=== PATIENT | female | born 1980 | race Caucasian/White ===

== ENCOUNTER 2016-03-12 19:48 | Emergency (ER) | payer OTHER ==
[~2016-03-12 19:48] MED LIST: CELEXA10 MG PO; GABAPENTIN600 MG PO; LANTUS SOL100 UNITS/; METFORMIN HCL500 MG PO; WELLBUTRIN SR150 MG PO; ZOFRAN ODT4 MG PO
--- NOTE | 2016-03-12 22:24 | ED CLINICAL REPORT ---
Clinical Report - Physicians/Mid Levels [facility] [address] [place] [address] 03/12/2016 19:48 Patient: TESFAYE POSEY Time Seen: 2102; initial patient contact, initial documentation, patient care assumed. Arrived- By private vehicle. Historian- patient. HISTORY OF PRESENT ILLNESS Chief Complaint: ABNORMAL GLUCOSE. This started just prior to arrival and is now gone. (boyfriend brought her to er because he thought her sugar was elevated, and he gave her 30 units of lantis insulin, without checking her sugar). Similar symptoms previously: Chronically, worse. Recent medical care: The patient was seen recently at this facility and another facility in the emergency department. ( seen here on 03/01 for anxiety and high sugar and at [facility] on 02/24 for anxiety). REVIEW OF SYSTEMS No fever, difficulty breathing, chest pain, abdominal pain or vomiting. No diarrhea. All systems otherwise negative, except as recorded above. PAST HISTORY See nurses notes. PAST HISTORY Hepatitis C carrier. Constipation. Flank Pain. Suicidal Ideation. ADHD - Attention Deficit Hyperactivity Disorder. Hyperglycemia. Paresthesia. Vertigo. Anxiety Reaction. Back Pain. Sprain. Dental Pain. Migraine Headache. Headache. Gastritis. Diarrhea. Lifestyle / Substance Problems. Dehydration. Vomiting. Alcohol Intoxication. UTI - Urinary Tract Infection. Immunizations. Diabetes Mellitus. Substance Abuse. Pancreatitis. Abdominal Pain. Cholecystitis. Additional Surgeries: Cholecystectomy. Hip Surgery. SOCIAL HISTORY Heavy tobacco smoker. Regular alcohol use. History of IV drug use: methamphetamines. Recently used drugs today. Under influence in ED. No recent travel. Is a local resident. FAMILY HISTORY Negative. ADDITIONAL NOTES The nursing notes have been reviewed with agreement regarding the chief complaint, HPI, ROS, PMH and patient medications and allergies. PHYSICAL EXAM Vital Signs: 03/12/2016 20:08 BP: 129/92. HR: 104. RR: 24. O2 saturation: 96%. Temp: 97.4 F. Torrez-Keenan pain scale: 8/10. Have been reviewed as normal and appear to be correct. Appearance: Alert. No acute distress. Anxious. Eyes: Pupils equal, round and reactive to light. Eyes normal inspection. Neck: Normal inspection. Neck supple. CVS: Normal heart rate and rhythm. Heart sounds normal. Pulses normal. Respiratory: No respiratory distress. Breath sounds normal. Chest nontender. Abdomen: No visible injury. Soft and nontender. Back: Normal inspection. Skin: Skin warm and dry. Normal skin color. No rash. Normal skin turgor. Extremities: Extremities exhibit normal ROM. No lower extremity edema. Neuro: Oriented X 3. No motor deficit. No sensory deficit. LABS, X-RAYS, AND EKG Bedside Tests: Glucose normal - 100 (performed at bedside). PROGRESS AND PROCEDURES Course of Care: 21:22 03/12/16. pt has long sen recommends no narcs or controlled substances be given, and frequent er visits, #23, see report for full details repeat glucose 258, pt was asleep prior to sugar check and resting comfortably. 03/12/2016 22:47 BP: 106/71. HR: 84. RR: 16. O2 saturation: 97%. Temp: 97 F. Pain level now: 0/10. Vital Signs: have been reviewed as normal and appear to be correct. Patient counseled in person regarding the patient's stable condition, test results and diagnosis. 22:24. Differential Diagnosis: Other possible considerations: substance abuse, anxiety, hypoglycemia, hyperglycemia. Above considerations are based on history, physical exam and laboratory data. Differential diagnosis was discussed with patient. Disposition: Discharged home in good and improved condition (22:24). Condition: good and stable. CLINICAL IMPRESSION Chronic substance abuse- methamphetamines with intoxication and anxiety. Normal exam upon presentation, while in the ED and at discharge. INSTRUCTIONS Warnings: GENERAL WARNINGS: Return or contact your physician immediately if your condition worsens or changes unexpectedly, if not improving as expected, or if other problems arise. Specifically return if problem worsens. Follow-up: Follow up with your doctor in about one week as needed. Call for an appointment. Summary of care provided to patient. Understanding of the discharge instructions verbalized by patient. (Electronically signed by Kandy Herron A.R.N.P. 03/12/2016 23:38)
--- NOTE | 2016-03-12 22:24 | ED CLINICAL REPORT ---
Clinical Report - Physicians/Mid Levels [facility] [address] [place] [address] 03/12/2016 19:48 Patient: TESFAYE POSEY Time Seen: 2102; initial patient contact, initial documentation, patient care assumed. Arrived- By private vehicle. Historian- patient. HISTORY OF PRESENT ILLNESS Chief Complaint: ABNORMAL GLUCOSE. This started just prior to arrival and is now gone. (boyfriend brought her to er because he thought her sugar was elevated, and he gave her 30 units of lantis insulin, without checking her sugar). Similar symptoms previously: Chronically, worse. Recent medical care: The patient was seen recently at this facility and another facility in the emergency department. ( seen here on 03/01 for anxiety and high sugar and at [facility] on 02/24 for anxiety). REVIEW OF SYSTEMS No fever, difficulty breathing, chest pain, abdominal pain or vomiting. No diarrhea. All systems otherwise negative, except as recorded above. PAST HISTORY See nurses notes. PAST HISTORY Hepatitis C carrier. Constipation. Flank Pain. Suicidal Ideation. ADHD - Attention Deficit Hyperactivity Disorder. Hyperglycemia. Paresthesia. Vertigo. Anxiety Reaction. Back Pain. Sprain. Dental Pain. Migraine Headache. Headache. Gastritis. Diarrhea. Lifestyle / Substance Problems. Dehydration. Vomiting. Alcohol Intoxication. UTI - Urinary Tract Infection. Immunizations. Diabetes Mellitus. Substance Abuse. Pancreatitis. Abdominal Pain. Cholecystitis. Additional Surgeries: Cholecystectomy. Hip Surgery. SOCIAL HISTORY Heavy tobacco smoker. Regular alcohol use. History of IV drug use: methamphetamines. Recently used drugs today. Under influence in ED. No recent travel. Is a local resident. FAMILY HISTORY Negative. ADDITIONAL NOTES The nursing notes have been reviewed with agreement regarding the chief complaint, HPI, ROS, PMH and patient medications and allergies. PHYSICAL EXAM Vital Signs: 03/12/2016 20:08 BP: 129/92. HR: 104. RR: 24. O2 saturation: 96%. Temp: 97.4 F. Torrez-Keenan pain scale: 8/10. Have been reviewed as normal and appear to be correct. Appearance: Alert. No acute distress. Anxious. Eyes: Pupils equal, round and reactive to light. Eyes normal inspection. Neck: Normal inspection. Neck supple. CVS: Normal heart rate and rhythm. Heart sounds normal. Pulses normal. Respiratory: No respiratory distress. Breath sounds normal. Chest nontender. Abdomen: No visible injury. Soft and nontender. Back: Normal inspection. Skin: Skin warm and dry. Normal skin color. No rash. Normal skin turgor. Extremities: Extremities exhibit normal ROM. No lower extremity edema. Neuro: Oriented X 3. No motor deficit. No sensory deficit. LABS, X-RAYS, AND EKG Bedside Tests: Glucose normal - 100 (performed at bedside). PROGRESS AND PROCEDURES Course of Care: 21:22 03/12/16. pt has long sen recommends no narcs or controlled substances be given, and frequent er visits, #23, see report for full details repeat glucose 258, pt was asleep prior to sugar check and resting comfortably. 03/12/2016 22:47 BP: 106/71. HR: 84. RR: 16. O2 saturation: 97%. Temp: 97 F. Pain level now: 0/10. Vital Signs: have been reviewed as normal and appear to be correct. Patient counseled in person regarding the patient's stable condition, test results and diagnosis. 22:24. Differential Diagnosis: Other possible considerations: substance abuse, anxiety, hypoglycemia, hyperglycemia. Above considerations are based on history, physical exam and laboratory data. Differential diagnosis was discussed with patient. Disposition: Discharged home in good and improved condition (22:24). Condition: good and stable. CLINICAL IMPRESSION Chronic substance abuse- methamphetamines with intoxication and anxiety. Normal exam upon presentation, while in the ED and at discharge. INSTRUCTIONS Warnings: GENERAL WARNINGS: Return or contact your physician immediately if your condition worsens or changes unexpectedly, if not improving as expected, or if other problems arise. Specifically return if problem worsens. Follow-up: Follow up with your doctor in about one week as needed. Call for an appointment. Summary of care provided to patient. Understanding of the discharge instructions verbalized by patient. (Electronically signed by Kandy Herron A.R.N.P. 03/12/2016 23:38)
--- NOTE | 2016-03-12 22:25 | ED NURSING NOTES ---
Clinical Report - Nurses [facility] [address] [place] [address] 03/12/2016 19:48 Patient: DEJA POSEY TRIAGE Triage time 20:08. Acuity: LEVEL 3. Chief Complaint: (high blood sugar (pt unsure of how high, friend states that she hides her test strips and refuses to admit that she is diabetic), blurred vision). Alert. ( BS- 100). --20:17 Zoe Martinez R.N. 20:08 03/12/16. BP: 129/92. HR: 104. RR: 24. O2 saturation: 96%. Temp: 97.4 F (oral). Torrez-Keenan pain scale: 8/10. --20:17 Zoe Martinez R.N. Weight: 48 kg stated. Height/Length: 64 inches Per Patient. BMI: 18.2. --20:12 Zoe Martinez R.N. Medications None. --22:50 Yahaira Garza R.N. Allergies Phenergan. Shellfish-derived Products. --22:49 Yahaira Garza R.N. History Arrived by private vehicle. Historian: patient. Accompanied by friend. Primary physician ([facility], [place]). This started today. Onset. (at about 1500). 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 SOCIAL HX: Heavy tobacco smoker (cigarette)- less than 1 pack per day. Occasional alcohol use. History of IV drug use: methamphetamines. --20:17 Zoe Martinez R.N. Interventions ID band on patient. To treatment room. --20:17 Zoe Martinez R.N. PHYSICAL ASSESSMENT Patient gowned. GENERAL / NEURO / PSYCH: Alert. Appears anxious. HEENT: Mucous membranes are pink. CVS: Capillary refill less than 2 seconds. SKIN: Skin is warm and dry. --20:24 Zoe Martinez R.N. NURSING PROGRESS NOTES Head of bed elevated. Two patient identifiers checked. Call light placed in reach. Side rails up x 1. Bed placed in lowest position. Brakes of bed on. --20:25 Zoe Martinez R.N. Patient ready for evaluation- chart flagged. --20:25 Zoe Martinez R.N. 20:20 03/12/2016 Site #1 started via IV in the right antecubital space with an 20g angiocath, with aseptic technique and good blood return; one attempt. Blood drawn: rainbow set. Labeled in the presence of the patient and sent to the lab. Saline lock flushed with 5 mL saline. --20:53 Yahaira Garza R.N. 21:59. Finger stick glucose: 258 mg/dL. --21:59 McQuoid, Deja, ER Tech1 22:01 03/12/16. Reassessment after intervention. Overall patient status is the same- she states feels the same. RESPIRATORY: No respiratory distress. CVS: Normal sinus rhythm noted. SKIN: Skin is warm and dry. Skin color within normal limits. --22:01 Yahaira Garza R.N. 22:45 03/12/2016 Site #1 removed upon discharge. Catheter intact. Bandaid applied. --22:47 Yahaira Garza R.N. DISPOSITION / DISCHARGE 22:48 03/12/16. Condition at departure: improved and stable. The goals identified in the patient's plan of care were met. No learning barriers present. Reviewed warnings (stop using meth). Reviewed medication(s) (resume home medications). Reviewed referral to a primary care physician for followup. Patient verbalized understanding. Written instructions provided in Occitan. The patient was discharged home and accompanied by mixer lever operator. She left the Emergency Department ambulatory and via private vehicle. Binding Cutter driving. FALL RISK ASSESSMENT: Fall risk assessment completed. No fall risk identified. --22:48 Yahaira Garza R.N. 22:47 03/12/16. BP: 106/71. HR: 84. RR: 16. O2 saturation: 97%. Temp: 97 F. Pain level now: 0/10. --22:48 Yahaira Garza R.N. Departure time: 22:48 Mar 12 2016. --22:49 Yahaira Garza R.N. Locked/Released at 03/12/2016 22:50 by Yahaira Garza R.N.
--- NOTE | 2016-03-12 22:25 | ED ORDER SUMMARY ---
..... Patient: TESFAYE POSEY OrderSheet [facility] VisitID: [id number] [address] [place] [address] 36y, F Registration Date/Time: 03/12/2016 ORDER SHEET Weight: 48.0 kg (stated) Allergies: Phenergan, Shellfish-derived Products GENERAL ORDERS: POC Glucose (21:49 03/12/2016 HBivens A.R.N.P.) (Ack 21:55 AMcQuoid ER Tech1) (21:59 AMcQuoid ER Tech1) MEDICATION ORDERS: IV FLUIDS: ORDER SHEET NOTES: [Electronically signed by Yahaira Garza R.N. (22:50 03/12/2016)] [Electronically signed by Kandy HerronR.N.PMoses (23:38 03/12/2016)] [Electronically locked/signed by Yahaira Garza R.N. (22:50 03/12/2016)]
--- NOTE | 2016-03-12 22:25 | ED NURSING NOTES ---
Clinical Report - Nurses [facility] [address] [place] [address] 03/12/2016 19:48 Patient: DEJA POSEY TRIAGE Triage time 20:08. Acuity: LEVEL 3. Chief Complaint: (high blood sugar (pt unsure of how high, friend states that she hides her test strips and refuses to admit that she is diabetic), blurred vision). Alert. ( BS- 100). --20:17 Zoe Martinez R.N. 20:08 03/12/16. BP: 129/92. HR: 104. RR: 24. O2 saturation: 96%. Temp: 97.4 F (oral). Torrez-Keenan pain scale: 8/10. --20:17 Zoe Martinez R.N. Weight: 48 kg stated. Height/Length: 64 inches Per Patient. BMI: 18.2. --20:12 Zoe Martinez R.N. Medications None. --22:50 Yahaira Garza R.N. Allergies Phenergan. Shellfish-derived Products. --22:49 Yahaira Garza R.N. History Arrived by private vehicle. Historian: patient. Accompanied by friend. Primary physician ([facility]). This started today. Onset. (at about 1500). Treatment LICENSED MIDWIFE: (insulin (30 units of lantus given at 1500)). SOCIAL HX: Heavy tobacco smoker (cigarette)- less than 1 pack per day. Occasional alcohol use. History of IV drug use: methamphetamines. --20:17 Zoe Martinez R.N. Interventions ID band on patient. To treatment room. --20:17 Zoe Martinez R.N. PHYSICAL ASSESSMENT Patient gowned. GENERAL / NEURO / PSYCH: Alert. Appears anxious. HEENT: Mucous membranes are pink. CVS: Capillary refill less than 2 seconds. SKIN: Skin is warm and dry. --20:24 Zoe Martinez R.N. NURSING PROGRESS NOTES Head of bed elevated. Two patient identifiers checked. Call light placed in reach. Side rails up x 1. Bed placed in lowest position. Brakes of bed on. --20:25 Zoe Martinez R.N. Patient ready for evaluation- chart flagged. --20:25 Zoe Martinez R.N. 20:20 03/12/2016 Site #1 started via IV in the right antecubital space with an 20g angiocath, with aseptic technique and good blood return; one attempt. Blood drawn: rainbow set. Labeled in the presence of the patient and sent to the lab. Saline lock flushed with 5 mL saline. --20:53 Yahaira Garza R.N. 21:59. Finger stick glucose: 258 mg/dL. --21:59 McQuoid, Deja, ER Tech1 22:01 03/12/16. Reassessment after intervention. Overall patient status is the same- she states feels the same. RESPIRATORY: No respiratory distress. CVS: Normal sinus rhythm noted. SKIN: Skin is warm and dry. Skin color within normal limits. --22:01 Yahaira Garza R.N. 22:45 03/12/2016 Site #1 removed upon discharge. Catheter intact. Bandaid applied. --22:47 Yahaira Garza R.N. DISPOSITION / DISCHARGE 22:48 03/12/16. Condition at departure: improved and stable. The goals identified in the patient's plan of care were met. No learning barriers present. Reviewed warnings (stop using meth). Reviewed medication(s) (resume home medications). Reviewed referral to a primary care physician for followup. Patient verbalized understanding. Written instructions provided in Hungarian. The patient was discharged home and accompanied by youth coordinator. She left the Emergency Department ambulatory and via private vehicle. Blocking Machine Operator driving. FALL RISK ASSESSMENT: Fall risk assessment completed. No fall risk identified. --22:48 Yahaira Garza R.N. 22:47 03/12/16. BP: 106/71. HR: 84. RR: 16. O2 saturation: 97%. Temp: 97 F. Pain level now: 0/10. --22:48 Yahaira Garza R.N. Departure time: 22:48 Mar 12 2016. --22:49 Yahaira Garza R.N. Locked/Released at 03/12/2016 22:50 by Yahaira Garza R.N.
--- NOTE | 2016-03-12 22:25 | ED ORDER SUMMARY ---
..... Patient: TESFAYE POSEY OrderSheet [facility] VisitID: [id number] [address] [place] [address] 36y, F Registration Date/Time: 03/12/2016 ORDER SHEET Weight: 48.0 kg (stated) Allergies: Phenergan, Shellfish-derived Products GENERAL ORDERS: POC Glucose (21:49 03/12/2016 HBivens A.R.N.P.) (Ack 21:55 AMcQuoid ER Tech1) (21:59 AMcQuoid ER Tech1) MEDICATION ORDERS: IV FLUIDS: ORDER SHEET NOTES: [Electronically signed by Yahaira Garza R.N. (22:50 03/12/2016)] [Electronically signed by Kandy HerronR.N.PMoses (23:38 03/12/2016)] [Electronically locked/signed by Yahaira Garza R.N. (22:50 03/12/2016)]
--- NOTE | 2016-03-12 23:38 | ED MAR SUMMARY ---
..... Medication Administration Record [place] [address] [place] [id number] Patient: TESFAYE POSEY Visit ID: [id number] 36y, F Weight: 48.0 kg Height/Length: 64 in BMI: 18.2 ALLERGIES: Phenergan, Shellfish-derived Products
--- NOTE | 2016-03-12 23:38 | ED MED RECONCILIATION SUMMARY ---
Patient: TESFAYE POSEY Medication Reconciliation Report [facility] VisitID: [id number] [place] [address] 36y, F Registration Date/Time: 03/12/2016 Weight: 48.0 kg Height/Length: 64 in. BMI: 18.2 ALLERGIES: Phenergan, Shellfish-derived Products The patient's Home Medications are listed below: NONE. The source(s) of the original Home Medication information: Not obtained. The following Medications were given to the patient in the Emergency Department: None. The following Medications were prescribed to the patient: None.
--- NOTE | 2016-03-12 23:38 | ED DISCHARGE INSTRUCTIONS ---
Patient: TESFAYE POSEY General Instructions [facility] VisitID: [id number] [place] [address] 36y, F Registration Date/Time: 03/12/2016 Chronic substance abuse- methamphetamines with intoxication and anxiety. Normal exam upon presentation, while in the ED and at discharge. INSTRUCTIONS Warnings: GENERAL WARNINGS: Return or contact your physician immediately if your condition worsens or changes unexpectedly, if not improving as expected, or if other problems arise. Specifically return if problem worsens. Follow-up: Follow up with your doctor in about one week as needed. Call for an appointment. Summary of care provided to patient. Understanding of the discharge instructions verbalized by patient. ADDITIONAL INFORMATION Normal Exam [6Yr - Adult] Based on your or your child's exam today, there are no signs of illness or injury. Be assured that the symptoms that worried you are normal. They do not suggest any illness requiring testing or treatment at this time. Home Care: You (or your child) can return to normal activities and diet. If you or your child have new or unusual symptoms not already discussed today, contact the doctor. Follow Up with the doctor for the next routine appointment. For more information: For childrens health information: www.kidshealth.org For adult health information: www.[facility].org Drug Abuse Use and abuse of such drugs as marijuana, amphetamines (speed, crank), cocaine, heroin or prescription pain medicines (Vicodin, codeine), sedatives and sleeping pills (Valium, Klonopin), PCP, mescaline and LSD may lead to addiction or dependence. Once this occurs, you are at greater risk for any of the following: Craving for the drug and unable to stop using the drug even though you think you want to stop (psychological dependence) Drug withdrawal symptoms if you stop taking the drug (physical dependence) Loss of your job or your family Arrest, conviction and fpc sentence for possession of an illegal substance or for driving under the influence of such a substance Accidental injuries to yourself or others while you are under the influence of the drug (in a car or at home). HIV infection (much greater risk if you use IV drugs) Other sexually transmitted diseases (herpes, chlamydia, gonorrhea and others) Severe and fatal infection of the heart valves (if you use IV drugs) Stroke, heart attack, hepatitis B or C, kidney failure from overdose Home Care: Admit you have a drug problem. Ask for help from your family and close friends. Seek professional help. This could be in the form of individual psychotherapy or counseling or an outpatient, inpatient, or residential drug treatment program. Join a self-help group for drug abuse. Avoid friends who abuse drugs themselves or tempt you to continue abusing drugs. Eat a balanced diet and begin a regular exercise program. Follow Up with your doctor or as advised by our staff. Contact one of the resources below for help. National [place] on Alcoholism and Drug Dependence www.ncadd.org 786-709-WAZS Narcotics Anonymous www.na.org 098-739-8343 National Alcohol and Substance Abuse Information Center (for referral to treatment programs) www.addictionHelpmycash 353-149-0289 Get Prompt Medical Attention if any of the following occur: Agitation, anxiety, unable to sleep Unintended weight loss (more than 10 to 15 pounds over 3 months) Seizure Chest pain Fever of 100.4F (38C) or higher, or as directed by your healthcare provider Excess drowsiness or inability to be awakened Shortness of breath Slow breathing under 8 breaths per minute Cough with colored sputum Redness, swelling or tenderness at an injection site You have been given the following additional information: Normal Exam, (Child) (Adult) Drug Abuse (Electronically signed by Kandy Herron A.R.N.P. 03/12/2016 23:38)
--- NOTE | 2016-03-12 23:38 | ED MAR SUMMARY ---
..... Medication Administration Record [place] [address] [place] [id number] Patient: TESFAYE POSEY Visit ID: [id number] 36y, F Weight: 48.0 kg Height/Length: 64 in BMI: 18.2 ALLERGIES: Phenergan, Shellfish-derived Products
--- NOTE | 2016-03-12 23:38 | ED DISCHARGE INSTRUCTIONS ---
Patient: TESFAYE POSEY General Instructions [facility] VisitID: [id number] [place] [address] 36y, F Registration Date/Time: 03/12/2016 Chronic substance abuse- methamphetamines with intoxication and anxiety. Normal exam upon presentation, while in the ED and at discharge. INSTRUCTIONS Warnings: GENERAL WARNINGS: Return or contact your physician immediately if your condition worsens or changes unexpectedly, if not improving as expected, or if other problems arise. Specifically return if problem worsens. Follow-up: Follow up with your doctor in about one week as needed. Call for an appointment. Summary of care provided to patient. Understanding of the discharge instructions verbalized by patient. ADDITIONAL INFORMATION Normal Exam [6Yr - Adult] Based on your or your child's exam today, there are no signs of illness or injury. Be assured that the symptoms that worried you are normal. They do not suggest any illness requiring testing or treatment at this time. Home Care: You (or your child) can return to normal activities and diet. If you or your child have new or unusual symptoms not already discussed today, contact the doctor. Follow Up with the doctor for the next routine appointment. For more information: For childrens health information: www.kidshealth.org For adult health information: www.[facility].org Drug Abuse Use and abuse of such drugs as marijuana, amphetamines (speed, crank), cocaine, heroin or prescription pain medicines (Vicodin, codeine), sedatives and sleeping pills (Valium, Klonopin), PCP, mescaline and LSD may lead to addiction or dependence. Once this occurs, you are at greater risk for any of the following: Craving for the drug and unable to stop using the drug even though you think you want to stop (psychological dependence) Drug withdrawal symptoms if you stop taking the drug (physical dependence) Loss of your job or your family Arrest, conviction and residential sentence for possession of an illegal substance or for driving under the influence of such a substance Accidental injuries to yourself or others while you are under the influence of the drug (in a car or at home). HIV infection (much greater risk if you use IV drugs) Other sexually transmitted diseases (herpes, chlamydia, gonorrhea and others) Severe and fatal infection of the heart valves (if you use IV drugs) Stroke, heart attack, hepatitis B or C, kidney failure from overdose Home Care: Admit you have a drug problem. Ask for help from your family and close friends. Seek professional help. This could be in the form of individual psychotherapy or counseling or an outpatient, inpatient, or residential drug treatment program. Join a self-help group for drug abuse. Avoid friends who abuse drugs themselves or tempt you to continue abusing drugs. Eat a balanced diet and begin a regular exercise program. Follow Up with your doctor or as advised by our staff. Contact one of the resources below for help. National [place] on Alcoholism and Drug Dependence www.ncadd.org 790-596-CEOR Narcotics Anonymous www.na.org 914-193-4359 National Alcohol and Substance Abuse Information Center (for referral to treatment programs) www.addictionGoGarden 988-122-8667 Get Prompt Medical Attention if any of the following occur: Agitation, anxiety, unable to sleep Unintended weight loss (more than 10 to 15 pounds over 3 months) Seizure Chest pain Fever of 100.4F (38C) or higher, or as directed by your healthcare provider Excess drowsiness or inability to be awakened Shortness of breath Slow breathing under 8 breaths per minute Cough with colored sputum Redness, swelling or tenderness at an injection site You have been given the following additional information: Normal Exam, (Child) (Adult) Drug Abuse (Electronically signed by Kandy Herron A.R.N.P. 03/12/2016 23:38)
--- NOTE | 2016-03-12 23:38 | ED MED RECONCILIATION SUMMARY ---
Patient: TESFAYE POSEY Medication Reconciliation Report [facility] VisitID: [id number] [place] [address] 36y, F Registration Date/Time: 03/12/2016 Weight: 48.0 kg Height/Length: 64 in. BMI: 18.2 ALLERGIES: Phenergan, Shellfish-derived Products The patient's Home Medications are listed below: NONE. The source(s) of the original Home Medication information: Not obtained. The following Medications were given to the patient in the Emergency Department: None. The following Medications were prescribed to the patient: None.
== END 2016-03-12 22:50 | disposition home or self-care (01) ==
LOC: ED SRH 19:48
DX: F15.129 Other stimulant abuse with intoxication, unspecified (principal); F41.9 Anxiety disorder, unspecified; E11.9 Type 2 diabetes mellitus without complications; F90.9 Attention-deficit hyperactivity disorder, unspecified type; Z91.013 Allergy to seafood; Z88.8 Allergy status to other drugs, medicaments and biological substances
CPT/HCPCS: 90098

== ENCOUNTER 2016-03-15 10:31 | Inpatient (IN) | payer OTHER ==
--- NOTE | 2016-03-15 15:15 | ED CLINICAL REPORT ---
Clinical Report - Physicians/Mid Levels [facility] [address] [place] [address] 03/15/2016 10:30 Patient: TESFAYE POSEY Time Seen: 10:57. Arrived- By private vehicle. Historian- patient. History limited by vague historian. Physical Exam limited by poor cooperation. HISTORY OF PRESENT ILLNESS Chief Complaint: LESION. This started about 1 week ago and is still present and now worse. It was gradual in onset and has been constant. It is described as severely painful. It has been located on the left cheek, lips and perioral area. No cause has been identified. REVIEW OF SYSTEMS Unobtainable due to patient's uncooperativeness. PAST HISTORY Medications: None. Allergies: Phenergan. Shellfish-derived Products. SOCIAL HISTORY Current some days smoker (cigarette). History of drug use: cocaine, heroin, methamphetamines. FAMILY HISTORY Denies family medical history. ADDITIONAL NOTES The nursing notes have been reviewed. PHYSICAL EXAM Vital Signs: 03/15/2016 10:43 BP: 137/76. HR: 106. RR: 18. O2 saturation: 99%. Temp: 98.6 F. Have been reviewed. Appearance: Alert. Eyes: Pupils equal, round and reactive to light. ENT: Pharynx normal. Neck: Neck supple. CVS: Normal heart rate and rhythm. Heart sounds normal. Respiratory: No respiratory distress. Breath sounds normal. Abdomen: Nontender. No organomegaly. Skin: Medium abscess with fluctuance and cellulitis to the face. Extremities: Extremities nontender. No calf tenderness. Neuro: Moderately altered mental status: labile. LABS, X-RAYS, AND EKG Laboratory Tests: UA-Culture if indicated: (JARAD: 03/15/2016 13:11) ( MsgRcvd 03/15/2016 13:40) Final results Test Result Flag Units (Reference) URINE COLOR YELLOW URINE APPEARANCE CLEAR URINE GLUCOSE 3+ (NEGATIVE) URINE BILIRUBIN NEGATIVE (NEGATIVE) URINE KETONE TRACE (NEGATIVE) URINE SPECIFIC GRAVITY 1.010 (1.010-1.030) URINE PH 6.5 (5.0-8.0) URINE PROTEIN NEGATIVE (NEGATIVE) URINE UROBILINOGEN 0.2 EU/dL (0.2-1.0) URINE NITRITE NEGATIVE (NEGATIVE) URINE BLOOD 3+ (NEGATIVE) URINE LEUK ESTERASE NEGATIVE (NEGATIVE) URINE RBC 25-50 rbc/hpf (0-1) URINE WBC 1-3 wbc/hpf (0-1) URINE EPITHELIAL CELLS NONE SEEN EPI/hpf (0-5) URINE BACTERIA NONE SEEN (NONE SEEN) URINE COMMENT CULT NOT INDICATED URINE CULTURES ARE SET-UP BASED ON THE FOLLOWING CRITERIA:POSITIVE NITRITEPOSITIVE LEUKOCYTE ESTERASEGREATER THAN 10 WHITE BLOOD CELLSMODERATE (2+) OR GREATER BACTERIA Urine: (JARAD: 03/15/2016 13:11) ( [facility] 03/15/2016 13:30) Final results Test Result Flag Units (Reference) URINE NEGATIVE CBC w Diff: (JARAD: 03/15/2016 12:40) ( [facility] 03/15/2016 12:51) Final results Test Result Flag Units (Reference) WHITE BLOOD COUNT 13.4 H K/uL (4.5-11.5) RED BLOOD COUNT 4.20 M/uL (4.00-5.20) HEMOGLOBIN 12.2 gm/dL (12.0-16.0) HEMATOCRIT 37.1 % (36.0-46.0) MEAN CELL VOLUME 88 fL (80-100) MEAN CORPUSCULAR HGB 29 pg (26-34) MEAN CORPUSCULAR HGB CONC 33 g/dL (31-37) RED CELL DISTRIBUTION WIDTH 13.5 % (11.6-14.8) PLATELET COUNT 263 K/uL (150-400) NEUTROPHIL % 69.9 % (50-75) LYMPH % 21.6 L % (25-40) MONO % 7.8 % (3-14) EOSINOPHIL % 0.5 % (0-4) BASOPHIL % 0.2 % (0-2) PT with INR: (JARAD: 03/15/2016 12:40) ( [facility] 03/15/2016 12:59) Final results Test Result Flag Units (Reference) INR 1.0 (0.8-1.2) Low Intensity Therapy: INR 1.5-2.0 PT range 18.5-23.1Mod.Intensity Therapy: INR 2.0-3.0 PT range 23.1-31.5High Intensity Therapy: INR 2.5-3.5 PT range 27.4-35.5High Intensity Therapy 2: INR 3.0-4.0 PT range 31.5-39.3 APTT 26 SECONDS (24-34) Acetone, Serum: (JARAD: 03/15/2016 12:40) ( [facility] 03/15/2016 13:04) Final results Test Result Flag Units (Reference) ACETONE, SERUM QUALITATIVE NEGATIVE (NEGATIVE) Urine Drug Screen: (JARAD: 03/15/2016 13:11) ( [facility] 03/15/2016 14:01) Final results Test Result Flag Units (Reference) AMPHETAMINE/METHAMPHETAMINE POSITIVE H (NEGATIVE) BARBITURATE NEGATIVE (NEGATIVE) BENZODIAZEPINE NEGATIVE (NEGATIVE) CANNABINOID NEGATIVE (NEGATIVE) COCAINE NEGATIVE (NEGATIVE) ECSTASY NEGATIVE (NEGATIVE) METHADONE NEGATIVE (NEGATIVE) OPIATE NEGATIVE (NEGATIVE) The urine drug screen is a qualitative screening test fordrug overdose and abuse. All screen results should beconsidered as presumptive.Drugs screened for are as follows:BenzodiazepinesCocaineAmphetamines/MetamphetaminesTHC (Tetrahydrocannabinol)OpiatesBarbituratesEcstasyMethadonePositive results are unconfirmed. For confirmation, notifythe lab for the specimen to be sent to the reference lab.All confirmations must be performed by a differentmethodology.The ingestion of natural herbal and plant productscontaining Ephedra/Ephedra metabolites can produce in urineone or more substances capable of cross reacting withamphetamine/methamphetamine immunoassays. These testsprovide a preliminary result only. A more specificalternative chemical method must be used to obtain aconfirmed analytical result. Lactate, Serum: (JARAD: 03/15/2016 13:50) ( MsgRcvd 03/15/2016 14:50) Final results Test Result Flag Units (Reference) LACTIC ACID 1.3 mmol/L (0.4-2.0) CMP: (JARAD: 03/15/2016 12:40) ( MsgRcvd 03/15/2016 13:23) Final results Test Result Flag Units (Reference) GLUCOSE 566 *H mg/dL (70-110) CRITICAL RESULTS CALLEDCalled to DERIAN AUGUSTIN RN 03/15/16 1321Were 2 patient identifiers used? YWas the result read back? Y BUN 13 mg/dL (7-18) CREATININE 0.7 mg/dL (0.6-1.3) Estimated GFR >60 mL/min Estimated GFR- >60 mL/min Note: Persistent reduction over 3 months in eGFR<60 mL/min/1.73 m2 defines CKD. Patients with eGFR values>=60 mL/min/1.73 m2 may also have CKD if evidence ofpersistent proteinuria. Additional information may be foundat www.kidney.org. SODIUM 134 L mmol/L (136-145) POTASSIUM 4.1 mmol/L (3.5-5.1) CHLORIDE 100 mmol/L (98-107) CARBON DIOXIDE 23 mmol/L (21-32) CALCIUM 8.7 mg/dL (8.5-10.1) TOTAL PROTEIN 7.2 g/dL (6.4-8.2) ALBUMIN 3.3 g/dL (3.3-5.0) BILIRUBIN, TOTAL 0.7 mg/dL (0.0-1.0) ALKALINE PHOSPHATASE 131 H U/L (46-116) AST (SGOT) 63 H U/L (15-37) ALT (SGPT) 118 H U/L (12-78) LIPASE 71 L U/L (73-393) AMYLASE 13 L U/L (25-115) ABG: (JARAD: 03/15/2016 11:56) ( MsgRcvd 03/15/2016 13:23) Final results Test Result Flag Units (Reference) FIO2 21 % (20-101) ABG MODE OF DELIVERY RA MODIFIED RYAN TEST POSITIVE? YES ARTERIAL BLOOD GAS SITE RR ARTERIAL BLOOD GAS pH 7.48 H (7.35-7.45) ABG PCO2 29.0 L mmHg (35-45) ABG PO2 105.0 H mmHg (80.0-100.0) ABG BASE EXCESS -1.4 H mmol/L (-6.0--6.0) ABG HCO3 21.7 mmol/L (20.0-26.0) ABG TCO2 22.6 L mmol/L (24.0-30.0) ABG LaIgA3e 11.2 mmHg (7.0-14.0) *NOTE: Normal rangeis based on aFIO2 of 21% ABG SAT O2 98.9 % (95.1-100.0) ABG TOTAL HEMOGLOBIN 12.0 g/dL (12.0-16.0) ABG O2 HEMOGLOBIN 97.3 % (95.0-100.0) ABG CARBOXYHEMOGLOBIN 1.1 % (0.5-1.5) ABG METHEMOGLOBIN 0.5 % (0.4-1.5) ABG RHEMOGLOBIN 1.1 % . PROGRESS AND PROCEDURES Central Line Placement: A standardized protocol was used for insertion. Time-out completed immediately before the procedure. The risks of the procedure, benefits and alternatives were explained. Consent was obtained. Hand hygiene observed, sterile barrier precautions adhered to (cap, mask, gown, gloves and large sterile sheet) and chlorhexidine skin antisepsis used. Local anesthetic infiltrated .18g triple lumen central line placed using Seldinger technique. The patient was clinically stable following the procedure. ( Placement was not successful. However, Blood was obtained for testing). Course of Care: Multiple attempts were made by nursing staff to place an IV. These were unsuccessful. Therefore I attempted to place a left femoral triple lumen central line. I gained access and was able to obtain blood samples. However, I was not able to advance the catheter fully And it appeared to be infiltrating so I removed and maintained pressure over the site. Discussed case with hospitalist, (Hitesh). Reviewed test results and need for additional work-up. Agreed upon treatment plan, need for patient follow-up and decision to admit. Health care provider will see patient in hospital. Consult obtained from surgery. Jalil. Will see patient in the hospital. Patient/family counseled. Old medical records reviewed. Disposition: Admitted. CLINICAL IMPRESSION Diabetes with hyperglycemia. Abscess to the face. (Electronically signed by Onel Juares MD 03/17/2016 15:50)
--- NOTE | 2016-03-15 15:15 | ED ORDER SUMMARY ---
..... Patient: TESFAYE POSEY OrderSheet [facility] VisitID: [id number] [place] [address] 36y, F Registration Date/Time: 03/15/2016 ORDER SHEET Weight: 56.6 kg (stated) Allergies: Phenergan, Shellfish-derived Products GENERAL ORDERS: Blood Culture (No) (N/A) Urgent (11:55 03/15/2016 J Carlos CORTEZ) (Ack 12:09 LTapper) (13:27 JSimbeck R.N.) CBC w Diff Urgent (11:56 03/15/2016 J Carlos CORTEZ) (Ack 12:09 LTapper) (13:27 JSimbeck R.N.) CMP Urgent (11:56 03/15/2016 J Carlos CORTEZ) (Ack 12:09 LTapper) (13:27 JSimbeck R.N.) UA-Culture if indicated Urgent (11:56 03/15/2016 J Carlos CORTEZ) (Ack 12:09 LTapper) (13:27 JSimbeck R.N.) PT with INR Urgent (11:56 03/15/2016 J Carlos CORTEZ) (Ack 12:09 LTapper) (13:27 JSimbeck R.N.) PTT Urgent (11:56 03/15/2016 J Carlos CORTEZ) (Ack 12:09 LTapper) (13:27 JSimbeck R.N.) Amylase Urgent (11:03/15/2016 J Carlos CORTEZ) (Ack 12:09 LTapper) (13:27 JSimbeck R.N.) Lipase Urgent (11:56 03/15/2016 J Carlos CORTEZ) (Ack 12:09 LTapper) (13:27 JSimbeck R.N.) Lactate, Serum Urgent (11:56 03/15/2016 J Carlos CORTEZ) (Ack 12:09 LTapper) (15:39 LWhalen R.N.) Urine Urgent (11:56 03/15/2016 J Carlos CORTEZ) (Ack 12:09 LTapper) (13:27 JSimbeck R.N.) Urine Drug Screen Urgent (11:56 03/15/2016 J Carlos CORTEZ) (Ack 12:09 LTapper) (13:27 Jasieleck R.N.) ABG (G) Urgent (11:56 03/15/2016 J Carlos CORTEZ) (Ack 12:09 LTapper) (13:27 JSimbeck R.N.) Acetone, Serum Urgent (11:56 03/15/2016 J Carlos CORTEZ) (Ack 12:09 LTapper) (13:27 JSimbeck R.N.) POC Glucose (Q30 minutes) (13:22 03/15/2016 J Carlos CORTEZ) (13:46 JSimbeck R.N.) Lactate, Serum Urgent (13:23 03/15/2016 J Carlos CORTEZ) (Ack 13:32 LTapper) (13:58 JSimbeck R.N.) MEDICATION ORDERS: IV FLUIDS: IV NS : initial bolus 1000 mL (1000 mL/hr), then 150 mL/hr for 4h (NOW); Urgent (11:55 03/15/2016 J Carlos CORTEZ) (13:15 BRIANimbeck R.N.) Versed IV 2 mg (NOW) (13:18 03/15/2016 Jasieleck R.N. verbal order read back to J Carlos CORTEZ) (13:20 BRIANimbeck R.N.) Give this dose IM Dilaudid IV 0.5 mg (NOW) (13:20 03/15/2016 Jasieleck R.N. verbal order read back to J Carlos CORTEZ) (13:21 BRIANimbeck R.N.) Insulin Reg IV 6 units (NOW) (13:23 03/15/2016 J Carlos CORTEZ) (13:34 BRIANimbeck R.N.) Dilaudid IV 0.5 mg (NOW) (14:20 03/15/2016 Jasieleck R.N. verbal order read back to J Carlos CORTEZ) (14:20 Jasieleck R.N.) Vancomycin IV 1.5 gm/500 mL (NOW) (15:08 03/15/2016 J Carlos CORTEZ) (15:47 STORMhalemely R.N.) Versed IV 1 mg (HIGH ALERT MEDICATION, NOW) (15:48 03/15/2016 [place] R.N. verbal order read back to J Carlos CORTEZ) (15:50 [place] Choi) Ativan IV 0.5 mg (NOW) (16:41 03/15/2016 Fatuma Choi verbal order read back to J Carlos CORTEZ) (16:41 Fatuma Choi) ORDER SHEET NOTES: [Electronically signed by Gabriel Davis R.N. (19:24 03/16/2016)] [Electronically signed by Onel Juares MD (15:50 03/17/2016)] [Electronically locked/signed by Gabriel Davis R.N. (19:24 03/16/2016)]
--- NOTE | 2016-03-15 15:15 | ED CLINICAL REPORT ---
Clinical Report - Physicians/Mid Levels [facility] [address] [place] [address] 03/15/2016 10:30 Patient: TESFAYE POSEY Time Seen: 10:57. Arrived- By private vehicle. Historian- patient. History limited by vague historian. Physical Exam limited by poor cooperation. HISTORY OF PRESENT ILLNESS Chief Complaint: LESION. This started about 1 week ago and is still present and now worse. It was gradual in onset and has been constant. It is described as severely painful. It has been located on the left cheek, lips and perioral area. No cause has been identified. REVIEW OF SYSTEMS Unobtainable due to patient's uncooperativeness. PAST HISTORY Medications: None. Allergies: Phenergan. Shellfish-derived Products. SOCIAL HISTORY Current some days smoker (cigarette). History of drug use: cocaine, heroin, methamphetamines. FAMILY HISTORY Denies family medical history. ADDITIONAL NOTES The nursing notes have been reviewed. PHYSICAL EXAM Vital Signs: 03/15/2016 10:43 BP: 137/76. HR: 106. RR: 18. O2 saturation: 99%. Temp: 98.6 F. Have been reviewed. Appearance: Alert. Eyes: Pupils equal, round and reactive to light. ENT: Pharynx normal. Neck: Neck supple. CVS: Normal heart rate and rhythm. Heart sounds normal. Respiratory: No respiratory distress. Breath sounds normal. Abdomen: Nontender. No organomegaly. Skin: Medium abscess with fluctuance and cellulitis to the face. Extremities: Extremities nontender. No calf tenderness. Neuro: Moderately altered mental status: labile. LABS, X-RAYS, AND EKG Laboratory Tests: UA-Culture if indicated: (JARAD: 03/15/2016 13:11) ( MsgRcvd 03/15/2016 13:40) Final results Test Result Flag Units (Reference) URINE COLOR YELLOW URINE APPEARANCE CLEAR URINE GLUCOSE 3+ (NEGATIVE) URINE BILIRUBIN NEGATIVE (NEGATIVE) URINE KETONE TRACE (NEGATIVE) URINE SPECIFIC GRAVITY 1.010 (1.010-1.030) URINE PH 6.5 (5.0-8.0) URINE PROTEIN NEGATIVE (NEGATIVE) URINE UROBILINOGEN 0.2 EU/dL (0.2-1.0) URINE NITRITE NEGATIVE (NEGATIVE) URINE BLOOD 3+ (NEGATIVE) URINE LEUK ESTERASE NEGATIVE (NEGATIVE) URINE RBC 25-50 rbc/hpf (0-1) URINE WBC 1-3 wbc/hpf (0-1) URINE EPITHELIAL CELLS NONE SEEN EPI/hpf (0-5) URINE BACTERIA NONE SEEN (NONE SEEN) URINE COMMENT CULT NOT INDICATED URINE CULTURES ARE SET-UP BASED ON THE FOLLOWING CRITERIA:POSITIVE NITRITEPOSITIVE LEUKOCYTE ESTERASEGREATER THAN 10 WHITE BLOOD CELLSMODERATE (2+) OR GREATER BACTERIA Urine: (JARAD: 03/15/2016 13:11) ( [facility]/15/2016 13:30) Final results Test Result Flag Units (Reference) URINE NEGATIVE CBC w Diff: (JARAD: 03/15/2016 12:40) ( [facility] 03/15/2016 12:51) Final results Test Result Flag Units (Reference) WHITE BLOOD COUNT 13.4 H K/uL (4.5-11.5) RED BLOOD COUNT 4.20 M/uL (4.00-5.20) HEMOGLOBIN 12.2 gm/dL (12.0-16.0) HEMATOCRIT 37.1 % (36.0-46.0) MEAN CELL VOLUME 88 fL (80-100) MEAN CORPUSCULAR HGB 29 pg (26-34) MEAN CORPUSCULAR HGB CONC 33 g/dL (31-37) RED CELL DISTRIBUTION WIDTH 13.5 % (11.6-14.8) PLATELET COUNT 263 K/uL (150-400) NEUTROPHIL % 69.9 % (50-75) LYMPH % 21.6 L % (25-40) MONO % 7.8 % (3-14) EOSINOPHIL % 0.5 % (0-4) BASOPHIL % 0.2 % (0-2) PT with INR: (JARAD: 03/15/2016 12:40) ( [facility] 03/15/2016 12:59) Final results Test Result Flag Units (Reference) INR 1.0 (0.8-1.2) Low Intensity Therapy: INR 1.5-2.0 PT range 18.5-23.1Mod.Intensity Therapy: INR 2.0-3.0 PT range 23.1-31.5High Intensity Therapy: INR 2.5-3.5 PT range 27.4-35.5High Intensity Therapy 2: INR 3.0-4.0 PT range 31.5-39.3 APTT 26 SECONDS (24-34) Acetone, Serum: (JARAD: 03/15/2016 12:40) ( [facility] 03/15/2016 13:04) Final results Test Result Flag Units (Reference) ACETONE, SERUM QUALITATIVE NEGATIVE (NEGATIVE) Urine Drug Screen: (JARAD: 03/15/2016 13:11) ( [facility] 03/15/2016 14:01) Final results Test Result Flag Units (Reference) AMPHETAMINE/METHAMPHETAMINE POSITIVE H (NEGATIVE) BARBITURATE NEGATIVE (NEGATIVE) BENZODIAZEPINE NEGATIVE (NEGATIVE) CANNABINOID NEGATIVE (NEGATIVE) COCAINE NEGATIVE (NEGATIVE) ECSTASY NEGATIVE (NEGATIVE) METHADONE NEGATIVE (NEGATIVE) OPIATE NEGATIVE (NEGATIVE) The urine drug screen is a qualitative screening test fordrug overdose and abuse. All screen results should beconsidered as presumptive.Drugs screened for are as follows:BenzodiazepinesCocaineAmphetamines/MetamphetaminesTHC (Tetrahydrocannabinol)OpiatesBarbituratesEcstasyMethadonePositive results are unconfirmed. For confirmation, notifythe lab for the specimen to be sent to the reference lab.All confirmations must be performed by a differentmethodology.The ingestion of natural herbal and plant productscontaining Ephedra/Ephedra metabolites can produce in urineone or more substances capable of cross reacting withamphetamine/methamphetamine immunoassays. These testsprovide a preliminary result only. A more specificalternative chemical method must be used to obtain aconfirmed analytical result. Lactate, Serum: (JARAD: 03/15/2016 13:50) ( MsgRcvd 03/15/2016 14:50) Final results Test Result Flag Units (Reference) LACTIC ACID 1.3 mmol/L (0.4-2.0) CMP: (JARAD: 03/15/2016 12:40) ( MsgRcvd 03/15/2016 13:23) Final results Test Result Flag Units (Reference) GLUCOSE 566 *H mg/dL (70-110) CRITICAL RESULTS CALLEDCalled to DERIAN AUGUSTIN RN 03/15/16 1321Were 2 patient identifiers used? YWas the result read back? Y BUN 13 mg/dL (7-18) CREATININE 0.7 mg/dL (0.6-1.3) Estimated GFR >60 mL/min Estimated GFR- >60 mL/min Note: Persistent reduction over 3 months in eGFR<60 mL/min/1.73 m2 defines CKD. Patients with eGFR values>=60 mL/min/1.73 m2 may also have CKD if evidence ofpersistent proteinuria. Additional information may be foundat www.kidney.org. SODIUM 134 L mmol/L (136-145) POTASSIUM 4.1 mmol/L (3.5-5.1) CHLORIDE 100 mmol/L (98-107) CARBON DIOXIDE 23 mmol/L (21-32) CALCIUM 8.7 mg/dL (8.5-10.1) TOTAL PROTEIN 7.2 g/dL (6.4-8.2) ALBUMIN 3.3 g/dL (3.3-5.0) BILIRUBIN, TOTAL 0.7 mg/dL (0.0-1.0) ALKALINE PHOSPHATASE 131 H U/L (46-116) AST (SGOT) 63 H U/L (15-37) ALT (SGPT) 118 H U/L (12-78) LIPASE 71 L U/L (73-393) AMYLASE 13 L U/L (25-115) ABG: (JARAD: 03/15/2016 11:56) ( MsgRcvd 03/15/2016 13:23) Final results Test Result Flag Units (Reference) FIO2 21 % (20-101) ABG MODE OF DELIVERY RA MODIFIED RYAN TEST POSITIVE? YES ARTERIAL BLOOD GAS SITE RR ARTERIAL BLOOD GAS pH 7.48 H (7.35-7.45) ABG PCO2 29.0 L mmHg (35-45) ABG PO2 105.0 H mmHg (80.0-100.0) ABG BASE EXCESS -1.4 H mmol/L (-6.0--6.0) ABG HCO3 21.7 mmol/L (20.0-26.0) ABG TCO2 22.6 L mmol/L (24.0-30.0) ABG [id number] 11.2 mmHg (7.0-14.0) *NOTE: Normal rangeis based on aFIO2 of 21% ABG SAT O2 98.9 % (95.1-100.0) ABG TOTAL HEMOGLOBIN 12.0 g/dL (12.0-16.0) ABG O2 HEMOGLOBIN 97.3 % (95.0-100.0) ABG CARBOXYHEMOGLOBIN 1.1 % (0.5-1.5) ABG METHEMOGLOBIN 0.5 % (0.4-1.5) ABG RHEMOGLOBIN 1.1 % . PROGRESS AND PROCEDURES Central Line Placement: A standardized protocol was used for insertion. Time-out completed immediately before the procedure. The risks of the procedure, benefits and alternatives were explained. Consent was obtained. Hand hygiene observed, sterile barrier precautions adhered to (cap, mask, gown, gloves and large sterile sheet) and chlorhexidine skin antisepsis used. Local anesthetic infiltrated .18g triple lumen central line placed using Seldinger technique. The patient was clinically stable following the procedure. ( Placement was not successful. However, Blood was obtained for testing). Course of Care: Multiple attempts were made by nursing staff to place an IV. These were unsuccessful. Therefore I attempted to place a left femoral triple lumen central line. I gained access and was able to obtain blood samples. However, I was not able to advance the catheter fully And it appeared to be infiltrating so I removed and maintained pressure over the site. Discussed case with hospitalist, (Hitesh). Reviewed test results and need for additional work-up. Agreed upon treatment plan, need for patient follow-up and decision to admit. Health care provider will see patient in hospital. Consult obtained from surgery. Jalil. Will see patient in the hospital. Patient/family counseled. Old medical records reviewed. Disposition: Admitted. CLINICAL IMPRESSION Diabetes with hyperglycemia. Abscess to the face. (Electronically signed by Onel Juares MD 03/17/2016 15:50)
--- NOTE | 2016-03-15 15:15 | ED ORDER SUMMARY ---
..... Patient: TESFAYE POSEY OrderSheet [facility] VisitID: [id number] [place] [address] 36y, F Registration Date/Time: 03/15/2016 ORDER SHEET Weight: 56.6 kg (stated) Allergies: Phenergan, Shellfish-derived Products GENERAL ORDERS: Blood Culture (No) (N/A) Urgent (11:55 03/15/2016 J Carlos CORTEZ) (Ack 12:09 LTapper) (13:27 JSimbeck R.N.) CBC w Diff Urgent (11:56 03/15/2016 J Carlos CORTEZ) (Ack 12:09 LTapper) (13:27 JSimbeck R.N.) CMP Urgent (11:56 03/15/2016 J Carlos CORTEZ) (Ack 12:09 LTapper) (13:27 JSimbeck R.N.) UA-Culture if indicated Urgent (11:56 03/15/2016 J Carlos CORTEZ) (Ack 12:09 LTapper) (13:27 JSimbeck R.N.) PT with INR Urgent (11:56 03/15/2016 J Carlos CORTEZ) (Ack 12:09 LTapper) (13:27 JSimbeck R.N.) PTT Urgent (11:56 03/15/2016 J Carlos CORTEZ) (Ack 12:09 LTapper) (13:27 JSimbeck R.N.) Amylase Urgent (11:03/15/2016 J Carlos CORTEZ) (Ack 12:09 LTapper) (13:27 JSimbeck R.N.) Lipase Urgent (11:56 03/15/2016 J Carlos CORTEZ) (Ack 12:09 LTapper) (13:27 JSimbeck R.N.) Lactate, Serum Urgent (11:56 03/15/2016 J Carlos CORTEZ) (Ack 12:09 LTapper) (15:39 LWhalen R.N.) Urine Urgent (11:56 03/15/2016 J Carlos CORTEZ) (Ack 12:09 LTapper) (13:27 JSimbeck R.N.) Urine Drug Screen Urgent (11:56 03/15/2016 J Carlos CORTEZ) (Ack 12:09 LTapper) (13:27 Jasieleck R.N.) ABG (G) Urgent (11:56 03/15/2016 J Carlos CORTEZ) (Ack 12:09 LTapper) (13:27 JSimbeck R.N.) Acetone, Serum Urgent (11:56 03/15/2016 J Carlos CORTEZ) (Ack 12:09 LTapper) (13:27 JSimbeck R.N.) POC Glucose (Q30 minutes) (13:22 03/15/2016 J Carlos CORTEZ) (13:46 JSimbeck R.N.) Lactate, Serum Urgent (13:23 03/15/2016 J Carlos CORTEZ) (Ack 13:32 LTapper) (13:58 JSimbeck R.N.) MEDICATION ORDERS: IV FLUIDS: IV NS : initial bolus 1000 mL (1000 mL/hr), then 150 mL/hr for 4h (NOW); Urgent (11:55 03/15/2016 J Carlos CORTEZ) (13:15 BRIANimbeck R.N.) Versed IV 2 mg (NOW) (13:18 03/15/2016 Jasieleck R.N. verbal order read back to J Carlos CORTEZ) (13:20 BRIANimbeck R.N.) Give this dose IM Dilaudid IV 0.5 mg (NOW) (13:20 03/15/2016 Jasieleck R.N. verbal order read back to J Carlos CORTEZ) (13:21 BRIANimbeck R.N.) Insulin Reg IV 6 units (NOW) (13:23 03/15/2016 J Carlos CORTEZ) (13:34 BRIANimbeck R.N.) Dilaudid IV 0.5 mg (NOW) (14:20 03/15/2016 Jasieleck R.N. verbal order read back to J Carlos CORTEZ) (14:20 Jasieleck R.N.) Vancomycin IV 1.5 gm/500 mL (NOW) (15:08 03/15/2016 J Carlos CORTEZ) (15:47 STORMhalemely R.N.) Versed IV 1 mg (HIGH ALERT MEDICATION, NOW) (15:48 03/15/2016 Chico R.N. verbal order read back to JCarlos CORTEZ) (15:50 Chico Choi) Ativan IV 0.5 mg (NOW) (16:41 03/15/2016 Fatuma Choi verbal order read back to J Carlos CORTEZ) (16:41 Fatuma Choi) ORDER SHEET NOTES: [Electronically signed by Gabriel Davis R.N. (19:24 03/16/2016)] [Electronically signed by Onel Juares MD (15:50 03/17/2016)] [Electronically locked/signed by Gabriel Davis R.N. (19:24 03/16/2016)]
--- NOTE | 2016-03-15 15:15 | ED NURSING NOTES ---
Clinical Report - Nurses [facility] [address] [place] [address] 03/15/2016 10:30 Patient: TESFAYE POSEY TRIAGE Triage time 10:43 Mar 15 2016. Acuity: LEVEL 3. Chief Complaint: SKIN PROBLEM, BOIL and TENDER AREA. --10:48 Gabriel Davis R.N. 10:43 03/15/16. BP: 137/76. HR: 106. RR: 18. O2 saturation: 99%. Temp: 98.6 F. Pain level now 10/17. --10:48 Gabriel Davis R.N. Weight: 56.6 kg stated. Height/Length: 62 inches Per Patient. BMI: 22.8. --10:47 Gabriel Davis R.N. Medications None. --10:44 Gabriel Davis R.N. Allergies Phenergan. Shellfish-derived Products. --10:44 Gabriel Davis R.N. History Arrived by private vehicle. Historian: patient. Accompanied by friend. Reported as located on the lips (left area by lip). Onset. (one week). It is described as painful. No recent medication, food exposure or insect bite. ( Patient having difficulty focusing and having a conversation.). No fever, muscle aches, headache, cough or difficulty breathing. No itching or weakness. Treatment CHANGE CONTROL ANALYST: None. PAST MEDICAL HX: Diabetes mellitus. No history of asthma, heart disease or lung disease. SOCIAL HX: Current some days smoker. History of drug use: cocaine, heroin, methamphetamines. No alcohol use. No infectious disease exposure. ABUSE ASSESSMENT: Abuse assessment: (yes) The patient was asked "Do you feel safe in your home?". --10:48 Gabriel Davis R.N. PROBLEMS: Diabetic Ketoacidosis. Hepatitis C carrier. Hep c. Constipation. Flank Pain. Suicidal Ideation. ADHD - Attention Deficit Hyperactivity Disorder. Hyperglycemia. Paresthesia. Vertigo. Anxiety Reaction. Back Pain. Sprain. Dental Pain. Migraine Headache. Headache. Gastritis. Diarrhea. Lifestyle / Substance Problems. Dehydration. Vomiting. Alcohol Intoxication. UTI - Urinary Tract Infection. Immunizations. Substance Abuse. Pancreatitis. Abdominal Pain. LNMP - Last Normal Menstrual Period. Cholecystitis. --10:45 Gabriel Davis R.N. ADDITIONAL SURGERIES: Cholecystectomy. Hip Surgery. --10:45 Gabriel Davis R.N. Interventions ID and allergy band on patient. --10:48 Gabriel Davis R.N. PHYSICAL ASSESSMENT Ambulatory to room. GENERAL / NEURO / PSYCH: Appears anxious and in distress. The patient is disoriented to place and time. Mood/affect abnormal. ( Patient anxious with constant moving stating inappropriate responses and not answering questions.). HEENT: Facial swelling present involving the area around the left eye. Mucous membranes are pink. RESPIRATORY: Respirations not labored. Breath sounds within normal limits. CVS: Capillary refill less than 2 seconds. Pulses within normal limits. GI / : Abdomen nontender. SKIN: Skin lesion with tenderness on the left ear and lips. --10:50 Gabriel Davis R.N. NURSING PROGRESS NOTES Pulse oximeter and NIBP monitor placed on patient. Head of bed elevated (45). Reassurance given. Call light placed in reach. Side rails up x 1. Bed placed in lowest position. Brakes of bed on. --10:50 Gabriel Davis R.N. Point of care testing: performed by [employer] Glucose: 496. Result shown to the RN. --11:06 Catherine Bills 12:04 03/15/16. ( Asked to try to start IV, attempt x 1 unsuccessful in right hand.). --12:04 Hannah Gonzalez R.N. ( IV attempts times four no working IV. Central line attempted by and unsuccessful for working IV. Labs drawn from femoral line before pulled.). --13:00 Gabriel Davis R.N. 12:53 03/15/16. BP: 124/100. HR: 89. RR: 20. O2 saturation: 88%. Temp: 98.6 F. Pain level now 12/17. --13:00 Gabriel Davis R.N. 12:45 03/15/2016 Versed (Midazolam HCl) IM 2 mg given. Given in the right gluteus davis. Allergies verified, confirmed 5 rights and sedative warning given to the patient. ( ordered this dose IM.). --13:20 Jelani Wilks R.N. 12:55 03/15/2016 Versed IM Response: no adverse reaction symptoms have improved (Less anxious, relaxed and able to tolerate procedures.). --13:35 Jelani Wilks R.N. 13:00 03/15/2016 Site #1 started via IV in the right external jugular with an 18g angiocath, with aseptic technique and good blood return; one attempt. Saline lock flushed with 10 mL saline. --13:07 Jelani Wilks R.N. 13:10 03/15/2016 Started IV Fluids IV NS (Saline); bolus of 1000 mL over 1 hour(s) via site #1 via IV pump. Allergies verified and confirmed 5 rights. IV patency established. IV site checked: no pain, redness, or swelling. IV flushed thoroughly pre- and post-medication administration. --13:15 Jelani Wilks R.N. 13:15 03/15/2016 Dilaudid (HYDROmorphone HCl PF) IVP 0.5 mg given over 1 minute(s) via site #1. Allergies verified, confirmed 5 rights and sedative warning given to the patient. IV patency established. IV site checked: no pain, redness, or swelling. IV flushed thoroughly pre- and post-medication administration. IVP given by RN (Given by DARLENE Melendez). --13:21 Jelani Wilks R.N. 13:22 03/15/16. Critical value received by DARLENE Palomares. Glucose: 566. ED physician notifed of critical value. Orders were received. --13:24 Jelani Wilks R.N. 13:26 03/15/16. Temp: 98.4 F (oral). Torrez-Keenan pain scale: 6/10. --13:26 Jelani Wilks R.N. 13:32 03/15/2016 Insulin REG IVP 6 unit given over 1 minute(s) via site #1. Allergies verified and confirmed 5 rights. IV patency established. IV site checked: no pain, redness, or swelling. IV flushed thoroughly pre- and post-medication administration. IVP given by RN. --13:34 Jelani Wilks R.N. Point of care testing: performed by [employer] Glucose: 347. Result shown to the RN. --14:09 Catherine Bills 14:18 03/15/2016 Dilaudid (HYDROmorphone HCl PF) IVP 0.5 mg given over 1 minute(s) via site #1. Allergies verified, confirmed 5 rights and sedative warning given to the patient. IV patency established. IV site checked: no pain, redness, or swelling. IV flushed thoroughly pre- and post-medication administration. IVP given by RN. --14:20 Jelani Wilks R.N. 14:21 03/15/2016 IV Fluids IV NS Bag Change: bag #1 completed. Total amount infused: 1000. STARTED bag #2 (1000 mL) at 999 mL/hr via IV pump. Confirmed 5 rights. IV patency established. IV site checked: no pain, redness, or swelling. IV flushed thoroughly. --14:21 Jelani Wilks R.N. Point of care testing: performed by [employer] Glucose: 227. Result shown to the RN. --15:39 Catherine Bills 15:42 03/15/2016 Started 1.5 gm of Vancomycin IVPB in bag #1 530 mL; at 530 mL/hr over 1 hour(s) via site #1 via IV pump. Allergies verified and confirmed 5 rights. IV patency established. IV site checked: no pain, redness, or swelling. IV flushed thoroughly pre- and post-medication administration. --15:47 Gabriel Davis R.N. 15:45 03/15/2016 Versed (Midazolam HCl) IVP 1 mg given over 2 minute(s) via site #1. Allergies verified, confirmed 5 rights and sedative warning given to the patient. IV patency established. IV site checked: no pain, redness, or swelling. IV flushed thoroughly pre- and post-medication administration. --15:50 Gabriel Davis R.N. Point of care testing: performed by tech. Glucose: 208. Result shown to the RN. --16:15 Catherine Bills 16:40 03/15/2016 Ativan (LORazepam) IVP 0.5 mg given over 1 minute(s) via site #1. Allergies verified, confirmed 5 rights and sedative warning given to the patient. IV patency established. IV site checked: no pain, redness, or swelling. IV flushed thoroughly pre- and post-medication administration. IVP given by RN. --16:41 Jelani Wilks R.N. 16:47 03/15/2016 Ativan (LORazepam) IVP 0.5 mg given over 1 minute(s) via site #1. Allergies verified, confirmed 5 rights and sedative warning given to the patient. IV patency established. IV site checked: no pain, redness, or swelling. IV flushed thoroughly pre- and post-medication administration. IVP given by RN. --16:50 Jelani Wilks R.N. 16:47 03/15/2016 Ativan IVP Response: no adverse reaction symptoms are the same. The patient feels the same. --16:49 Jelani Wilks R.N. 17:28 03/15/2016 Vancomycin IVPB Discontinued: bag #1 completed. Total amount infused: 500 mL. IV patency established. IV site checked: no pain, redness, or swelling. IV flushed thoroughly. --17:28 Jelani Wilks R.N. 15:35 03/15/16. BP: 106/73. HR: 103. RR: 18. O2 saturation: 92% on room air. Additional comments: not a good sat read pt moving . 15:00 03/15/16. BP: 103/64. HR: 86. RR: 20. O2 saturation: 100% on room air. 14:30 03/15/16. BP: 108/71. HR: 89. RR: 20. O2 saturation: 100% on room air. 14:00 03/15/16. BP: 106/76. HR: 93. RR: 22. O2 saturation: 100% on room air. 13:30 03/15/16. BP: 112/61. HR: 93. RR: 20. O2 saturation: 100%. Temp: 98.4 F. Pain level now: 0/10. --17:57 Gabriel Davis R.N. 17:15 03/15/16. BP: 111/72. HR: 99. RR: 18. O2 saturation: 100% on room air. 16:00 03/15/16. BP: 132/99. HR: 86. RR: 18. O2 saturation: 90% on room air. --19:22 Gabriel Davis R.N. late entry -16:00. ( Pt very agitated during attempt by MD to I&D her facial abscess despite pain meds and Versed. Pt is pulling off her monitor wires and pulling on her IV. MD will try again later.). --19:31 Jelani Wilks R.N. late entry -17:00. ( Pt has been increasingly agitated and anxious. Again we were unable to I&D or even obtain a superficial wound culture. She pulled off her monitor wires and was pulling on her IV tubing. She was medicated with Ativan 0.5mg IV x2 doses 10 minutes apart, with some relief of her agitation.). --19:35 Jelani Wilks R.N. DISPOSITION / DISCHARGE Admitted to the Critical Care Unit. ( Report given to RN and patient transferred to ICU.). --19:21 Gabriel Davis R.N. 17:15 03/15/16. BP: 111/72. HR: 99. RR: 18. O2 saturation: 100% on room air. --19:21 Gabriel Davis R.N. Locked/Released at 03/16/2016 19:24 by Gabriel Davis R.N.
--- NOTE | 2016-03-15 18:03 | Progress Note ---
Subjective General Admission History and Physical Examination Patient Name: Deja Ramachandran Admission Date: 2016 Primary Care Provider: None Attending Physician: Marc Proctor M.D. Admitting Physician: Marc Proctor M.D. SUBJECTIVE Historian: Patient Reliability: Fair Chief Complaint: Facial abscess History of Present Illness: The patient is a 36-year-old white female with a significant past medical history of type 1 diabetes mellitus, illicit drug use-methamphetamines, who presented to [facility] emergency department on the day of admission secondary to complaints of suspected abscess left cheek. [facility] ER evaluation was consistent with facial abscess and poorly controlled diabetes mellitus without diabetic ketoacidosis. Secondary to the above, the patient was admitted by Marc Proctor M.D. for further evaluation and treatment The history of present was began approximately one week prior to admission the patient developed a skin lesion/abscess left facial area. This grew progressively worse with increasing pain/swelling. Secondary to the above the patient presented to [facility] emergency department for further evaluation and treatment. [facility] ER evaluation showed the patient to have vital signs of blood pressure 137/76, pulse 106, respirations 18, temperature 98.6 O2 sat room air 99 %. Findings were consistent with facial abscess left side, and poorly controlled diabetes mellitus with admission blood sugar of 566 mg/dL. With findings consistent with diabetic ketoacidosis. Secondary to the above the patient was admitted for IV antimicrobials, incision and drainage of facial abscess, and control of diabetes mellitus. PAST MEDICAL HISTORY Illnesses: 1. Type 1 diabetes mellitus 2. Illicit drug use-methamphetamine 3. History of depression Allergies: 1. No Known Drug Allergies Medications: 1. None Surgery: 1. Hip surgery 2. Cholecystectomy Injuries: 1. Hip fracture Hospitalizations: 1. See above surgery and medical problems FAMILY HISTORY Parents: 1. Father, living, 70, health history unknown, 2. Mother, living, 69, health history unknown Siblings: 1. None Children: 1. Male, living, 11, health history unknown Other significant family history: None SOCIAL HISTORY 1. Marital Status: Single 2. Mormon: None 3. Education: High school 4. Employment History: Disabled 5. Occupational health exposures: None HABITS 1. Tobacco: One half pack per day, [id number] history 2. Drugs: Methamphetamine-daily 3. Alcohol: None 4. Caffeine: Intermittent usage amount unknown HEALTH SUPERVISION Item/Test 1. Not reviewed IMMUNIZATIONS: 1. Pneumococcal: No recent 2. Influenza: No recent 3. Tetanus: No recent REVIEW OF SYSTEMS Remarkable for those things stated in the history of present illness and past medical history. Seventeen point review of system completed with the following notable findings: Patient completely uncooperative with questioning. Refuses to answer any questions regarding review of system. Physical Exam General Appearance No acute distress, slightly lethargic, uncooperative, slightly agitated HEENT Atraumatic, PERRLA, EOMI, Moist mucous membranes Lungs Clear to auscultation Neck Supple, No JVD, central line present right neck Cardiovascular Regular rate and rhythm, Normal S1 and S2, mild tachycardia Abdomen Normal bowel sounds, Soft, No tenderness Extremities No cyanosis, No clubbing Skin left upper lip shows swelling, erythema, tenderness to palpation, abscess with eschar present Neurological Grossly normal Psych/Mental Status Mental status normal, patient slightly agitated mix with episodes of lethargy. LAB Results Laboratory Tests 03/15 03/15 03/15 1350 1323 1311 Chemistry Lactic Acid (0.4 - 2.0 mmol/L) 1.3 Cancelled Urines Urine Test NEGATIVE 03/15 03/15 03/15 1311 1240 1156 Blood Gas Sample Site RR Total CO2 (24.0 - 30.0 mmol/L) 22.6 ABG pH (7.35 - 7.45) 7.48 ABG pCO2 at Pt Temp (35 - 45 mmHg) 29.0 ABG pO2 at Pt Temp (80.0 - 100.0 mmHg) 105.0 ABG HCO3 (20.0 - 26.0 mmol/L) 21.7 ABG O2 Sat Calc/Hira (95.1 - 100.0 %) 98.9 ABG Base Excess (-6.0 - -6.0 mmol/L) -1.4 ABG Reduced Hgb (%) 1.1 ABG Carboxyhemoglobin (0.5 - 1.5 %) 1.1 ABG Methemoglobin (0.4 - 1.5 %) 0.5 Hunter Test YES Other Total Hgb (12.0 - 16.0 g/dL) 12.0 A-a O2 Gradient (7.0 - 14.0 mmHg) 11.2 Hgb O2 Saturation (95.0 - 100.0 %) 97.3 Vent Mode RA FiO2 (20 - 101 %) 21 Chemistry Plasma Sodium (136 - 145 mmol/L) 134 Plasma Potassium (3.5 - 5.1 mmol/L) 4.1 Plasma Chloride (98 - 107 mmol/L) 100 CO2 (Enzymatic) (21 - 32 mmol/L) 23 BUN (7 - 18 mg/dL) 13 Creatinine (0.6 - 1.3 mg/dL) 0.7 Est GFR ( Amer) (mL/min) >60 Est GFR (Non-Af Amer) (mL/min) >60 Glucose (70 - 110 mg/dL) 566 Plasma Calcium (8.5 - 10.1 mg/dL) 8.7 Total Bilirubin (0.0 - 1.0 mg/dL) 0.7 AST (15 - 37 U/L) 63 ALT (12 - 78 U/L) 118 Alkaline Phosphatase (46 - 116 U/L) 131 Total Protein (6.4 - 8.2 g/dL) 7.2 Albumin (3.3 - 5.0 g/dL) 3.3 Amylase (25 - 115 U/L) 13 Lipase (73 - 393 U/L) 71 Coagulation INR (0.8 - 1.2) 1.0 APTT (24 - 34 SECONDS) 26 Hematology WBC (4.5 - 11.5 K/uL) 13.4 RBC (4.00 - 5.20 M/uL) 4.20 Hgb (12.0 - 16.0 gm/dL) 12.2 Hct (36.0 - 46.0 %) 37.1 MCV (80 - 100 fL) 88 MCH (26 - 34 pg) 29 RDW (11.6 - 14.8 %) 13.5 Neut % (Auto) (50 - 75 %) 69.9 Lymph % (Auto) (25 - 40 %) 21.6 [place] % (Auto) (3 - 14 %) 7.8 Eos % (Auto) (0 - 4 %) 0.5 Baso % (Auto) (0 - 2 %) 0.2 Plt Count, EDTA (150 - 400 K/uL) 263 PUBS MCHC (31 - 37 g/dL) 33 Toxicology Urine Opiates Screen (NEGATIVE) NEGATIVE Urine Methadone Screen (NEGATIVE) NEGATIVE Ur Barbiturates Screen (NEGATIVE) NEGATIVE U Amphetamin/Meth Scrn (NEGATIVE) POSITIVE MDMA (Ecstasy) Screen (NEGATIVE) NEGATIVE U Benzodiazepines Scrn (NEGATIVE) NEGATIVE Urine Cocaine Screen (NEGATIVE) NEGATIVE U Cannabinoids Screen (NEGATIVE) NEGATIVE Acetone, Qual (NEGATIVE) NEGATIVE Urines Urine Color YELLOW Urine Appearance CLEAR Urine pH (5.0 - 8.0) 6.5 Ur Specific [place] (1.010 - 1.030) 1.010 Urine Protein (NEGATIVE) NEGATIVE Urine Ketones (NEGATIVE) TRACE Urine Blood (NEGATIVE) 3+ Urine Nitrite (NEGATIVE) NEGATIVE Urine Bilirubin (NEGATIVE) NEGATIVE Urine Urobilinogen (0.2 - 1.0 EU/dL) 0.2 Ur Leukocyte Esterase (NEGATIVE) NEGATIVE Urine RBC (0 - 1 rbc/hpf) 25-50 Urine WBC (0 - 1 wbc/hpf) 1-3 Ur Epithelial Cells (0 - 5 EPI/hpf) NONE SEEN Urine Bacteria (NONE SEEN) NONE SEEN Urine Glucose (NEGATIVE) 3+ Urine Comment CULT NOT INDICATED Microbiology Date/Time Procedure - Status Source Growth 03/15 1240 Blood Culture - RECD BLOOD 03/15 1156 Blood Culture - ORD BLOOD Assessment and Plan Problem List 1. Facial abscess Status Acute Onset Date Unknown Plan -Patient presents with findings of facial abscess left upper lip -Vancomycin/Rocephin -I&D per surgery -Consultation with Dr. Suhas Jimenes -Patient nothing by mouth after midnight 2. DM type 1 (diabetes mellitus, type 1) Plan -Patient presents with uncontrolled diabetes mellitus -No findings of diabetic ketoacidosis -Insulin sliding scale -Consistent carbohydrate diet -Check hemoglobin A1c 3. Liver function abnormality Status Acute Onset Date Unknown Plan -Patient presents with mild LFT abnormalities -Repeat LFTs in a.m. -Monitor 4. Illicit drug use Status Chronic Onset Date Unknown Plan -Patient with history of illicit drug use methamphetamine -Encourage patient in enrollment in treatment program post hospitalization Current status: Fair, unstable Anticipated discharge date: Anticipated discharge in 2 days Anticipated discharge placement: Home Patient care time: Time spent in chart review, patient interview, physical exam, CPOE, and care documentation: Greater than 70 minutes Visit to patient today: 1 Complexity of care: Moderate E&M Codes Admission: Inpt-High/04800
--- NOTE | 2016-03-15 18:03 | Progress Note ---
Subjective General Admission History and Physical Examination Patient Name: Deja Ramachandran Admission Date: 2016 Primary Care Provider: None Attending Physician: Marc Proctor M.D. Admitting Physician: Marc Proctor M.D. SUBJECTIVE Historian: Patient Reliability: Fair Chief Complaint: Facial abscess History of Present Illness: The patient is a 36-year-old white female with a significant past medical history of type 1 diabetes mellitus, illicit drug use-methamphetamines, who presented to [facility] emergency department on the day of admission secondary to complaints of suspected abscess left cheek. [facility] ER evaluation was consistent with facial abscess and poorly controlled diabetes mellitus without diabetic ketoacidosis. Secondary to the above, the patient was admitted by Marc Proctor M.D. for further evaluation and treatment The history of present was began approximately one week prior to admission the patient developed a skin lesion/abscess left facial area. This grew progressively worse with increasing pain/swelling. Secondary to the above the patient presented to [facility] emergency department for further evaluation and treatment. [facility] ER evaluation showed the patient to have vital signs of blood pressure 137/76, pulse 106, respirations 18, temperature 98.6 O2 sat room air 99 %. Findings were consistent with facial abscess left side, and poorly controlled diabetes mellitus with admission blood sugar of 566 mg/dL. With findings consistent with diabetic ketoacidosis. Secondary to the above the patient was admitted for IV antimicrobials, incision and drainage of facial abscess, and control of diabetes mellitus. PAST MEDICAL HISTORY Illnesses: 1. Type 1 diabetes mellitus 2. Illicit drug use-methamphetamine 3. History of depression Allergies: 1. No Known Drug Allergies Medications: 1. None Surgery: 1. Hip surgery 2. Cholecystectomy Injuries: 1. Hip fracture Hospitalizations: 1. See above surgery and medical problems FAMILY HISTORY Parents: 1. Father, living, 70, health history unknown, 2. Mother, living, 69, health history unknown Siblings: 1. None Children: 1. Male, living, 11, health history unknown Other significant family history: None SOCIAL HISTORY 1. Marital Status: Single 2. Church: None 3. Education: High school 4. Employment History: Disabled 5. Occupational health exposures: None HABITS 1. Tobacco: One half pack per day, [id number] history 2. Drugs: Methamphetamine-daily 3. Alcohol: None 4. Caffeine: Intermittent usage amount unknown HEALTH SUPERVISION Item/Test 1. Not reviewed IMMUNIZATIONS: 1. Pneumococcal: No recent 2. Influenza: No recent 3. Tetanus: No recent REVIEW OF SYSTEMS Remarkable for those things stated in the history of present illness and past medical history. Seventeen point review of system completed with the following notable findings: Patient completely uncooperative with questioning. Refuses to answer any questions regarding review of system. Physical Exam General Appearance No acute distress, slightly lethargic, uncooperative, slightly agitated HEENT Atraumatic, PERRLA, EOMI, Moist mucous membranes Lungs Clear to auscultation Neck Supple, No JVD, central line present right neck Cardiovascular Regular rate and rhythm, Normal S1 and S2, mild tachycardia Abdomen Normal bowel sounds, Soft, No tenderness Extremities No cyanosis, No clubbing Skin left upper lip shows swelling, erythema, tenderness to palpation, abscess with eschar present Neurological Grossly normal Psych/Mental Status Mental status normal, patient slightly agitated mix with episodes of lethargy. LAB Results Laboratory Tests 03/15 03/15 03/15 1350 1323 1311 Chemistry Lactic Acid (0.4 - 2.0 mmol/L) 1.3 Cancelled Urines Urine Test NEGATIVE 03/15 03/15 03/15 1311 1240 1156 Blood Gas Sample Site RR Total CO2 (24.0 - 30.0 mmol/L) 22.6 ABG pH (7.35 - 7.45) 7.48 ABG pCO2 at Pt Temp (35 - 45 mmHg) 29.0 ABG pO2 at Pt Temp (80.0 - 100.0 mmHg) 105.0 ABG HCO3 (20.0 - 26.0 mmol/L) 21.7 ABG O2 Sat Calc/Hira (95.1 - 100.0 %) 98.9 ABG Base Excess (-6.0 - -6.0 mmol/L) -1.4 ABG Reduced Hgb (%) 1.1 ABG Carboxyhemoglobin (0.5 - 1.5 %) 1.1 ABG Methemoglobin (0.4 - 1.5 %) 0.5 Hunter Test YES Other Total Hgb (12.0 - 16.0 g/dL) 12.0 A-a O2 Gradient (7.0 - 14.0 mmHg) 11.2 Hgb O2 Saturation (95.0 - 100.0 %) 97.3 Vent Mode RA FiO2 (20 - 101 %) 21 Chemistry Plasma Sodium (136 - 145 mmol/L) 134 Plasma Potassium (3.5 - 5.1 mmol/L) 4.1 Plasma Chloride (98 - 107 mmol/L) 100 CO2 (Enzymatic) (21 - 32 mmol/L) 23 BUN (7 - 18 mg/dL) 13 Creatinine (0.6 - 1.3 mg/dL) 0.7 Est GFR ( Amer) (mL/min) >60 Est GFR (Non-Af Amer) (mL/min) >60 Glucose (70 - 110 mg/dL) 566 Plasma Calcium (8.5 - 10.1 mg/dL) 8.7 Total Bilirubin (0.0 - 1.0 mg/dL) 0.7 AST (15 - 37 U/L) 63 ALT (12 - 78 U/L) 118 Alkaline Phosphatase (46 - 116 U/L) 131 Total Protein (6.4 - 8.2 g/dL) 7.2 Albumin (3.3 - 5.0 g/dL) 3.3 Amylase (25 - 115 U/L) 13 Lipase (73 - 393 U/L) 71 Coagulation INR (0.8 - 1.2) 1.0 APTT (24 - 34 SECONDS) 26 Hematology WBC (4.5 - 11.5 K/uL) 13.4 RBC (4.00 - 5.20 M/uL) 4.20 Hgb (12.0 - 16.0 gm/dL) 12.2 Hct (36.0 - 46.0 %) 37.1 MCV (80 - 100 fL) 88 MCH (26 - 34 pg) 29 RDW (11.6 - 14.8 %) 13.5 Neut % (Auto) (50 - 75 %) 69.9 Lymph % (Auto) (25 - 40 %) 21.6 [place] % (Auto) (3 - 14 %) 7.8 Eos % (Auto) (0 - 4 %) 0.5 Baso % (Auto) (0 - 2 %) 0.2 Plt Count, EDTA (150 - 400 K/uL) 263 PUBS MCHC (31 - 37 g/dL) 33 Toxicology Urine Opiates Screen (NEGATIVE) NEGATIVE Urine Methadone Screen (NEGATIVE) NEGATIVE Ur Barbiturates Screen (NEGATIVE) NEGATIVE U Amphetamin/Meth Scrn (NEGATIVE) POSITIVE MDMA (Ecstasy) Screen (NEGATIVE) NEGATIVE U Benzodiazepines Scrn (NEGATIVE) NEGATIVE Urine Cocaine Screen (NEGATIVE) NEGATIVE U Cannabinoids Screen (NEGATIVE) NEGATIVE Acetone, Qual (NEGATIVE) NEGATIVE Urines Urine Color YELLOW Urine Appearance CLEAR Urine pH (5.0 - 8.0) 6.5 Ur Specific [place] (1.010 - 1.030) 1.010 Urine Protein (NEGATIVE) NEGATIVE Urine Ketones (NEGATIVE) TRACE Urine Blood (NEGATIVE) 3+ Urine Nitrite (NEGATIVE) NEGATIVE Urine Bilirubin (NEGATIVE) NEGATIVE Urine Urobilinogen (0.2 - 1.0 EU/dL) 0.2 Ur Leukocyte Esterase (NEGATIVE) NEGATIVE Urine RBC (0 - 1 rbc/hpf) 25-50 Urine WBC (0 - 1 wbc/hpf) 1-3 Ur Epithelial Cells (0 - 5 EPI/hpf) NONE SEEN Urine Bacteria (NONE SEEN) NONE SEEN Urine Glucose (NEGATIVE) 3+ Urine Comment CULT NOT INDICATED Microbiology Date/Time Procedure - Status Source Growth 03/15 1240 Blood Culture - RECD BLOOD 03/15 1156 Blood Culture - ORD BLOOD Assessment and Plan Problem List 1. Facial abscess Status Acute Onset Date Unknown Plan -Patient presents with findings of facial abscess left upper lip -Vancomycin/Rocephin -I&D per surgery -Consultation with Dr. Suhas Jimenes -Patient nothing by mouth after midnight 2. DM type 1 (diabetes mellitus, type 1) Plan -Patient presents with uncontrolled diabetes mellitus -No findings of diabetic ketoacidosis -Insulin sliding scale -Consistent carbohydrate diet -Check hemoglobin A1c 3. Liver function abnormality Status Acute Onset Date Unknown Plan -Patient presents with mild LFT abnormalities -Repeat LFTs in a.m. -Monitor 4. Illicit drug use Status Chronic Onset Date Unknown Plan -Patient with history of illicit drug use methamphetamine -Encourage patient in enrollment in treatment program post hospitalization Current status: Fair, unstable Anticipated discharge date: Anticipated discharge in 2 days Anticipated discharge placement: Home Patient care time: Time spent in chart review, patient interview, physical exam, CPOE, and care documentation: Greater than 70 minutes Visit to patient today: 1 Complexity of care: Moderate E&M Codes Admission: Inpt-High/76614
--- NOTE | 2016-03-15 18:49 | NUR ---
RECEIVED PATIENT TO FLOOR FROM ED VIA [facility]. PATIENT TRANSFERED HERSELF FROM [facility] TO BED.
--- NOTE | 2016-03-15 19:45 | NUR ---
Pharmacy To Dose Vancomcyin DX-facial abscess PMH-methamphetamine abuse, Type1 DM Labs- Scr 0.7 CrCl 90 ml/min Cx pending Afebrile WBC 13.4 ED Course- Vancomycin 1500 mg x 1 @1508 A/P: Will dose vancomycin at 1250 mg IV q8h for est SS of ~15.1 mcg/ml to begin @2000 tonight as level at this time will be in goal range for redosing. VT ordered for 1130 on 03/16/15.
--- NOTE | 2016-03-15 21:00 | NUR ---
PATIENT WAS TRANSFERRED FORM CCU. SHE REMAINS SEDATED AFTER BEING GIVEN HYDROMORPHONE AND LORAZEPAM FROM CCU. SHE CONTINUES ON IV FLUIDS AND IV VANCOMYCIN EVERY 8 HOURS. SHE IS TO BE NPO POST MIDNIGHT FOR A POSSIBLE INCISION AND DRAINAGE CARE OF DR LAMB.
--- NOTE | 2016-03-15 21:42 | NUR ---
Pt alert at start of shift requesting food and pain meds. HRR, lungs clear, BT present x 4, left facial abcess swollen without visible drainage. Pt given food and Dilaudid and Ativan given with good effect. Pt resting comfortably. Report given to Neymar COLON. Pt transferred via bed to room 207.
[2016-03-15 23:12] VITALS: BP 87/53
--- NOTE | 2016-03-16 00:40 | NUR ---
IV VANCOMYCIN IMMEDIATELY DISCONTINUED IT WAS NOT DUE TO BE GIVEN UNTIL 12MD. INFORMED CHARGE NURSE AND QUANTROS REPORTING DONE.
[2016-03-16 02:51] VITALS: BP 101/72
[2016-03-16 07:10] VITALS: BP 101/68
--- NOTE | 2016-03-16 07:55 | NUR ---
PT IS ASLEEP BUT AROUSABLE THEN WILL FALL BACK TO SLEEP IMMEDIATELY.
--- NOTE | 2016-03-16 10:23 | NUR ---
PT IS STILL ASLEEP, AROUSABLE.
--- NOTE | 2016-03-16 10:25 | NUR ---
Pharmacy To Dose Vancomycin Dx-Facial Abscess PMH-IVDU, uncontrolled DM Labs- Scr 0.7 CrCl 90 ml/min WBC 10.0 Afebrile Cx pending Other Abx- CTX 2 GM IV Daily A/P: Vancomycin 1250 mg was mistakenly hung @0045 last night with 100 ml infused (500 mg). 0400 dose was not given so pt has gone approx 10 hrs without vanco. Will restart vanco now and retimed VT for 0930 on 03/17/15. Pharmacy will cont to follow.
--- NOTE | 2016-03-16 11:30 | NUR ---
RECEIVED PT IN BED, AWAKE, ORIENTED, VERBALLY ABUSIVE, CURSING " F___ , I AM HUNGRY, JUST GIVE ME FOOD, I NEED THE DOCTOR RIGHT NOW" INFORMED PT ABOUTPLAN OF CARE. NPO, FOR POSSIBLE I AND D.
[2016-03-16 12:07] VITALS: BP 96/62
--- NOTE | 2016-03-16 14:00 | NUR ---
PT IS AWAKE, COULD HARDLY OPEN HER EYES, CRYING, CURSING " F___ I AM F HUNGRY, YOU ARE NOT FEEDING ME, I NEED CHEESE BURGER, FRIES, MILK SHAKE" PT STATES. BROUGHT A SMALL CANDY AND CHOLOCALTE BOOST. AT 1415, PT WENT BACK TO SLEEP. AT 1525, PT IS CRYING, YELLING CURSING " F___ YOU ARE NOT FEEDING ME, YOU ARE NOT DOING ANYTHING, YOU ARE NOT HELPING ME AT AT ALL" PT STATES. EXPLAINED TO PT THAT SHE WILL CONTINUE WITH HER IV ANTIBIOTICS, THEY WILL NOT DO I AND D ON HER AT THIS TIME. PT DENIES PAIN AT THIS TIME. TRYING TO PULL OUT HER IV " I AM F OUT OF HERE, I GET A FREE MEAL HERE, AND I WANT IT TO GO" PT STATES. TRIED TO CALL HER RIDE BUT INCORRECT NUMBER, GAVE HER MOM'S PHONE # BUT REFUSED TO CALL HER. PT SIGNED AMA FORM. GOT DRESS. AT 1435, ASSISTED BY THE SECURITY TO THE LOBBY. DR VINCENT NOTIFIED.
--- NOTE | 2016-03-16 15:03 | CONSULTATION REPORT ---
DATE OF CONSULTATION: 03/16/2016 REFERRING PHYSICIAN: Marc Proctor md CHIEF COMPLAINT: 1. Left lip infection. HISTORY OF PRESENT ILLNESS: The patient is a 36-year-old woman who presented to the emergency department yesterday with swelling and tender area in the left part of her lip. The etiology is unclear; however, the patient does have a history of injection of multiple drugs, though she does not specifically report injecting the lip area or having an injury to this area. There is a history of methamphetamine use. The lesion has been there about a week or so. MEDICAL/SURGICAL HISTORY: Past medical history of type 2 diabetes mellitus. Additional problems from her problem list include episodes of diabetes ketoacidosis, chronic hepatitis C carrier state, flank pain, constipation, suicidal ideation, ADHD, hyperglycemia, paresthesias, vertigo, panic and anxiety reactions, back pain/ sprains, dental problems, headaches, gastritis, diarrhea, pancreatitis. Surgical history: Cholecystectomy and hip surgery. MEDICATIONS: 1. None prescriptive. ALLERGIES: 1. PHENERGAN. 2. SHELLFISH DERIVED PRODUCTS. SOCIAL HISTORY: The patient smokes cigarettes. She has used cocaine, heroin and methamphetamine. She denies alcohol use. FAMILY HISTORY: Unavailable. REVIEW OF SYSTEMS: Also not available, due to patient's lack of cooperation. PHYSICAL EXAMINATION: VITAL SIGNS: Temperature 98.4, pulse of 89, respirations 16, blood pressure 101/ 68. The patient is currently sitting with the head of the bed elevated and she is on room air. Her room air O2 saturation is 100%. GENERAL: The patient is somewhat sedated and apparently has received today medication and answers questions all on a very selective basis many times in the nonintelligible fashion. HEENT: Her facial exam reveals swelling of the left upper lip near the furthest left on her mouth. Bidigital palpation was done with a gloved finger. There is no obvious fluctuance in this area. The tenderness and swelling appears to extend downward and laterally toward the mandible. There is a 2 or 3 mm shaggy area of ulceration, but there is no active issuance of pus from this area at the moment. The patient is unclear as to whether anything drained from this area, but it does appear to be a potential site for previous drainage. The other lip has no such similar lesions and palpation along the neck does not demonstrate extension of this process into the neck. PROCEDURE NOTE: I examined the patient with the ultrasound from the anesthesia department using a linear array probe. This demonstrated an edematous area in the area of the problem with multiple tiny lucencies without obvious edge enhancement with some internal echos. These did not appear to coalesce into a specific abscess cavity, but instead appeared to be little areas of tissue disruption without a clearcut singular abscess. ASSESSMENT: 1. Left lip cellulitis. PLAN: I recommended the patient be treated with hot soaks, IV antibiotics and head elevation and glucose control by the internal medicine service. We will keep an eye on this lesion and it could coalesce into an abscess at some point, which would require surgical drainage and debridement, but at the moment I think a course of medical therapy may be the correct choice until we have clear surgical indication.
--- NOTE | 2016-03-17 15:50 | ED MAR SUMMARY ---
..... Medication Administration Record [facility] [address] [facility] [place] [address] Patient: TESFAYE POSEY Visit ID: [id number] 36y, F Weight: 56.6 kg Height/Length: 62 in BMI: 22.8 ALLERGIES: Phenergan, Shellfish-derived Products Given 12:45 03/15/2016 Jelani Wilks R.N. Medication Administered: VERSED [IM] (MIDAZOLAM HCL), Dose: 2 mg IM. Medication Ordered: Versed IV 2 mg (NOW). Start 13:10 03/15/2016 Jelani Wilks R.N. Medication Administered: IV NS (SALINE), Dose: IV Fluids, Bolus: 1000 mL over 1 hour(s), Site: #1 right EJ. Medication Ordered: IV NS : initial bolus 1000 mL (1000 mL/hr), then 150 mL/hr for 4h (NOW); Urgent. Given 13:15 03/15/2016 Jelani Wilks R.N. Medication Administered: DILAUDID [IVP] (HYDROMORPHONE HCL PF), Dose: 0.5 mg IVP over 1 minute(s), Site: #1 right EJ. Medication Ordered: Dilaudid IV 0.5 mg (NOW). Given 13:32 03/15/2016 Jelani Wilks R.N. Medication Administered: INSULIN REG [IVP], Dose: 6 unit IVP over 1 minute(s), Site: #1 right EJ. Medication Ordered: Insulin Reg IV 6 units (NOW). Given 14:18 03/15/2016 Jelani Wilks R.N. Medication Administered: DILAUDID [IVP] (HYDROMORPHONE HCL PF), Dose: 0.5 mg IVP over 1 minute(s), Site: #1 right EJ. Medication Ordered: Dilaudid IV 0.5 mg (NOW). Start 15:42 03/15/2016 Gabriel Davis R.N., Stop 17:28 03/15/2016 Jelani Wilks R.N. Medication Administered: VANCOMYCIN [IVPB], Dose: 1.5 gm IVPB over 1 hour(s), Rate: 530 mL/hr, Dispensed: 530 mL bag, Site: #1 right EJ. Medication Ordered: Vancomycin IV 1.5 gm/500 mL (NOW). Given 15:45 03/15/2016 Gabriel Davis R.N. Medication Administered: VERSED [IVP] (MIDAZOLAM HCL), Dose: 1 mg IVP over 2 minute(s), Site: #1 right EJ. Medication Ordered: Versed IV 1 mg (HIGH ALERT MEDICATION, NOW). Given 16:40 03/15/2016 Jelani Wilks R.N. Medication Administered: ATIVAN [IVP] (LORAZEPAM), Dose: 0.5 mg IVP over 1 minute(s), Site: #1 right EJ. Medication Ordered: Ativan IV 0.5 mg (NOW). Given 16:47 03/15/2016 Jelani Wilks R.N. Medication Administered: ATIVAN [IVP] (LORAZEPAM), Dose: 0.5 mg IVP over 1 minute(s), Site: #1 right EJ. Medication Ordered: Ativan IV 0.5 mg (NOW).
--- NOTE | 2016-03-17 15:50 | ED MED RECONCILIATION SUMMARY ---
Patient: TESFAYE POSEY Medication Reconciliation Report [facility] VisitID: [id number] [place] [address] 36y, F Registration Date/Time: 03/15/2016 Weight: 56.6 kg Height/Length: 62 in. BMI: 22.8 ALLERGIES: Phenergan, Shellfish-derived Products The patient's Home Medications are listed below: NONE. The source(s) of the original Home Medication information: Not obtained. The following Medications were given to the patient in the Emergency Department: IV NS IV Fluids bolus 1000 mL over 1 hour(s), administered: 03/15/2016 1:10:00 PM Versed [IM] IM 2 mg, administered: 03/15/2016 12:45:00 PM Dilaudid [IVP] IVP 0.5 mg, administered: 03/15/2016 1:15:00 PM Insulin REG [IVP] IVP 6 unit, administered: 03/15/2016 1:32:00 PM Dilaudid [IVP] IVP 0.5 mg, administered: 03/15/2016 2:18:00 PM Vancomycin [IVPB] IVPB bolus 0, then 1.5 gm 530 mL/hr, administered: 03/15/2016 3:42:00 PM Versed [IVP] IVP 1 mg, administered: 03/15/2016 3:45:00 PM Ativan [IVP] IVP 0.5 mg, administered: 03/15/2016 4:40:00 PM Ativan [IVP] IVP 0.5 mg, administered: 03/15/2016 4:47:00 PM The following Medications were prescribed to the patient: None.
--- NOTE | 2016-03-17 15:50 | ED DISCHARGE INSTRUCTIONS ---
Patient: TESFAYE POSEY General Instructions [facility] VisitID: [id number] [address] [place] [address] 36y, F Registration Date/Time: 03/15/2016 Diabetes with hyperglycemia. Abscess to the face. (Electronically signed by Onel Juares MD 03/17/2016 15:50)
--- NOTE | 2016-03-17 15:50 | ED MAR SUMMARY ---
..... Medication Administration Record [facility] [address] [address] Patient: TESFAYE POSEY Visit ID: [id number] 36y, F Weight: 56.6 kg Height/Length: 62 in BMI: 22.8 ALLERGIES: Phenergan, Shellfish-derived Products Given 12:45 03/15/2016 Jelani Wilks R.N. Medication Administered: VERSED [IM] (MIDAZOLAM HCL), Dose: 2 mg IM. Medication Ordered: Versed IV 2 mg (NOW). Start 13:10 03/15/2016 Jelani Wilks R.N. Medication Administered: IV NS (SALINE), Dose: IV Fluids, Bolus: 1000 mL over 1 hour(s), Site: #1 right EJ. Medication Ordered: IV NS : initial bolus 1000 mL (1000 mL/hr), then 150 mL/hr for 4h (NOW); Urgent. Given 13:15 03/15/2016 Jelani Wilks R.N. Medication Administered: DILAUDID [IVP] (HYDROMORPHONE HCL PF), Dose: 0.5 mg IVP over 1 minute(s), Site: #1 right EJ. Medication Ordered: Dilaudid IV 0.5 mg (NOW). Given 13:32 03/15/2016 Jelani Wilks R.N. Medication Administered: INSULIN REG [IVP], Dose: 6 unit IVP over 1 minute(s), Site: #1 right EJ. Medication Ordered: Insulin Reg IV 6 units (NOW). Given 14:18 03/15/2016 Jelani Wilks R.N. Medication Administered: DILAUDID [IVP] (HYDROMORPHONE HCL PF), Dose: 0.5 mg IVP over 1 minute(s), Site: #1 right EJ. Medication Ordered: Dilaudid IV 0.5 mg (NOW). Start 15:42 03/15/2016 Gabriel Davis R.N., Stop 17:28 03/15/2016 Jelani Wilks R.N. Medication Administered: VANCOMYCIN [IVPB], Dose: 1.5 gm IVPB over 1 hour(s), Rate: 530 mL/hr, Dispensed: 530 mL bag, Site: #1 right EJ. Medication Ordered: Vancomycin IV 1.5 gm/500 mL (NOW). Given 15:45 03/15/2016 Gabriel Davis R.N. Medication Administered: VERSED [IVP] (MIDAZOLAM HCL), Dose: 1 mg IVP over 2 minute(s), Site: #1 right EJ. Medication Ordered: Versed IV 1 mg (HIGH ALERT MEDICATION, NOW). Given 16:40 03/15/2016 Jelani Wilks R.N. Medication Administered: ATIVAN [IVP] (LORAZEPAM), Dose: 0.5 mg IVP over 1 minute(s), Site: #1 right EJ. Medication Ordered: Ativan IV 0.5 mg (NOW). Given 16:47 03/15/2016 Jelani Wilks R.N. Medication Administered: ATIVAN [IVP] (LORAZEPAM), Dose: 0.5 mg IVP over 1 minute(s), Site: #1 right EJ. Medication Ordered: Ativan IV 0.5 mg (NOW).
--- NOTE | 2016-03-17 15:50 | ED MED RECONCILIATION SUMMARY ---
Patient: TESFAYE POSEY Medication Reconciliation Report [facility] VisitID: [id number] [place] [address] 36y, F Registration Date/Time: 03/15/2016 Weight: 56.6 kg Height/Length: 62 in. BMI: 22.8 ALLERGIES: Phenergan, Shellfish-derived Products The patient's Home Medications are listed below: NONE. The source(s) of the original Home Medication information: Not obtained. The following Medications were given to the patient in the Emergency Department: IV NS IV Fluids bolus 1000 mL over 1 hour(s), administered: 03/15/2016 1:10:00 PM Versed [IM] IM 2 mg, administered: 03/15/2016 12:45:00 PM Dilaudid [IVP] IVP 0.5 mg, administered: 03/15/2016 1:15:00 PM Insulin REG [IVP] IVP 6 unit, administered: 03/15/2016 1:32:00 PM Dilaudid [IVP] IVP 0.5 mg, administered: 03/15/2016 2:18:00 PM Vancomycin [IVPB] IVPB bolus 0, then 1.5 gm 530 mL/hr, administered: 03/15/2016 3:42:00 PM Versed [IVP] IVP 1 mg, administered: 03/15/2016 3:45:00 PM Ativan [IVP] IVP 0.5 mg, administered: 03/15/2016 4:40:00 PM Ativan [IVP] IVP 0.5 mg, administered: 03/15/2016 4:47:00 PM The following Medications were prescribed to the patient: None.
--- NOTE | 2016-03-17 15:50 | ED DISCHARGE INSTRUCTIONS ---
Patient: TESFAYE POSEY General Instructions [facility] VisitID: [id number] [address] [place] [address] 36y, F Registration Date/Time: 03/15/2016 Diabetes with hyperglycemia. Abscess to the face. (Electronically signed by Onel Juares MD 03/17/2016 15:50)
== END 2016-03-16 14:35 | disposition left against medical advice (07) | DRG 158 ==
LOC: ED SRH 10:31 → TRANS SRH 15:57 → CC SRH 18:48 → ACUTE2 SRH 21:07
PROVIDERS: ADMIT Emergency Medicine
PROC: 06HN33Z Insertion of Infusion Device into Left Femoral Vein, Percutaneous Approach (ICD-10-PCS; principal; 2016-03-15)
DX: K13.0 Diseases of lips (principal); L03.211 Cellulitis of face; E10.65 Type 1 diabetes mellitus with hyperglycemia; R74.8 Abnormal levels of other serum enzymes; F15.10 Other stimulant abuse, uncomplicated; Z79.4 Long term (current) use of insulin
CPT/HCPCS: 90004; 90047; 90065; 90074; 90098; 90100; 90301; 91286; 92031; 92235; 92530; 92760; 92761; 92762; 92763; 92764; 92765; 92766; 92767; 93070; 94001; 94060; 95059

== ENCOUNTER 2016-04-06 02:37 | Emergency (ER) | payer OTHER ==
--- NOTE | 2016-04-06 07:25 | ED NURSING NOTES ---
Clinical Report - Nurses [facility] [address] [place] [address] 04/06/2016 2:37 Patient: TESFAYE POSEY TRIAGE Triage time 0243. Acuity: LEVEL 3. Chief Complaint: (uncontrolled blood sugar). --02:56 Sukh Fuentes R.N. 02:43 04/06/16. BP: 127/83. HR: 77. RR: 18. O2 saturation: 98%. Temp: 97.4 F. Pain level now 0/10. --02:56 Sukh Fuentes R.N. Weight: 49.8 kg stated. Height/Length: 64 inches Per Patient. BMI: 18.9. --02:46 Sukh Fuentes R.N. Medications MetFORMIN HCl Oral. --02:49 Sukh Fuentes R.N. Wellbutrin Oral. --02:49 Sukh Fuentes R.N. Lantus Subcutaneous. --02:49 Sukh Fuentes R.N. Allergies Phenergan. Shellfish-derived Products. --02:48 Sukh Fuentes R.N. History Arrived by private vehicle. Historian: patient. Accompanied by friend. This started just prior to arrival. ( pt's blood sugar seemed low so pt ate and came to ED. fsbg >300 upon arrival.). 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 SOCIAL HX: Light tobacco smoker- less than 1/2 a pack per day. History of heavy drug use: methamphetamines. FALL RISK ASSESSMENT: Fall risk assessment completed. No fall risk identified. FUNCTIONAL ASSESSMENT: Functional assessment: no impairments noted. LEARNING NEEDS ASSESSMENT: The learning needs assessment revealed no barriers. NUTRITIONAL RISK ASSESSMENT: Nutritional risk assessment notes: uncontrolled diabetic. SKIN INTEGRITY ASSESSMENT: Skin integrity risk assessment completed. No skin integrity risk identified. --02:56 Sukh Fuentes R.N. PROBLEMS: Abscess. Diabetes Mellitus. Normal Exam. Diabetic Ketoacidosis. Abnormal Test. Hepatitis C carrier. Hep c. Constipation. Flank Pain. Suicidal Ideation. ADHD - Attention Deficit Hyperactivity Disorder. Hyperglycemia. Paresthesia. Vertigo. Anxiety Reaction. Back Pain. Sprain. Tetanus Status. Dental Pain. Migraine Headache. Headache. Gastritis. Diarrhea. Lifestyle / Substance Problems. Dehydration. Vomiting. Alcohol Intoxication. UTI - Urinary Tract Infection. Immunizations. Substance Abuse. Pancreatitis. Abdominal Pain. LNMP - Last Normal Menstrual Period. Cholecystitis. --02:51 Sukh Fuentes R.N. Hepatitis [RuleOut]. Abnormal Liver Function Test [RuleOut]. Pancreatitis [RuleOut]. --02:51 Sukh Fuentes R.N. Interventions ID band on patient. --02:56 Sukh Fuentes R.N. PHYSICAL ASSESSMENT Ambulatory to room. GENERAL / NEURO / PSYCH: Alert. Oriented X 4. Appears anxious. HEENT: Pupils equal, round and reactive to light. No facial asymmetry noted. Mucous membranes are pink. RESPIRATORY: Chest nontender. Breath sounds within normal limits. CVS: Capillary refill less than 2 seconds. Pulses within normal limits. GI / : Abdomen soft and nontender. SKIN: Skin intact. Skin is warm and dry. Normal skin turgor. --02:56 Sukh Fuentes R.N. ( FSBG 358). --03:50 Sukh Fuentes R.N. NURSING PROGRESS NOTES Head of bed elevated. Reassurance given. Patient identifiers checked. Call light placed in reach. Bed placed in lowest position. Brakes of bed on. --02:57 Sukh Fuentes R.N. 03:35 04/06/2016 Alprazolam PO 0.5 mg given. Allergies verified, confirmed 5 rights and sedative warning given to the patient and patient's supervisor quality control. --03:35 Sukh Fuentes R.N. Finger stick glucose: 358 mg/dL; performed by nurse; result shown to the ED physician. --03:51 Trixie Andrew 05:03 04/06/2016 Insulin Reg Subcutaneous 6 unit given. Given in the left upper arm. Allergies verified and confirmed 5 rights. --05:03 Sukh Fuentes R.N. Finger stick glucose: 268; performed by tech; result shown to the RN. --06:08 Sukh Fuentes R.N. DISPOSITION / DISCHARGE Departure time: 07:35 Apr 06 2016. Condition at departure: improved and stable. No learning barriers present. Reviewed medication(s) side effects, precautions and dosing information. Prescription(s) given to the patient. Patient verbalized understanding. Written instructions provided in Maltese. The patient was discharged by the physician. She was discharged home and accompanied by supervisor quality control. She left the Emergency Department ambulatory and via private vehicle. Grit Removal Operator driving. --08:01 Nellie Restrepo R.N. 07:59 04/06/16. BP: 121/88. HR: 86. RR: 20. O2 saturation: 100% on room air. Temp: 98.2 F (oral). Pain level now: 0/10. --08:01 Nellie Restrepo R.N. Locked/Released at 04/06/2016 8:01 by Nellie Restrepo R.N.
--- NOTE | 2016-04-06 07:25 | ED CLINICAL REPORT ---
Clinical Report - Physicians/Mid Levels [facility] [address] [place] [address] 04/06/2016 2:37 Patient: TESFAYE POSEY Time Seen: 03:09 Apr 06 2016. Arrived- By private vehicle. Historian- patient. CPT: ER phys charges level 4 (#[id number]). HISTORY OF PRESENT ILLNESS Chief Complaint: uncontrolled blood sugar). ( [place] blood sugar was low so ate to increase level.). This started today and is still present. At its maximum, severity described as moderate. When seen in the E.D., it was almost gone. Modifying factors. Not worsened by anything. Not relieved by anything. The patient has had fatigue. Similar symptoms previously: None. Recent medical care: Not recently seen/assessed. REVIEW OF SYSTEMS No fever, sore throat, sinus drainage, nasal congestion or cough. No difficulty breathing, chest pain, abdominal pain, nausea or vomiting. No diarrhea, black stools, bloody stools, difficulty with urination or skin rash. No back pain, calf pain, headache, blackouts or double vision. No difficulty with ambulation. All systems otherwise negative, except as recorded above. PAST HISTORY Abscess. Diabetes Mellitus. Normal Exam. Diabetic Ketoacidosis. Abnormal Test. Hepatitis C carrier. Hep c. Constipation. Flank Pain. Suicidal Ideation. ADHD - Attention Deficit Hyperactivity Disorder. Hyperglycemia. Paresthesia. Vertigo. Anxiety Reaction. Back Pain. Sprain. Tetanus Status. Dental Pain. Migraine Headache. Headache. Gastritis. Diarrhea. Lifestyle / Substance Problems. Dehydration. Vomiting. Alcohol Intoxication. UTI - Urinary Tract Infection. Immunizations. Substance Abuse. Pancreatitis. Abdominal Pain. LNMP - Last Normal Menstrual Period. Cholecystitis. --02:51 Sukh Fuentes R.N. Hepatitis [RuleOut]. Abnormal Liver Function Test [RuleOut]. Pancreatitis. Medications: Lantus Subcutaneous. Wellbutrin Oral. MetFORMIN HCl Oral. Allergies: Phenergan. Shellfish-derived Products. SOCIAL HISTORY Heavy tobacco smoker (cigarette)- less than 1 pack per day. History of drug use: methamphetamines. ADDITIONAL NOTES The nursing notes have been reviewed. PHYSICAL EXAM Vital Signs: 04/06/2016 02:43 BP: 127/83. HR: 77. RR: 18. O2 saturation: 98%. Temp: 97.4 F. Appearance: Alert. Patient in mild distress. (Psychomotor agitation consistent with methamphetamines.). Eyes: Pupils equal, round and reactive to light. Eyes normal inspection. ENT: Ears normal. Nose normal. Pharynx normal. Neck: Normal inspection. Neck supple. CVS: Normal heart rate and rhythm. Heart sounds normal. Pulses normal. Respiratory: No respiratory distress. Moderate respiratory distress with tachypnea and hyperventilation. Breath sounds normal. Chest nontender. Abdomen: Soft and nontender. Back: Normal inspection. Skin: Skin warm. Normal skin color. No rash. Extremities: Extremities exhibit normal ROM. No lower extremity edema. Neuro: Oriented X 3. No motor deficit. No sensory deficit. Reflexes normal. (Cannot sit still and appears intoxicated on meth.). LABS, X-RAYS, AND EKG Laboratory Tests: CBC w Diff: (JARAD: 04/06/2016 05:15) ( [facility] 04/06/[facility] 05:22) Final results Test Result Flag Units (Reference) WHITE BLOOD COUNT 8.2 K/uL (4.5-11.5) RED BLOOD COUNT 4.24 M/uL (4.00-5.20) HEMOGLOBIN 12.2 gm/dL (12.0-16.0) HEMATOCRIT 36.4 % (36.0-46.0) MEAN CELL VOLUME 86 fL (80-100) MEAN CORPUSCULAR HGB 29 pg (26-34) MEAN CORPUSCULAR HGB CONC 34 g/dL (31-37) RED CELL DISTRIBUTION WIDTH 13.7 % (11.6-14.8) PLATELET COUNT 242 K/uL (150-400) NEUTROPHIL % 52.4 % (50-75) LYMPH % 39.4 % (25-40) MONO % 5.4 % (3-14) EOSINOPHIL % 1.3 % (0-4) BASOPHIL % 1.5 % (0-2) CMP: (JARAD: 04/06/2016 05:15) ( [facility] 04/06/2016 05:33) Final results Test Result Flag Units (Reference) GLUCOSE 315 H mg/dL (70-110) BUN 13 mg/dL (7-18) CREATININE 0.6 mg/dL (0.6-1.3) Estimated GFR >60 mL/min Estimated GFR- >60 mL/min Note: Persistent reduction over 3 months in eGFR<60 mL/min/1.73 m2 defines CKD. Patients with eGFR values>=60 mL/min/1.73 m2 may also have CKD if evidence ofpersistent proteinuria. Additional information may be foundat www.kidney.org. SODIUM 136 mmol/L (136-145) POTASSIUM 3.7 mmol/L (3.5-5.1) CHLORIDE 101 mmol/L (98-107) CARBON DIOXIDE 21 mmol/L (21-32) CALCIUM 9.1 mg/dL (8.5-10.1) TOTAL PROTEIN 8.0 g/dL (6.4-8.2) ALBUMIN 3.6 g/dL (3.3-5.0) BILIRUBIN, TOTAL 1.0 mg/dL (0.0-1.0) ALKALINE PHOSPHATASE 121 H U/L (46-116) AST (SGOT) 43 H U/L (15-37) ALT (SGPT) 69 U/L (12-78) . PROGRESS AND PROCEDURES Course of Care: Insulin 6 units sub Q Xanax 0.5 mg po Patient is stable. Symptoms better. BS down to 268. Patient/family counseled. Disposition: Discharged. Condition: stable. CLINICAL IMPRESSION Anxiety reaction with hyperventilation. Substance abuse problems: abuse of methamphetamine. Substance dependence problems: dependence on methamphetamine. Uncontrolled IDDM. INSTRUCTIONS Drink plenty of fluids. (Get to rehab as scheduled.). Warnings: Further evaluation is necessary. GENERAL WARNINGS: Return or contact your physician immediately if your condition worsens or changes unexpectedly, if not improving as expected, or if other problems arise. Your Current Medications: CONTINUE TAKING THE FOLLOWING MEDICATIONS: Lantus Subcutaneous. MetFORMIN HCl Oral. Wellbutrin Oral. Prescription Medications: Xanax take 1-2 orally every 6 hours as needed for anxiety. Dispense ten (10). No refill. Substitution is permissible. Follow-up: Follow up with your doctor Friday in two days. Call for an appointment. Understanding of the discharge instructions verbalized by patient. Discharge instructions reviewed with and understanding was verbalized by regulatory technician. (Electronically signed by Adam Turner MD 04/08/2016 21:45)
--- NOTE | 2016-04-06 07:25 | ED ORDER SUMMARY ---
..... Patient: TESFAYE POSEY OrderSheet [facility] VisitID: [id number] [address] [place] [address] 36y, F Registration Date/Time: 04/06/2016 ORDER SHEET Weight: 49.8 kg (stated) Allergies: Phenergan, Shellfish-derived Products GENERAL ORDERS: CBC w Diff Urgent (04:50 04/06/2016 Kim CORTEZ) (Ack 4:52 Robert) (5:13 JBullard R.N.) CMP Urgent (04:50 04/06/2016 Kim CORTEZ) (Ack 4:52 Robert) (5:13 Renee R.N.) MEDICATION ORDERS: Alprazolam PO 0.5 mg (NOW) (03:16 04/06/2016 Kim CORTEZ) (3:35 JBullard R.N.) Insulin Reg Subcut 6 units (NOW) (04:50 04/06/2016 Kim CORTEZ) (Ack 4:55 CHIKIullard R.N.) (5:03 Renee R.N.) IV FLUIDS: ORDER SHEET NOTES: [Electronically signed by Nellie Restrepo R.N. (08:01 04/06/2016)] [Electronically signed by Adam Turner MD (21:45 04/08/2016)] [Electronically locked/signed by Nellie Restrepo R.N. (08:04/06/2016)]
--- NOTE | 2016-04-06 07:25 | ED CLINICAL REPORT ---
Clinical Report - Physicians/Mid Levels [facility] [address] [place] [address] 04/06/2016 2:37 Patient: TESFAYE POSEY Time Seen: 03:09 Apr 06 2016. Arrived- By private vehicle. Historian- patient. CPT: ER phys charges level 4 (#[id number]). HISTORY OF PRESENT ILLNESS Chief Complaint: uncontrolled blood sugar). ( [place] blood sugar was low so ate to increase level.). This started today and is still present. At its maximum, severity described as moderate. When seen in the E.D., it was almost gone. Modifying factors. Not worsened by anything. Not relieved by anything. The patient has had fatigue. Similar symptoms previously: None. Recent medical care: Not recently seen/assessed. REVIEW OF SYSTEMS No fever, sore throat, sinus drainage, nasal congestion or cough. No difficulty breathing, chest pain, abdominal pain, nausea or vomiting. No diarrhea, black stools, bloody stools, difficulty with urination or skin rash. No back pain, calf pain, headache, blackouts or double vision. No difficulty with ambulation. All systems otherwise negative, except as recorded above. PAST HISTORY Abscess. Diabetes Mellitus. Normal Exam. Diabetic Ketoacidosis. Abnormal Test. Hepatitis C carrier. Hep c. Constipation. Flank Pain. Suicidal Ideation. ADHD - Attention Deficit Hyperactivity Disorder. Hyperglycemia. Paresthesia. Vertigo. Anxiety Reaction. Back Pain. Sprain. Tetanus Status. Dental Pain. Migraine Headache. Headache. Gastritis. Diarrhea. Lifestyle / Substance Problems. Dehydration. Vomiting. Alcohol Intoxication. UTI - Urinary Tract Infection. Immunizations. Substance Abuse. Pancreatitis. Abdominal Pain. LNMP - Last Normal Menstrual Period. Cholecystitis. --02:51 Sukh Fuentes R.N. Hepatitis [RuleOut]. Abnormal Liver Function Test [RuleOut]. Pancreatitis. Medications: Lantus Subcutaneous. Wellbutrin Oral. MetFORMIN HCl Oral. Allergies: Phenergan. Shellfish-derived Products. SOCIAL HISTORY Heavy tobacco smoker (cigarette)- less than 1 pack per day. History of drug use: methamphetamines. ADDITIONAL NOTES The nursing notes have been reviewed. PHYSICAL EXAM Vital Signs: 04/06/2016 02:43 BP: 127/83. HR: 77. RR: 18. O2 saturation: 98%. Temp: 97.4 F. Appearance: Alert. Patient in mild distress. (Psychomotor agitation consistent with methamphetamines.). Eyes: Pupils equal, round and reactive to light. Eyes normal inspection. ENT: Ears normal. Nose normal. Pharynx normal. Neck: Normal inspection. Neck supple. CVS: Normal heart rate and rhythm. Heart sounds normal. Pulses normal. Respiratory: No respiratory distress. Moderate respiratory distress with tachypnea and hyperventilation. Breath sounds normal. Chest nontender. Abdomen: Soft and nontender. Back: Normal inspection. Skin: Skin warm. Normal skin color. No rash. Extremities: Extremities exhibit normal ROM. No lower extremity edema. Neuro: Oriented X 3. No motor deficit. No sensory deficit. Reflexes normal. (Cannot sit still and appears intoxicated on meth.). LABS, X-RAYS, AND EKG Laboratory Tests: CBC w Diff: (JARAD: 04/06/2016 05:15) ( [facility] 04/06/2016 05:22) Final results Test Result Flag Units (Reference) WHITE BLOOD COUNT 8.2 K/uL (4.5-11.5) RED BLOOD COUNT 4.24 M/uL (4.00-5.20) HEMOGLOBIN 12.2 gm/dL (12.0-16.0) HEMATOCRIT 36.4 % (36.0-46.0) MEAN CELL VOLUME 86 fL (80-100) MEAN CORPUSCULAR HGB 29 pg (26-34) MEAN CORPUSCULAR HGB CONC 34 g/dL (31-37) RED CELL DISTRIBUTION WIDTH 13.7 % (11.6-14.8) PLATELET COUNT 242 K/uL (150-400) NEUTROPHIL % 52.4 % (50-75) LYMPH % 39.4 % (25-40) MONO % 5.4 % (3-14) EOSINOPHIL % 1.3 % (0-4) BASOPHIL % 1.5 % (0-2) CMP: (JARAD: 04/06/2016 05:15) ( [facility] 04/06/2016 05:33) Final results Test Result Flag Units (Reference) GLUCOSE 315 H mg/dL (70-110) BUN 13 mg/dL (7-18) CREATININE 0.6 mg/dL (0.6-1.3) Estimated GFR >60 mL/min Estimated GFR- >60 mL/min Note: Persistent reduction over 3 months in eGFR<60 mL/min/1.73 m2 defines CKD. Patients with eGFR values>=60 mL/min/1.73 m2 may also have CKD if evidence ofpersistent proteinuria. Additional information may be foundat www.kidney.org. SODIUM 136 mmol/L (136-145) POTASSIUM 3.7 mmol/L (3.5-5.1) CHLORIDE 101 mmol/L (98-107) CARBON DIOXIDE 21 mmol/L (21-32) CALCIUM 9.1 mg/dL (8.5-10.1) TOTAL PROTEIN 8.0 g/dL (6.4-8.2) ALBUMIN 3.6 g/dL (3.3-5.0) BILIRUBIN, TOTAL 1.0 mg/dL (0.0-1.0) ALKALINE PHOSPHATASE 121 H U/L (46-116) AST (SGOT) 43 H U/L (15-37) ALT (SGPT) 69 U/L (12-78) . PROGRESS AND PROCEDURES Course of Care: Insulin 6 units sub Q Xanax 0.5 mg po Patient is stable. Symptoms better. BS down to 268. Patient/family counseled. Disposition: Discharged. Condition: stable. CLINICAL IMPRESSION Anxiety reaction with hyperventilation. Substance abuse problems: abuse of methamphetamine. Substance dependence problems: dependence on methamphetamine. Uncontrolled IDDM. INSTRUCTIONS Drink plenty of fluids. (Get to rehab as scheduled.). Warnings: Further evaluation is necessary. GENERAL WARNINGS: Return or contact your physician immediately if your condition worsens or changes unexpectedly, if not improving as expected, or if other problems arise. Your Current Medications: CONTINUE TAKING THE FOLLOWING MEDICATIONS: Lantus Subcutaneous. MetFORMIN HCl Oral. Wellbutrin Oral. Prescription Medications: Xanax take 1-2 orally every 6 hours as needed for anxiety. Dispense ten (10). No refill. Substitution is permissible. Follow-up: Follow up with your doctor Friday in two days. Call for an appointment. Understanding of the discharge instructions verbalized by patient. Discharge instructions reviewed with and understanding was verbalized by addiction psychiatrist. (Electronically signed by Adam Turner MD 04/08/2016 21:45)
--- NOTE | 2016-04-06 07:25 | ED NURSING NOTES ---
Clinical Report - Nurses [facility] [address] [place] [address] 04/06/2016 2:37 Patient: TESFAYE POSEY TRIAGE Triage time 0243. Acuity: LEVEL 3. Chief Complaint: (uncontrolled blood sugar). --02:56 Sukh Fuentes R.N. 02:43 04/06/16. BP: 127/83. HR: 77. RR: 18. O2 saturation: 98%. Temp: 97.4 F. Pain level now 0/10. --02:56 Sukh Fuentes R.N. Weight: 49.8 kg stated. Height/Length: 64 inches Per Patient. BMI: 18.9. --02:46 Sukh Fuentes R.N. Medications MetFORMIN HCl Oral. --02:49 Sukh Fuentes R.N. Wellbutrin Oral. --02:49 Sukh Fuentes R.N. Lantus Subcutaneous. --02:49 Sukh Fuentes R.N. Allergies Phenergan. Shellfish-derived Products. --02:48 Sukh Fuentes R.N. History Arrived by private vehicle. Historian: patient. Accompanied by friend. This started just prior to arrival. ( pt's blood sugar seemed low so pt ate and came to ED. fsbg >300 upon arrival.). 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 SOCIAL HX: Light tobacco smoker- less than 1/2 a pack per day. History of heavy drug use: methamphetamines. FALL RISK ASSESSMENT: Fall risk assessment completed. No fall risk identified. FUNCTIONAL ASSESSMENT: Functional assessment: no impairments noted. LEARNING NEEDS ASSESSMENT: The learning needs assessment revealed no barriers. NUTRITIONAL RISK ASSESSMENT: Nutritional risk assessment notes: uncontrolled diabetic. SKIN INTEGRITY ASSESSMENT: Skin integrity risk assessment completed. No skin integrity risk identified. --02:56 Sukh Fuentes R.N. PROBLEMS: Abscess. Diabetes Mellitus. Normal Exam. Diabetic Ketoacidosis. Abnormal Test. Hepatitis C carrier. Hep c. Constipation. Flank Pain. Suicidal Ideation. ADHD - Attention Deficit Hyperactivity Disorder. Hyperglycemia. Paresthesia. Vertigo. Anxiety Reaction. Back Pain. Sprain. Tetanus Status. Dental Pain. Migraine Headache. Headache. Gastritis. Diarrhea. Lifestyle / Substance Problems. Dehydration. Vomiting. Alcohol Intoxication. UTI - Urinary Tract Infection. Immunizations. Substance Abuse. Pancreatitis. Abdominal Pain. LNMP - Last Normal Menstrual Period. Cholecystitis. --02:51 Sukh Fuentes R.N. Hepatitis [RuleOut]. Abnormal Liver Function Test [RuleOut]. Pancreatitis [RuleOut]. --02:51 Sukh Fuentes R.N. Interventions ID band on patient. --02:56 Sukh Fuentes R.N. PHYSICAL ASSESSMENT Ambulatory to room. GENERAL / NEURO / PSYCH: Alert. Oriented X 4. Appears anxious. HEENT: Pupils equal, round and reactive to light. No facial asymmetry noted. Mucous membranes are pink. RESPIRATORY: Chest nontender. Breath sounds within normal limits. CVS: Capillary refill less than 2 seconds. Pulses within normal limits. GI / : Abdomen soft and nontender. SKIN: Skin intact. Skin is warm and dry. Normal skin turgor. --02:56 Sukh Fuentes R.N. ( FSBG 358). --03:50 Sukh Fuentes R.N. NURSING PROGRESS NOTES Head of bed elevated. Reassurance given. Patient identifiers checked. Call light placed in reach. Bed placed in lowest position. Brakes of bed on. --02:57 Sukh Fuentes R.N. 03:35 04/06/2016 Alprazolam PO 0.5 mg given. Allergies verified, confirmed 5 rights and sedative warning given to the patient and patient's sales service assistant. --03:35 Sukh Fuentes R.N. Finger stick glucose: 358 mg/dL; performed by nurse; result shown to the ED physician. --03:51 Trixie Andrew 05:03 04/06/2016 Insulin Reg Subcutaneous 6 unit given. Given in the left upper arm. Allergies verified and confirmed 5 rights. --05:03 Sukh Fuentes R.N. Finger stick glucose: 268; performed by tech; result shown to the RN. --06:08 Sukh Fuentes R.N. DISPOSITION / DISCHARGE Departure time: 07:35 Apr 06 2016. Condition at departure: improved and stable. No learning barriers present. Reviewed medication(s) side effects, precautions and dosing information. Prescription(s) given to the patient. Patient verbalized understanding. Written instructions provided in Green[place]ic. The patient was discharged by the physician. She was discharged home and accompanied by sales service assistant. She left the Emergency Department ambulatory and via private vehicle. Relish Blender driving. --08:01 Nellie Restrepo R.N. 07:59 04/06/16. BP: 121/88. HR: 86. RR: 20. O2 saturation: 100% on room air. Temp: 98.2 F (oral). Pain level now: 0/10. --08:01 Nellie Restrepo R.N. Locked/Released at 04/06/2016 8:01 by Nellie Restrepo R.N.
--- NOTE | 2016-04-06 07:25 | ED ORDER SUMMARY ---
..... Patient: TESFAYE POSEY OrderSheet [facility] VisitID: [id number] [address] [place] [address] 36y, F Registration Date/Time: 04/06/2016 ORDER SHEET Weight: 49.8 kg (stated) Allergies: Phenergan, Shellfish-derived Products GENERAL ORDERS: CBC w Diff Urgent (04:50 04/06/2016 Kim CORTEZ) (Ack 4:52 Robert) (5:13 JBullard R.N.) CMP Urgent (04:50 04/06/2016 Kim CORTEZ) (Ack 4:52 Robert) (5:13 Renee R.N.) MEDICATION ORDERS: Alprazolam PO 0.5 mg (NOW) (03:16 04/06/2016 Kim CORTEZ) (3:35 JBullard R.N.) Insulin Reg Subcut 6 units (NOW) (04:50 04/06/2016 Kim CORTEZ) (Ack 4:55 CHIKIullard R.N.) (5:03 Renee R.N.) IV FLUIDS: ORDER SHEET NOTES: [Electronically signed by Nellie Restrepo R.N. (08:01 04/06/2016)] [Electronically signed by Adam Turner MD (21:45 04/08/2016)] [Electronically locked/signed by Nellie Restrepo R.N. (08:04/06/2016)]
--- NOTE | 2016-04-08 21:45 | ED MAR SUMMARY ---
..... Medication Administration Record [facility] [address] [place] [address] Patient: TESFAYE POSEY Visit ID: [id number] 36y, F Weight: 49.8 kg Height/Length: 64 in BMI: 18.9 ALLERGIES: Phenergan, Shellfish-derived Products Given 03:35 04/06/2016 Sukh Fuentes R.N. Medication Administered: ALPRAZOLAM [PO], Dose: 0.5 mg PO. Medication Ordered: Alprazolam PO 0.5 mg (NOW). Given 05:03 04/06/2016 Sukh Fuentes R.N. Medication Administered: INSULIN REG [SUBCUTANEOUS], Dose: 6 unit Subcutaneous. Medication Ordered: Insulin Reg Subcut 6 units (NOW).
--- NOTE | 2016-04-08 21:45 | ED MED RECONCILIATION SUMMARY ---
Patient: TESFAYE POSEY Medication Reconciliation Report [facility] VisitID: [id number] [address] [place] [address] 36y, F Registration Date/Time: 04/06/2016 Weight: 49.8 kg Height/Length: 64 in. BMI: 18.9 ALLERGIES: Phenergan, Shellfish-derived Products The patient's Home Medications are listed below: CONTINUE TAKING THE FOLLOWING MEDICATIONS: Lantus Subcutaneous MetFORMIN HCl Oral Wellbutrin Oral The source(s) of the original Home Medication information: Not obtained. The following Medications were given to the patient in the Emergency Department: Alprazolam [PO] PO 0.5 mg, administered: 04/06/2016 3:35:00 AM Insulin Reg [Subcutaneous] Subcutaneous 6 unit, administered: 04/06/2016 5:03:00 AM The following Medications were prescribed to the patient: Xanax take 1-2 orally every 6 hours as needed for anxiety. Dispense ten (10). No refill. Substitution is permissible. -- Adam Turner MD
--- NOTE | 2016-04-08 21:45 | ED DISCHARGE INSTRUCTIONS ---
Patient: TESFAYE POSEY General Instructions [facility] VisitID: [id number] [place] [address] 36y, F Registration Date/Time: 04/06/2016 Anxiety reaction with hyperventilation. Substance abuse problems: abuse of methamphetamine. Substance dependence problems: dependence on methamphetamine. Uncontrolled IDDM. INSTRUCTIONS Drink plenty of fluids. (Get to rehab as scheduled.). Warnings: Further evaluation is necessary. GENERAL WARNINGS: Return or contact your physician immediately if your condition worsens or changes unexpectedly, if not improving as expected, or if other problems arise. Your Current Medications: CONTINUE TAKING THE FOLLOWING MEDICATIONS: Lantus Subcutaneous. MetFORMIN HCl Oral. Wellbutrin Oral. Prescription Medications: Xanax take 1-2 orally every 6 hours as needed for anxiety. Dispense ten (10). No refill. Substitution is permissible. Follow-up: Follow up with your doctor Friday in two days. Call for an appointment. Understanding of the discharge instructions verbalized by patient. Discharge instructions reviewed with and understanding was verbalized by service station operator. ADDITIONAL INFORMATION Stress Reaction Anxiety is the feeling we all get when we think something bad might happen. It is a normal response to stress and usually causes only a mild reaction. When anxiety becomes more severe, emotions may interfere with daily life. In some cases, you may not even be aware of what it is youre anxious about! During an anxiety reaction, you may feel like you are helpless, nervous, depressed or irritable. Your body may show signs of anxiety in many ways. You may experience dry mouth, shakiness, dizziness, weakness, trouble breathing, chest pressure, headache, nausea, diarrhea, tiredness, inability to sleep or sexual problems. Home Care: 1) Try to locate the sources of stress in your life. They may not be obvious! These may include: -- Daily hassles of life which pile up (traffic jams, missed appointments, car troubles, etc.) -- Major life changes, both good (new baby, job promotion) and bad (loss of job, loss of loved one) -- Overload: feeling that you have too many responsibilities and can't take care of all of them at once -- Feeling helpless, feeling that your problems are beyond what youre able to solve 2) Notice how your body reacts to stress. Learn to listen to your body signals. This will help you take action before the stress becomes severe. 3) When you can, do something about the source of your stress. (Avoid hassles, limit the amount of change that happens in your life at one time and take a break when you feel overloaded). 4) Unfortunately, many stressful situations cannot be avoided. It is necessary to learn HOW TO MANAGE STRESS better. There are many proven methods that will reduce your anxiety. These include simple things like exercise, good nutrition and adequate rest. Also, there are certain techniques that are helpful: relaxation and breathing exercises, visualization, biofeedback and meditation. For more information about this, consult your doctor or go to a local bookstore and review the many books and tapes available on this subject. Follow Up If you feel that your anxiety is not responding to self-help measures, contact your doctor or make an appointment with a counselor. Get Prompt Medical Attention if any of the following occur: -- Your symptoms get worse -- Chest pain or trouble breathing -- Severe headache not relieved by rest and mild pain reliever -- Rapid or irregular heartbeat, fainting Alprazolam Oral tablet What is this medicine? ALPRAZOLAM (al PRAY roman hyman) is a benzodiazepine. It is used to treat anxiety and panic attacks. How should I use this medicine? Take this medicine by mouth with a glass of water. Follow the directions on the prescription label. Take your medicine at regular intervals. Do not take it more often than directed. If you have been taking this medicine regularly for some time, do not suddenly stop taking it. You must gradually reduce the dose or you may get severe side effects. Ask your doctor or health pediatric care coordinator for advice. Even after you stop taking this medicine it can still affect your body for several days. Talk to your graves registration specialist regarding the use of this medicine in children. Special care may be needed. What side effects may I notice from receiving this medicine? Side effects that you should report to your doctor or health pediatric care coordinator as soon as possible: allergic reactions like skin rash, itching or hives, swelling of the face, lips, or tongue confusion, forgetfulness depression difficulty sleeping difficulty speaking feeling faint or lightheaded, falls mood changes, excitability or aggressive behavior muscle cramps trouble passing urine or change in the amount of urine unusually weak or tired Side effects that usually do not require medical attention (report to your doctor or health pediatric care coordinator if they continue or are bothersome): change in sex drive or performance changes in appetite What may interact with this medicine? Do not take this medicine with any of the following medications: certain medicines for HIV infection or AIDS ketoconazole itraconazole This medicine may also interact with the following medications: control pills certain macrolide antibiotics like clarithromycin, erythromycin, troleandomycin cimetidine cyclosporine ergotamine grapefruit juice herbal or dietary supplements like kava kava, melatonin, dehydroepiandrosterone, DHEA, [place] Wort or valerian imatinib, [id number] isoniazid levodopa medicines for depression, anxiety, or psychotic disturbances prescription pain medicines rifampin, rifapentine, or rifabutin some medicines for blood pressure or heart problems some medicines for seizures like carbamazepine, oxcarbazepine, phenobarbital, phenytoin, primidone What if I miss a dose? If you miss a dose, take it as soon as you can. If it is almost time for your next dose, take only that dose. Do not take double or extra doses. Where should I keep my medicine? Keep out of the reach of children. This medicine can be abused. Keep your medicine in a safe place to protect it from theft. Do not share this medicine with anyone. Selling or giving away this medicine is dangerous and against the law. Store at room temperature between 20 and 25 degrees C (68 and 77 degrees F). Throw away any unused medicine after the expiration date. What should I tell my health care provider before I take this medicine? They need to know if you have any of these conditions: an alcohol or drug abuse problem bipolar disorder, depression, psychosis or other mental health conditions glaucoma kidney or liver disease lung or breathing disease myasthenia gravis Parkinson's disease porphyria seizures or a history of seizures suicidal thoughts an unusual or allergic reaction to alprazolam, other benzodiazepines, foods, dyes, or preservatives or trying to get breast-feeding What should I watch for while using this medicine? Visit your doctor or health pediatric care coordinator for regular checks on your progress. Your body can become dependent on this medicine. Ask your doctor or health pediatric care coordinator if you still need to take it. You may get drowsy or dizzy. Do not drive, use machinery, or do anything that needs mental alertness until you know how this medicine affects you. To reduce the risk of dizzy and fainting spells, do not stand or sit up quickly, especially if you are an older patient. Alcohol may increase dizziness and drowsiness. Avoid alcoholic drinks. Do not treat yourself for coughs, colds or allergies without asking your doctor or health pediatric care coordinator for advice. Some ingredients can increase possible side effects. You have been given the following additional information: Anxiety Reaction Alprazolam Oral tablet (Electronically signed by Adam Turner MD 04/08/2016 21:45)
--- NOTE | 2016-04-08 21:45 | ED MAR SUMMARY ---
..... Medication Administration Record [facility] [address] [place] [address] Patient: TESFAYE POSEY Visit ID: [id number] 36y, F Weight: 49.8 kg Height/Length: 64 in BMI: 18.9 ALLERGIES: Phenergan, Shellfish-derived Products Given 03:35 04/06/2016 Sukh Fuentes R.N. Medication Administered: ALPRAZOLAM [PO], Dose: 0.5 mg PO. Medication Ordered: Alprazolam PO 0.5 mg (NOW). Given 05:03 04/06/2016 Sukh Fuentes R.N. Medication Administered: INSULIN REG [SUBCUTANEOUS], Dose: 6 unit Subcutaneous. Medication Ordered: Insulin Reg Subcut 6 units (NOW).
--- NOTE | 2016-04-08 21:45 | ED MED RECONCILIATION SUMMARY ---
Patient: TESFAYE POSEY Medication Reconciliation Report [facility] VisitID: [id number] [address] [place] [address] 36y, F Registration Date/Time: 04/06/2016 Weight: 49.8 kg Height/Length: 64 in. BMI: 18.9 ALLERGIES: Phenergan, Shellfish-derived Products The patient's Home Medications are listed below: CONTINUE TAKING THE FOLLOWING MEDICATIONS: Lantus Subcutaneous MetFORMIN HCl Oral Wellbutrin Oral The source(s) of the original Home Medication information: Not obtained. The following Medications were given to the patient in the Emergency Department: Alprazolam [PO] PO 0.5 mg, administered: 04/06/2016 3:35:00 AM Insulin Reg [Subcutaneous] Subcutaneous 6 unit, administered: 04/06/2016 5:03:00 AM The following Medications were prescribed to the patient: Xanax take 1-2 orally every 6 hours as needed for anxiety. Dispense ten (10). No refill. Substitution is permissible. -- Adam Turner MD
--- NOTE | 2016-04-08 21:45 | ED DISCHARGE INSTRUCTIONS ---
Patient: TESFAYE POSEY General Instructions [facility] VisitID: [id number] [place] [address] 36y, F Registration Date/Time: 04/06/2016 Anxiety reaction with hyperventilation. Substance abuse problems: abuse of methamphetamine. Substance dependence problems: dependence on methamphetamine. Uncontrolled IDDM. INSTRUCTIONS Drink plenty of fluids. (Get to rehab as scheduled.). Warnings: Further evaluation is necessary. GENERAL WARNINGS: Return or contact your physician immediately if your condition worsens or changes unexpectedly, if not improving as expected, or if other problems arise. Your Current Medications: CONTINUE TAKING THE FOLLOWING MEDICATIONS: Lantus Subcutaneous. MetFORMIN HCl Oral. Wellbutrin Oral. Prescription Medications: Xanax take 1-2 orally every 6 hours as needed for anxiety. Dispense ten (10). No refill. Substitution is permissible. Follow-up: Follow up with your doctor Friday in two days. Call for an appointment. Understanding of the discharge instructions verbalized by patient. Discharge instructions reviewed with and understanding was verbalized by deicer inspector electric. ADDITIONAL INFORMATION Stress Reaction Anxiety is the feeling we all get when we think something bad might happen. It is a normal response to stress and usually causes only a mild reaction. When anxiety becomes more severe, emotions may interfere with daily life. In some cases, you may not even be aware of what it is youre anxious about! During an anxiety reaction, you may feel like you are helpless, nervous, depressed or irritable. Your body may show signs of anxiety in many ways. You may experience dry mouth, shakiness, dizziness, weakness, trouble breathing, chest pressure, headache, nausea, diarrhea, tiredness, inability to sleep or sexual problems. Home Care: 1) Try to locate the sources of stress in your life. They may not be obvious! These may include: -- Daily hassles of life which pile up (traffic jams, missed appointments, car troubles, etc.) -- Major life changes, both good (new baby, job promotion) and bad (loss of job, loss of loved one) -- Overload: feeling that you have too many responsibilities and can't take care of all of them at once -- Feeling helpless, feeling that your problems are beyond what youre able to solve 2) Notice how your body reacts to stress. Learn to listen to your body signals. This will help you take action before the stress becomes severe. 3) When you can, do something about the source of your stress. (Avoid hassles, limit the amount of change that happens in your life at one time and take a break when you feel overloaded). 4) Unfortunately, many stressful situations cannot be avoided. It is necessary to learn HOW TO MANAGE STRESS better. There are many proven methods that will reduce your anxiety. These include simple things like exercise, good nutrition and adequate rest. Also, there are certain techniques that are helpful: relaxation and breathing exercises, visualization, biofeedback and meditation. For more information about this, consult your doctor or go to a local bookstore and review the many books and tapes available on this subject. Follow Up If you feel that your anxiety is not responding to self-help measures, contact your doctor or make an appointment with a counselor. Get Prompt Medical Attention if any of the following occur: -- Your symptoms get worse -- Chest pain or trouble breathing -- Severe headache not relieved by rest and mild pain reliever -- Rapid or irregular heartbeat, fainting Alprazolam Oral tablet What is this medicine? ALPRAZOLAM (al PRAY roman hyman) is a benzodiazepine. It is used to treat anxiety and panic attacks. How should I use this medicine? Take this medicine by mouth with a glass of water. Follow the directions on the prescription label. Take your medicine at regular intervals. Do not take it more often than directed. If you have been taking this medicine regularly for some time, do not suddenly stop taking it. You must gradually reduce the dose or you may get severe side effects. Ask your doctor or health career services coordinator for advice. Even after you stop taking this medicine it can still affect your body for several days. Talk to your internal audit consultant regarding the use of this medicine in children. Special care may be needed. What side effects may I notice from receiving this medicine? Side effects that you should report to your doctor or health career services coordinator as soon as possible: allergic reactions like skin rash, itching or hives, swelling of the face, lips, or tongue confusion, forgetfulness depression difficulty sleeping difficulty speaking feeling faint or lightheaded, falls mood changes, excitability or aggressive behavior muscle cramps trouble passing urine or change in the amount of urine unusually weak or tired Side effects that usually do not require medical attention (report to your doctor or health career services coordinator if they continue or are bothersome): change in sex drive or performance changes in appetite What may interact with this medicine? Do not take this medicine with any of the following medications: certain medicines for HIV infection or AIDS ketoconazole itraconazole This medicine may also interact with the following medications: control pills certain macrolide antibiotics like clarithromycin, erythromycin, troleandomycin cimetidine cyclosporine ergotamine grapefruit juice herbal or dietary supplements like kava kava, melatonin, dehydroepiandrosterone, DHEA, [place]ele's Wort or valerian imatinib, STI-571 isoniazid levodopa medicines for depression, anxiety, or psychotic disturbances prescription pain medicines rifampin, rifapentine, or rifabutin some medicines for blood pressure or heart problems some medicines for seizures like carbamazepine, oxcarbazepine, phenobarbital, phenytoin, primidone What if I miss a dose? If you miss a dose, take it as soon as you can. If it is almost time for your next dose, take only that dose. Do not take double or extra doses. Where should I keep my medicine? Keep out of the reach of children. This medicine can be abused. Keep your medicine in a safe place to protect it from theft. Do not share this medicine with anyone. Selling or giving away this medicine is dangerous and against the law. Store at room temperature between 20 and 25 degrees C (68 and 77 degrees F). Throw away any unused medicine after the expiration date. What should I tell my health care provider before I take this medicine? They need to know if you have any of these conditions: an alcohol or drug abuse problem bipolar disorder, depression, psychosis or other mental health conditions glaucoma kidney or liver disease lung or breathing disease myasthenia gravis Parkinson's disease porphyria seizures or a history of seizures suicidal thoughts an unusual or allergic reaction to alprazolam, other benzodiazepines, foods, dyes, or preservatives or trying to get breast-feeding What should I watch for while using this medicine? Visit your doctor or health career services coordinator for regular checks on your progress. Your body can become dependent on this medicine. Ask your doctor or health career services coordinator if you still need to take it. You may get drowsy or dizzy. Do not drive, use machinery, or do anything that needs mental alertness until you know how this medicine affects you. To reduce the risk of dizzy and fainting spells, do not stand or sit up quickly, especially if you are an older patient. Alcohol may increase dizziness and drowsiness. Avoid alcoholic drinks. Do not treat yourself for coughs, colds or allergies without asking your doctor or health career services coordinator for advice. Some ingredients can increase possible side effects. You have been given the following additional information: Anxiety Reaction Alprazolam Oral tablet (Electronically signed by Adam Turner MD 04/08/2016 21:45)
== END 2016-04-06 07:35 | disposition home or self-care (01) ==
LOC: ED SRH 02:37
DX: F41.1 Generalized anxiety disorder (principal); R06.4 Hyperventilation; E11.65 Type 2 diabetes mellitus with hyperglycemia; F15.20 Other stimulant dependence, uncomplicated; Z79.84 Long term (current) use of oral hypoglycemic drugs; Z88.8 Allergy status to other drugs, medicaments and biological substances; Z79.4 Long term (current) use of insulin
CPT/HCPCS: 90100; 95059

== ENCOUNTER 2016-04-07 12:19 | Emergency (ER) | payer OTHER ==
--- NOTE | 2016-04-07 13:07 | ED NURSING NOTES ---
Clinical Report - Nurses [facility] [address] [place] [address] 04/07/2016 12:20 Patient: DEJA POSEY TRIAGE Acuity: LEVEL 3. Chief Complaint: ANXIETY and HALLUCINATIONS. Alert. PIETER COMA SCORE: [place] Coma Scale: 15- eyes open spontaneously (4); best verbal response- oriented x 4 (5); best motor response- obeys commands (6). --12:32 Nellie Restrepo R.N. 12:24 04/07/16. BP: 118/90. HR: 80. RR: 24. O2 saturation: 100%. Temp: 97.9 F (oral). Pain level now: cannot qualify. --12:32 Nellie Restrepo R.N. Weight: 49.8 kg estimated. Height/Length: 65 inches Per Patient. BMI: 18.3. --12:31 Nellie Restrepo R.N. Medications Lantus Subcutaneous. MetFORMIN HCl Oral. Wellbutrin Oral. --12:25 Nellie Restrepo R.N. Medication/allergy information source: the patient. --12:32 Nellie Restrepo R.N. Allergies Phenergan. Shellfish-derived Products. --12:25 Nellie Restrepo R.N. History Arrived by EMS. Historian: EMS and patient. Onset: just prior to arrival. SOCIAL HX: Current every day light tobacco smoker (cigarette)- less than 1/2 a pack per day. Occasional alcohol use. History of IV drug use: methamphetamines. Recently used drugs yesterday. FUNCTIONAL ASSESSMENT: Functional assessment: no impairments noted. --12:32 Nellie Restrepo R.N. PROBLEMS: Abscess. Diabetes Mellitus. Diabetic Ketoacidosis. Abnormal Test. Hepatitis C carrier. Hep c. Constipation. Flank Pain. Suicidal Ideation. ADHD - Attention Deficit Hyperactivity Disorder. Hyperglycemia. Paresthesia. Vertigo. Anxiety Reaction. Back Pain. Sprain. Tetanus Status. Dental Pain. Migraine Headache. Headache. Gastritis. Diarrhea. Lifestyle / Substance Problems. Dehydration. Vomiting. Alcohol Intoxication. Immunizations. Substance Abuse. Pancreatitis. Abdominal Pain. Cholecystitis. --12:27 Nellie Restrepo R.N. ADDITIONAL SURGERIES: Cholecystectomy. Hip Surgery. --12:27 Nellie Restrepo R.N. Assessment GENERAL / NEURO / PSYCH: Oriented X 4. Appears anxious. She is awake and alert, is oriented and appears anxious and agitated. She exhibits poor consolability. RESPIRATORY: Respirations not labored. CVS: Capillary refill less than 2 seconds. GI / : Abdomen nontender. SKIN: Mucous membranes are pink. Skin is warm and dry. --12:32 Nellie Restrepo R.N. Interventions ID band on patient. To treatment room. --12:32 Nellie Restrepo R.N. PHYSICAL ASSESSMENT 12:33 04/07/16. To room via stretcher. GENERAL / NEURO / PSYCH: Alert. Oriented X 4. Appears in no acute distress. Speech within normal limits. Patient's mood/affect appears tearful. Appears anxious and agitated. Good eye contact. RESPIRATORY: Respirations not labored. SKIN: Skin is warm and dry. --12:33 Nellie Restrepo R.N. NURSING PROGRESS NOTES Patient gowned. Reassurance given. Two patient identifiers checked. Call light placed in reach. Patient ready for evaluation- chart flagged. --12:34 Nellie Restrepo R.N. Finger stick glucose: 193 mg/dL; performed by tech; result shown to the SENIOR GROUP MANAGER. --12:37 Nellie Restrepo R.N. DISPOSITION / DISCHARGE 13:34 04/07/16. Condition at departure: improved and stable. ( Pt became very angry at discharge and stated, "I am not leaving here. This is a hospital and you need to keep me here." This RN explained to Deja that she was seen by a provider and medically cleared to be discharged. Deja then said "Get out of my room you fucking bitch." I advised eDja to put her clothes on and get ready to leave the ED. Pt refused to sign discharge papers. Security called and standing by.). --13:34 Nellie Restrepo R.N. 13:29 04/07/16. BP: 126/85. HR: 90. RR: 20. O2 saturation: 100% on room air. --13:34 Nellie Restrepo R.N. Departure time: 13:41 Apr 07 2016. --13:42 Nellie Restrepo R.N. Locked/Released at 04/07/2016 13:42 by Nellie Restrepo R.N.
--- NOTE | 2016-04-07 13:07 | ED NURSING NOTES ---
Clinical Report - Nurses [facility] [address] [place] [address] 04/07/2016 12:20 Patient: DEJA POSEY TRIAGE Acuity: LEVEL 3. Chief Complaint: ANXIETY and HALLUCINATIONS. Alert. PIETER COMA SCORE: [place] Coma Scale: 15- eyes open spontaneously (4); best verbal response- oriented x 4 (5); best motor response- obeys commands (6). --12:32 Nellie Restrepo R.N. 12:24 04/07/16. BP: 118/90. HR: 80. RR: 24. O2 saturation: 100%. Temp: 97.9 F (oral). Pain level now: cannot qualify. --12:32 Nellie Restrepo R.N. Weight: 49.8 kg estimated. Height/Length: 65 inches Per Patient. BMI: 18.3. --12:31 Nellie Restrepo R.N. Medications Lantus Subcutaneous. MetFORMIN HCl Oral. Wellbutrin Oral. --12:25 Nellie Restrepo R.N. Medication/allergy information source: the patient. --12:32 Nellie Restrepo R.N. Allergies Phenergan. Shellfish-derived Products. --12:25 Nellie Restrepo R.N. History Arrived by EMS. Historian: EMS and patient. Onset: just prior to arrival. SOCIAL HX: Current every day light tobacco smoker (cigarette)- less than 1/2 a pack per day. Occasional alcohol use. History of IV drug use: methamphetamines. Recently used drugs yesterday. FUNCTIONAL ASSESSMENT: Functional assessment: no impairments noted. --12:32 Nellie Restrepo R.N. PROBLEMS: Abscess. Diabetes Mellitus. Diabetic Ketoacidosis. Abnormal Test. Hepatitis C carrier. Hep c. Constipation. Flank Pain. Suicidal Ideation. ADHD - Attention Deficit Hyperactivity Disorder. Hyperglycemia. Paresthesia. Vertigo. Anxiety Reaction. Back Pain. Sprain. Tetanus Status. Dental Pain. Migraine Headache. Headache. Gastritis. Diarrhea. Lifestyle / Substance Problems. Dehydration. Vomiting. Alcohol Intoxication. Immunizations. Substance Abuse. Pancreatitis. Abdominal Pain. Cholecystitis. --12:27 Nellie Restrepo R.N. ADDITIONAL SURGERIES: Cholecystectomy. Hip Surgery. --12:27 Nellie Restrepo R.N. Assessment GENERAL / NEURO / PSYCH: Oriented X 4. Appears anxious. She is awake and alert, is oriented and appears anxious and agitated. She exhibits poor consolability. RESPIRATORY: Respirations not labored. CVS: Capillary refill less than 2 seconds. GI / : Abdomen nontender. SKIN: Mucous membranes are pink. Skin is warm and dry. --12:32 Nellie Restrepo R.N. Interventions ID band on patient. To treatment room. --12:32 Nellie Restrepo R.N. PHYSICAL ASSESSMENT 12:33 04/07/16. To room via stretcher. GENERAL / NEURO / PSYCH: Alert. Oriented X 4. Appears in no acute distress. Speech within normal limits. Patient's mood/affect appears tearful. Appears anxious and agitated. Good eye contact. RESPIRATORY: Respirations not labored. SKIN: Skin is warm and dry. --12:33 Nellie Restrepo R.N. NURSING PROGRESS NOTES Patient gowned. Reassurance given. Two patient identifiers checked. Call light placed in reach. Patient ready for evaluation- chart flagged. --12:34 Nellie Restrepo R.N. Finger stick glucose: 193 mg/dL; performed by tech; result shown to the TEACHER SELECTION SPECIALIST. --12:37 Nellie Restrepo R.N. DISPOSITION / DISCHARGE 13:34 04/07/16. Condition at departure: improved and stable. ( Pt became very angry at discharge and stated, "I am not leaving here. This is a hospital and you need to keep me here." This RN explained to eDja that she was seen by a provider and medically cleared to be discharged. Deja then said "Get out of my room you fucking bitch." I advised Deja to put her clothes on and get ready to leave the ED. Pt refused to sign discharge papers. Security called and standing by.). --13:34 Nellie Restrepo R.N. 13:29 04/07/16. BP: 126/85. HR: 90. RR: 20. O2 saturation: 100% on room air. --13:34 Nellie Restrepo R.N. Departure time: 13:41 Apr 07 2016. --13:42 Nellie Restrepo R.N. Locked/Released at 04/07/2016 13:42 by Nellie Restrepo R.N.
--- NOTE | 2016-04-07 13:07 | ED CLINICAL REPORT ---
Clinical Report - Physicians/Mid Levels [facility] [address] [place] [address] 04/07/2016 12:20 Patient: TESFAYE POSEY Time Seen: 1235; initial patient contact, initial documentation, patient care assumed. Arrived- By private vehicle. Not in custody. Historian- patient. RETURN VISIT: recently seen in this ED by another ED physician. Seen now for the same problem as before. HISTORY OF PRESENT ILLNESS Chief Complaint: ANXIOUS. This started today. Has not been eating or sleeping. She has had anxiety. The symptoms are described as moderate. No injury is present. pt admits to being noncompliant, not taking her prescribed meds, didn't go to rehab. Similar symptoms previously: Recent medical care: The patient was seen recently by a health care provider. Seen for similar symptoms. ( seen here yesterday for same thing, given rx xanax). REVIEW OF SYSTEMS All systems otherwise negative, except as recorded above. PAST HISTORY See nurses notes. ( PROBLEMS: Abscess. Diabetes Mellitus. Diabetic Ketoacidosis. Abnormal Test. Hepatitis C carrier. Hep c. Constipation. Flank Pain. Suicidal Ideation. ADHD - Attention Deficit Hyperactivity Disorder. Hyperglycemia. Paresthesia. Vertigo. Anxiety Reaction. Back Pain. Sprain. Tetanus Status. Dental Pain. Migraine Headache. Headache. Gastritis. Diarrhea. Lifestyle / Substance Problems. Dehydration. Vomiting. Alcohol Intoxication. Immunizations. Substance Abuse. Pancreatitis. Abdominal Pain. Cholecystitis. --12:27 Nellie Restrepo, R.N. ADDITIONAL SURGERIES: Cholecystectomy. Hip Surgery. --12:27 Nellie Restrepo, RMosesN.). SOCIAL HISTORY Light tobacco smoker. Occasional alcohol use. History of heavy drug use: methamphetamines. Recently used drugs yesterday. Under influence in ED. Has social support. Has place to stay. FAMILY HISTORY Negative. ADDITIONAL NOTES The nursing notes have been reviewed with agreement regarding the chief complaint, HPI, ROS, PMH and patient medications and allergies. PHYSICAL EXAM Vital Signs: 04/07/2016 12:24 BP: 118/90. HR: 80. RR: 24. O2 saturation: 100%. Temp: 97.9 F. Have been reviewed as normal and appear to be correct. Appearance: Alert. No acute distress. Is disheveled. Anxious. Eyes: Pupils equal, round and reactive to light. Neck: Normal inspection. Neck supple. CVS: Normal heart rate and rhythm. Heart sounds normal. Respiratory: Breath sounds normal. Chest nontender. Abdomen: Soft and nontender. Back: No tenderness. Skin: Skin warm and dry. Normal skin color. Normal skin turgor. Extremities: Extremities exhibit normal ROM. No lower extremity edema. Psych / Neuro: Oriented X 3. Abnormal mood and affect. Speech normal. Cognition normal. Thought process and content normal. Insight and judgement normal. Cranial nerves normal (as tested). No cerebellar findings. No motor deficit. No sensory deficit. PROGRESS AND PROCEDURES Patient counseled in person regarding the patient's stable condition and diagnosis. 13:07. Differential Diagnosis: Other possible considerations: substance abuse, anxiety, bipolar. Above considerations are based on history and physical exam. Differential diagnosis was discussed with patient. Disposition: Discharged home in good and unchanged condition (13:07). Condition: good and stable. CLINICAL IMPRESSION Chronic substance abuse- methamphetamines with intoxication and anxiety. INSTRUCTIONS (need to get medications filled and take as directed and discussed). Warnings: GENERAL WARNINGS: Return or contact your physician immediately if your condition worsens or changes unexpectedly, if not improving as expected, or if other problems arise. Specifically return if problem worsens. Follow-up: Follow up with your doctor in about one week as needed. Call for an appointment. Summary of care provided to patient. Understanding of the discharge instructions verbalized by patient. (Electronically signed by Kandy Herron A.R.N.P. 04/07/2016 14:36)
--- NOTE | 2016-04-07 14:36 | ED MAR SUMMARY ---
..... Medication Administration Record [facility] [address] [place] [id number] Patient: TESFAYE POSEY Visit ID: [id number] 36y, F Weight: 49.8 kg Height/Length: 65 in BMI: 18.3 ALLERGIES: Phenergan, Shellfish-derived Products
--- NOTE | 2016-04-07 14:36 | ED MAR SUMMARY ---
..... Medication Administration Record [facility] [address] [place] [id number] Patient: TESFAYE POSEY Visit ID: [id number] 36y, F Weight: 49.8 kg Height/Length: 65 in BMI: 18.3 ALLERGIES: Phenergan, Shellfish-derived Products
--- NOTE | 2016-04-07 14:36 | ED MED RECONCILIATION SUMMARY ---
Patient: TESFAYE POSEY Medication Reconciliation Report VisitID: [id number] [address] [place] [address] 36y, F Registration Date/Time: 04/07/2016 Weight: 49.8 kg Height/Length: 65 in. BMI: 18.3 ALLERGIES: Phenergan, Shellfish-derived Products The patient's Home Medications are listed below: THE FOLLOWING MEDICATIONS NEED TO BE RECONCILED: Lantus Subcutaneous MetFORMIN HCl Oral Wellbutrin Oral The source(s) of the original Home Medication information: patient The following Medications were given to the patient in the Emergency Department: None. The following Medications were prescribed to the patient: None.
--- NOTE | 2016-04-07 14:36 | ED DISCHARGE INSTRUCTIONS ---
Patient: TESFAYE POSEY General Instructions [facility] VisitID: [id number] [place] [address] 36y, F Registration Date/Time: 04/07/2016 Chronic substance abuse- methamphetamines with intoxication and anxiety. INSTRUCTIONS (need to get medications filled and take as directed and discussed). Warnings: GENERAL WARNINGS: Return or contact your physician immediately if your condition worsens or changes unexpectedly, if not improving as expected, or if other problems arise. Specifically return if problem worsens. Follow-up: Follow up with your doctor in about one week as needed. Call for an appointment. Summary of care provided to patient. Understanding of the discharge instructions verbalized by patient. ADDITIONAL INFORMATION Drug Abuse Use and abuse of such drugs as marijuana, amphetamines (speed, crank), cocaine, heroin or prescription pain medicines (Vicodin, codeine), sedatives and sleeping pills (Valium, Klonopin), PCP, mescaline and LSD may lead to addiction or dependence. Once this occurs, you are at greater risk for any of the following: Craving for the drug and unable to stop using the drug even though you think you want to stop (psychological dependence) Drug withdrawal symptoms if you stop taking the drug (physical dependence) Loss of your job or your family Arrest, conviction and detention sentence for possession of an illegal substance or for driving under the influence of such a substance Accidental injuries to yourself or others while you are under the influence of the drug (in a car or at home). HIV infection (much greater risk if you use IV drugs) Other sexually transmitted diseases (herpes, chlamydia, gonorrhea and others) Severe and fatal infection of the heart valves (if you use IV drugs) Stroke, heart attack, hepatitis B or C, kidney failure from overdose Home Care: Admit you have a drug problem. Ask for help from your family and close friends. Seek professional help. This could be in the form of individual psychotherapy or counseling or an outpatient, inpatient, or residential drug treatment program. Join a self-help group for drug abuse. Avoid friends who abuse drugs themselves or tempt you to continue abusing drugs. Eat a balanced diet and begin a regular exercise program. Follow Up with your doctor or as advised by our staff. Contact one of the resources below for help. National Orient on Alcoholism and Drug Dependence www.ncadd.org 251-909-GPII Narcotics Anonymous www.na.org 000-853-8637 National Alcohol and Substance Abuse Information Center (for referral to treatment programs) www.addictioncareShareTracker.Camiant 071-958-4258 Get Prompt Medical Attention if any of the following occur: Agitation, anxiety, unable to sleep Unintended weight loss (more than 10 to 15 pounds over 3 months) Seizure Chest pain Fever of 100.4F (38C) or higher, or as directed by your healthcare provider Excess drowsiness or inability to be awakened Shortness of breath Slow breathing under 8 breaths per minute Cough with colored sputum Redness, swelling or tenderness at an injection site You have been given the following additional information: Drug Abuse (Electronically signed by Kandy Herron A.R.N.P. 04/07/2016 14:36)
--- NOTE | 2016-04-07 14:36 | ED DISCHARGE INSTRUCTIONS ---
Patient: TESFAYE POSEY General Instructions [facility] VisitID: [id number] [place] [address] 36y, F Registration Date/Time: 04/07/2016 Chronic substance abuse- methamphetamines with intoxication and anxiety. INSTRUCTIONS (need to get medications filled and take as directed and discussed). Warnings: GENERAL WARNINGS: Return or contact your physician immediately if your condition worsens or changes unexpectedly, if not improving as expected, or if other problems arise. Specifically return if problem worsens. Follow-up: Follow up with your doctor in about one week as needed. Call for an appointment. Summary of care provided to patient. Understanding of the discharge instructions verbalized by patient. ADDITIONAL INFORMATION Drug Abuse Use and abuse of such drugs as marijuana, amphetamines (speed, crank), cocaine, heroin or prescription pain medicines (Vicodin, codeine), sedatives and sleeping pills (Valium, Klonopin), PCP, mescaline and LSD may lead to addiction or dependence. Once this occurs, you are at greater risk for any of the following: Craving for the drug and unable to stop using the drug even though you think you want to stop (psychological dependence) Drug withdrawal symptoms if you stop taking the drug (physical dependence) Loss of your job or your family Arrest, conviction and residential sentence for possession of an illegal substance or for driving under the influence of such a substance Accidental injuries to yourself or others while you are under the influence of the drug (in a car or at home). HIV infection (much greater risk if you use IV drugs) Other sexually transmitted diseases (herpes, chlamydia, gonorrhea and others) Severe and fatal infection of the heart valves (if you use IV drugs) Stroke, heart attack, hepatitis B or C, kidney failure from overdose Home Care: Admit you have a drug problem. Ask for help from your family and close friends. Seek professional help. This could be in the form of individual psychotherapy or counseling or an outpatient, inpatient, or residential drug treatment program. Join a self-help group for drug abuse. Avoid friends who abuse drugs themselves or tempt you to continue abusing drugs. Eat a balanced diet and begin a regular exercise program. Follow Up with your doctor or as advised by our staff. Contact one of the resources below for help. National [place] on Alcoholism and Drug Dependence www.ncadd.org 962-612-QSAY Narcotics Anonymous www.na.org 237-278-8867 National Alcohol and Substance Abuse Information Center (for referral to treatment programs) www.addictioncareMebelrama.DivvyHQ 953-365-8733 Get Prompt Medical Attention if any of the following occur: Agitation, anxiety, unable to sleep Unintended weight loss (more than 10 to 15 pounds over 3 months) Seizure Chest pain Fever of 100.4F (38C) or higher, or as directed by your healthcare provider Excess drowsiness or inability to be awakened Shortness of breath Slow breathing under 8 breaths per minute Cough with colored sputum Redness, swelling or tenderness at an injection site You have been given the following additional information: Drug Abuse (Electronically signed by Kandy Herron A.R.N.P. 04/07/2016 14:36)
--- NOTE | 2016-04-07 14:36 | ED MED RECONCILIATION SUMMARY ---
Patient: TESFAYE POSEY Medication Reconciliation Report [facility] VisitID: [id number] [address] [place] [address] 36y, F Registration Date/Time: 04/07/2016 Weight: 49.8 kg Height/Length: 65 in. BMI: 18.3 ALLERGIES: Phenergan, Shellfish-derived Products The patient's Home Medications are listed below: THE FOLLOWING MEDICATIONS NEED TO BE RECONCILED: Lantus Subcutaneous MetFORMIN HCl Oral Wellbutrin Oral The source(s) of the original Home Medication information: patient The following Medications were given to the patient in the Emergency Department: None. The following Medications were prescribed to the patient: None.
== END 2016-04-07 13:20 | disposition home or self-care (01) ==
LOC: ED SRH 12:19
DX: F15.129 Other stimulant abuse with intoxication, unspecified (principal); E11.9 Type 2 diabetes mellitus without complications; F17.210 Nicotine dependence, cigarettes, uncomplicated; Z79.4 Long term (current) use of insulin
CPT/HCPCS: 90098

== ENCOUNTER 2016-04-18 18:18 | Emergency (ER) | payer OTHER ==
--- NOTE | 2016-04-18 21:36 | ED NURSING NOTES ---
Clinical Report - Nurses [facility] [address] [place] [address] 04/18/2016 18:20 [id number] TRI[facility] Triage time 18:44 Apr 18 2016. Acuity: LEVEL 3. Chief Complaint: (Anxious and elevated BS). Alert. No acute distress. (anxious). PIETER COMA SCORE: Leonard Coma Scale: 15- eyes open spontaneously (4); best verbal response- oriented x 4 (5); best motor response- obeys commands (6). --18:50 Ashlee Martins R.N. 18:44 04/18/16. BP: 115/83. HR: 101. RR: 28. O2 saturation: 85%. Temp: 98.6 F. Pain level now 0/10. --18:50 Ashlee Martins R.N. Weight: 52.1 kg stated. Height/Length: 65 inches Per Patient. BMI: 19.1. --19:34 Ashish Diaz R.N. Medications MetFORMIN HCl Oral (pt doesn't know where her meds are). Wellbutrin Oral. --18:47 Ashlee Martins R.N. Insulin 3 units TID. --18:48 Ashlee Martins R.N. (brother is giving her insulin, otherwise pt doesn't take her meds.). --18:50 Ashlee Martins R.N. Allergies Phenergan. Shellfish-derived Products. --18:47 Ashlee Martins R.N. History Arrived by private vehicle. Historian: patient. Accompanied by family. Primary physician ([facility]). ( Pt very anxious in triage, Hx of Diabetes. BS 329. Pt cannot talk she is so anxious. Mumbling. No actual complaint. Brother brought her in. 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 This started today. Treatment TANNING WHEEL OPERATOR: None. FALL RISK ASSESSMENT: Fall risk assessment completed. No fall risk identified. NUTRITIONAL RISK ASSESSMENT: The nutritional risk assessment revealed no deficiencies. FUNCTIONAL ASSESSMENT: Functional assessment: no impairments noted. LEARNING NEEDS ASSESSMENT: The learning needs assessment revealed no barriers. SKIN INTEGRITY ASSESSMENT: Skin integrity risk assessment completed. No skin integrity risk identified. --18:50 Ashlee Martins R.N. PROBLEMS: Abscess. Diabetes Mellitus. Normal Exam. Diabetic Ketoacidosis. Abnormal Test. Hepatitis C carrier. Hep c. Constipation. Flank Pain. Suicidal Ideation. ADHD - Attention Deficit Hyperactivity Disorder. Hyperglycemia. Paresthesia. Vertigo. Anxiety Reaction. Back Pain. Sprain. Tetanus Status. Dental Pain. Migraine Headache. Headache. Gastritis. Diarrhea. Lifestyle / Substance Problems. Dehydration. Vomiting. Alcohol Intoxication. UTI - Urinary Tract Infection. Immunizations. Substance Abuse. Pancreatitis. Abdominal Pain. LNMP - Last Normal Menstrual Period. Cholecystitis. --18:49 Ashlee Martins R.N. Hepatitis [RuleOut]. Abnormal Liver Function Test [RuleOut]. Pancreatitis [RuleOut]. --18:49 sAhlee Martins R.N. ADDITIONAL SURGERIES: Cholecystectomy. Hip Surgery. --18:49 Ashlee Martins R.N. Interventions ID band on patient. To room. --18:50 Ashlee Martins R.N. PHYSICAL ASSESSMENT Ambulatory to room. GENERAL / NEURO / PSYCH: Appears anxious. ( mumbling, cannot understand pt, she is hyperventilating in triage.). --18:51 Ashlee Martins R.N. RESPIRATORY: Mild respiratory distress. She is unable to speak. --18:51 Ashlee Martins R.N. GENERAL / NEURO / PSYCH: Alert. Appears anxious. The patient is disoriented to place and situation. HEENT: Pupils equal, round and reactive to light. No facial asymmetry noted. RESPIRATORY: Mild respiratory distress (labored breathing 30 RR). SKIN: Skin is warm and dry. --19:41 Ashish Diaz R.N. NURSING PROGRESS NOTES Pulse oximeter placed on patient. Patient not gowned. Side rails up x 1. Bed placed in lowest position. --19:41 Ashish Diaz R.N. 19:55 04/18/16. BP: 122/69. O2 saturation: 93%. --19:55 Ashish Diaz R.N. <<STRICKEN ENTRY-- 20:02 04/18/2016 Vistaril (HydrOXYzine HCl) IM 50 mg given. Given in the right deltoid. Allergies verified, confirmed 5 rights and sedative warning given to the patient. --20:02 Ashish Diaz R.N. --END STRIKE>> Correction. --21:59 Ashish Diaz R.N. ( Pt reports feeling very anxious pt is redirect able with verbal cues). --20:34 Ashish Diaz R.N. 20:02 04/18/2016 Vistaril (HydrOXYzine HCl) IM 50 mg given. Given in the right deltoid and left deltoid (split dose). Allergies verified, confirmed 5 rights and sedative warning given to the patient. --21:59 Ashish Diaz R.N. DISPOSITION / DISCHARGE 21:50 04/18/16. BP: 107/73. HR: 86. RR: 18. O2 saturation: 99%. Temp: 98.5 F. --21:50 Ashish Diaz R.N. Condition at departure: improved. Ability to learn limited by poor comprehension and poor cooperation. Discharge instructions provided and reviewed with the patient. Patient verbalized understanding. Written instructions provided in Icelandic. The patient was discharged by the physician. She was discharged home and accompanied by corporate sales manager. She left the Emergency Department ambulatory and via private vehicle. Military Pay Technician driving. --21:51 Ashish Diaz R.N. Locked/Released at 04/18/2016 22:57 by Ashsih Diaz R.N.
--- NOTE | 2016-04-18 21:36 | ED ORDER SUMMARY ---
..... Patient: TESFAYE POSEY OrderSheet [facility] VisitID: [id number] [place] [address] 36y, F Registration Date/Time: 04/18/2016 ORDER SHEET Weight: 52.1 kg (stated) Allergies: Phenergan, Shellfish-derived Products GENERAL ORDERS: UA-Culture if indicated Urgent (19:56 04/18/2016 DBeyer R.N. per protocol) (Ack 20:02 Quanlight ER Revenue Stamp Cutter) Urine Drug Screen Urgent (19:56 04/18/2016 DBkarinaer R.N. per protocol) (Ack 20:02 Quanlight ER Revenue Stamp Cutter) MEDICATION ORDERS: Vistaril IM 50 mg (NOW, Do not administer intravenously) (20:00 04/18/2016 Lit Starkey) (20:02 Cyndee R.N.) IV FLUIDS: ORDER SHEET NOTES: [Electronically signed by Dileep Najera Dr. (21:42 04/18/2016)] [Electronically signed by Ashish Diaz R.N. (22:57 04/18/2016)] [Electronically locked/signed by Ashish Diaz R.N. (22:57 04/18/2016)]
--- NOTE | 2016-04-18 21:36 | ED ORDER SUMMARY ---
..... Patient: TESFAYE POSEY OrderSheet [facility] VisitID: [id number] [place] [address] 36y, F Registration Date/Time: 04/18/2016 ORDER SHEET Weight: 52.1 kg (stated) Allergies: Phenergan, Shellfish-derived Products GENERAL ORDERS: UA-Culture if indicated Urgent (19:56 04/18/2016 DBeyer R.N. per protocol) (Ack 20:02 Modality ER Grill Cook) Urine Drug Screen Urgent (19:56 04/18/2016 DBkarinaer R.N. per protocol) (Ack 20:02 Modality ER Grill Cook) MEDICATION ORDERS: Vistaril IM 50 mg (NOW, Do not administer intravenously) (20:00 04/18/2016 Lit Starkey) (20:02 Cyndee R.N.) IV FLUIDS: ORDER SHEET NOTES: [Electronically signed by Dileep Najera Dr. (21:42 04/18/2016)] [Electronically signed by Ashish Diaz R.N. (22:57 04/18/2016)] [Electronically locked/signed by Ashish Diaz R.N. (22:57 04/18/2016)]
--- NOTE | 2016-04-18 21:36 | ED CLINICAL REPORT ---
Clinical Report - Physicians/Mid Levels [facility] [address] [place] [place] [address] 04/18/2016 18:20 Patient: TESFAYE POSEY Time Seen: 19:50; initial patient contact. Arrived- By private vehicle. Historian- patient. HISTORY OF PRESENT ILLNESS Chief Complaint: ANXIOUS. This started today. Recent methamphetamines use. The patient has had anxiety. The symptoms are described as moderate. No injury is present. Similar symptoms previously: Recent medical care: Not recently seen/assessed. REVIEW OF SYSTEMS No headache, dizziness or weakness. All systems otherwise negative, except as recorded above. PAST HISTORY ( Abscess. Diabetes Mellitus. Normal Exam. Diabetic Ketoacidosis. Abnormal Test. Hepatitis C carrier. Hep c. Constipation. Flank Pain. Suicidal Ideation. ADHD - Attention Deficit Hyperactivity Disorder. Hyperglycemia. Paresthesia. Vertigo. Anxiety Reaction. Back Pain. Sprain. Tetanus Status. Dental Pain. Migraine Headache. Headache. Gastritis. Diarrhea. Lifestyle / Substance Problems. Dehydration. Vomiting. Alcohol Intoxication. UTI - Urinary Tract Infection. Immunizations. Substance Abuse. Pancreatitis. Abdominal Pain. LNMP - Last Normal Menstrual Period. Cholecystitis. --18:49 Ashlee Martins R.N. Hepatitis [RuleOut]. Abnormal Liver Function Test [RuleOut]. Pancreatitis [RuleOut]. --18:49 Ashlee Martins R.N. ADDITIONAL SURGERIES: Cholecystectomy. Hip Surgery.). SOCIAL HISTORY Current every day smoker. History of drug use: methamphetamines. Has social support. Has place to stay. ADDITIONAL NOTES The nursing notes have been reviewed with agreement regarding the chief complaint, PMH and patient medications and allergies. PHYSICAL EXAM Vital Signs: 04/18/2016 18:44 BP: 115/83. HR: 101. RR: 28. O2 saturation: 85%. Temp: 98.6 F. Have been reviewed and do not appear to be correct. Blood pressure normal. Tachycardic. Tachypneic. Oxygen saturation: poor waveform, pt fidgety- oxygen saturation low. Appearance: Alert. She appears older than stated age. (Anxious). CVS: Normal heart rate and rhythm. Heart sounds normal. Respiratory: No respiratory distress. Breath sounds normal. Skin: Skin warm and dry. Normal skin color. Psych / Neuro: Oriented X 3. Mood and affect normal. Speech normal. Cognition normal. Thought process and content normal. Insight and judgement normal. PROGRESS AND PROCEDURES Course of Care: Vistaril 50mg IM given. Physical exam findings are improved. Symptoms much better. Disposition: Discharged home in good and improved condition. Condition: good. CLINICAL IMPRESSION Anxiety reaction with hyperventilation. INSTRUCTIONS Your Current Medications: CONTINUE TAKING THE FOLLOWING MEDICATIONS: Insulin* : 3 units TID. MetFORMIN HCl Oral : pt doesn't know where her meds are. Wellbutrin Oral. Prescription Medications: BuSpar 7.5 mg: take 1 tablet every 12 hours. Dispense thirty (30). No refills. Substitution is permissible. Follow-up: Follow up with your doctor in about four days. Call for an appointment. Screening today revealed the patient's blood pressure to be in the pre-hypertensive range. The patient should follow up with a primary care provider for blood pressure management. (Electronically signed by Dileep Najera Dr. 04/18/2016 21:42)
--- NOTE | 2016-04-18 21:36 | ED NURSING NOTES ---
Clinical Report - Nurses [facility] [address] [place] [address] 04/18/2016 18:20 [id number] Triage time 18:44 Apr 18 2016. Acuity: LEVEL 3. Chief Complaint: (Anxious and elevated BS). Alert. No acute distress. (anxious). PIETER COMA SCORE: Austin Coma Scale: 15- eyes open spontaneously (4); best verbal response- oriented x 4 (5); best motor response- obeys commands (6). --18:50 Ashlee Martins R.N. 18:44 04/18/16. BP: 115/83. HR: 101. RR: 28. O2 saturation: 85%. Temp: 98.6 F. Pain level now 0/10. --18:50 Ashlee Martins R.N. Weight: 52.1 kg stated. Height/Length: 65 inches Per Patient. BMI: 19.1. --19:34 Ashish Diaz R.N. Medications MetFORMIN HCl Oral (pt doesn't know where her meds are). Wellbutrin Oral. --18:47 Ashlee Martins R.N. Insulin 3 units TID. --18:48 Ashlee Martins R.N. (brother is giving her insulin, otherwise pt doesn't take her meds.). --18:50 Ashlee Martins R.N. Allergies Phenergan. Shellfish-derived Products. --18:47 Ashlee Martins R.N. History Arrived by private vehicle. Historian: patient. Accompanied by family. Primary physician ([facility]). ( Pt very anxious in triage, Hx of Diabetes. BS 329. Pt cannot talk she is so anxious. Mumbling. No actual complaint. Brother brought her in. 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 This started today. 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 FALL RISK ASSESSMENT: Fall risk assessment completed. No fall risk identified. NUTRITIONAL RISK ASSESSMENT: The nutritional risk assessment revealed no deficiencies. FUNCTIONAL ASSESSMENT: Functional assessment: no impairments noted. LEARNING NEEDS ASSESSMENT: The learning needs assessment revealed no barriers. SKIN INTEGRITY ASSESSMENT: Skin integrity risk assessment completed. No skin integrity risk identified. --18:50 Ashlee Martins R.N. PROBLEMS: Abscess. Diabetes Mellitus. Normal Exam. Diabetic Ketoacidosis. Abnormal Test. Hepatitis C carrier. Hep c. Constipation. Flank Pain. Suicidal Ideation. ADHD - Attention Deficit Hyperactivity Disorder. Hyperglycemia. Paresthesia. Vertigo. Anxiety Reaction. Back Pain. Sprain. Tetanus Status. Dental Pain. Migraine Headache. Headache. Gastritis. Diarrhea. Lifestyle / Substance Problems. Dehydration. Vomiting. Alcohol Intoxication. UTI - Urinary Tract Infection. Immunizations. Substance Abuse. Pancreatitis. Abdominal Pain. LNMP - Last Normal Menstrual Period. Cholecystitis. --18:49 Ashlee Martins R.N. Hepatitis [RuleOut]. Abnormal Liver Function Test [RuleOut]. Pancreatitis [RuleOut]. --18:49 Ashlee Martins R.N. ADDITIONAL SURGERIES: Cholecystectomy. Hip Surgery. --18:49 Ashlee Martins R.N. Interventions ID band on patient. To room. --18:50 Ashlee Martins R.N. PHYSICAL ASSESSMENT Ambulatory to room. GENERAL / NEURO / PSYCH: Appears anxious. ( mumbling, cannot understand pt, she is hyperventilating in triage.). --18:51 Ashlee Martins R.N. RESPIRATORY: Mild respiratory distress. She is unable to speak. --18:51 Ashlee Martins R.N. GENERAL / NEURO / PSYCH: Alert. Appears anxious. The patient is disoriented to place and situation. HEENT: Pupils equal, round and reactive to light. No facial asymmetry noted. RESPIRATORY: Mild respiratory distress (labored breathing 30 RR). SKIN: Skin is warm and dry. --19:41 Ashish Diaz R.N. NURSING PROGRESS NOTES Pulse oximeter placed on patient. Patient not gowned. Side rails up x 1. Bed placed in lowest position. --19:41 Ashish Diaz R.N. 19:55 04/18/16. BP: 122/69. O2 saturation: 93%. --19:55 Ashish Diaz R.N. <<STRICKEN ENTRY-- 20:02 04/18/2016 Vistaril (HydrOXYzine HCl) IM 50 mg given. Given in the right deltoid. Allergies verified, confirmed 5 rights and sedative warning given to the patient. --20:02 Ashish Diaz R.N. --END STRIKE>> Correction. --21:59 Ashish Diaz R.N. ( Pt reports feeling very anxious pt is redirect able with verbal cues). --20:34 Ashish Diaz R.N. 20:02 04/18/2016 Vistaril (HydrOXYzine HCl) IM 50 mg given. Given in the right deltoid and left deltoid (split dose). Allergies verified, confirmed 5 rights and sedative warning given to the patient. --21:59 Ashish Diaz R.N. DISPOSITION / DISCHARGE 21:50 04/18/16. BP: 107/73. HR: 86. RR: 18. O2 saturation: 99%. Temp: 98.5 F. --21:50 Ashish iDaz R.N. Condition at departure: improved. Ability to learn limited by poor comprehension and poor cooperation. Discharge instructions provided and reviewed with the patient. Patient verbalized understanding. Written instructions provided in Danish. The patient was discharged by the physician. She was discharged home and accompanied by pmo analyst. She left the Emergency Department ambulatory and via private vehicle. Edge Stripper driving. --21:51 Ashish Diaz R.N. Locked/Released at 04/18/2016 22:57 by Ashish Diaz R.N.
--- NOTE | 2016-04-18 22:58 | ED DISCHARGE INSTRUCTIONS ---
Patient: TESFAYE POSEY General Instructions [facility] VisitID: [id number] [place] [address] 36y, F Registration Date/Time: 04/18/2016 Anxiety reaction with hyperventilation. INSTRUCTIONS Your Current Medications: CONTINUE TAKING THE FOLLOWING MEDICATIONS: Insulin* : 3 units TID. MetFORMIN HCl Oral : pt doesn't know where her meds are. Wellbutrin Oral. Prescription Medications: BuSpar 7.5 mg: take 1 tablet every 12 hours. Dispense thirty (30). No refills. Substitution is permissible. Follow-up: Follow up with your doctor in about four days. Call for an appointment. Screening today revealed the patient's blood pressure to be in the pre-hypertensive range. The patient should follow up with a primary care provider for blood pressure management. ADDITIONAL INFORMATION Stress Reaction Anxiety is the feeling we all get when we think something bad might happen. It is a normal response to stress and usually causes only a mild reaction. When anxiety becomes more severe, emotions may interfere with daily life. In some cases, you may not even be aware of what it is youre anxious about! During an anxiety reaction, you may feel like you are helpless, nervous, depressed or irritable. Your body may show signs of anxiety in many ways. You may experience dry mouth, shakiness, dizziness, weakness, trouble breathing, chest pressure, headache, nausea, diarrhea, tiredness, inability to sleep or sexual problems. Home Care: 1) Try to locate the sources of stress in your life. They may not be obvious! These may include: -- Daily hassles of life which pile up (traffic jams, missed appointments, car troubles, etc.) -- Major life changes, both good (new baby, job promotion) and bad (loss of job, loss of loved one) -- Overload: feeling that you have too many responsibilities and can't take care of all of them at once -- Feeling helpless, feeling that your problems are beyond what youre able to solve 2) Notice how your body reacts to stress. Learn to listen to your body signals. This will help you take action before the stress becomes severe. 3) When you can, do something about the source of your stress. (Avoid hassles, limit the amount of change that happens in your life at one time and take a break when you feel overloaded). 4) Unfortunately, many stressful situations cannot be avoided. It is necessary to learn HOW TO MANAGE STRESS better. There are many proven methods that will reduce your anxiety. These include simple things like exercise, good nutrition and adequate rest. Also, there are certain techniques that are helpful: relaxation and breathing exercises, visualization, biofeedback and meditation. For more information about this, consult your doctor or go to a local bookstore and review the many books and tapes available on this subject. Follow Up If you feel that your anxiety is not responding to self-help measures, contact your doctor or make an appointment with a counselor. Get Prompt Medical Attention if any of the following occur: -- Your symptoms get worse -- Chest pain or trouble breathing -- Severe headache not relieved by rest and mild pain reliever -- Rapid or irregular heartbeat, fainting You have been given the following additional information: Anxiety Reaction (Electronically signed by Dileep Najera Dr. 04/18/2016 21:42)
--- NOTE | 2016-04-18 22:58 | ED MED RECONCILIATION SUMMARY ---
Patient: TESFAYE POSEY Medication Reconciliation Report [facility] VisitID: [id number] [place] [address] 36y, F Registration Date/Time: 04/18/2016 Weight: 52.1 kg Height/Length: 65 in. BMI: 19.1 ALLERGIES: Phenergan, Shellfish-derived Products The patient's Home Medications are listed below: CONTINUE TAKING THE FOLLOWING MEDICATIONS: Insulin 3 units TID MetFORMIN HCl Oral, pt doesn't know where her meds are Wellbutrin Oral The source(s) of the original Home Medication information: brother is giving her insulin, otherwise pt doesn't take her meds. The following Medications were given to the patient in the Emergency Department: Vistaril [IM] IM 50 mg, administered: 04/18/2016 8:02:00 PM The following Medications were prescribed to the patient: BuSpar 7.5 mg: take 1 tablet every 12 hours. Dispense thirty (30). No refills. Substitution is permissible. -- Dileep Najera Dr.
--- NOTE | 2016-04-18 22:58 | ED MAR SUMMARY ---
..... Medication Administration Record [facility] [address] [place] [address] Patient: TESFAYE POSEY Visit ID: [id number] 36y, F Weight: 52.1 kg Height/Length: 65 in BMI: 19.1 ALLERGIES: Phenergan, Shellfish-derived Products Given 20:02 04/18/2016 Ashish Diaz R.N. Medication Administered: VISTARIL [IM] (HYDROXYZINE HCL), Dose: 50 mg IM. Medication Ordered: Vistaril IM 50 mg (NOW, Do not administer intravenously).
--- NOTE | 2016-04-18 22:58 | ED MAR SUMMARY ---
..... Medication Administration Record [facility] [address] [place] [address] Patient: TESFAYE POSEY Visit ID: [id number] 36y, F Weight: 52.1 kg Height/Length: 65 in BMI: 19.1 ALLERGIES: Phenergan, Shellfish-derived Products Given 20:02 04/18/2016 Ashish Diaz R.N. Medication Administered: VISTARIL [IM] (HYDROXYZINE HCL), Dose: 50 mg IM. Medication Ordered: Vistaril IM 50 mg (NOW, Do not administer intravenously).
--- NOTE | 2016-04-18 22:58 | ED MED RECONCILIATION SUMMARY ---
Patient: TESFAYE POSEY Medication Reconciliation Report [facility] VisitID: [id number] [place] [address] 36y, F Registration Date/Time: 04/18/2016 Weight: 52.1 kg Height/Length: 65 in. BMI: 19.1 ALLERGIES: Phenergan, Shellfish-derived Products The patient's Home Medications are listed below: CONTINUE TAKING THE FOLLOWING MEDICATIONS: Insulin 3 units TID MetFORMIN HCl Oral, pt doesn't know where her meds are Wellbutrin Oral The source(s) of the original Home Medication information: brother is giving her insulin, otherwise pt doesn't take her meds. The following Medications were given to the patient in the Emergency Department: Vistaril [IM] IM 50 mg, administered: 04/18/2016 8:02:00 PM The following Medications were prescribed to the patient: BuSpar 7.5 mg: take 1 tablet every 12 hours. Dispense thirty (30). No refills. Substitution is permissible. -- Dileep Najera Dr.
== END 2016-04-18 21:48 | disposition home or self-care (01) ==
LOC: ED SRH 18:18
DX: F41.1 Generalized anxiety disorder (principal); R06.4 Hyperventilation; F15.90 Other stimulant use, unspecified, uncomplicated; E11.9 Type 2 diabetes mellitus without complications; Z79.4 Long term (current) use of insulin; F17.200 Nicotine dependence, unspecified, uncomplicated; Z88.8 Allergy status to other drugs, medicaments and biological substances
CPT/HCPCS: 90004; 92760; 92761; 92762; 92763; 92764; 92765; 92766; 92767

== ENCOUNTER 2016-04-21 17:15 | Emergency (ER) | payer OTHER ==
--- NOTE | 2016-04-21 18:38 | DIAGNOSTIC IMAGING REPORT ---
PROCEDURE: XR CHEST 1 VIEW INDICATION: TACHYPNEA TECHNIQUE: Portable AP view (). COMPARISON: Compared to chest x-ray and 02/08/2010. FINDINGS: Lungs are clear. Heart and mediastinum are normal. Thorax is normal. Surgical clips in the upper abdomen suggest prior cholecystectomy IMPRESSION: 1. Negative chest.
--- NOTE | 2016-04-21 20:40 | ED NURSING NOTES ---
Clinical Report - [facility] [address] [place] [address] 04/21/2016 17:17 [id number] Triage time 17:18 Apr 21 2016. Acuity: LEVEL 3. Chief Complaint: (Anxiety and elevated BS). Alert. RADHA COMA SCORE: Radha Coma Scale: 15- eyes open spontaneously (4); best verbal response- oriented x 4 (5); best motor response- obeys commands (6). --17:21 Ashlee Martins R.N. 17:18 04/21/16. BP: 97/70. HR: 78. RR: 24. O2 saturation: 100%. Temp: 97.9 F. Pain level now 0/10. --17:21 Ashlee Martins R.N. Triage time 17:28. Acuity: LEVEL 3. Chief Complaint: (anxiety attack.). Alert. No acute distress. --17:58 Emma Horvath R.N. 17:28 04/21/16. BP: 99/70. HR: 78. RR: 22. O2 saturation: 100%. Temp: 97.9 F. Pain level now: 10/10. --17:58 Emma Horvath R.N. Weight: 45.3 kg estimated. Height/Length: 60 inches Estimated. BMI: 19.5. --17:42 Emma Horvath R.N. Medications BuPROPion HBr Oral. --17:31 Emma Horvath R.N. Gabepentin . --17:31 Emma Horvath R.N. Insulin 3 units TID. MetFORMIN HCl Oral (pt doesn't know where her meds are). Wellbutrin Oral. --17:32 Emma Horvath R.N. Allergies Phenergan. Shellfish-derived Products. --17:32 Emma Horvath R.N. Medication/allergy information source: the patient. --17:58 Emma Horvath R.N. History Arrived by private vehicle. Historian: patient. This is a recurrent problem. Treatment WET MIX OPERATOR: None. NUTRITIONAL RISK ASSESSMENT: The nutritional risk assessment revealed no deficiencies. FUNCTIONAL ASSESSMENT: Functional assessment: no impairments noted. LEARNING NEEDS ASSESSMENT: The learning needs assessment revealed no barriers. SKIN INTEGRITY ASSESSMENT: Skin integrity risk assessment completed. No skin integrity risk identified. --17:21 Ashlee Martins R.N. Arrived by private vehicle. Historian: patient. No primary care physician. This started just prior to arrival. SOCIAL HX: Light tobacco smoker (cigarette)- less than 1/2 a pack per day. FALL RISK ASSESSMENT: Fall risk assessment completed. No fall risk identified. NUTRITIONAL RISK ASSESSMENT: The nutritional risk assessment revealed no deficiencies. FUNCTIONAL ASSESSMENT: Functional assessment: no impairments noted. LEARNING NEEDS ASSESSMENT: The learning needs assessment revealed no barriers. SKIN INTEGRITY ASSESSMENT: Skin integrity risk assessment completed. No skin integrity risk identified. --17:58 Emma Horvath R.N. PROBLEMS: Abscess. Diabetes Mellitus. Normal Exam. Diabetic Ketoacidosis. Abnormal Test. Hepatitis C carrier. Hep c. Constipation. Flank Pain. Suicidal Ideation. ADHD - Attention Deficit Hyperactivity Disorder. Hyperglycemia. Paresthesia. Vertigo. Anxiety Reaction. Back Pain. Sprain. Tetanus Status. Dental Pain. Migraine Headache. Headache. Gastritis. Diarrhea. Lifestyle / Substance Problems. Dehydration. Vomiting. Alcohol Intoxication. UTI - Urinary Tract Infection. Immunizations. Substance Abuse. Pancreatitis. Abdominal Pain. LNMP - Last Normal Menstrual Period. Cholecystitis. --17:44 Emma Horvath R.N. Hepatitis [RuleOut]. Abnormal Liver Function Test [RuleOut]. Pancreatitis [RuleOut]. --17:44 Emma Horvath R.N. ADDITIONAL SURGERIES: Cholecystectomy. Hip Surgery. --17:44 Emma Horvath R.N. Interventions ID band on patient. To room. --17:21 Ashlee Martins R.N. ID band on patient. To room. --17:58 Emma Horvath R.N. PHYSICAL ASSESSMENT To room via stretcher. Patient gowned. GENERAL / NEURO / PSYCH: Alert. Oriented X 4. She appears anxious and agitated, has poor eye contact and is hostile. HEENT: Mucous membranes are pink. RESPIRATORY: Respirations not labored. CVS: Capillary refill less than 2 seconds. GI / : Abdomen nontender and normal bowel sounds. SKIN: Skin intact. Skin is warm and dry. Normal skin turgor. --17:59 Emma Horvath R.N. NURSING PROGRESS NOTES 17:45 04/21/2016 Site #1 started via IV in the right antecubital space with an 20g angiocath; one attempt. Blood drawn: rainbow set. Labeled in the presence of the patient and sent to the lab. Saline lock flushed. --17:45 Emma Horvath R.N. 17:46 04/21/2016 Started bag #1 1000 mL IV Fluids IV NS (Saline); at 1000 mL/hr over 2 hour(s) via site #1 via IV pump. Allergies verified and confirmed 5 rights. IV patency established. IV site checked: no pain, redness, or swelling. IV flushed thoroughly pre- and post-medication administration. --17:46 Emma Horvath R.N. Patient gowned. Head of bed elevated. Two patient identifiers checked. Call light placed in reach. Side rails up x 2. Bed placed in lowest position. Brakes of bed on. Patient ready for evaluation. --17:59 Emma Horvath R.N. 17:56 04/21/2016 Benadryl (DiphenhydrAMINE HCl) IVP 50 mg given over 2 minute(s) via site #1. Allergies verified, confirmed 5 rights and sedative warning given to the patient. IV patency established. IV site checked: no pain, redness, or swelling. IV flushed thoroughly pre- and post-medication administration. IVP given by RN. --18:01 Silviano Mckenzie R.N. EKG time: (17:47). EKG was ordered, performed by a tech and shown to the ED physician. --18:07 Catherine Bills 18:35 04/21/2016 IV Fluids IV NS Bag Change: bag #1 infused. Total amount infused: 1000. STARTED bag #2 (1000 mL) at 1000 mL/hr. IV patency established. IV site checked: no pain, redness, or swelling. IV flushed thoroughly. --18:35 Silviano Mckenzie R.N. 18:41 04/21/2016 Insulin REG IVP 8 unit given over 2 minute(s) via site #1. Allergies verified and confirmed 5 rights. IV patency established. IV site checked: no pain, redness, or swelling. IV flushed thoroughly pre- and post-medication administration. IVP given by RN. --18:41 Silviano Mckenzie R.N. 17:50. Finger stick glucose: 492 mg/dL; performed by tech; result shown to the RN. --18:47 Catherine Bills 18:30 04/21/16. BP: 100/63. HR: 74. RR: 18. O2 saturation: 98% on room air. --18:50 Silviano Mckenzie R.N. 18:50 04/21/16. Critical value relayed to ED by Derrel Community Outreach Worker. Critical value received by Silviano Mckenzie RN. Glucose: 525. Critical value read back. Provider notifed of critical value (DAMARI Powers). --18:52 Silviano Mckenzie R.N. Care transferred and report received (Report received from Silviano Florian Questions answered, plan of care reviewed). --19:07 Trixie Andrew 19:15 04/21/16. BP: 102/69. HR: 77. RR: 20. O2 saturation: 98% on room air. --19:16 Trixie Andrew ( Patient given PO fluids and food per provider permission. FS glucose 348 mg/dl). --19:16 Trixie Andrew <<STRICKEN ENTRY-- 19:47 04/21/2016 Insulin REG IVP 5 unit given over 1 minute(s) via site #1. Allergies verified and confirmed 5 rights. IV patency established. IV site checked: no pain, redness, or swelling. IV flushed thoroughly pre- and post-medication administration. IVP given by RN. --19:47 Trixie Andrew --END STRIKE>> Change to Details. --19:48 Trixie Andrew 19:48 04/21/2016 Insulin REG IVP 5 unit given over 1 minute(s) via site #1. Allergies verified and confirmed 5 rights. IV patency established. IV site checked: no pain, redness, or swelling. IV flushed thoroughly pre- and post-medication administration. IVP given by RN (Dosage verified by Sharmaine S). --19:48 Trixie Andrew 20:18 Patient contact made; when asked if patient would like to speak with a PAT meat service team member and patient declined, stating "No". --20:20 Kita, Deja, ER Tech1 ( FS glucose 150 mg/dl, Provider notified). --20:32 Trxiie Andrew 21:15 04/21/2016 IV Fluids IV NS Discontinued: bag #2 completed. Total amount infused: 1000 mL. IV patency established. IV site checked: no pain, redness, or swelling. IV flushed thoroughly. --21:25 Trixie Andrew. DISPOSITION / DISCHARGE 21:12 04/21/2016 Site #1 removed upon discharge. Catheter intact. Bandaid applied. --21:12 Trixie Andrew 21:14 04/21/16. Condition at departure: improved and stable. Ability to learn limited by poor cooperation. Reviewed need for increased fluid intake. Verbalized understanding. Written instructions provided in Slovenian. ( Patient advised to follow up with PCP. Patient advised to check her sugars and follow diabetic guidelines.). The patient was discharged by the physician. She was discharged home and unaccompanied at time of discharge. She left the Emergency Department ambulatory and via ([employer]). ( Patient upset when told doctor is ready to discharge her. She states, " I have nowhere to go, I just need to sleep here". Patient told that staff would try to assist her with a ride, including calling [employer]. Patient states, " I dont have anywhere to fucking go!"). --21:14 Trixie Andrew 21:11 04/21/16. BP: deferred. HR: deferred. RR: deferred. O2 saturation: deferred. Temp: deferred. Pain level now deferred. Additional comments: Patient refusing discharge vitals . --21:14 Trixie Andrew ( Security was called due to the pt refusing to leave. Pt got dressed and was given her belongings. Security and the charge nurse walked the to the lobby with a warm blanket. Pt laid down to sleep. Pt was given multiple opportunities to use the phone, but stated she had no one to call or no address to go to. Pt refused to have [employer] called.). --21:26 Richie Cotter R.N. Locked/Released at 04/21/2016 21:27 by Richie Cotter R.N.
--- NOTE | 2016-04-21 20:40 | ED CLINICAL REPORT ---
Clinical Report - Physicians/Mid Levels [facility] [address] [place] [address] 04/21/2016 17:17 Patient: TESFAYE POSEY Time Seen: 1728. Arrived- By ambulance. Historian- patient. Physical Exam limited by poor cooperation. HISTORY OF PRESENT ILLNESS Chief Complaint: ANXIOUS and AGITATED. This started unclear. REVIEW OF SYSTEMS unable to obtain secondary to patient being uncooperative. SOCIAL HISTORY unable to obtain secondary to patient being uncooperative. FAMILY HISTORY unable to obtain secondary to patient being uncooperative. ADDITIONAL NOTES The nursing notes have been reviewed. PHYSICAL EXAM Vital Signs: 04/21/2016 17:18 BP: 97/70. HR: 78. RR: 24. O2 saturation: 100%. Temp: 97.9 F. Blood pressure normal. Oxygen saturation normal. Appearance: Alert. Patient is in moderate distress. Is disheveled. Anxious. (crying and screaming "I need something for anxiety. Give me something for anxiety." nontoxic in appearance.). Eyes: Pupils equal, round and reactive to light. Neck: Normal inspection. Neck supple. CVS: Normal heart rate and rhythm. Heart sounds normal. Respiratory: Breath sounds normal. Chest nontender. Abdomen: Soft and nontender. Back: No tenderness. Skin: Skin warm and dry. Normal skin color. Normal skin turgor. Extremities: Extremities exhibit normal ROM. No lower extremity edema. Psych / Neuro: Oriented X 3. Speech normal. Cognition normal. Thought process and content normal. Insight and judgement normal. Cranial nerves normal (as tested). No cerebellar findings. No motor deficit. No sensory deficit. Reflexes normal. LABS, X-RAYS, AND EKG EKG: No acute process. No acute ischemia. Normal EKG. Normal sinus rhythm. Rate: 69. Normal P waves. Normal REFUGIO. Normal QRS complex. Normal axis. Normal ST and T waves, QT and QTc. Laboratory Tests: UA-Culture if indicated: (JARAD: 04/21/2016 17:20) ( MsgRcvd 04/21/2016 17:56) Final results Test Result Flag Units (Reference) URINE COLOR YELLOW URINE APPEARANCE CLEAR URINE GLUCOSE 3+ (NEGATIVE) URINE BILIRUBIN NEGATIVE (NEGATIVE) URINE KETONE NEGATIVE (NEGATIVE) URINE SPECIFIC GRAVITY <= 1.005 L (1.010-1.030) URINE PH 6.0 (5.0-8.0) URINE PROTEIN NEGATIVE (NEGATIVE) URINE UROBILINOGEN 0.2 EU/dL (0.2-1.0) URINE NITRITE NEGATIVE (NEGATIVE) URINE BLOOD NEGATIVE (NEGATIVE) URINE LEUK ESTERASE NEGATIVE (NEGATIVE) URINE RBC 0-1 rbc/hpf (0-1) URINE WBC 0-1 wbc/hpf (0-1) URINE EPITHELIAL CELLS 1-3 EPI/hpf (0-5) URINE BACTERIA NONE SEEN (NONE SEEN) URINE COMMENT CULT NOT INDICATED URINE CULTURES ARE SET-UP BASED ON THE FOLLOWING CRITERIA:POSITIVE NITRITEPOSITIVE LEUKOCYTE ESTERASEGREATER THAN 10 WHITE BLOOD CELLSMODERATE (2+) OR GREATER BACTERIA Urine: (JARAD: 04/21/2016 17:20) ( [facility] 04/21/2016 17:38) Final results Test Result Flag Units (Reference) URINE NEGATIVE CBC w Diff: (JARAD: 04/21/2016 17:35) ( [facility] 04/21/2016 17:55) Final results Test Result Flag Units (Reference) WHITE BLOOD COUNT 10.6 K/uL (4.5-11.5) RED BLOOD COUNT 4.56 M/uL (4.00-5.20) HEMOGLOBIN 12.9 gm/dL (12.0-16.0) HEMATOCRIT 39.5 % (36.0-46.0) MEAN CELL VOLUME 87 fL (80-100) MEAN CORPUSCULAR HGB 28 pg (26-34) MEAN CORPUSCULAR HGB CONC 33 g/dL (31-37) RED CELL DISTRIBUTION WIDTH 14.7 % (11.6-14.8) PLATELET COUNT 258 K/uL (150-400) NEUTROPHIL % 64.3 % (50-75) LYMPH % 28.1 % (25-40) MONO % 6.0 % (3-14) EOSINOPHIL % 1.4 % (0-4) BASOPHIL % 0.2 % (0-2) Urine Drug Screen: (JARAD: 04/21/2016 17:20) ( MsgRcvd 04/21/2016 18:00) Final results Test Result Flag Units (Reference) AMPHETAMINE/METHAMPHETAMINE POSITIVE H (NEGATIVE) BARBITURATE NEGATIVE (NEGATIVE) BENZODIAZEPINE NEGATIVE (NEGATIVE) CANNABINOID NEGATIVE (NEGATIVE) COCAINE NEGATIVE (NEGATIVE) ECSTASY NEGATIVE (NEGATIVE) METHADONE NEGATIVE (NEGATIVE) OPIATE NEGATIVE (NEGATIVE) The urine drug screen is a qualitative screening test fordrug overdose and abuse. All screen results should beconsidered as presumptive.Drugs screened for are as follows:BenzodiazepinesCocaineAmphetamines/MetamphetaminesTHC (Tetrahydrocannabinol)OpiatesBarbituratesEcstasyMethadonePositive results are unconfirmed. For confirmation, notifythe lab for the specimen to be sent to the reference lab.All confirmations must be performed by a differentmethodology.The ingestion of natural herbal and plant productscontaining Ephedra/Ephedra metabolites can produce in urineone or more substances capable of cross reacting withamphetamine/methamphetamine immunoassays. These testsprovide a preliminary result only. A more specificalternative chemical method must be used to obtain aconfirmed analytical result. CMP: (JARAD: 04/21/2016 17:35) ( MsgRcvd 04/21/2016 18:30) Final results Test Result Flag Units (Reference) GLUCOSE 525 *H mg/dL (70-110) CRITICAL RESULTS CALLEDCalled to NAVNEET BRIM FLEXER 04/21/16 1829Were 2 patient identifiers used? YWas the result read back? Y BUN 15 mg/dL (7-18) CREATININE 0.9 mg/dL (0.6-1.3) Estimated GFR >60 mL/min Estimated GFR- >60 mL/min Note: Persistent reduction over 3 months in eGFR<60 mL/min/1.73 m2 defines CKD. Patients with eGFR values>=60 mL/min/1.73 m2 may also have CKD if evidence ofpersistent proteinuria. Additional information may be foundat [email or web address]. SODIUM 131 L mmol/L (136-145) POTASSIUM 3.9 mmol/L (3.5-5.1) CHLORIDE 95 L mmol/L (98-107) CARBON DIOXIDE 24 mmol/L (21-32) CALCIUM 9.1 mg/dL (8.5-10.1) TOTAL PROTEIN 8.2 g/dL (6.4-8.2) ALBUMIN 3.8 g/dL (3.3-5.0) BILIRUBIN, TOTAL 0.6 mg/dL (0.0-1.0) ALKALINE PHOSPHATASE 147 H U/L (46-116) AST (SGOT) 40 H U/L (15-37) ALT (SGPT) 77 U/L (12-78) THYROID STIMULATING HORMONE 0.442 uIU/mL (0.34-3.74) . PROGRESS AND PROCEDURES Course of Care: The patient is a 36 old female presenting for evaluation of what she describes as an anxiety attack. Patient noted to have elevated blood sugar from EMS. Accu-Chek was repeated here in the emergency department and noted to be high. Patient will be evaluated for her anxiety as well as the elevated blood sugar. Patient has a history of diabetes. Patient is a history of noncompliance per reports. Patient is agreeable to treatment plan. Patient has also been perseverating on anxiety medication. based on patient's emergency department reports, patient was cautioned in regards to being given narcotics or controlled substances. Had this discussion with patient. Patient was offered non-controlled substances for her anxiety. Patient is agreeable to Benadryl. Had a long discussion with patient in regards to her treatment here in the emergency department. Patient explained multiple times that a complete history and physical examination needed to be performed before giving any medications. Patient was screaming hysterically stating that she needed something for anxiety. Patient had multiple outbursts like this. During those times in between, she would be able to calmly explain what was going on. Patient appeared to be very emotional. Tried multiple times to explain to the patient we were trying to treat her appropriately but needed more information Prior to treatment. Multiple staff members as well as myself had tried to talk to patient in regards to obtain more information from her. Patient was difficult to console. Patient threatened to leave the emergency department. Was able to talk the patient in regards to her symptoms here in the emergency department and was finally able to get the patient to stay. Patient's workup was remarkable for significantly elevated blood sugar. No evidence of diabetic ketoacidosis. Anion gap is noted to be 16. Bicarbonate is noted to be 24. Patient does not have signs of acidosis. Patient was given medications lower her blood sugar. Patient was also treated aggressively with IV fluids. Repeat Accu-Chek is significantly improved and below 400. I discussed the patient consult with crisis team. Patient currently is declining speaking with any crisis counselors. Encourage patient to seek help however at this time patient is currently refusing offers of help with her anxiety. Patient has been calm here in the emergency department since the Benadryl is been given. Patient is resting in bed and in no acute distress. Repeat Accu-Chek has been ordered As well as another dose of insulin. blood glucose was slowly lowered here in the emergency department. Because the patient's blood glucose has been normal here in the emergency department, did not feel patient needs to be treated further here. I do not feel patient needs to be admitted. Had discussed with patient having crisis counselor, to talk to the patient however she had refused. At this time, do not feel that there is any other reason patient needs to be in the hospital. Patient with long History of substance abuse Encourage patient to seek help for rehabilitation. Patient declines offers at this time. discussed the patient workup, diagnosis, home care, follow-up, and return precautions. All questions answered. The patient expressed understanding of these instructions and was agreeable to that. Prior to patient March for an emergency department she is noted to be eating a sandwich and in no acute distress. Patient continues to be nontoxic. Anxiety from before had calmed down significantly with Benadryl alone. Disposition: Discharged. Condition: good. CLINICAL IMPRESSION 04/21/2016 19:15 BP: 102/69. HR: 77. RR: 20. O2 saturation: 98%. Adjustment disorder with anxiety (acute). Blood pressure normal. Oxygen saturation normal. Severe hyperglycemia (acute without DKA). INSTRUCTIONS Warnings: GENERAL WARNINGS: Return or contact your physician immediately if your condition worsens or changes unexpectedly, if not improving as expected, or if other problems arise. Specifically return if pain, vomiting, bleeding, breathing difficulty or fever. Your Current Medications: CONTINUE TAKING THE FOLLOWING MEDICATIONS: BuPROPion HBr Oral. Gabepentin *. Insulin* : 3 units TID. MetFORMIN HCl Oral : pt doesn't know where her meds are. Wellbutrin Oral. Follow-up: Return to the emergency department as needed. Follow up with your doctor in three days. Reason for referral: recheck today's concerns. Summary of care provided to patient via paper. Screening today revealed the patient's blood pressure to be in the normal range. The patient should follow up with a primary care provider for blood pressure management. Understanding of the discharge instructions verbalized by patient. Follow-up with: [facility], , , , , ; [facility], , , [address], , [place], [address] Follow up. Reason for referral: contact for further help if you do not have a mental health provider or a primary care doctor. Summary of care provided to patient via paper. (Electronically signed by Richard Tomlin Dr. 04/27/2016 9:28)
--- NOTE | 2016-04-21 20:40 | ED ORDER SUMMARY ---
..... Patient: TESFAYE POSEY OrderSheet [facility] VisitID: [id number] [place] [address] 36y, F Registration Date/Time: 04/21/2016 ORDER SHEET Weight: 45.3 kg (estimated) Allergies: Phenergan, Shellfish-derived Products GENERAL ORDERS: Composition Professor (Continuous) (anxiety) (17:04/21/2016 Ksenia Starkey) (17:46 SRoberts R.N.) Chest 1V Urgent (17:04/21/2016 Ksenia Starkey) (Ack 17:28 Lucas) (18:41 Lucas) CBC w Diff Urgent (:04/21/2016 Ksenia Starkey) (Ack 17:27 Lucas) (17:46 SRoberts R.N.) CMP Urgent (17:04/21/2016 Ksenia Starkey) (Ack 17:27 Lucas) (17:46 SRoberts R.N.) UA-Culture if indicated Urgent (17:04/21/2016 Ksenia Starkey) (Ack 17:27 Lucas) (17:46 SRoberts R.N.) Urine Urgent (:04/21/2016 Ksenia Starkey) (Ack 17:28 Lucas) (17:46 SRoberts R.N.) TSH Urgent (17:04/21/2016 Ksenia Starkey) (Ack 17:28 Lucas) (17:46 SRoberts R.N.) Urine Drug Screen Urgent (17:04/21/2016 Ksenia Starkey) (Ack 17:28 Lucas) (17:46 SRoberts R.N.) Pulse oximeter (:04/21/2016 Ksenia Starkey) (17:46 Dionnets R.N.) EKG - ER Stat (:04/21/2016 Ksenia Starkey) (Ack 17:28 Selwyn) (Ack 17:28 Lucas) (17:46 Dionnets R.N.) POC Glucose (30 min after insulin given) (18:41 04/21/2016 Ksenia Starkey) (Ack 19:05 HSoule) (19:42 HSoule) POC Glucose (30 minutes after second insulin dose) (19:33 04/21/2016 Ksenia Starkey) (Ack 19:48 HSoule) (20:42 HSoule) Acetaminophen Level Urgent (19:35 04/21/2016 Ksenia Starkey) (Ack 19:42 Cheekimaharry) (20:15 AMcQuoid ER Tech1) Salicylate Level Urgent (19:35 04/21/2016 Ksenia Starkey) (Ack 19:42 Robert) (20:15 AMcQuoid ER Tech1) Ethyl Alcohol Urgent (19:35 04/21/2016 Ksenia Starkey) (Ack 19:42 Robert) (20:15 AMcQuoid ER Tech1) MEDICATION ORDERS: IV FLUIDS: IV Saline Lock (17:22 04/21/2016 Ksenia Starkey) (17:45 SRoberepifanio R.N.) IV NS : initial bolus 2 L, then 2000 ml/hr for X1 (NOW) (17:35 04/21/2016 Ksenia Starkey) (17:46 SRlauryn R.N.) Benadryl IV 50 mg (NOW) (17:54 04/21/2016 Ksenia Starkey) (18:01 Alejo R.N.) Insulin Reg IV 8 units (HIGH ALERT MEDICATION, NOW) (18:34 04/21/2016 Ksenia Starkey) (18:41 Alejo R.NMoses) Insulin Reg IV 5 units (HIGH ALERT MEDICATION, NOW) (19:33 04/21/2016 Ksenia Starkey) (Ack 19:42 HSoule) (19:47 HSoule) ORDER SHEET NOTES: [Electronically signed by Richie Cotter R.N. (21:27 04/21/2016)] [Electronically signed by Richard Tomlin Dr. (09:28 04/27/2016)] [Electronically locked/signed by Richie Cotter R.N. (21:27 04/21/2016)]
--- NOTE | 2016-04-21 20:40 | ED NURSING NOTES ---
Clinical Report - Nurses [facility] [address] [place] [address] 04/21/2016 17:17 [id number] Triage time 17:18 Apr 21 2016. Acuity: LEVEL 3. Chief Complaint: (Anxiety and elevated BS). Alert. RADHA COMA SCORE: Radha Coma Scale: 15- eyes open spontaneously (4); best verbal response- oriented x 4 (5); best motor response- obeys commands (6). --17:21 Ashlee Martins R.N. 17:18 04/21/16. BP: 97/70. HR: 78. RR: 24. O2 saturation: 100%. Temp: 97.9 F. Pain level now 0/10. --17:21 Ashlee Martins R.N. Triage time 17:28. Acuity: LEVEL 3. Chief Complaint: (anxiety attack.). Alert. No acute distress. --17:58 Emma Horvath R.N. 17:28 04/21/16. BP: 99/70. HR: 78. RR: 22. O2 saturation: 100%. Temp: 97.9 F. Pain level now: 10/10. --17:58 Emma Horvath R.N. Weight: 45.3 kg estimated. Height/Length: 60 inches Estimated. BMI: 19.5. --17:42 Emma Horvath R.N. Medications BuPROPion HBr Oral. --17:31 Emma Horvath R.N. Gabepentin . --17:31 Emma Horvath R.N. Insulin 3 units TID. MetFORMIN HCl Oral (pt doesn't know where her meds are). Wellbutrin Oral. --17:32 Emma Horvath R.N. Allergies Phenergan. Shellfish-derived Products. --17:32 Emma Horvath R.N. Medication/allergy information source: the patient. --17:58 Emma Horvath R.N. History Arrived by private vehicle. Historian: patient. This is a recurrent problem. Treatment NEGATIVE SPOTTER: None. NUTRITIONAL RISK ASSESSMENT: The nutritional risk assessment revealed no deficiencies. FUNCTIONAL ASSESSMENT: Functional assessment: no impairments noted. LEARNING NEEDS ASSESSMENT: The learning needs assessment revealed no barriers. SKIN INTEGRITY ASSESSMENT: Skin integrity risk assessment completed. No skin integrity risk identified. --17:21 Ashlee Martins R.N. Arrived by private vehicle. Historian: patient. No primary care physician. This started just prior to arrival. SOCIAL HX: Light tobacco smoker (cigarette)- less than 1/2 a pack per day. FALL RISK ASSESSMENT: Fall risk assessment completed. No fall risk identified. NUTRITIONAL RISK ASSESSMENT: The nutritional risk assessment revealed no deficiencies. FUNCTIONAL ASSESSMENT: Functional assessment: no impairments noted. LEARNING NEEDS ASSESSMENT: The learning needs assessment revealed no barriers. SKIN INTEGRITY ASSESSMENT: Skin integrity risk assessment completed. No skin integrity risk identified. --17:58 Emma Horvath R.N. PROBLEMS: Abscess. Diabetes Mellitus. Normal Exam. Diabetic Ketoacidosis. Abnormal Test. Hepatitis C carrier. Hep c. Constipation. Flank Pain. Suicidal Ideation. ADHD - Attention Deficit Hyperactivity Disorder. Hyperglycemia. Paresthesia. Vertigo. Anxiety Reaction. Back Pain. Sprain. Tetanus Status. Dental Pain. Migraine Headache. Headache. Gastritis. Diarrhea. Lifestyle / Substance Problems. Dehydration. Vomiting. Alcohol Intoxication. UTI - Urinary Tract Infection. Immunizations. Substance Abuse. Pancreatitis. Abdominal Pain. LNMP - Last Normal Menstrual Period. Cholecystitis. --17:44 Emma Horvath R.N. Hepatitis [RuleOut]. Abnormal Liver Function Test [RuleOut]. Pancreatitis [RuleOut]. --17:44 Emma Horvath R.N. ADDITIONAL SURGERIES: Cholecystectomy. Hip Surgery. --17:44 Emma Horvath R.N. Interventions ID band on patient. To room. --17:21 Ashlee Martins R.N. ID band on patient. To room. --17:58 Emma Horvath R.N. PHYSICAL ASSESSMENT To room via stretcher. Patient gowned. GENERAL / NEURO / PSYCH: Alert. Oriented X 4. She appears anxious and agitated, has poor eye contact and is hostile. HEENT: Mucous membranes are pink. RESPIRATORY: Respirations not labored. CVS: Capillary refill less than 2 seconds. GI / : Abdomen nontender and normal bowel sounds. SKIN: Skin intact. Skin is warm and dry. Normal skin turgor. --17:59 Emma Horvath R.N. NURSING PROGRESS NOTES 17:45 04/21/2016 Site #1 started via IV in the right antecubital space with an 20g angiocath; one attempt. Blood drawn: rainbow set. Labeled in the presence of the patient and sent to the lab. Saline lock flushed. --17:45 Emma Horvath R.N. 17:46 04/21/2016 Started bag #1 1000 mL IV Fluids IV NS (Saline); at 1000 mL/hr over 2 hour(s) via site #1 via IV pump. Allergies verified and confirmed 5 rights. IV patency established. IV site checked: no pain, redness, or swelling. IV flushed thoroughly pre- and post-medication administration. --17:46 Emma Horvath R.N. Patient gowned. Head of bed elevated. Two patient identifiers checked. Call light placed in reach. Side rails up x 2. Bed placed in lowest position. Brakes of bed on. Patient ready for evaluation. --17:59 Emma Horvath R.N. 17:56 04/21/2016 Benadryl (DiphenhydrAMINE HCl) IVP 50 mg given over 2 minute(s) via site #1. Allergies verified, confirmed 5 rights and sedative warning given to the patient. IV patency established. IV site checked: no pain, redness, or swelling. IV flushed thoroughly pre- and post-medication administration. IVP given by RN. --18:01 Silviano Mckenzie R.N. EKG time: (17:47). EKG was ordered, performed by a tech and shown to the ED physician. --18:07 Catherine Bills 18:35 04/21/2016 IV Fluids IV NS Bag Change: bag #1 infused. Total amount infused: 1000. STARTED bag #2 (1000 mL) at 1000 mL/hr. IV patency established. IV site checked: no pain, redness, or swelling. IV flushed thoroughly. --18:35 Silviano Mckenzie R.N. 18:41 04/21/2016 Insulin REG IVP 8 unit given over 2 minute(s) via site #1. Allergies verified and confirmed 5 rights. IV patency established. IV site checked: no pain, redness, or swelling. IV flushed thoroughly pre- and post-medication administration. IVP given by RN. --18:41 Silviano Mckenzie R.N. 17:50. Finger stick glucose: 492 mg/dL; performed by tech; result shown to the RN. --18:47 Catherine Bills 18:30 04/21/16. BP: 100/63. HR: 74. RR: 18. O2 saturation: 98% on room air. --18:50 Silviano Mckenzie R.N. 18:50 04/21/16. Critical value relayed to ED by Derrel Sales Warehouse Driver. Critical value received by Silviano Mckenzie RN. Glucose: 525. Critical value read back. Provider notifed of critical value (DAMARI Powers). --18:52 Silviano Mckenzie R.N. Care transferred and report received (Report received from Silviano Florian Questions answered, plan of care reviewed). --19:07 Trixie Andrew 19:15 04/21/16. BP: 102/69. HR: 77. RR: 20. O2 saturation: 98% on room air. --19:16 Trixie Andrew ( Patient given PO fluids and food per provider permission. FS glucose 348 mg/dl). --19:16 Trixie Andrew <<STRICKEN ENTRY-- 19:47 04/21/2016 Insulin REG IVP 5 unit given over 1 minute(s) via site #1. Allergies verified and confirmed 5 rights. IV patency established. IV site checked: no pain, redness, or swelling. IV flushed thoroughly pre- and post-medication administration. IVP given by RN. --19:47 Trixie Andrew --END STRIKE>> Change to Details. --19:48 Trixie Andrew 19:48 04/21/2016 Insulin REG IVP 5 unit given over 1 minute(s) via site #1. Allergies verified and confirmed 5 rights. IV patency established. IV site checked: no pain, redness, or swelling. IV flushed thoroughly pre- and post-medication administration. IVP given by RN (Dosage verified by Sharmaine S). --19:48 Trixie Andrew 20:18 Patient contact made; when asked if patient would like to speak with a PAT team leader/research psychologist and patient declined, stating "No". --20:20 Kita, Deja, ER Tech1 ( FS glucose 150 mg/dl, Provider notified). --20:32 Trixie Andrew 21:15 04/21/2016 IV Fluids IV NS Discontinued: bag #2 completed. Total amount infused: 1000 mL. IV patency established. IV site checked: no pain, redness, or swelling. IV flushed thoroughly. --21:25 Trixie Andrew. DISPOSITION / DISCHARGE 21:12 04/21/2016 Site #1 removed upon discharge. Catheter intact. Bandaid applied. --21:12 Trixie Andrew 21:14 04/21/16. Condition at departure: improved and stable. Ability to learn limited by poor cooperation. Reviewed need for increased fluid intake. Verbalized understanding. Written instructions provided in Bulgarian. ( Patient advised to follow up with PCP. Patient advised to check her sugars and follow diabetic guidelines.). The patient was discharged by the physician. She was discharged home and unaccompanied at time of discharge. She left the Emergency Department ambulatory and via ([employer]). ( Patient upset when told doctor is ready to discharge her. She states, " I have nowhere to go, I just need to sleep here". Patient told that staff would try to assist her with a ride, including calling [employer]. Patient states, " I dont have anywhere to fucking go!"). --21:14 Trixie Andrew 21:11 04/21/16. BP: deferred. HR: deferred. RR: deferred. O2 saturation: deferred. Temp: deferred. Pain level now deferred. Additional comments: Patient refusing discharge vitals . --21:14 Trixie Andrew ( Security was called due to the pt refusing to leave. Pt got dressed and was given her belongings. Security and the charge nurse walked the to the lobby with a warm blanket. Pt laid down to sleep. Pt was given multiple opportunities to use the phone, but stated she had no one to call or no address to go to. Pt refused to have [employer] called.). --21:26 Richie Cotter R.N. Locked/Released at 04/21/2016 21:27 by Richie Cotter R.N.
--- NOTE | 2016-04-21 20:40 | ED ORDER SUMMARY ---
..... Patient: TESFAYE POSEY OrderSheet 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) (17:04/21/2016 Ksenia Starkey) (17:46 SRoberts R.N.) Chest 1V Urgent (17:04/21/2016 Ksenia Starkey) (Ack 17:28 Lucas) (18:41 Lucas) CBC w Diff Urgent (:04/21/2016 Ksenia Starkey) (Ack 17:27 Lucas) (17:46 SRoberts R.N.) CMP Urgent (17:04/21/2016 Ksenia Starkey) (Ack 17:27 Lucas) (17:46 SRoberts R.N.) UA-Culture if indicated Urgent (17:04/21/2016 Ksenia Starkey) (Ack 17:27 Lucas) (17:46 SRoberts R.N.) Urine Urgent (:04/21/2016 Ksenia Starkey) (Ack 17:28 Lucas) (17:46 SRoberts R.N.) TSH Urgent (17:04/21/2016 Ksenia Starkey) (Ack 17:28 Lucas) (17:46 SRoberts R.N.) Urine Drug Screen Urgent (17:04/21/2016 Ksenia Starkey) (Ack 17:28 Lucas) (17:46 SRoberts R.N.) Pulse oximeter (:04/21/2016 Ksenia Starkey) (17:46 Dionnets R.N.) EKG - ER Stat (:04/21/2016 Ksenia Starkey) (Ack 17:28 Selwyn) (Ack 17:28 Lucas) (17:46 Dionnets R.N.) POC Glucose (30 min after insulin given) (18:41 04/21/2016 Ksenia Starkey) (Ack 19:05 HSoule) (19:42 HSoule) POC Glucose (30 minutes after second insulin dose) (19:33 04/21/2016 Ksenia Starkey) (Ack 19:48 HSoule) (20:42 HSoule) Acetaminophen Level Urgent (19:35 04/21/2016 Ksenia Starkey) (Ack 19:42 Cheekimaharry) (20:15 AMcQuoid ER Tech1) Salicylate Level Urgent (19:35 04/21/2016 Ksenia Starkey) (Ack 19:42 Robert) (20:15 AMcQuoid ER Tech1) Ethyl Alcohol Urgent (19:35 04/21/2016 Ksenia Starkey) (Ack 19:42 Robert) (20:15 AMcQuoid ER Tech1) MEDICATION ORDERS: IV FLUIDS: IV Saline Lock (17:22 04/21/2016 Ksenia Starkey) (17:45 SRoberepifanio R.N.) IV NS : initial bolus 2 L, then 2000 ml/hr for X1 (NOW) (17:35 04/21/2016 Ksenia Starkey) (17:46 SRlauryn R.N.) Benadryl IV 50 mg (NOW) (17:54 04/21/2016 Ksenia Starkey) (18:01 Alejo R.N.) Insulin Reg IV 8 units (HIGH ALERT MEDICATION, NOW) (18:34 04/21/2016 Ksenia Starkey) (18:41 Alejo R.NMoses) Insulin Reg IV 5 units (HIGH ALERT MEDICATION, NOW) (19:33 04/21/2016 Ksenia Starkey) (Ack 19:42 HSoule) (19:47 HSoule) ORDER SHEET NOTES: [Electronically signed by Richie Cotter R.N. (21:27 04/21/2016)] [Electronically signed by Richard Tomlin Dr. (09:28 04/27/2016)] [Electronically locked/signed by Richie Cotter R.N. (21:27 04/21/2016)]
--- NOTE | 2016-04-27 09:28 | ED DISCHARGE INSTRUCTIONS ---
Patient: TESFAYE POSEY General Instructions [facility] VisitID: [id number] [address] [place] [address] 36y, F Registration Date/Time: 04/21/2016 04/21/2016 19:15 BP: 102/69. HR: 77. RR: 20. O2 saturation: 98%. Adjustment disorder with anxiety (acute). Blood pressure normal. Oxygen saturation normal. Severe hyperglycemia (acute without DKA). INSTRUCTIONS Warnings: GENERAL WARNINGS: Return or contact your physician immediately if your condition worsens or changes unexpectedly, if not improving as expected, or if other problems arise. Specifically return if pain, vomiting, bleeding, breathing difficulty or fever. Your Current Medications: CONTINUE TAKING THE FOLLOWING MEDICATIONS: BuPROPion HBr Oral. Gabepentin *. Insulin* : 3 units TID. MetFORMIN HCl Oral : pt doesn't know where her meds are. Wellbutrin Oral. Follow-up: Return to the emergency department as needed. Follow up with your doctor in three days. Reason for referral: recheck today's concerns. Summary of care provided to patient via paper. Screening today revealed the patient's blood pressure to be in the normal range. The patient should follow up with a primary care provider for blood pressure management. Understanding of the discharge instructions verbalized by patient. Follow-up with: Information [facility], Certified Mental [employer], , , , , ; [facility], , , [address], , [place], [id number] Follow up. Reason for referral: contact for further help if you do not have a mental health provider or a primary care doctor. Summary of care provided to patient via paper. ADDITIONAL INFORMATION Adjustment Disorder An adjustment disorder is a condition that results from having a hard time coping with the normal stresses of life. You may feel you have too much to do and cant get it all done. These feelings may be triggered by divorce, job loss, someone you know dying, or by a positive event like getting a new job or getting . These feelings may interfere with your relationships at home and at work. With this condition, it is common to feel sad, guilty, hopeless and restless. These feelings may continue for weeks or months. It can be helpful to identify what is causing the additional stress and takes steps to get extra support. If new stressful events do not occur, it is likely that you will start feeling better within six months. Home Care: If you have been given a prescription for medicine, take it as directed. It helps to talk about your feelings and thoughts with family or friends that understand and support you. Follow Up with your doctor or therapist as advised by our staff. Let them know if this condition lasts more than six months without sign of improvement. For more information, contact the [employer] [place] [employer]ness at 048-821-9245 or visit www.mitzi.org. Get Prompt Medical Attention if any of the following occur: Worsening depression or anxiety Feeling out of control Thoughts of harming yourself or another Being unable to care for yourself Diabetes with High Blood Sugar You have been treated for high blood sugar (hyperglycemia). This may be becauseof an infection or other illness;eating too many sweets or starches ; not taking enough insulin. Home care High blood sugar may cause symptoms that you can learn to recognize, such as these: If you feel like your blood sugar may be too high, measure it using a blood or urine test. If it is above your usual range, use the "sliding scale"rRegular insulin dose your doctor gave you to correct this. If no "sliding scale" orders were given, contact your doctor for further advice. If your blood sugar is over 300, and you can't reach your doctor, go to the hospital emergency room. Monitor and write down your blood sugars - and insulin dose, if you take insulin - atleast twice a day. Do this before breakfast and before dinner. Do this for the next 3 to 5 days. Follow-up care Follow up with your health care provderring the next week to review your blood sugar records. You will find out if you need to adjust your dose of insulin or other medicine for blood sugar. When to seek medical care Get prompt medical attention if either of these occur: High blood sugar.Symptoms are frequent urination, feeling dizzy, thirst, headache, nausea or vomiting, abdominal pain, and drowsiness or loss of consciousness. Low blood sugar. Symptoms are fatigue, headache, shakes, excess sweating, hunger, anxiety, reduced vision, drowsiness, weakness, confusion or loss of consciousness, and seizure. Diabetes (General Information) Cells of the body need glucose (sugar) for fuel. Insulin is the hormone in the body that lets glucose move from the blood into the cells. Diabetes is a chronic health condition where the body is not able to produce enough insulin, or does not respond well to its own insulin. Because the glucose in the blood cannot get into the cells, it builds up in the blood causing high blood sugar (hyperglycemia). Your actual blood sugar level is a result of the balance between several factors. These include what kind of food you eat and how much of it you eat, how much exercise you get, and the amount of insulin present in your body. Eating too much of the wrong kinds of food or not taking diabetes medicine on time can cause high blood sugar. Infections can cause high blood sugar even if you are taking medicines correctly. Missing meals, not eating enough food, or taking too much diabetes medicine can lead to low blood sugar. Untreated over long periods of time, diabetes can cause serious problems such as heart disease, stroke, kidney failure, blindness, nerve pain or loss of feeling in the legs and feet, and gangrene of the feet. With good treatment keeping your blood sugar under control, you can prevent or delay the complications of diabetes. Normal blood sugar levels are 70-130 one to two hours before a meal and not more than 180 two hours after a meal. Home Care: Follow your prescribed diabetic diet and take insulin or oral diabetic medicine exactly as ordered. Monitor blood sugars as advised. Keep a log of your results. This will help your doctor adjust your medicines to keep your blood sugar under control. Try to achieve your ideal weight. Proper diet and exercise can reduce or eliminate the need to take diabetes medicine. Avoid tobacco smoking, which worsens the effect of diabetes on your circulation. The risk of a heart attack in a diabetic is 15 times more likely if you smoke. Pay attention to good foot care. If you have lost feeling in your feet you may not notice an injury or infection. Check your feet and between your toes at least once a week. Wear a medical alert bracelet or carry a card in your wallet explaining that you are diabetic. In the event that you become very ill and are unable to give this information, it will help medical personnel provide proper care. If you become sick with a cold, the flu, or an infection (viral or bacterial), please do the following: Review your diabetes sick plan and contact your physician as instructed. You may have been advised to call the doctor immediately if: Your blood sugar is above 240 while taking your diabetes medication Your urine ketone levels are above normal or showing high levels of ketones You have been vomiting more than 6 hours You experience difficulty to trouble breathing You develop a high fever or you have had a fever for a couple of days and you aren't getting better You become light-headed and more sleepy than usual Keep taking your oral diabetes medicine (pills) even if you have been vomiting and feeling sick. Contact your doctor immediately for advice because you may need insulin to lower your blood sugar until you recover from your illness. Keep taking your insulin, even if you have been vomiting and feeling sick. Call your doctor immediately and ask if a temporary adjustment of your insulin dose is needed based on your blood glucose (sugar) results. Check your blood sugar every 2 to 4 hours, or at least 4 times a day. Check your keytones often. If you are vomiting and having diarrhea, monitor them more frequently. Don't skip meals. Try to eat small meals on a regular schedule, even if you do not have an appetite. Drink water or other calorie-free, non-caffeinated liquids to stay hydrated. If you are nauseated or vomiting, drink small amounts (sips, a teaspoon) every 5 minutes. To prevent dehydration, try to drink a cup or 8 ounces of fluids every hour while you are awake. Always carry a source of fast-acting sugar with you in case you get symptoms of low blood sugar (below 70). At the first sign of low blood sugar, eat or drink 15 to 20 grams of fast-acting sugar to raise your blood sugar. Examples include: 3 to 4 glucose tablets (found at most drugstores) 4 ounces (1/2 cup) of regular (not diet) softdrinks 4 ounces (1/2 cup) of any fruit juice 8 ounces (1 cup) of milk 5 to 6 pieces of hard candy 1 tablespoon of honey Check your blood sugar 15 minutes after treating yourself. If it is still low (below 70), take another 15 to 20 grams of fast-acting sugar. Test again in 15 minutes. If it returns to normal (70 or above), eat a snack or meal to keep your blood sugar in a safe range. If it remains low, call your doctor or go to an emergency room. Follow Up with your doctor as advised by our staff. For more information, contact the [place] [employer]. www.diabetes.org or 694-582-6978. Get Prompt Medical Attention if any of the following occur: HIGH BLOOD SUGAR: frequent urination, dizziness, drowsiness, thirst, headache, nausea or vomiting, abdominal pain, vision changes, fast breathing, confusion or loss of consciousness LOW BLOOD SUGAR: fatigue, headache, shakes, excess sweating, hunger, feeling anxious or restless, vision changes, drowsiness, weakness, confusion or loss of consciousness Chest pain or shortness of breath Dizziness or fainting Weakness of an arm or leg or one side of the face Trouble with speech or vision You have been given the following additional information: Adjustment Disorder Diabetic Hyperglycemia Diabetes, General Info (Electronically signed by Richard Tomlin Dr. 04/27/2016 9:28)
--- NOTE | 2016-04-27 09:28 | ED MAR SUMMARY ---
..... Medication Administration Record [facility] [address] [place] [address] Patient: TESFAYE POSEY Visit ID: [id number] 36y, F Weight: 45.3 kg Height/Length: 60 in BMI: 19.5 ALLERGIES: Phenergan, Shellfish-derived Products Start 17:46 04/21/2016 Emma Horvath R.N., Stop 21:15 04/21/2016 Trixie Andrew, Medication Administered: IV NS (SALINE), Dose: IV Fluids over 2 hour(s), Rate: 1000 mL/hr, Dispensed: 1000 mL bag, Site: #1 right AC. Medication Ordered: IV NS : initial bolus 2 L, then 2000 ml/hr for X1 (NOW). Given 17:56 04/21/2016 Silviano Mckenzie R.N. Medication Administered: BENADRYL [IVP] (DIPHENHYDRAMINE HCL), Dose: 50 mg IVP over 2 minute(s), Site: #1 right AC. Medication Ordered: Benadryl IV 50 mg (NOW). Given 18:41 04/21/2016 Silviano Mckenzie RMosesN. Medication Administered: INSULIN REG [IVP], Dose: 8 unit IVP over 2 minute(s), Site: #1 right AC. Medication Ordered: Insulin Reg IV 8 units (HIGH ALERT MEDICATION, NOW). Given 19:48 04/21/2016 Trixie Andrew, Medication Administered: INSULIN REG [IVP], Dose: 5 unit IVP over 1 minute(s), Site: #1 right AC. Medication Ordered: Insulin Reg IV 5 units (HIGH ALERT MEDICATION, NOW).
--- NOTE | 2016-04-27 09:28 | ED MED RECONCILIATION SUMMARY ---
Patient: TESFAYE POSEY Medication Reconciliation Report [facility] VisitID: [id number] [address] [place] [address] 36y, F Registration Date/Time: 04/21/2016 Weight: 45.3 kg Height/Length: 60 in. BMI: 19.5 ALLERGIES: Phenergan, Shellfish-derived Products The patient's Home Medications are listed below: CONTINUE TAKING THE FOLLOWING MEDICATIONS: BuPROPion HBr Oral Gabepentin Insulin 3 units TID MetFORMIN HCl Oral, pt doesn't know where her meds are Wellbutrin Oral The source(s) of the original Home Medication information: patient The following Medications were given to the patient in the Emergency Department: IV NS IV Fluids bolus 0, then 1000 mL/hr, administered: 04/21/2016 5:46:00 PM Benadryl [IVP] IVP 50 mg, administered: 04/21/2016 5:56:00 PM Insulin REG [IVP] IVP 8 unit, administered: 04/21/2016 6:41:00 PM Insulin REG [IVP] IVP 5 unit, administered: 04/21/2016 7:48:00 PM The following Medications were prescribed to the patient: None.
--- NOTE | 2016-04-27 09:28 | ED MED RECONCILIATION SUMMARY ---
Patient: TESFAYE POSEY Medication Reconciliation Report [facility] VisitID: [id number] [address] [place] [address] 36y, F Registration Date/Time: 04/21/2016 Weight: 45.3 kg Height/Length: 60 in. BMI: 19.5 ALLERGIES: Phenergan, Shellfish-derived Products The patient's Home Medications are listed below: CONTINUE TAKING THE FOLLOWING MEDICATIONS: BuPROPion HBr Oral Gabepentin Insulin 3 units TID MetFORMIN HCl Oral, pt doesn't know where her meds are Wellbutrin Oral The source(s) of the original Home Medication information: patient The following Medications were given to the patient in the Emergency Department: IV NS IV Fluids bolus 0, then 1000 mL/hr, administered: 04/21/2016 5:46:00 PM Benadryl [IVP] IVP 50 mg, administered: 04/21/2016 5:56:00 PM Insulin REG [IVP] IVP 8 unit, administered: 04/21/2016 6:41:00 PM Insulin REG [IVP] IVP 5 unit, administered: 04/21/2016 7:48:00 PM The following Medications were prescribed to the patient: None.
--- NOTE | 2016-04-27 09:28 | ED MAR SUMMARY ---
..... Medication Administration Record [facility] [address] [place] [address] Patient: TESFAYE POSEY Visit ID: [id number] 36y, F Weight: 45.3 kg Height/Length: 60 in BMI: 19.5 ALLERGIES: Phenergan, Shellfish-derived Products Start 17:46 04/21/2016 Emma Horvath R.N., Stop 21:15 04/21/2016 Trixie Andrew, Medication Administered: IV NS (SALINE), Dose: IV Fluids over 2 hour(s), Rate: 1000 mL/hr, Dispensed: 1000 mL bag, Site: #1 right AC. Medication Ordered: IV NS : initial bolus 2 L, then 2000 ml/hr for X1 (NOW). Given 17:56 04/21/2016 Silviano Mckenzie R.N. Medication Administered: BENADRYL [IVP] (DIPHENHYDRAMINE HCL), Dose: 50 mg IVP over 2 minute(s), Site: #1 right AC. Medication Ordered: Benadryl IV 50 mg (NOW). Given 18:41 04/21/2016 Silviano Mckenzie RMosesN. Medication Administered: INSULIN REG [IVP], Dose: 8 unit IVP over 2 minute(s), Site: #1 right AC. Medication Ordered: Insulin Reg IV 8 units (HIGH ALERT MEDICATION, NOW). Given 19:48 04/21/2016 Trixie Andrew, Medication Administered: INSULIN REG [IVP], Dose: 5 unit IVP over 1 minute(s), Site: #1 right AC. Medication Ordered: Insulin Reg IV 5 units (HIGH ALERT MEDICATION, NOW).
== END 2016-04-21 21:10 | disposition home or self-care (01) ==
LOC: ED SRH 17:15
DX: F43.22 Adjustment disorder with anxiety (principal); E11.65 Type 2 diabetes mellitus with hyperglycemia
CPT/HCPCS: 90004; 90100; 92010; 92760; 92761; 92762; 92763; 92764; 92765; 92766; 92767; 92780; 93070; 93140; 95059; 97000

== ENCOUNTER 2016-05-16 18:26 | Emergency (ER) | payer OTHER ==
--- NOTE | 2016-05-17 00:08 | ED CLINICAL REPORT ---
Clinical Report - Physicians/Mid Levels [facility] [address] [place] [address] 05/16/2016 18:27 Patient: TESFAYE POSEY Time Seen: 18:44; initial patient contact. Arrived- By private vehicle. Historian- patient. HISTORY OF PRESENT ILLNESS Chief Complaint: ANXIOUS and SUICIDAL THOUGHTS and AGITATED. This started today. The patient has experienced situational problems related to personal finances, being homeless and drug use. Recent methamphetamines use. The patient has had anxiety. Has had suicidal thoughts. The symptoms are described as moderate. Similar symptoms previously: Recent medical care: Not recently seen/assessed. REVIEW OF SYSTEMS No chest pain, palpitations or abdominal pain. All systems otherwise negative, except as recorded above. PAST HISTORY ( PROBLEMS: Adjustment Disorder. Abscess. Diabetes Mellitus. Normal Exam. Diabetic Ketoacidosis. Abnormal Test. Hepatitis C carrier. Hep c. Constipation. Flank Pain. Suicidal Ideation. ADHD - Attention Deficit Hyperactivity Disorder. Hyperglycemia. Paresthesia. Vertigo. Anxiety Reaction. Back Pain. Sprain. Tetanus Status. Dental Pain. Migraine Headache. Headache. Gastritis. Diarrhea. Lifestyle / Substance Problems. Dehydration. Vomiting. Alcohol Intoxication. UTI - Urinary Tract Infection. Immunizations. Substance Abuse. Pancreatitis. Abdominal Pain. LNMP - Last Normal Menstrual Period. Cholecystitis. --18:47 Cally Farley R.N. Hepatitis [RuleOut]. Abnormal Liver Function Test [RuleOut]. Pancreatitis ADDITIONAL SURGERIES: Cholecystectomy. Hip Surgery.). SOCIAL HISTORY Current every day smoker. History of IV drug use. No alcohol use. ADDITIONAL NOTES The nursing notes have been reviewed with agreement regarding the chief complaint, PMH and patient medications and allergies. PHYSICAL EXAM Vital Signs: 05/16/2016 18:44 BP: 134/102. HR: 87. RR: 18. O2 saturation: 100%. Temp: 97.6 F. Pain level now: 0/10. Have been reviewed. Hypertensive. Heart rate normal. Respiratory rate normal. Temperature normal. Oxygen saturation normal. Appearance: Alert. Patient is in moderate distress. Is disheveled. Anxious. CVS: Normal heart rate and rhythm. Heart sounds normal. Respiratory: Breath sounds normal. Chest nontender. Abdomen: Soft and nontender. Skin: Skin warm and dry. Normal skin color. Extremities: No lower extremity edema. Psych / Neuro: Speech normal. Cognition normal. Thought process and content normal. Insight and judgement normal. LABS, X-RAYS, AND EKG Laboratory Tests: CBC w Diff: (JARAD: 05/16/2016 19:00) ( [facility] 05/16/2016 19:31) Final results Test Result Flag Units (Reference) WHITE BLOOD COUNT 7.6 K/uL (4.5-11.5) RED BLOOD COUNT 4.28 M/uL (4.00-5.20) HEMOGLOBIN 12.0 gm/dL (12.0-16.0) HEMATOCRIT 36.7 % (36.0-46.0) MEAN CELL VOLUME 86 fL (80-100) MEAN CORPUSCULAR HGB 28 pg (26-34) MEAN CORPUSCULAR HGB CONC 33 g/dL (31-37) RED CELL DISTRIBUTION WIDTH 14.9 H % (11.6-14.8) PLATELET COUNT 314 K/uL (150-400) NEUTROPHIL % 51.8 % (50-75) LYMPH % 37.7 % (25-40) MONO % 8.6 % (3-14) EOSINOPHIL % 1.4 % (0-4) BASOPHIL % 0.5 % (0-2) CMP: (JARAD: 05/16/2016 19:00) ( [facility] 05/16/2016 19:47) Final results Test Result Flag Units (Reference) ACETONE, SERUM QUALITATIVE NEGATIVE (NEGATIVE) GLUCOSE 550 *H mg/dL (70-110) CRITICAL RESULTS CALLEDCalled to JAQUI AUGUSTIN RN 05/16/161946Were 2 patient identifiers used? YESWas the result read back? YES BUN 14 mg/dL (7-18) CREATININE 0.8 mg/dL (0.6-1.3) Estimated GFR >60 mL/min Estimated GFR- >60 mL/min Note: Persistent reduction over 3 months in eGFR<60 mL/min/1.73 m2 defines CKD. Patients with eGFR values>=60 mL/min/1.73 m2 may also have CKD if evidence ofpersistent proteinuria. Additional information may be foundat www.kidney.org. SODIUM 134 L mmol/L (136-145) POTASSIUM 3.9 mmol/L (3.5-5.1) CHLORIDE 99 mmol/L (98-107) CARBON DIOXIDE 22 mmol/L (21-32) CALCIUM 8.4 L mg/dL (8.5-10.1) TOTAL PROTEIN 7.5 g/dL (6.4-8.2) ALBUMIN 3.6 g/dL (3.3-5.0) BILIRUBIN, TOTAL 0.3 mg/dL (0.0-1.0) ALKALINE PHOSPHATASE 176 H U/L (46-116) AST (SGOT) 67 H U/L (15-37) ALT (SGPT) 113 H U/L (12-78) . PROGRESS AND PROCEDURES Course of Care: 21:46 05/16/16. Case D/W Dr. Vazquez. No active suicidiality. PAT team in house to assess. reviewed the patient's history and examination findings and lab results with Dr. Najera. I subsequently reviewed with patient and examined her and my findings were consistent with those noted by him. Subsequently followed up with mental health team and they do feel that she ought to be admitted and made arrangements for her to be transferred to [place]. - MW. Patient/family counseled. Disposition: Transferred. CLINICAL IMPRESSION Suicidal ideation. Depression. Substance abuse- amphetamines and methamphetamines. (Electronically signed by Onel Juares MD 05/17/2016 3:51)
--- NOTE | 2016-05-17 00:08 | ED ORDER SUMMARY ---
..... Patient: TESFAYE POSEY OrderSheet [facility] VisitID: [id number] [place] [address] 36y, F Registration Date/Time: 05/16/2016 ORDER SHEET Weight: 52.1 kg (stated) Allergies: Phenergan, Shellfish-derived Products GENERAL ORDERS: CBC w Diff Urgent (19:13 05/16/2016 Lit Starkey) (19:21 EHassan R.N.) CMP Urgent (19:05/16/2016 Lit Starkey) (19:21 EHassan R.N.) UA-Culture if indicated Urgent (19:13 05/16/2016 Lit Starkey) (Ack 19:24 Arlene ER [employer] Cleaner) (20:05 EHassan R.N.) Urine Urgent (19:05/16/2016 Lit Strakey) (Ack 19:24 Arlene ER [employer] Cleaner) (20:05 EHassan R.N.) Urine Drug Screen Urgent (19:05/16/2016 Lit Starkey) (Ack 19:24 Arlene ER [employer]er) (20:05 EHassan R.N.) Acetone, Serum Urgent (19:13 05/16/2016 Lit Starkey) (19:21 EHassan R.N.) POC Glucose (Q 30 minutes) (22:49 05/16/2016 J Carlos CORTEZ) (22:55 EHassan R.N.) MEDICATION ORDERS: Insulin Reg Subcut 12 units (HIGH ALERT MEDICATION, NOW) (19:56 05/16/2016 Lit Starkey) (20:17 EHassan R.N.) LORazepam PO 1 mg (NOW) (01:44 05/17/2016 TLewis R.N. verbal order read back to J Carlos CORTEZ) (1:52 TLewis R.N.) IV FLUIDS: IV NS with Normal Saline 1 Liter: initial bolus none -, then 1000 mL/hr for X1 (NOW) (19:12 05/16/2016 Lit Starkey) (19:36 DBeyer R.N.) Ativan IV 1 mg (HIGH ALERT MEDICATION, NOW) (19:13 05/16/2016 Lit Starkey) (19:24 Spike R.N.) Ativan IV 1 mg (HIGH ALERT MEDICATION, NOW) (20:19 05/16/2016 Lit Starkey) (20:23 Spike R.N.) Ativan IV 1 mg (HIGH ALERT MEDICATION, NOW) (22:35 05/16/2016 J Carlos CORTEZ) (22:45 Spike Vyas.N.) Insulin Reg IV 4 units (HIGH ALERT MEDICATION, NOW) (22:49 05/16/2016 J Carlos CORTEZ) (22:54 Spike R.N.) ORDER SHEET NOTES: [Electronically signed by Yahaira Garza R.N. (03:08 05/17/2016)] [Electronically signed by Onel Juares MD (03:51 05/17/2016)] [Electronically locked/signed by Yahaira Garza R.N. (03:08 05/17/2016)]
--- NOTE | 2016-05-17 00:08 | ED NURSING NOTES ---
Clinical Report - Nurses [facility] [address] [place] [address] 05/16/2016 18:27 Patient: TESFAYE POSEY TRIAGE Triage time 1845 PM. Acuity: LEVEL 5. Chief Complaint: ANXIETY. Alert. No acute distress. SEPSIS SCREEN: Sepsis Screen. Negative (no infection suspected/documented). RADHA COMA SCORE: Radha Coma Scale: 15- eyes open spontaneously (4); best verbal response- oriented x 4 (5); best motor response- obeys commands (6). --18:54 Cally Farley R.N. 18:44 05/16/16. BP: 134/102 (regular adult cuff) taken on the left arm, while lying. HR: 87. RR: 18. O2 saturation: 100% on room air. Temp: 97.6 F. Pain level now: 0/10. --18:54 Cally Farley R.N. 18:44 PM late entry -. BREATHALYZER: Breathalyzer (0). --20:09 Cally Farley R.N. late entry - 18:54 PM. --23:41 Cally Farley R.N. Weight: 52.1 kg stated. Height/Length: 64 inches Per Patient. BMI: 19.7. --18:45 Cally Farley R.N. Medications BuPROPion HBr Oral. Gabepentin . Insulin 3 units TID. MetFORMIN HCl Oral (pt doesn't know where her meds are). Wellbutrin Oral. --18:45 Cally Farley R.N. Allergies Phenergan. Shellfish-derived Products. --18:45 Cally Farley R.N. Medication/allergy information source: the patient. --18:54 Cally Farley R.N. History Arrived by private vehicle, and accompanied by (friend dropped her off). Primary physician ([facility]). ( Pt walked in crying unable to get a chief complaint, anxious, states "needs something for anxiety"). The patient has had anxiety and describes feelings of depression. Has been feeling agitated. Has not been confused. Denies sleeping difficulties or having hallucinations. 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 PAST MEDICAL HX: Immunizations: up-to-date. SOCIAL HX: Light tobacco smoker (cigarette)- less than 1/2 a pack per day. History of IV drug use. No alcohol use. No infectious disease exposure. ABUSE ASSESSMENT: No report of abuse. SELF HARM ASSESSMENT: A self harm assessment was performed. The patient answered "no" to the question "Do you have thoughts of harming or killing yourself?" and "Have you recently had thoughts about harming or killing others?". FALL RISK ASSESSMENT: Fall risk assessment completed. No fall risk identified. NUTRITIONAL RISK ASSESSMENT: The nutritional risk assessment revealed no deficiencies. FUNCTIONAL ASSESSMENT: Functional assessment: no impairments noted. LEARNING NEEDS ASSESSMENT: The learning needs assessment revealed no barriers. SKIN INTEGRITY ASSESSMENT: Skin integrity risk assessment completed. No skin integrity risk identified. --18:54 Cally Farley R.N. SOCIAL HX: ( Belongings placed in locker #2). --23:41 Cally Farley R.N. PROBLEMS: Adjustment Disorder. Abscess. Diabetes Mellitus. Normal Exam. Diabetic Ketoacidosis. Abnormal Test. Hepatitis C carrier. Hep c. Constipation. Flank Pain. Suicidal Ideation. ADHD - Attention Deficit Hyperactivity Disorder. Hyperglycemia. Paresthesia. Vertigo. Anxiety Reaction. Back Pain. Sprain. Tetanus Status. Dental Pain. Migraine Headache. Headache. Gastritis. Diarrhea. Lifestyle / Substance Problems. Dehydration. Vomiting. Alcohol Intoxication. UTI - Urinary Tract Infection. Immunizations. Substance Abuse. Pancreatitis. Abdominal Pain. LNMP - Last Normal Menstrual Period. Cholecystitis. --18:47 Cally Farley R.N. Hepatitis [RuleOut]. Abnormal Liver Function Test [RuleOut]. Pancreatitis [RuleOut]. --18:47 Cally Farley R.N. ADDITIONAL SURGERIES: Cholecystectomy. Hip Surgery. --18:47 Cally Farley R.N. Interventions ID band on patient. --18:54 Cally Farley R.N. PHYSICAL ASSESSMENT Ambulatory to room. GENERAL / NEURO / PSYCH: Appears in no acute distress. Appears anxious and in distress. Patient appears calm and cooperative. RESPIRATORY: Respirations not labored. Breath sounds within normal limits. SKIN: Skin intact. Skin is warm and dry. Skin color is within normal limits. --18:55 Cally Farley R.N. GENERAL / NEURO / PSYCH: The patient appears to have altered thought processes. --18:55 Cally Farley R.N. NURSING PROGRESS NOTES The initial plan of care for this patient has been created This plan of care was discussed with the patient. Reassurance given. Two patient identifiers checked. Call light placed in reach. Side rails up x 1. Bed placed in lowest position. Brakes of bed on. --18:55 Cally Farley R.N. 19:23 05/16/2016 Site #1 started via IV in the left forearm with an 20g angiocath; one attempt. Blood drawn: rainbow set. Labeled in the presence of the patient and sent to the lab. --19:24 Cally Farley R.N. 19:24 05/16/2016 Ativan (LORazepam) IVP 1 mg given over 30 second(s) via site #1. Allergies verified, confirmed 5 rights and sedative warning given to the patient. IV patency established. IV site checked: no pain, redness, or swelling. IV flushed thoroughly pre- and post-medication administration. IVP given by RN. --19:24 Cally Farley R.N. 19:36 05/16/2016 Started bag #1 1000 mL IV Fluids IV NS (Saline); at 1000 mL/hr over 1 hour(s) via site #1. Allergies verified and confirmed 5 rights. IV patency established. IV site checked: no pain, redness, or swelling. IV flushed thoroughly pre- and post-medication administration. Completed per protocol. --19:36 Ashish Diaz R.N. ( glucose 550 report taken from lab information, relayed to MD). --19:47 Ashish Diaz R.N. 20:16 05/16/2016 Insulin Reg Subcutaneous 12 unit given. Given in the right abdomen. Allergies verified and confirmed 5 rights. (verified by Ashish COLON). --20:17 Cally Farley R.N. 20:16 05/16/2016 Insulin Reg Subcutaneous Co-signature: dosage, concentration and rate verified. --20:46 Ashish Diaz R.N. 20:17 05/16/2016 IV Fluids IV NS Response: no adverse reaction. --20:17 Cally Farley R.N. 20:18 05/16/2016 IV Fluids IV NS Discontinued: bag #1 completed. Total amount infused: 1000 mL. IV patency established. IV site checked: no pain, redness, or swelling. IV flushed thoroughly. --20:18 Cally Farley R.N. 20:23 05/16/2016 Ativan (LORazepam) IVP 1 mg given over 1 minute(s) via site #1. Allergies verified, confirmed 5 rights and sedative warning given to the patient. IV patency established. IV site checked: no pain, redness, or swelling. IV flushed thoroughly pre- and post-medication administration. IVP given by RN. --20:23 Cally Farley R.N. Reassurance given. Suicide precautions initiated. Reassessment after medication administered (ativan x2). She has had no adverse reaction. Overall patient status is improved- she states feels the same. ( Pt does admit to using drugs recently, "really wants to know what is in my system, cause I am not sure what I took"). GENERAL / NEURO / PSYCH: The patient reports anxiety and restlessness. The patient reports feelings of depression. Not disoriented. Patient appears calm and cooperative. She not combative. Patient identifiers checked. --20:55 Cally Farley R.N. 20:30 05/16/16. BP: 110/55. HR: 87. RR: 12. O2 saturation: 100% on room air. Pain level now: 0/10. --20:55 Cally Farley R.N. Finger stick glucose: 377; performed by nurse; result shown to the ED physician. --21:02 Cally Farley R.N. Reassurance given. ( Pt feeling more anxious "needs meds" Will let MD know). GENERAL / NEURO / PSYCH: The patient reports anxiety and restlessness. Two patient identifiers checked. Call light placed in reach. Side rails up x 1. Bed placed in lowest position. Brakes of bed on. --22:32 Cally Farley R.N. 22:31 05/16/16. BP: 122/90. HR: 99. RR: 18. O2 saturation: 98%. Pain level now: 0/10. --22:32 Cally Farley R.N. Finger stick glucose: 274; ordered; performed by nurse; result shown to the ED physician. ( Pt feeling "like she will have a panic attack" ativan 1 mg given as ordered, she would like "xanax or valium" Will notify MD). GENERAL / NEURO / PSYCH: The patient reports anxiety. Denies anger. Patient appears calm and cooperative. Patient appears agitated. RESPIRATORY: Denies difficulty breathing. SKIN: Skin is warm and dry. Skin color within normal limits. Two patient identifiers checked. --22:44 Cally Farley R.N. 22:45 05/16/2016 Ativan (LORazepam) IVP 1 mg given over 1 minute(s) via site #1. Allergies verified, confirmed 5 rights and sedative warning given to the patient. IV patency established. IV site checked: no pain, redness, or swelling. IV flushed thoroughly pre- and post-medication administration. IVP given by RN. --22:45 Cally Farley R.N. 22:54 05/16/2016 Insulin REG IVP 4 unit given over 30 second(s) via site #1. Allergies verified and confirmed 5 rights. IV patency established. IV site checked: no pain, redness, or swelling. IV flushed thoroughly pre- and post-medication administration. IVP given by RN. --22:54 Cally Farley R.N. Care transferred and report received. --23:36 Zoe Martinez R.N. Finger stick glucose: 246; performed by nurse; result shown to the ED physician. Reassurance given. GENERAL / NEURO / PSYCH: The patient reports anxiety. Two patient identifiers checked. Call light placed in reach. Bed placed in lowest position. Brakes of bed on. --23:38 Cally Farley R.N. ( Pt being accepted at [facility], more calm, no thoughts of hurting herself, eat a sandwich and cheese. Aware of progress with placing). --23:40 Cally Farley R.N. Care transferred and report given (DARLENE Enriquez). --23:41 Cally Farley R.N. 00:19 05/17/16. ( Blood Glucose 282). --00:19 Lisbet Carpenteria ( Blood glucose 250). --00:41 Amanda Hernández Finger stick glucose: 197 mg/dL; ordered; performed by tech; result shown to the RN. --01:14 Amanda Hernández 01:40 05/17/16. BP: 123/80. HR: 99. RR: 20. O2 saturation: 96%. Temp: 97.5 F. --01:41 Amanda Hernández 01:52 05/17/2016 Lorazepam PO 1 mg given. Allergies verified, confirmed 5 rights and sedative warning given to the patient. --01:52 Richie Cotter R.N. ( Pt was tearful and very anxious, but was not crying. MD was asked for anxiety meds and ordered 1mg of Ativan. Pt was given more water and her BS was checked.). --01:53 Richie Cotter R.N. DISPOSITION / DISCHARGE 02:40 05/17/2016 Site #1 removed upon transfer. Catheter intact. Bandaid applied. --03:07 Yahaira Garza R.N. 03:08 05/17/16. Condition at departure: unchanged and stable. The goals identified in the patient's plan of care were met. Transferred to [facility]. Summary of care provided to transport team via paper. Report was given to a nurse in person. Report included patient's care, treatment, medications, reviewed medication reconcilliation, and condition (including any recent changes or anticipated changes). All questions were answered. Report was acknowledged. (Transport crew). Patient's personal items; items were placed in belongings bag. --03:08 Yahaira Garza R.N. 01:40 05/17/16. BP: 123/80. HR: 99. RR: 20. O2 saturation: 96%. Temp: 97.5 F. 22:31 05/16/16. BP: 122/90. HR: 99. RR: 18. O2 saturation: 98%. Pain level now: 0/10. 20:30 05/16/16. BP: 110/55. HR: 87. RR: 12. O2 saturation: 100% on room air. Pain level now: 0/10. 18:44 05/16/16. BP: 134/102 (regular adult cuff) taken on the left arm, while lying. HR: 87. RR: 18. O2 saturation: 100% on room air. Temp: 97.6 F. Pain level now: 010. --03:08 Yahaira Garza R.N. Locked/Released at 05/17/2016 3:08 by Yahaira Garza R.N.
--- NOTE | 2016-05-17 00:08 | ED ORDER SUMMARY ---
..... Patient: TESFAYE POSEY OrderSheet [facility] VisitID: [id number] [place] [address] 36y, F Registration Date/Time: 05/16/2016 ORDER SHEET Weight: 52.1 kg (stated) Allergies: Phenergan, Shellfish-derived Products GENERAL ORDERS: CBC w Diff Urgent (19:13 05/16/2016 Lit Starkey) (19:21 EHassan R.N.) CMP Urgent (19:05/16/2016 Lit Starkey) (19:21 EHassan R.N.) UA-Culture if indicated Urgent (19:13 05/16/2016 Lit Starkey) (Ack 19:24 Arlene ER [employer] Sales Representative) (20:05 EHassan R.N.) Urine Urgent (19:05/16/2016 Lit Starkey) (Ack 19:24 Arlene ER [employer] Sales Representative) (20:05 EHassan R.N.) Urine Drug Screen Urgent (19:05/16/2016 Lit Starkey) (Ack 19:24 Arlene ER [employer] Sales Representative) (20:05 EHassan R.N.) Acetone, Serum Urgent (19:13 05/16/2016 Lit Starkey) (19:21 EHassan R.N.) POC Glucose (Q 30 minutes) (22:49 05/16/2016 J Carlos CORTEZ) (22:55 EHassan R.N.) MEDICATION ORDERS: Insulin Reg Subcut 12 units (HIGH ALERT MEDICATION, NOW) (19:56 05/16/2016 Lit Starkey) (20:17 EHassan R.N.) LORazepam PO 1 mg (NOW) (01:44 05/17/2016 TLewis R.N. verbal order read back to J Carlos CORTEZ) (1:52 TLewis R.N.) IV FLUIDS: IV NS with Normal Saline 1 Liter: initial bolus none -, then 1000 mL/hr for X1 (NOW) (19:12 05/16/2016 Lit Starkey) (19:36 DBeyer R.N.) Ativan IV 1 mg (HIGH ALERT MEDICATION, NOW) (19:13 05/16/2016 Lit Starkey) (19:24 Spike R.N.) Ativan IV 1 mg (HIGH ALERT MEDICATION, NOW) (20:19 05/16/2016 Lit Starkey) (20:23 Spike R.N.) Ativan IV 1 mg (HIGH ALERT MEDICATION, NOW) (22:35 05/16/2016 J Carlos CORTEZ) (22:45 Spike Vyas.N.) Insulin Reg IV 4 units (HIGH ALERT MEDICATION, NOW) (22:49 05/16/2016 J Carlos CORTEZ) (22:54 Spike R.N.) ORDER SHEET NOTES: [Electronically signed by Yahaira Garza R.N. (03:08 05/17/2016)] [Electronically signed by Onel Juares MD (03:51 05/17/2016)] [Electronically locked/signed by Yahaira Garza R.N. (03:08 05/17/2016)]
--- NOTE | 2016-05-17 00:08 | ED CLINICAL REPORT ---
Clinical Report - Physicians/Mid Levels [facility] [address] [place] [address] 05/16/2016 18:27 Patient: TESFAYE POSEY Time Seen: 18:44; initial patient contact. Arrived- By private vehicle. Historian- patient. HISTORY OF PRESENT ILLNESS Chief Complaint: ANXIOUS and SUICIDAL THOUGHTS and AGITATED. This started today. The patient has experienced situational problems related to personal finances, being homeless and drug use. Recent methamphetamines use. The patient has had anxiety. Has had suicidal thoughts. The symptoms are described as moderate. Similar symptoms previously: Recent medical care: Not recently seen/assessed. REVIEW OF SYSTEMS No chest pain, palpitations or abdominal pain. All systems otherwise negative, except as recorded above. PAST HISTORY ( PROBLEMS: Adjustment Disorder. Abscess. Diabetes Mellitus. Normal Exam. Diabetic Ketoacidosis. Abnormal Test. Hepatitis C carrier. Hep c. Constipation. Flank Pain. Suicidal Ideation. ADHD - Attention Deficit Hyperactivity Disorder. Hyperglycemia. Paresthesia. Vertigo. Anxiety Reaction. Back Pain. Sprain. Tetanus Status. Dental Pain. Migraine Headache. Headache. Gastritis. Diarrhea. Lifestyle / Substance Problems. Dehydration. Vomiting. Alcohol Intoxication. UTI - Urinary Tract Infection. Immunizations. Substance Abuse. Pancreatitis. Abdominal Pain. LNMP - Last Normal Menstrual Period. Cholecystitis. --18:47 Cally Farley R.N. Hepatitis [RuleOut]. Abnormal Liver Function Test [RuleOut]. Pancreatitis ADDITIONAL SURGERIES: Cholecystectomy. Hip Surgery.). SOCIAL HISTORY Current every day smoker. History of IV drug use. No alcohol use. ADDITIONAL NOTES The nursing notes have been reviewed with agreement regarding the chief complaint, PMH and patient medications and allergies. PHYSICAL EXAM Vital Signs: 05/16/2016 18:44 BP: 134/102. HR: 87. RR: 18. O2 saturation: 100%. Temp: 97.6 F. Pain level now: 0/10. Have been reviewed. Hypertensive. Heart rate normal. Respiratory rate normal. Temperature normal. Oxygen saturation normal. Appearance: Alert. Patient is in moderate distress. Is disheveled. Anxious. CVS: Normal heart rate and rhythm. Heart sounds normal. Respiratory: Breath sounds normal. Chest nontender. Abdomen: Soft and nontender. Skin: Skin warm and dry. Normal skin color. Extremities: No lower extremity edema. Psych / Neuro: Speech normal. Cognition normal. Thought process and content normal. Insight and judgement normal. LABS, X-RAYS, AND EKG Laboratory Tests: CBC w Diff: (JARAD: 05/16/2016 19:00) ( [facility] [place] 05/16/[place] 19:31) Final results Test Result Flag Units (Reference) WHITE BLOOD COUNT 7.6 K/uL (4.5-11.5) RED BLOOD COUNT 4.28 M/uL (4.00-5.20) HEMOGLOBIN 12.0 gm/dL (12.0-16.0) HEMATOCRIT 36.7 % (36.0-46.0) MEAN CELL VOLUME 86 fL (80-100) MEAN CORPUSCULAR HGB 28 pg (26-34) MEAN CORPUSCULAR HGB CONC 33 g/dL (31-37) RED CELL DISTRIBUTION WIDTH 14.9 H % (11.6-14.8) PLATELET COUNT 314 K/uL (150-400) NEUTROPHIL % 51.8 % (50-75) LYMPH % 37.7 % (25-40) MONO % 8.6 % (3-14) EOSINOPHIL % 1.4 % (0-4) BASOPHIL % 0.5 % (0-2) CMP: (JARAD: 05/16/2016 19:00) ( [facility] 05/16/2016 19:47) Final results Test Result Flag Units (Reference) ACETONE, SERUM QUALITATIVE NEGATIVE (NEGATIVE) GLUCOSE 550 *H mg/dL (70-110) CRITICAL RESULTS CALLEDCalled to JAQUI AUGUSTIN RN 05/16/161946Were 2 patient identifiers used? YESWas the result read back? YES BUN 14 mg/dL (7-18) CREATININE 0.8 mg/dL (0.6-1.3) Estimated GFR >60 mL/min Estimated GFR- >60 mL/min Note: Persistent reduction over 3 months in eGFR<60 mL/min/1.73 m2 defines CKD. Patients with eGFR values>=60 mL/min/1.73 m2 may also have CKD if evidence ofpersistent proteinuria. Additional information may be foundat www.kidney.org. SODIUM 134 L mmol/L (136-145) POTASSIUM 3.9 mmol/L (3.5-5.1) CHLORIDE 99 mmol/L (98-107) CARBON DIOXIDE 22 mmol/L (21-32) CALCIUM 8.4 L mg/dL (8.5-10.1) TOTAL PROTEIN 7.5 g/dL (6.4-8.2) ALBUMIN 3.6 g/dL (3.3-5.0) BILIRUBIN, TOTAL 0.3 mg/dL (0.0-1.0) ALKALINE PHOSPHATASE 176 H U/L (46-116) AST (SGOT) 67 H U/L (15-37) ALT (SGPT) 113 H U/L (12-78) . PROGRESS AND PROCEDURES Course of Care: 21:46 05/16/16. Case D/W Dr. Vazquez. No active suicidiality. PAT team in house to assess. reviewed the patient's history and examination findings and lab results with Dr. Najera. I subsequently reviewed with patient and examined her and my findings were consistent with those noted by him. Subsequently followed up with mental health team and they do feel that she ought to be admitted and made arrangements for her to be transferred to [place]. - MW. Patient/family counseled. Disposition: Transferred. CLINICAL IMPRESSION Suicidal ideation. Depression. Substance abuse- amphetamines and methamphetamines. (Electronically signed by Onel Juares MD 05/17/2016 3:51)
--- NOTE | 2016-05-17 03:52 | ED MAR SUMMARY ---
..... Medication Administration Record [facility] [address] [place] [address] Patient: TESFAYE POSEY Visit ID: [id number] 36y, F Weight: 52.1 kg Height/Length: 64 in BMI: 19.7 ALLERGIES: Phenergan, Shellfish-derived Products Given 19:24 05/16/2016 Cally Farley R.N. Medication Administered: ATIVAN [IVP] (LORAZEPAM), Dose: 1 mg IVP over 30 second(s), Site: #1 left forearm. Medication Ordered: Ativan IV 1 mg (HIGH ALERT MEDICATION, NOW). Start 19:36 05/16/2016 Ashish Diaz R.N., Stop 20:18 05/16/2016 Cally Farley R.N. Medication Administered: IV NS (SALINE), Dose: IV Fluids over 1 hour(s), Rate: 1000 mL/hr, Dispensed: 1000 mL bag, Site: #1 left forearm. Medication Ordered: IV NS with Normal Saline 1 Liter: initial bolus none -, then 1000 mL/hr for X1 (NOW). Given 20:16 05/16/2016 Cally Farley R.N. Medication Administered: INSULIN REG [SUBCUTANEOUS], Dose: 12 unit Subcutaneous. Medication Ordered: Insulin Reg Subcut 12 units (HIGH ALERT MEDICATION, NOW). Given 20:23 05/16/2016 Cally Farley R.N. Medication Administered: ATIVAN [IVP] (LORAZEPAM), Dose: 1 mg IVP over 1 minute(s), Site: #1 left forearm. Medication Ordered: Ativan IV 1 mg (HIGH ALERT MEDICATION, NOW). Given 22:45 05/16/2016 Cally Farley R.NMoses Medication Administered: ATIVAN [IVP] (LORAZEPAM), Dose: 1 mg IVP over 1 minute(s), Site: #1 left forearm. Medication Ordered: Ativan IV 1 mg (HIGH ALERT MEDICATION, NOW). Given 22:54 05/16/2016 Cally Farley R.N. Medication Administered: INSULIN REG [IVP], Dose: 4 unit IVP over 30 second(s), Site: #1 left forearm. Medication Ordered: Insulin Reg IV 4 units (HIGH ALERT MEDICATION, NOW). Given 01:52 05/17/2016 Richie Cotter R.N. Medication Administered: LORAZEPAM [PO], Dose: 1 mg PO. Medication Ordered: LORazepam PO 1 mg (NOW).
--- NOTE | 2016-05-17 03:52 | ED MAR SUMMARY ---
..... Medication Administration Record [facility] [address] [place] [address] Patient: TESFAYE POSEY Visit ID: [id number] 36y, F Weight: 52.1 kg Height/Length: 64 in BMI: 19.7 ALLERGIES: Phenergan, Shellfish-derived Products Given 19:24 05/16/2016 Cally Farley R.N. Medication Administered: ATIVAN [IVP] (LORAZEPAM), Dose: 1 mg IVP over 30 second(s), Site: #1 left forearm. Medication Ordered: Ativan IV 1 mg (HIGH ALERT MEDICATION, NOW). Start 19:36 05/16/2016 Ashish Diaz R.N., Stop 20:18 05/16/2016 Cally Farley R.N. Medication Administered: IV NS (SALINE), Dose: IV Fluids over 1 hour(s), Rate: 1000 mL/hr, Dispensed: 1000 mL bag, Site: #1 left forearm. Medication Ordered: IV NS with Normal Saline 1 Liter: initial bolus none -, then 1000 mL/hr for X1 (NOW). Given 20:16 05/16/2016 Cally Farley R.N. Medication Administered: INSULIN REG [SUBCUTANEOUS], Dose: 12 unit Subcutaneous. Medication Ordered: Insulin Reg Subcut 12 units (HIGH ALERT MEDICATION, NOW). Given 20:23 05/16/2016 Cally Farley R.N. Medication Administered: ATIVAN [IVP] (LORAZEPAM), Dose: 1 mg IVP over 1 minute(s), Site: #1 left forearm. Medication Ordered: Ativan IV 1 mg (HIGH ALERT MEDICATION, NOW). Given 22:45 05/16/2016 Cally Farley R.NMoses Medication Administered: ATIVAN [IVP] (LORAZEPAM), Dose: 1 mg IVP over 1 minute(s), Site: #1 left forearm. Medication Ordered: Ativan IV 1 mg (HIGH ALERT MEDICATION, NOW). Given 22:54 05/16/2016 Cally Farley R.N. Medication Administered: INSULIN REG [IVP], Dose: 4 unit IVP over 30 second(s), Site: #1 left forearm. Medication Ordered: Insulin Reg IV 4 units (HIGH ALERT MEDICATION, NOW). Given 01:52 05/17/2016 Richie Cotter R.N. Medication Administered: LORAZEPAM [PO], Dose: 1 mg PO. Medication Ordered: LORazepam PO 1 mg (NOW).
--- NOTE | 2016-05-17 03:52 | ED DISCHARGE INSTRUCTIONS ---
Patient: TESFAYE POSEY General Instructions [facility] VisitID: [id number] [address] [address] 36y, F Registration Date/Time: 05/16/2016 Suicidal ideation. Depression. Substance abuse- amphetamines and methamphetamines. (Electronically signed by Onel Juares MD 05/17/2016 3:51)
--- NOTE | 2016-05-17 03:52 | ED MED RECONCILIATION SUMMARY ---
Patient: TESAFYE POSEY Medication Reconciliation Report [facility] VisitID: [id number] [address] [place] [address] 36y, F Registration Date/Time: 05/16/2016 Weight: 52.1 kg Height/Length: 64 in. BMI: 19.7 ALLERGIES: Phenergan, Shellfish-derived Products The patient's Home Medications are listed below: THE FOLLOWING MEDICATIONS NEED TO BE RECONCILED: BuPROPion HBr Oral Gabepentin Insulin 3 units TID MetFORMIN HCl Oral, pt doesn't know where her meds are Wellbutrin Oral The source(s) of the original Home Medication information: patient The following Medications were given to the patient in the Emergency Department: Ativan [IVP] IVP 1 mg, administered: 05/16/2016 7:24:00 PM IV NS IV Fluids bolus 0, then 1000 mL/hr, administered: 05/16/2016 7:36:00 PM Insulin Reg [Subcutaneous] Subcutaneous 12 unit, administered: 05/16/2016 8:16:00 PM Ativan [IVP] IVP 1 mg, administered: 05/16/2016 8:23:00 PM Ativan [IVP] IVP 1 mg, administered: 05/16/2016 10:45:00 PM Insulin REG [IVP] IVP 4 unit, administered: 05/16/2016 10:54:00 PM Lorazepam [PO] PO 1 mg, administered: 05/17/2016 1:52:00 AM The following Medications were prescribed to the patient: None.
--- NOTE | 2016-05-17 03:52 | ED DISCHARGE INSTRUCTIONS ---
Patient: TESFAYE POSEY General Instructions [facility] VisitID: [id number] [address] [place] [address] 36y, F Registration Date/Time: 05/16/2016 Suicidal ideation. Depression. Substance abuse- amphetamines and methamphetamines. (Electronically signed by Onel Juares MD 05/17/2016 3:51)
--- NOTE | 2016-05-17 03:52 | ED MED RECONCILIATION SUMMARY ---
Patient: TESFAYE POSEY Medication Reconciliation Report [facility] VisitID: [id number] [address] [place] [address] 36y, F Registration Date/Time: 05/16/2016 Weight: 52.1 kg Height/Length: 64 in. BMI: 19.7 ALLERGIES: Phenergan, Shellfish-derived Products The patient's Home Medications are listed below: THE FOLLOWING MEDICATIONS NEED TO BE RECONCILED: BuPROPion HBr Oral Gabepentin Insulin 3 units TID MetFORMIN HCl Oral, pt doesn't know where her meds are Wellbutrin Oral The source(s) of the original Home Medication information: patient The following Medications were given to the patient in the Emergency Department: Ativan [IVP] IVP 1 mg, administered: 05/16/2016 7:24:00 PM IV NS IV Fluids bolus 0, then 1000 mL/hr, administered: 05/16/2016 7:36:00 PM Insulin Reg [Subcutaneous] Subcutaneous 12 unit, administered: 05/16/2016 8:16:00 PM Ativan [IVP] IVP 1 mg, administered: 05/16/2016 8:23:00 PM Ativan [IVP] IVP 1 mg, administered: 05/16/2016 10:45:00 PM Insulin REG [IVP] IVP 4 unit, administered: 05/16/2016 10:54:00 PM Lorazepam [PO] PO 1 mg, administered: 05/17/2016 1:52:00 AM The following Medications were prescribed to the patient: None.
== END 2016-05-17 02:50 | disposition home or self-care (01) ==
LOC: ED SRH 18:26
DX: R45.851 Suicidal ideations (principal); F32.9 Major depressive disorder, single episode, unspecified; F15.10 Other stimulant abuse, uncomplicated; E11.69 Type 2 diabetes mellitus with other specified complication; F17.210 Nicotine dependence, cigarettes, uncomplicated; Z79.84 Long term (current) use of oral hypoglycemic drugs; Z79.4 Long term (current) use of insulin; Z88.8 Allergy status to other drugs, medicaments and biological substances; B19.20 Unspecified viral hepatitis C without hepatic coma; Z91.013 Allergy to seafood
CPT/HCPCS: 90004; 90098; 90100; 90301; 92760; 92761; 92762; 92763; 92764; 92765; 92766; 92767; 93070; 95059

== ENCOUNTER 2016-07-01 00:15 | Emergency (ER) | payer OTHER ==
--- NOTE | 2016-07-01 03:34 | ED CLINICAL REPORT ---
Clinical Report - Physicians/Mid Levels [facility] [address] [place] [address] 07/01/2016 0:15 Patient: TESFAYE POSEY Time Seen: 00:33 Jul 01 2016. Arrived- By private vehicle. Historian- patient. CPT: ER phys charges level 4 (#[id number]). HISTORY OF PRESENT ILLNESS Chief Complaint: High blood sugar. Anxiety. This started today and is still present. At its maximum, severity described as moderate. When seen in the E.D., severity described as moderate. Modifying factors. Not worsened by anything. Not relieved by anything. The patient has had fatigue. Similar symptoms previously: Recent medical care: Not recently seen/assessed. REVIEW OF SYSTEMS No fever, sore throat, sinus drainage, nasal congestion or cough. No difficulty breathing, chest pain, abdominal pain, nausea or vomiting. No diarrhea, black stools, bloody stools, chills or difficulty with urination. No skin rash. No difficulty with ambulation. All systems otherwise negative, except as recorded above. PAST HISTORY Adjustment Disorder. Diabetes Mellitus. Hepatitis C carrier. Suicidal Ideation. ADHD - Attention Deficit Hyperactivity Disorder. Hyperglycemia. Anxiety Reaction. Migraine Headache. Lifestyle / Substance Problems. Dehydration. Alcohol Intoxication. Substance Abuse. Pancreatitis. LNMP - Last Normal Menstrual Period. Cholecystitis. Trixie. ADDITIONAL SURGERIES: Cholecystectomy. Hip Surgery. Medications: BuPROPion HBr Oral. Gabepentin . Insulin 3 units TID. MetFORMIN HCl Oral (pt doesn't know where her meds are). Wellbutrin Oral. Allergies: Phenergan. Shellfish-derived Products. SOCIAL HISTORY Heavy tobacco smoker (cigarette)- less than 1 pack per day. History of drug use: methamphetamines. No alcohol use. ADDITIONAL NOTES The nursing notes have been reviewed. PHYSICAL EXAM Vital Signs: 07/01/2016 00:23 BP: 131/88. HR: 70. RR: 25. O2 saturation: 96%. Temp: 98 F. Appearance: Alert. Anxious. Patient in moderate distress. Eyes: Pupils equal, round and reactive to light. Eyes normal inspection. ENT: Pharynx normal. Neck: Normal inspection. CVS: Normal heart rate and rhythm. Heart sounds normal. Pulses normal. Respiratory: No respiratory distress. Breath sounds normal. Chest nontender. Abdomen: No visible injury. Soft and nontender. Bowel sounds normal. Back: Normal inspection. Skin: Skin warm. Normal skin color. No rash. Extremities: Extremities exhibit normal ROM. No lower extremity edema. Neuro: Oriented X 3. No motor deficit. No sensory deficit. Reflexes normal. LABS, X-RAYS, AND EKG Laboratory Tests: UA-Culture if indicated: (JARAD: 07/01/2016 03:05) ( [facility] 07/01/2016 03:18) Final results Test Result Flag Units (Reference) URINE COLOR YELLOW URINE APPEARANCE CLEAR URINE GLUCOSE TRACE (NEGATIVE) URINE BILIRUBIN NEGATIVE (NEGATIVE) URINE KETONE TRACE (NEGATIVE) URINE SPECIFIC GRAVITY >= 1.030 (1.010-1.030) URINE PH 6.5 (5.0-8.0) URINE PROTEIN TRACE (NEGATIVE) URINE UROBILINOGEN 1.0 EU/dL (0.2-1.0) URINE NITRITE NEGATIVE (NEGATIVE) URINE BLOOD NEGATIVE (NEGATIVE) URINE LEUK ESTERASE NEGATIVE (NEGATIVE) URINE RBC 0-1 rbc/hpf (0-1) URINE WBC 1-3 wbc/hpf (0-1) URINE EPITHELIAL CELLS 0-1 EPI/hpf (0-5) URINE BACTERIA NONE SEEN (NONE SEEN) URINE COMMENT CULT NOT INDICATED URINE CULTURES ARE SET-UP BASED ON THE FOLLOWING CRITERIA:POSITIVE NITRITEPOSITIVE LEUKOCYTE ESTERASEGREATER THAN 10 WHITE BLOOD CELLSMODERATE (2+) OR GREATER BACTERIA Urine: (JARAD: 07/01/2016 03:05) ( [facility] 07/01/2016 03:12) Final results Test Result Flag Units (Reference) URINE NEGATIVE CBC w Diff: (JARAD: 07/01/2016 00:30) ( [facility] 07/01/2016 00:54) Final results Test Result Flag Units (Reference) WHITE BLOOD COUNT 12.5 H K/uL (4.5-11.5) RED BLOOD COUNT 4.44 M/uL (4.00-5.20) HEMOGLOBIN 12.1 gm/dL (12.0-16.0) HEMATOCRIT 37.3 % (36.0-46.0) MEAN CELL VOLUME 84 fL (80-100) MEAN CORPUSCULAR HGB 27 pg (26-34) MEAN CORPUSCULAR HGB CONC 33 g/dL (31-37) RED CELL DISTRIBUTION WIDTH 17.2 H % (11.6-14.8) PLATELET COUNT 374 K/uL (150-400) NEUTROPHIL % 59.6 % (50-75) LYMPH % 28.8 % (25-40) MONO % 9.8 % (3-14) EOSINOPHIL % 1.2 % (0-4) BASOPHIL % 0.6 % (0-2) Urine Drug Screen: (JARAD: 07/01/2016 03:05) ( [facility] 07/01/2016 03:33) Final results Test Result Flag Units (Reference) AMPHETAMINE/METHAMPHETAMINE POSITIVE H (NEGATIVE) BARBITURATE NEGATIVE (NEGATIVE) BENZODIAZEPINE NEGATIVE (NEGATIVE) CANNABINOID POSITIVE H (NEGATIVE) COCAINE NEGATIVE (NEGATIVE) ECSTASY POSITIVE H (NEGATIVE) METHADONE NEGATIVE (NEGATIVE) OPIATE NEGATIVE (NEGATIVE) The urine drug screen is a qualitative screening test fordrug overdose and abuse. All screen results should beconsidered as presumptive.Drugs screened for are as follows:BenzodiazepinesCocaineAmphetamines/MetamphetaminesTHC (Tetrahydrocannabinol)OpiatesBarbituratesEcstasyMethadonePositive results are unconfirmed. For confirmation, notifythe lab for the specimen to be sent to the reference lab.All confirmations must be performed by a differentmethodology.The ingestion of natural herbal and plant productscontaining Ephedra/Ephedra metabolites can produce in urineone or more substances capable of cross reacting withamphetamine/methamphetamine immunoassays. These testsprovide a preliminary result only. A more specificalternative chemical method must be used to obtain aconfirmed analytical result. CHEM 13 PANEL: (JARAD: 07/01/2016 00:30) ( [facility] 07/01/2016 01:20) Final results Test Result Flag Units (Reference) GLUCOSE 142 H mg/dL (70-110) BUN 16 mg/dL (7-18) CREATININE 0.6 mg/dL (0.6-1.3) Estimated GFR >60 mL/min Estimated GFR- >60 mL/min Note: Persistent reduction over 3 months in eGFR<60 mL/min/1.73 m2 defines CKD. Patients with eGFR values>=60 mL/min/1.73 m2 may also have CKD if evidence ofpersistent proteinuria. Additional information may be foundat www.kidney.org. SODIUM 142 mmol/L (136-145) POTASSIUM 3.5 mmol/L (3.5-5.1) CHLORIDE 107 mmol/L (98-107) CARBON DIOXIDE 23 mmol/L (21-32) CALCIUM 9.2 mg/dL (8.5-10.1) TOTAL PROTEIN 8.7 H g/dL (6.4-8.2) ALBUMIN 3.8 g/dL (3.3-5.0) BILIRUBIN, TOTAL 0.6 mg/dL (0.0-1.0) ALKALINE PHOSPHATASE 108 U/L (46-116) AST (SGOT) 91 H U/L (15-37) ALT (SGPT) 147 H U/L (12-78) MAGNESIUM 2.2 mg/dL (1.8-2.4) CPK 233 U/L (24-260) TROPONIN I 0.05 ng/mL (0.00-1.5) TROPONIN REFERENCE RANGE:<0.1 NEGATIVE0.1-1.5 INDETERMINANT>1.5 POSITIVE . PROGRESS AND PROCEDURES Course of Care: Pt appears to have psychomotor agitation related to the recreational drugs she has been taking especially the meth. IV NS Ativan 1 mg IV times 2: Much better. Diabetes is well enough controlled and not the reason for her symptoms today. Patient/family counseled. Disposition: Discharged. Condition: stable and improved. CLINICAL IMPRESSION Substance abuse problems: abuse of methamphetamine. Substance dependence problems: dependence on methamphetamine. Hallucinations and agitation due to methamphetamines IDDM stable. INSTRUCTIONS No strenuous activity. Rest. (Stop all recreational drugs.). Warnings: Further evaluation is necessary. SEDATIVE MEDICATION: You were given sedative medication during your visit. Do not drive or operate dangerous machinery. Your Current Medications: CONTINUE TAKING THE FOLLOWING MEDICATIONS: BuPROPion HBr Oral. Gabepentin *. Insulin* : 3 units TID. MetFORMIN HCl Oral : pt doesn't know where her meds are. Wellbutrin Oral. Follow-up: Follow up with your doctor in two days. Call for an appointment. Understanding of the discharge instructions verbalized by patient. Discharge instructions reviewed with and understanding was verbalized by associate director of biostatistics. (Electronically signed by Adam Turner MD 07/08/2016 20:47)
--- NOTE | 2016-07-01 03:34 | ED ORDER SUMMARY ---
..... Patient: TESFAYE POSEY OrderSheet [facility] VisitID: [id number] [place] [address] 36y, F Registration Date/Time: 07/01/2016 ORDER SHEET Weight: 58.9 kg (stated) Allergies: Phenergan, Shellfish-derived Products GENERAL ORDERS: Cardiac Panel Stat (00:07/01/2016 Kim CORTEZ) (Ack 0:40 IJurca ER Tech1) (0:55 HSoule) UA-Culture if indicated Urgent (00:07/01/2016 Kim CORTEZ) (Ack 0:40 IJurca ER Tech1) (3:07 JDeElena R.N.) Urine Urgent (:07/01/2016 Kim CORTEZ) (Ack 0:40 IJurca ER Tech1) (3:07 JDeElena R.N.) Urine Drug Screen Urgent (00:07/01/2016 Kim CORTEZ) (Ack 0:40 IJurca ER Tech1) (3:07 JDeElena R.N.) MEDICATION ORDERS: IV FLUIDS: IV NS : initial bolus none -, then 500 mL/hr for 3h (NOW); Routine (00:07/01/2016 Kim CORTEZ) (Ack 0:38 HSoule) (0:47 HSoule) Ativan IV 1 mg (NOW) (00:38 07/01/2016 Kim CORTEZ) (Ack 0:38 HSoule) (0:47 HSoule) Ativan IV 1 mg (NOW) (01:19 07/01/2016 Kim CORTEZ) (1:28 HSoule) ORDER SHEET NOTES: [Electronically signed by Trixie Andrew (21:36 07/03/2016)] [Electronically signed by Adam Turner MD (20:47 07/08/2016)] [Electronically locked/signed by Trixie Andrew (21:36 07/03/2016)]
--- NOTE | 2016-07-01 03:34 | ED ORDER SUMMARY ---
..... Patient: TESFAYE POSEY OrderSheet [facility] VisitID: [id number] [place] [address] 36y, F Registration Date/Time: 07/01/2016 ORDER SHEET Weight: 58.9 kg (stated) Allergies: Phenergan, Shellfish-derived Products GENERAL ORDERS: Cardiac Panel Stat (00:07/01/2016 Kim CORTEZ) (Ack 0:40 IJurca ER Tech1) (0:55 HSoule) UA-Culture if indicated Urgent (00:07/01/2016 Kim CORTEZ) (Ack 0:40 IJurca ER Tech1) (3:07 JDeElena R.N.) Urine Urgent (:07/01/2016 Kim CORTEZ) (Ack 0:40 IJurca ER Tech1) (3:07 JDeElena R.N.) Urine Drug Screen Urgent (00:07/01/2016 Kim CORTEZ) (Ack 0:40 IJurca ER Tech1) (3:07 JDeElena R.N.) MEDICATION ORDERS: IV FLUIDS: IV NS : initial bolus none -, then 500 mL/hr for 3h (NOW); Routine (00:07/01/2016 Kim CORTEZ) (Ack 0:38 HSoule) (0:47 HSoule) Ativan IV 1 mg (NOW) (00:38 07/01/2016 Kim CORTEZ) (Ack 0:38 HSoule) (0:47 HSoule) Ativan IV 1 mg (NOW) (01:19 07/01/2016 Kim CORTEZ) (1:28 HSoule) ORDER SHEET NOTES: [Electronically signed by Trixie Andrew (21:36 07/03/2016)] [Electronically signed by Adam Turner MD (20:47 07/08/2016)] [Electronically locked/signed by Trixie Andrew (21:36 07/03/2016)]
--- NOTE | 2016-07-01 03:34 | ED NURSING NOTES ---
Clinical Report - Nurses [facility] [address] [place] [address] 07/01/2016 0:15 [id number] Triage time 00:Jul 01 2016. Acuity: LEVEL 3. Chief Complaint: (Blood sugar issues, anxiety). RADHA COMA SCORE: Radha Coma Scale: 15- eyes open spontaneously (4); best verbal response- oriented x 4 (5); best motor response- obeys commands (6). --00:23 Trixie Andrew 00:23 07/01/16. BP: 131/88. HR: 70. RR: 25. O2 saturation: 96% on room air. Temp: 98 F (oral). Pain level now: cannot qualify. Additional comments: Patient states she does not know what her pain level is . --00:32 Trixie Andrew SEPSIS SCREEN: Sepsis Screen: negative. Negative (no infection suspected/documented). --00:32 Trixie Andrew. Weight: 58.9 kg stated. Height/Length: 64 inches Per Patient. BMI: 22.3. --00:22 Trixie Andrew. Medications BuPROPion HBr Oral. Gabepentin . Insulin 3 units TID. MetFORMIN HCl Oral (pt doesn't know where her meds are). Wellbutrin Oral. --00:21 Trixie Andrew. Medication/allergy information source: the patient. --00:23 Trixie Andrew. Allergies Phenergan. Shellfish-derived Products. --00:21 Trixie Andrew. History Arrived by private vehicle. Historian: patient. Accompanied by friend. This started just prior to arrival. ( Patient significant other reports the patient was fine today and then about thirty minutes ago became panicked. Patient reports she feels weird. She reports history of DKA. Patient states she checked her sugar earlier and believes it was 300 mg/dl.). PAST MEDICAL HX: Diabetes mellitus. Last normal menstrual period- 2 years ago. SOCIAL HX: Light tobacco smoker- less than 1/2 a pack per day. History of drug use: methamphetamines. (yesterday). No alcohol use. No infectious disease exposure. ABUSE ASSESSMENT: No report of abuse. FALL RISK ASSESSMENT: Fall risk assessment completed. No fall risk identified. NUTRITIONAL RISK ASSESSMENT: The nutritional risk assessment revealed no deficiencies. FUNCTIONAL ASSESSMENT: Functional assessment: no impairments noted. LEARNING NEEDS ASSESSMENT: The learning needs assessment revealed no barriers. SKIN INTEGRITY ASSESSMENT: Skin integrity risk assessment completed. No skin integrity risk identified. --00:23 Trixie Andrew. PROBLEMS: Adjustment Disorder. Diabetes Mellitus. Hepatitis C carrier. Suicidal Ideation. ADHD - Attention Deficit Hyperactivity Disorder. Hyperglycemia. Anxiety Reaction. Migraine Headache. Lifestyle / Substance Problems. Dehydration. Alcohol Intoxication. Substance Abuse. Pancreatitis. LNMP - Last Normal Menstrual Period. Cholecystitis. --: Trixie Andrew. ADDITIONAL SURGERIES: Cholecystectomy. Hip Surgery. --00: Trixie Andrew. Interventions ID band on patient. To treatment room. --00: Trixie Andrew. PHYSICAL ASSESSMENT GENERAL / NEURO / PSYCH: Alert. Oriented X 4. Appears anxious. Mood/affect abnormal (restless, agitated and tearful). HEENT: No facial asymmetry noted. Mucous membranes are pink. RESPIRATORY: Respirations not labored. CVS: Normal sinus rhythm noted. GI / : Abdomen soft and nontender. SKIN: Skin is warm and dry. --00:32 Trixie Andrew. NURSING PROGRESS NOTES property assessment monitor, pulse oximeter and NIBP monitor placed on patient; monitor alarms on. Patient gowned. Warming measures: blanket applied. Reassurance given to the patient. Two patient identifiers checked. Call light placed in reach. Side rails up x 1. Bed placed in lowest position. Brakes of bed on. Patient ready for evaluation- chart flagged and ED physician notified. ( Finger stick glucose 120 mg/dl, provider notified). --00:33 Trixie Andrew 00:33 07/01/2016 Site #1 started via IV in the left antecubital space with an 20g angiocath, with aseptic technique and good blood return; one attempt. Blood drawn: rainbow set. Labeled in the presence of the patient and sent to the lab. Saline lock flushed with 10 mL saline. --00:33 Trixie Andrew Patient ID band checked for patient name and birthdate: patient confirmed. Blood samples drawn from the left antecubital space peripheral IV site with Vacutainer by nurse ; labeled in presence of the patient and sent to lab: tessa set. Line flushed with 10 mL normal saline post blood draw. --00:34 Trixie Andrew 00:46 07/01/16. BP: 120/81. HR: 88. RR: 20. O2 saturation: 97% on room air. --00:46 Eddi Andrewnah 00:47 07/01/2016 Started bag #1 1000 mL IV Fluids IV NS (Saline); at 500 mL/hr over 3 hour(s) via site #1. Allergies verified and confirmed 5 rights. IV patency established. IV site checked: no pain, redness, or swelling. IV flushed thoroughly pre- and post-medication administration. --00:47 Eddi Andrewnah 00:47 07/01/2016 Ativan (LORazepam) IVP 1 mg given over 1 minute(s) via site #1. 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 IV patency established. IV site checked: no pain, redness, or swelling. IV flushed thoroughly pre- and post-medication administration. IVP given by RN. --00:47 LorrieEddiTrixie ( Patient made aware of need for urine sample). --00:47 LorrieTrixie zamorano 01:05 07/01/16. BP: 114/71. HR: 88. RR: 20. O2 saturation: 95% on room air. --01:05 Lorrie Trixie 01:18 07/01/2016 Ativan (LORazepam) IVP 1 mg given over 1 minute(s) via site #1. Allergies verified, confirmed 5 rights and sedative warning given to the patient. IV patency established. IV site checked: no pain, redness, or swelling. IV flushed thoroughly pre- and post-medication administration. IVP given by RN. --01:28 Lorrie Trixie 01:31 07/01/16. BP: 111/63. HR: 90. RR: 22. O2 saturation: 94% on room air. --01:31 Trixie Andrew The patient is resting quietly. Overall patient status- she states feels better. --02:00 Lorrie Trixie 02:28 07/01/16. BP: 102/63. HR: 81. RR: 20. O2 saturation: 98% on room air. --02:28 Lorrie Trixie Patient ID band checked for patient name and birthdate: patient confirmed. Instructions provided to collect clean catch urine and patient verbalized understanding. Catheterized urine collected with return of yellow-colored cloudy urine; sample sent to lab for urinalysis, drug screen and HCG. Specimen labeled in the presence of the patient (RN X 1 and Nurse Tech x 1). --03:07 Malcolm Anderson R.N. 03:28 07/01/16. BP: 110/68. HR: 77. RR: 20. O2 saturation: 96% on room air. --03:29 Lorrie Trixie The patient is sleeping. --03:29 Trixie Andrew 01:50 07/01/2016 IV Fluids IV NS Discontinued: bag #1 completed. Total amount infused: 1000 mL. IV patency established. IV site checked: no pain, redness, or swelling. IV flushed thoroughly. --03:47 Trixie Andrew 02:00 07/01/2016 Started bag #2 1000 mL IV Fluids IV NS (Saline); at 500 mL/hr over 1 hour(s) via site #1. Allergies verified and confirmed 5 rights. IV patency established. IV site checked: no pain, redness, or swelling. IV flushed thoroughly pre- and post-medication administration. --03:48 Trixie Andrew 03:33 07/01/2016 IV Fluids IV NS Discontinued: bag #2 discontinued upon discharge. Total amount infused: 450 mL. IV patency established. IV site checked: no pain, redness, or swelling. IV flushed thoroughly. --03:48 Trixie Andrew. DISPOSITION / DISCHARGE 03:42 07/01/16. BP: 110/60. HR: 70. RR: 20. O2 saturation: 97% on room air. Temp: 98.9 F (oral). Pain level now: 5/10. --03:46 Trixie Andrew 03:37 07/01/2016 Site #1 removed upon discharge. Catheter intact. Bandaid applied. --03:47 Trixie Andrew 03:46 07/01/16. Condition at departure: stable. The goals identified in the patient's plan of care were met. No learning barriers present. Discharge instructions provided and reviewed with the patient and family. Reviewed need for increased fluid intake. Patient and family verbalized understanding. Written instructions provided in Amharic. ( Follow up with PCP in two days. Rest, eat and hydrate. Check your sugars daily. Stop use of all recreational drugs. Patient offered resources for substance abuse counseling and treatment, services declined.). The patient was discharged by the physician. She was discharged home and accompanied by family. She left the Emergency Department in a wheelchair and via private vehicle. Family member driving. FALL RISK ASSESSMENT: Fall risk assessment completed. No fall risk identified. --03:46 Trixie Andrew. Locked/Released at 07/03/2016 21:36 by Trixie Andrew,
--- NOTE | 2016-07-01 03:34 | ED CLINICAL REPORT ---
Clinical Report - Physicians/Mid Levels [facility] [address] [place] [address] 07/01/2016 0:15 Patient: TESFAYE POSEY Time Seen: 00:33 Jul 01 2016. Arrived- By private vehicle. Historian- patient. CPT: ER phys charges level 4 (#[id number]). HISTORY OF PRESENT ILLNESS Chief Complaint: High blood sugar. Anxiety. This started today and is still present. At its maximum, severity described as moderate. When seen in the E.D., severity described as moderate. Modifying factors. Not worsened by anything. Not relieved by anything. The patient has had fatigue. Similar symptoms previously: Recent medical care: Not recently seen/assessed. REVIEW OF SYSTEMS No fever, sore throat, sinus drainage, nasal congestion or cough. No difficulty breathing, chest pain, abdominal pain, nausea or vomiting. No diarrhea, black stools, bloody stools, chills or difficulty with urination. No skin rash. No difficulty with ambulation. All systems otherwise negative, except as recorded above. PAST HISTORY Adjustment Disorder. Diabetes Mellitus. Hepatitis C carrier. Suicidal Ideation. ADHD - Attention Deficit Hyperactivity Disorder. Hyperglycemia. Anxiety Reaction. Migraine Headache. Lifestyle / Substance Problems. Dehydration. Alcohol Intoxication. Substance Abuse. Pancreatitis. LNMP - Last Normal Menstrual Period. Cholecystitis. Trixie. ADDITIONAL SURGERIES: Cholecystectomy. Hip Surgery. Medications: BuPROPion HBr Oral. Gabepentin . Insulin 3 units TID. MetFORMIN HCl Oral (pt doesn't know where her meds are). Wellbutrin Oral. Allergies: Phenergan. Shellfish-derived Products. SOCIAL HISTORY Heavy tobacco smoker (cigarette)- less than 1 pack per day. History of drug use: methamphetamines. No alcohol use. ADDITIONAL NOTES The nursing notes have been reviewed. PHYSICAL EXAM Vital Signs: 07/01/2016 00:23 BP: 131/88. HR: 70. RR: 25. O2 saturation: 96%. Temp: 98 F. Appearance: Alert. Anxious. Patient in moderate distress. Eyes: Pupils equal, round and reactive to light. Eyes normal inspection. ENT: Pharynx normal. Neck: Normal inspection. CVS: Normal heart rate and rhythm. Heart sounds normal. Pulses normal. Respiratory: No respiratory distress. Breath sounds normal. Chest nontender. Abdomen: No visible injury. Soft and nontender. Bowel sounds normal. Back: Normal inspection. Skin: Skin warm. Normal skin color. No rash. Extremities: Extremities exhibit normal ROM. No lower extremity edema. Neuro: Oriented X 3. No motor deficit. No sensory deficit. Reflexes normal. LABS, X-RAYS, AND EKG Laboratory Tests: UA-Culture if indicated: (JARAD: 07/01/2016 03:05) ( [facility] 07/01/2016 03:18) Final results Test Result Flag Units (Reference) URINE COLOR YELLOW URINE APPEARANCE CLEAR URINE GLUCOSE TRACE (NEGATIVE) URINE BILIRUBIN NEGATIVE (NEGATIVE) URINE KETONE TRACE (NEGATIVE) URINE SPECIFIC GRAVITY >= 1.030 (1.010-1.030) URINE PH 6.5 (5.0-8.0) URINE PROTEIN TRACE (NEGATIVE) URINE UROBILINOGEN 1.0 EU/dL (0.2-1.0) URINE NITRITE NEGATIVE (NEGATIVE) URINE BLOOD NEGATIVE (NEGATIVE) URINE LEUK ESTERASE NEGATIVE (NEGATIVE) URINE RBC 0-1 rbc/hpf (0-1) URINE WBC 1-3 wbc/hpf (0-1) URINE EPITHELIAL CELLS 0-1 EPI/hpf (0-5) URINE BACTERIA NONE SEEN (NONE SEEN) URINE COMMENT CULT NOT INDICATED URINE CULTURES ARE SET-UP BASED ON THE FOLLOWING CRITERIA:POSITIVE NITRITEPOSITIVE LEUKOCYTE ESTERASEGREATER THAN 10 WHITE BLOOD CELLSMODERATE (2+) OR GREATER BACTERIA Urine: (JARAD: 07/01/2016 03:05) ( [facility] 07/01/2016 03:12) Final results Test Result Flag Units (Reference) URINE NEGATIVE CBC w Diff: (JARAD: 07/01/2016 00:30) ( [facility] 07/01/2016 00:54) Final results Test Result Flag Units (Reference) WHITE BLOOD COUNT 12.5 H K/uL (4.5-11.5) RED BLOOD COUNT 4.44 M/uL (4.00-5.20) HEMOGLOBIN 12.1 gm/dL (12.0-16.0) HEMATOCRIT 37.3 % (36.0-46.0) MEAN CELL VOLUME 84 fL (80-100) MEAN CORPUSCULAR HGB 27 pg (26-34) MEAN CORPUSCULAR HGB CONC 33 g/dL (31-37) RED CELL DISTRIBUTION WIDTH 17.2 H % (11.6-14.8) PLATELET COUNT 374 K/uL (150-400) NEUTROPHIL % 59.6 % (50-75) LYMPH % 28.8 % (25-40) MONO % 9.8 % (3-14) EOSINOPHIL % 1.2 % (0-4) BASOPHIL % 0.6 % (0-2) Urine Drug Screen: (JARAD: 07/01/2016 03:05) ( [facility] 07/01/2016 03:33) Final results Test Result Flag Units (Reference) AMPHETAMINE/METHAMPHETAMINE POSITIVE H (NEGATIVE) BARBITURATE NEGATIVE (NEGATIVE) BENZODIAZEPINE NEGATIVE (NEGATIVE) CANNABINOID POSITIVE H (NEGATIVE) COCAINE NEGATIVE (NEGATIVE) ECSTASY POSITIVE H (NEGATIVE) METHADONE NEGATIVE (NEGATIVE) OPIATE NEGATIVE (NEGATIVE) The urine drug screen is a qualitative screening test fordrug overdose and abuse. All screen results should beconsidered as presumptive.Drugs screened for are as follows:BenzodiazepinesCocaineAmphetamines/MetamphetaminesTHC (Tetrahydrocannabinol)OpiatesBarbituratesEcstasyMethadonePositive results are unconfirmed. For confirmation, notifythe lab for the specimen to be sent to the reference lab.All confirmations must be performed by a differentmethodology.The ingestion of natural herbal and plant productscontaining Ephedra/Ephedra metabolites can produce in urineone or more substances capable of cross reacting withamphetamine/methamphetamine immunoassays. These testsprovide a preliminary result only. A more specificalternative chemical method must be used to obtain aconfirmed analytical result. CHEM 13 PANEL: (JARAD: 07/01/2016 00:30) ( [facility] 07/01/2016 01:20) Final results Test Result Flag Units (Reference) GLUCOSE 142 H mg/dL (70-110) BUN 16 mg/dL (7-18) CREATININE 0.6 mg/dL (0.6-1.3) Estimated GFR >60 mL/min Estimated GFR- >60 mL/min Note: Persistent reduction over 3 months in eGFR<60 mL/min/1.73 m2 defines CKD. Patients with eGFR values>=60 mL/min/1.73 m2 may also have CKD if evidence ofpersistent proteinuria. Additional information may be foundat www.kidney.org. SODIUM 142 mmol/L (136-145) POTASSIUM 3.5 mmol/L (3.5-5.1) CHLORIDE 107 mmol/L (98-107) CARBON DIOXIDE 23 mmol/L (21-32) CALCIUM 9.2 mg/dL (8.5-10.1) TOTAL PROTEIN 8.7 H g/dL (6.4-8.2) ALBUMIN 3.8 g/dL (3.3-5.0) BILIRUBIN, TOTAL 0.6 mg/dL (0.0-1.0) ALKALINE PHOSPHATASE 108 U/L (46-116) AST (SGOT) 91 H U/L (15-37) ALT (SGPT) 147 H U/L (12-78) MAGNESIUM 2.2 mg/dL (1.8-2.4) CPK 233 U/L (24-260) TROPONIN I 0.05 ng/mL (0.00-1.5) TROPONIN REFERENCE RANGE:<0.1 NEGATIVE0.1-1.5 INDETERMINANT>1.5 POSITIVE . PROGRESS AND PROCEDURES Course of Care: Pt appears to have psychomotor agitation related to the recreational drugs she has been taking especially the meth. IV NS Ativan 1 mg IV times 2: Much better. Diabetes is well enough controlled and not the reason for her symptoms today. Patient/family counseled. Disposition: Discharged. Condition: stable and improved. CLINICAL IMPRESSION Substance abuse problems: abuse of methamphetamine. Substance dependence problems: dependence on methamphetamine. Hallucinations and agitation due to methamphetamines IDDM stable. INSTRUCTIONS No strenuous activity. Rest. (Stop all recreational drugs.). Warnings: Further evaluation is necessary. SEDATIVE MEDICATION: You were given sedative medication during your visit. Do not drive or operate dangerous machinery. Your Current Medications: CONTINUE TAKING THE FOLLOWING MEDICATIONS: BuPROPion HBr Oral. Gabepentin *. Insulin* : 3 units TID. MetFORMIN HCl Oral : pt doesn't know where her meds are. Wellbutrin Oral. Follow-up: Follow up with your doctor in two days. Call for an appointment. Understanding of the discharge instructions verbalized by patient. Discharge instructions reviewed with and understanding was verbalized by dog control officer. (Electronically signed by Adam Turner MD 07/08/2016 20:47)
--- NOTE | 2016-07-08 20:47 | ED MED RECONCILIATION SUMMARY ---
Patient: TESFAYE POSEY Medication Reconciliation Report [facility] VisitID: [id number] [place] [address] 36y, F Registration Date/Time: 07/01/2016 Weight: 58.9 kg Height/Length: 64 in. BMI: 22.3 ALLERGIES: Phenergan, Shellfish-derived Products The patient's Home Medications are listed below: CONTINUE TAKING THE FOLLOWING MEDICATIONS: BuPROPion HBr Oral Gabepentin Insulin 3 units TID MetFORMIN HCl Oral, pt doesn't know where her meds are Wellbutrin Oral The source(s) of the original Home Medication information: patient The following Medications were given to the patient in the Emergency Department: IV NS IV Fluids bolus 0, then 500 mL/hr, administered: 07/01/2016 12:47:00 AM Ativan [IVP] IVP 1 mg, administered: 07/01/2016 12:47:00 AM Ativan [IVP] IVP 1 mg, administered: 07/01/2016 1:18:00 AM IV NS IV Fluids bolus 0, then 500 mL/hr, administered: 07/01/2016 2:00:00 AM The following Medications were prescribed to the patient: None.
--- NOTE | 2016-07-08 20:47 | ED MAR SUMMARY ---
..... Medication Administration Record [facility] [address] [place] [address] Patient: TESFAYE POSEY Visit ID: [id number] 36y, F Weight: 58.9 kg Height/Length: 64 in BMI: 22.3 ALLERGIES: Phenergan, Shellfish-derived Products Start 00:47 07/01/2016 Trixie Andrew,, Stop 01:50 07/01/2016 Trixie Andrew, Medication Administered: IV NS (SALINE), Dose: IV Fluids over 3 hour(s), Rate: 500 mL/hr, Dispensed: 1000 mL bag, Site: #1 left AC. Medication Ordered: IV NS : initial bolus none -, then 500 mL/hr for 3h (NOW); Routine. Given 00:47 07/01/2016 Trixie Andrew, Medication Administered: ATIVAN [IVP] (LORAZEPAM), Dose: 1 mg IVP over 1 minute(s), Site: #1 left AC. Medication Ordered: Ativan IV 1 mg (NOW). Given 01:18 07/01/2016 Trixie Andrew, Medication Administered: ATIVAN [IVP] (LORAZEPAM), Dose: 1 mg IVP over 1 minute(s), Site: #1 left AC. Medication Ordered: Ativan IV 1 mg (NOW). Start 02:00 07/01/2016 Trixie Andrew,, Stop 03:33 07/01/2016 Trixie Andrew, Medication Administered: IV NS (SALINE), Dose: IV Fluids over 1 hour(s), Rate: 500 mL/hr, Dispensed: 1000 mL bag, Site: #1 left AC. Medication Ordered: IV NS : initial bolus none -, then 500 mL/hr for 3h (NOW); Routine.
--- NOTE | 2016-07-08 20:47 | ED MAR SUMMARY ---
..... Medication Administration Record [facility] [address] [place] [address] Patient: TESFAYE POSEY Visit ID: [id number] 36y, F Weight: 58.9 kg Height/Length: 64 in BMI: 22.3 ALLERGIES: Phenergan, Shellfish-derived Products Start 00:47 07/01/2016 Trixie Andrew,, Stop 01:50 07/01/2016 Trixie Andrew, Medication Administered: IV NS (SALINE), Dose: IV Fluids over 3 hour(s), Rate: 500 mL/hr, Dispensed: 1000 mL bag, Site: #1 left AC. Medication Ordered: IV NS : initial bolus none -, then 500 mL/hr for 3h (NOW); Routine. Given 00:47 07/01/2016 Trixie Andrew, Medication Administered: ATIVAN [IVP] (LORAZEPAM), Dose: 1 mg IVP over 1 minute(s), Site: #1 left AC. Medication Ordered: Ativan IV 1 mg (NOW). Given 01:18 07/01/2016 Trixie Andrew, Medication Administered: ATIVAN [IVP] (LORAZEPAM), Dose: 1 mg IVP over 1 minute(s), Site: #1 left AC. Medication Ordered: Ativan IV 1 mg (NOW). Start 02:00 07/01/2016 Trixie Andrew,, Stop 03:33 07/01/2016 Trixie Andrew, Medication Administered: IV NS (SALINE), Dose: IV Fluids over 1 hour(s), Rate: 500 mL/hr, Dispensed: 1000 mL bag, Site: #1 left AC. Medication Ordered: IV NS : initial bolus none -, then 500 mL/hr for 3h (NOW); Routine.
--- NOTE | 2016-07-08 20:47 | ED DISCHARGE INSTRUCTIONS ---
Patient: TESFAYE POSEY General Instructions [facility] VisitID: [id number] [place] [address] 36y, F Registration Date/Time: 07/01/2016 Substance abuse problems: abuse of methamphetamine. Substance dependence problems: dependence on methamphetamine. Hallucinations and agitation due to methamphetamines IDDM stable. INSTRUCTIONS No strenuous activity. Rest. (Stop all recreational drugs.). Warnings: Further evaluation is necessary. SEDATIVE MEDICATION: You were given sedative medication during your visit. Do not drive or operate dangerous machinery. Your Current Medications: CONTINUE TAKING THE FOLLOWING MEDICATIONS: BuPROPion HBr Oral. Gabepentin *. Insulin* : 3 units TID. MetFORMIN HCl Oral : pt doesn't know where her meds are. Wellbutrin Oral. Follow-up: Follow up with your doctor in two days. Call for an appointment. Understanding of the discharge instructions verbalized by patient. Discharge instructions reviewed with and understanding was verbalized by chief resource officer. No strenuous activity. Rest. (Electronically signed by Adam Turner MD 07/08/2016 20:47)
--- NOTE | 2016-07-08 20:47 | ED MED RECONCILIATION SUMMARY ---
Patient: TESFAYE POSEY Medication Reconciliation Report [facility] VisitID: [id number] [place] [address] 36y, F Registration Date/Time: 07/01/2016 Weight: 58.9 kg Height/Length: 64 in. BMI: 22.3 ALLERGIES: Phenergan, Shellfish-derived Products The patient's Home Medications are listed below: CONTINUE TAKING THE FOLLOWING MEDICATIONS: BuPROPion HBr Oral Gabepentin Insulin 3 units TID MetFORMIN HCl Oral, pt doesn't know where her meds are Wellbutrin Oral The source(s) of the original Home Medication information: patient The following Medications were given to the patient in the Emergency Department: IV NS IV Fluids bolus 0, then 500 mL/hr, administered: 07/01/2016 12:47:00 AM Ativan [IVP] IVP 1 mg, administered: 07/01/2016 12:47:00 AM Ativan [IVP] IVP 1 mg, administered: 07/01/2016 1:18:00 AM IV NS IV Fluids bolus 0, then 500 mL/hr, administered: 07/01/2016 2:00:00 AM The following Medications were prescribed to the patient: None.
--- NOTE | 2016-07-08 20:47 | ED DISCHARGE INSTRUCTIONS ---
Patient: TESFAYE POSEY General Instructions [facility] VisitID: [id number] [place] [address] 36y, F Registration Date/Time: 07/01/2016 Substance abuse problems: abuse of methamphetamine. Substance dependence problems: dependence on methamphetamine. Hallucinations and agitation due to methamphetamines IDDM stable. INSTRUCTIONS No strenuous activity. Rest. (Stop all recreational drugs.). Warnings: Further evaluation is necessary. SEDATIVE MEDICATION: You were given sedative medication during your visit. Do not drive or operate dangerous machinery. Your Current Medications: CONTINUE TAKING THE FOLLOWING MEDICATIONS: BuPROPion HBr Oral. Gabepentin *. Insulin* : 3 units TID. MetFORMIN HCl Oral : pt doesn't know where her meds are. Wellbutrin Oral. Follow-up: Follow up with your doctor in two days. Call for an appointment. Understanding of the discharge instructions verbalized by patient. Discharge instructions reviewed with and understanding was verbalized by metal finisher. No strenuous activity. Rest. (Electronically signed by Adam Turner MD 07/08/2016 20:47)
== END 2016-07-01 03:45 | disposition home or self-care (01) ==
LOC: ED SRH 00:15
DX: F15.251 Other stimulant dependence with stimulant-induced psychotic disorder with hallucinations (principal); F15.288 Other stimulant dependence with other stimulant-induced disorder; E11.8 Type 2 diabetes mellitus with unspecified complications; F17.210 Nicotine dependence, cigarettes, uncomplicated; Z79.4 Long term (current) use of insulin; Z79.899 Other long term (current) drug therapy; Z88.8 Allergy status to other drugs, medicaments and biological substances; Z91.013 Allergy to seafood; Z79.84 Long term (current) use of oral hypoglycemic drugs
CPT/HCPCS: 81460; 90004; 90098; 90100; 90616; 92610; 92720; 92760; 92761; 92762; 92763; 92764; 92765; 92766; 92767; 93070; 95059

== ENCOUNTER 2016-07-05 02:22 | Emergency (ER) | payer OTHER ==
--- NOTE | 2016-07-05 06:06 | ED CLINICAL REPORT ---
Clinical Report - Physicians/Mid Levels [facility] [address] [place] [address] 07/05/2016 2:23 Patient: TESFAYE POSEY Time Seen: 0226; initial patient contact. Arrived- By private vehicle. Historian- patient. HISTORY OF PRESENT ILLNESS Chief Complaint: ABNORMAL GLUCOSE (Low). This started just prior to arrival and is still present. It was abrupt in onset. At its maximum, severity described as severe. When seen in the E.D., severity described as severe. Modifying factors. Not worsened by anything. Not relieved by anything. No visual disturbance. She has had weakness. (Friend thought her sugar was high, gave her insulin and she worsened.). Similar symptoms previously: Many times. Recent medical care: Not recently seen/assessed. REVIEW OF SYSTEMS No abdominal pain, vomiting, diarrhea or headache. She has had nausea. All systems otherwise negative, except as recorded above. PAST HISTORY Adjustment Disorder. Abscess. Diabetes Mellitus. Normal Exam. Diabetic Ketoacidosis. Abnormal Test. Hepatitis C carrier. Hep c. Constipation. Flank Pain. Suicidal Ideation. ADHD - Attention Deficit Hyperactivity Disorder. Hyperglycemia. Paresthesia. Vertigo. Anxiety Reaction. Back Pain. Sprain. Tetanus Status. Dental Pain. Migraine Headache. Headache. Gastritis. Diarrhea. Lifestyle / Substance Problems. Dehydration. Vomiting. Alcohol Intoxication. UTI - Urinary Tract Infection. Immunizations. Substance Abuse. Pancreatitis. Abdominal Pain. LNMP - Last Normal Menstrual Period. Cholecystitis. Chemo [place]. Hepatitis [RuleOut]. Abnormal Liver Function Test [RuleOut]. Pancreatitis ADDITIONAL SURGERIES: Cholecystectomy. Hip Surgery.). SOCIAL HISTORY Current every day smoker. History of drug use: methamphetamines. No alcohol use. ADDITIONAL NOTES The nursing notes have been reviewed. PHYSICAL EXAM Vital Signs: 07/05/2016 02:38 BP: 124/89. HR: 77. RR: 28. O2 saturation: 100%. Pain level now: 10/10. Have been reviewed. Blood pressure normal. Heart rate normal. Tachypneic. Temperature normal. Oxygen saturation normal. Appearance: Alert. No acute distress. Eyes: Eyes normal inspection. ENT: Dry mucous membranes present. CVS: Normal heart rate and rhythm. Heart sounds normal. Respiratory: No respiratory distress. Breath sounds normal. Abdomen: Soft and nontender. Bowel sounds normal. Skin: Skin warm and dry. Normal skin color. No rash. Extremities: No lower extremity edema. Neuro: Oriented X 3. No motor deficit. LABS, X-RAYS, AND EKG EKG: EKG time: (0245). No acute process. No acute ischemia. Normal EKG. Normal sinus rhythm. Rate: 67. Normal P waves. Normal REFUGIO. Normal QRS complex. Normal axis. Normal ST and T waves, QT and QTc. EKG unchanged when compared with prior EKG. The study has been interpreted contemporaneously by me. The study has been independently viewed by me. The EKG appears to be a good tracing. Interpretation time: 0245. Laboratory Tests: UA-Culture if indicated: (JARAD: 07/05/2016 02:45) ( [facility] 07/05/2016 03:05) Final results Test Result Flag Units (Reference) URINE COLOR YELLOW URINE APPEARANCE CLEAR URINE GLUCOSE 1+ (NEGATIVE) URINE BILIRUBIN NEGATIVE (NEGATIVE) URINE KETONE NEGATIVE (NEGATIVE) URINE SPECIFIC GRAVITY 1.020 (1.010-1.030) URINE PH 7.0 (5.0-8.0) URINE PROTEIN NEGATIVE (NEGATIVE) URINE UROBILINOGEN 0.2 EU/dL (0.2-1.0) URINE NITRITE NEGATIVE (NEGATIVE) URINE BLOOD NEGATIVE (NEGATIVE) URINE LEUK ESTERASE NEGATIVE (NEGATIVE) URINE RBC 0-1 rbc/hpf (0-1) URINE WBC 0-1 wbc/hpf (0-1) URINE EPITHELIAL CELLS RARE EPI/hpf (0-5) URINE BACTERIA NONE SEEN (NONE SEEN) URINE COMMENT CULT NOT INDICATED 2+ AMORPHOUSURINE CULTURES ARE SET-UP BASED ON THE FOLLOWING CRITERIA:POSITIVE NITRITEPOSITIVE LEUKOCYTE ESTERASEGREATER THAN 10 WHITE BLOOD CELLSMODERATE (2+) OR GREATER BACTERIA CBC w Diff: (JARAD: 07/05/2016 02:35) ( [facility] 07/05/2016 02:46) Final results Test Result Flag Units (Reference) WHITE BLOOD COUNT 13.6 H K/uL (4.5-11.5) RED BLOOD COUNT 4.94 M/uL (4.00-5.20) HEMOGLOBIN 13.6 gm/dL (12.0-16.0) HEMATOCRIT 41.1 % (36.0-46.0) MEAN CELL VOLUME 83 fL (80-100) MEAN CORPUSCULAR HGB 28 pg (26-34) MEAN CORPUSCULAR HGB CONC 33 g/dL (31-37) RED CELL DISTRIBUTION WIDTH 17.9 H % (11.6-14.8) PLATELET COUNT 480 H K/uL (150-400) NEUTROPHIL % 44.1 L % (50-75) LYMPH % 44.0 H % (25-40) MONO % 10.6 % (3-14) EOSINOPHIL % 0.6 % (0-4) BASOPHIL % 0.7 % (0-2) BMP: (JARAD: 07/05/2016 05:37) ( [facility] 07/05/2016 05:59) Final results Test Result Flag Units (Reference) GLUCOSE 114 H mg/dL (70-110) BUN 13 mg/dL (7-18) CREATININE 0.7 mg/dL (0.6-1.3) Estimated GFR >60 mL/min Estimated GFR- >60 mL/min Note: Persistent reduction over 3 months in eGFR<60 mL/min/1.73 m2 defines CKD. Patients with eGFR values>=60 mL/min/1.73 m2 may also have CKD if evidence ofpersistent proteinuria. Additional information may be foundat [email or web address]. SODIUM 142 mmol/L (136-145) POTASSIUM 3.8 # mmol/L (3.5-5.1) CHLORIDE 104 mmol/L (98-107) CARBON DIOXIDE 23 mmol/L (21-32) CALCIUM 8.8 mg/dL (8.5-10.1) CMP: (JARAD: 07/05/2016 02:35) ( [facility] 07/05/2016 03:07) Final results Test Result Flag Units (Reference) GLUCOSE 66 L mg/dL (70-110) BUN 15 mg/dL (7-18) CREATININE 0.7 mg/dL (0.6-1.3) Estimated GFR >60 mL/min Estimated GFR- >60 mL/min Note: Persistent reduction over 3 months in eGFR<60 mL/min/1.73 m2 defines CKD. Patients with eGFR values>=60 mL/min/1.73 m2 may also have CKD if evidence ofpersistent proteinuria. Additional information may be foundat [email or web address]. SODIUM 140 mmol/L (136-145) POTASSIUM 2.6 *L mmol/L (3.5-5.1) CRITICAL RESULTS CALLEDCalled to ADONIS 07/05/16 0307Were 2 patient identifiers used? YWas the result read back? Y CHLORIDE 102 mmol/L (98-107) CARBON DIOXIDE 20 L mmol/L (21-32) CALCIUM 9.8 mg/dL (8.5-10.1) TOTAL PROTEIN 9.1 H g/dL (6.4-8.2) ALBUMIN 4.1 g/dL (3.3-5.0) BILIRUBIN, TOTAL 0.5 mg/dL (0.0-1.0) ALKALINE PHOSPHATASE 107 U/L (46-116) AST (SGOT) 124 H U/L (15-37) ALT (SGPT) 187 H U/L (12-78) MAGNESIUM 1.7 L mg/dL (1.8-2.4) . PROGRESS AND PROCEDURES Disposition: Discharged home in good and improved condition. Condition: good. CLINICAL IMPRESSION Hypoglycemia without coma- associated with type 2 diabetes and use of insulin. Not associated with type 1 diabetes. Hypokalemia Mild hypomagnesemia. INSTRUCTIONS Your Current Medications: CONTINUE TAKING THE FOLLOWING MEDICATIONS: Gabepentin *. Insulin* : 3 units TID. MetFORMIN HCl Oral : pt doesn't know where her meds are. Wellbutrin Oral. Follow-up: Follow up with your doctor in about three days. Call for an appointment. Screening today revealed the patient's blood pressure to be in the pre-hypertensive range. The patient should follow up with a primary care provider for blood pressure management. (Electronically signed by Dileep Najera Dr. 07/05/2016 6:06)
--- NOTE | 2016-07-05 06:06 | ED NURSING NOTES ---
Clinical Report - Nurses [facility] [address] [place] [address] 07/05/2016 2:23 Patient: DEJA POSEY TRIAGE Triage time 02:39. Acuity: LEVEL 3. --02:44 Wen Goetz R.N. 02:38 07/05/16. BP: 124/89 taken on the right arm, via an automated monitor, while lying. HR: 77 (regular, normal rate and strong). RR: 28 (regular, unlabored and rapid). O2 saturation: 100% on room air. Pain level now: 12/17. --02:44 Wen Goetz R.N. Chief Complaint: (Hypoglycemia/Insulin Reaction 2nd to over-administration). 02:38. --06:34 Silviano Mckenzie R.N. 02:38 07/05/16. Temp: 97.6 F (oral). --06:50 Silviano Mckenzie R.N. Weight: 54.4 kg stated. Height/Length: 64 inches Per Patient. BMI: 20.6. --02:44 Wen Goetz R.N. Medications Gabepentin . Insulin 3 units TID. MetFORMIN HCl Oral (pt doesn't know where her meds are). Wellbutrin Oral. --02:39 Wen Goetz R.N. Allergies Phenergan. Shellfish-derived Products. --02:39 Wen Goetz R.N. History Arrived by private vehicle. Historian: brother. ( whole body numb, not feeling , nausea). Onset. (1 hours ago). SOCIAL HX: Current every day heavy tobacco smoker, start date 1996- less than 1 pack per day. History of drug use: methamphetamines. (0). No alcohol use. NUTRITIONAL RISK ASSESSMENT: The nutritional risk assessment revealed no deficiencies. FUNCTIONAL ASSESSMENT: Functional assessment: no impairments noted. LEARNING NEEDS ASSESSMENT: The learning needs assessment revealed no barriers. FALL RISK ASSESSMENT: Fall risk assessment completed. Risk factors identified include nausea. Fall interventions initiated. Side rails up x2. Brakes on Bed in low position. Family at bedside. Instructed not to get up without assistance. SKIN INTEGRITY ASSESSMENT: Skin integrity risk assessment completed. No skin integrity risk identified. --:44 Wen Goetz R.N. Interventions ID band on patient. --02:44 Wen Goetz R.N. PHYSICAL ASSESSMENT 02:55. Patient gowned. GENERAL / NEURO / PSYCH: Alert. Oriented X 4. Appears in no acute distress. HEENT: Pupils equal, round and reactive to light. No facial asymmetry noted. Mucous membranes are pink. RESPIRATORY: Respirations not labored. Chest nontender. Breath sounds within normal limits. ( rapid resp rate). CVS: Normal sinus rhythm noted. ( hands and feet very very cold). Capillary refill less than 2 seconds. Pulses within normal limits. GI / : ( nausea). Abdomen soft and nontender and normal bowel sounds. SKIN: Skin intact. Skin is pale. Skin is dry. Normal skin turgor. --02:55 Wne Goetz R.N. NURSING PROGRESS NOTES 02:30 07/05/2016 Site #1 started via IV in the left forearm with an 20g angiocath, with aseptic technique and good blood return; one attempt. Blood drawn: rainbow set. Labeled in the presence of the patient and sent to the lab. Saline lock flushed with 10 mL saline. --02:45 Silviano Mckenzie R.N. 02:31 07/05/2016 D-50 IVP 25 gm given over 3 minute(s) via site #1. Allergies verified and confirmed 5 rights. IV patency established. IV site checked: no pain, redness, or swelling. IV flushed thoroughly pre- and post-medication administration. IVP given by RN. --02:46 Silviano Mckenzie R.N. late entry - 02:28. Finger stick glucose: < 49 mg/dL; performed by tech; result shown to the ED physician and RN. --03:05 Deja East, ER Tech1 02:48. Finger stick glucose: 241 mg/dL; performed by tech; result shown to the ED physician. --03:06 Deja East, ER Tech1 02:52. EKG was performed by a tech and shown to the ED physician. Two patient identifiers checked. Call light placed in reach. Side rails up x 2. Bed placed in lowest position. Brakes of bed on. --02:52 Wen Goetz R.N. 02:52. Call light placed in reach. Side rails up x 2. Bed placed in lowest position. Brakes of bed on. --02:52 Wen Goetz R.N. 02:58. 8 fr in/out catheterization. During procedure hand hygiene observed and sterile equipment and aseptic technique used. Return of less than 50 mL yellow-colored clear urine; odor is normal. She tolerated procedure well. --03:09 Wen Goetz R.N. 03:23 07/05/2016 Potassium Chloride (Potassium Chloride ER) PO Tablets 20 meq given. Allergies verified and confirmed 5 rights. --03:23 Silviano Mckenzie R.N. 03:25 07/05/2016 Magnesium * PO 400mg --03:25 Silviano Mckenzie R.N. 03:33 07/05/2016 Started 20 meq of Potassium Chloride (Potassium Chloride) IVPB in bag #1 100 mL; at 50 mL/hr over 2 hour(s) via site #1 via IV pump. Allergies verified and confirmed 5 rights. IV patency established. IV site checked: no pain, redness, or swelling. IV flushed thoroughly pre- and post-medication administration. --03:43 Silviano Mckenzie R.N. 03:33 07/05/2016 Started bag #1 1000 IV Fluids IV NS (Saline); at 200 mL/hr over 5 hour(s) via site #1 via IV pump. Allergies verified and confirmed 5 rights. IV patency established. IV site checked: no pain, redness, or swelling. IV flushed thoroughly pre- and post-medication administration. --03:46 Silviano Mckenzie R.N. <<STRICKEN ENTRY-- 03:40 07/05/2016 Started bag #1 1000 mL IV Fluids IV NS (Saline); at 200 mL/hr over 5 hour(s) via site #1 via IV pump. Allergies verified and confirmed 5 rights. IV patency established. IV site checked: no pain, redness, or swelling. IV flushed thoroughly pre- and post-medication administration. --03:45 Silviano Mckenzie R.N. --END STRIKE>> Correction. --03:46 Silviano Mckenzie R.N. 04:11. Finger stick glucose: 63 mg/dL; performed by tech; result shown to the ED physician and RN. --04:11 TyreeLacey Deja, ER Tech1 04:45. Finger stick glucose: 144 mg/dL; performed by tech; result shown to the ED physician. --04:45 Deja East, ER Tech1 05:37. Patient ID band checked for patient name and birthdate: patient confirmed. Blood samples drawn from the right forearm with syringe and 23g butterfly by [employer] per protocol ; labeled in presence of the patient and sent to lab: [facility]. --05:40 Sharmaine Gtz ER Tech1 05:30 07/05/2016 Potassium Chloride PO Response: pain is improving. Symptoms have improved the patient feels better. (Potassium IVPB infused/completed). --06:41 Silviano Mckenzie R.N. 05:52 07/05/16. Finger stick glucose: 139 mg/dL; performed by [employer]; result shown to the ED physician. --05:52 Sharmaine Gtz ER Tech1 06:10 07/05/2016 IV Fluids IV NS Discontinued: bag #1 discontinued upon discharge. Total amount infused: 425 mL. IV patency established. IV site checked: no pain, redness, or swelling. IV flushed thoroughly. --06:43 Silviano Mckenzie R.N. 03:03 07/05/16. BP: 124/87. HR: 65. RR: 16. O2 saturation: 100%. Pain level now: 0/10. --06:45 Silviano Mckenzie R.N. 04:00 07/05/16. BP: 127/82. HR: 85. RR: 16. O2 saturation: 98% on room air. --06:46 Silviano Mckenzie R.N. 05:00 07/05/16. BP: 134/90. HR: 80. RR: 16. O2 saturation: 99% on room air. Pain level now: 0/10. --06:47 Silviano Mckenzie R.N. 06:15 07/05/2016 Site #1 removed upon discharge. Catheter intact. Manual pressure and bandaid applied. --06:48 Silviano Mckenzie R.N. DISPOSITION / DISCHARGE Departure time: 619. --06:35 Silviano Mckenzie R.N. 06:15 07/05/16. BP: 133/88. HR: 78. RR: 16. O2 saturation: 100% on room air. Temp: 98.8 F (oral). Pain level now: 04/19. Additional comments: DOCKERY pain. --06:37 Silviano Mckenzie R.N. 06:20. Condition at departure: improved. No learning barriers present. Discharge instructions provided and reviewed with the patient. Reviewed medication(s) precautions information (continue your usually prescribed medications. Check your Blood sugars frequently when you are not feeling well). Reviewed referral to family practice for followup. Patient verbalized understanding. Written instructions provided in [place]. The patient was discharged by the physician. She was discharged home and accompanied by grocery clerk. She left the Emergency Department ambulatory and via private vehicle. Environmental Compliance Engineer driving. --06:40 Silviano Mckenzie R.N. Locked/Released at 07/05/2016 6:51 by Silviano Mckenzie R.N.
--- NOTE | 2016-07-05 06:07 | ED ORDER SUMMARY ---
..... Patient: TESFAYE POSEY OrderSheet [facility] VisitID: [id number] [place] [address] 36y, F Registration Date/Time: 07/05/2016 ORDER SHEET Weight: 54.4 kg (stated) Allergies: Phenergan, Shellfish-derived Products GENERAL ORDERS: CBC w Diff Urgent (02:32 07/05/2016 Lit Starkey) (Ack 2:34 PWeiler ER Tech1) (2:46 omannicole R.N.) CMP Urgent (02:07/05/2016 Lit Starkey) (Ack 2:34 PWeiler ER Tech1) (2:46 omannicole R.N.) UA-Culture if indicated Urgent (02:07/05/2016 Lit Starkey) (Ack 2:34 PWeiler ER Tech1) (2:51 ALawrence ER Tech1) EKG - ER Stat (04:20 07/05/2016 AMcQuoid ER Tech1 per protocol) (4:20 AMcQuoid ER Tech1) BMP Urgent (05:29 07/05/2016 Lit Starkey) (Ack 5:32 PWeiler ER Tech1) (5:40 ALawrence ER Tech1) MEDICATION ORDERS: Glucagon IM 1 mg (NOW) (02:28 07/05/2016 Lit Starkey) (Cancelled: Physician Order2:45 Lit Starkey) Potassium Chloride PO 20 meq (NOW) (03:11 07/05/2016 Lit Starkey) (3:23 Alejo R.N.) - (Magnesium Oxide 400 mg PO x 1 now.) (03:11 07/05/2016 Lit Starkey) (3:25 Alejo R.N.) IV FLUIDS: D-50 IV 1 amp (HIGH ALERT MEDICATION, NOW, IVP) (02:32 07/05/2016 Lit Starkey) (2:46 Alejo R.N.) IV Saline Lock (02:07/05/2016 Lit Starkey) (2:45 Alejo R.N.) Potassium Chloride IV 20 meq/100mL (HIGH ALERT MEDICATION, NOW, Run no faster than 10 mEq/hr) (03:10 07/05/2016 Lit Starkey) (3:43 Alejo Vyas.NMoses) IV NS : initial bolus none -, then 200 mL/hr (NOW) (03:44 07/05/2016 Alejo Vyas.N. verbal order read back to Lit Starkey) (3:45 Alejo Vyas.NMoses) ORDER SHEET NOTES: [Electronically signed by Dileep Najera Dr. (06:06 07/05/2016)] [Electronically signed by Silviano Mckenzie R.N. (06:51 07/05/2016)] [Electronically locked/signed by Silviano Mckenzie R.N. (06:51 07/05/2016)]
--- NOTE | 2016-07-05 06:07 | ED ORDER SUMMARY ---
..... Patient: TESFAYE POSEY OrderSheet [facility] VisitID: [id number] [place] [address] 36y, F Registration Date/Time: 07/05/2016 ORDER SHEET Weight: 54.4 kg (stated) Allergies: Phenergan, Shellfish-derived Products GENERAL ORDERS: CBC w Diff Urgent (02:32 07/05/2016 Lit Starkey) (Ack 2:34 PWeiler ER Tech1) (2:46 omannicole R.N.) CMP Urgent (02:07/05/2016 Lit Starkey) (Ack 2:34 PWeiler ER Tech1) (2:46 omannicole R.N.) UA-Culture if indicated Urgent (02:07/05/2016 Lit Starkey) (Ack 2:34 PWeiler ER Tech1) (2:51 ALawrence ER Tech1) EKG - ER Stat (04:20 07/05/2016 AMcQuoid ER Tech1 per protocol) (4:20 AMcQuoid ER Tech1) BMP Urgent (05:29 07/05/2016 Lit Starkey) (Ack 5:32 PWeiler ER Tech1) (5:40 ALawrence ER Tech1) MEDICATION ORDERS: Glucagon IM 1 mg (NOW) (02:28 07/05/2016 Lit Starkey) (Cancelled: Physician Order2:45 Lit Starkey) Potassium Chloride PO 20 meq (NOW) (03:11 07/05/2016 Lit Starkey) (3:23 Alejo R.N.) - (Magnesium Oxide 400 mg PO x 1 now.) (03:11 07/05/2016 Lit Starkey) (3:25 Alejo R.N.) IV FLUIDS: D-50 IV 1 amp (HIGH ALERT MEDICATION, NOW, IVP) (02:32 07/05/2016 Lit Starkey) (2:46 Alejo R.N.) IV Saline Lock (02:07/05/2016 Lit Starkey) (2:45 Alejo R.N.) Potassium Chloride IV 20 meq/100mL (HIGH ALERT MEDICATION, NOW, Run no faster than 10 mEq/hr) (03:10 07/05/2016 Lit Starkey) (3:43 Alejo Vyas.NMoses) IV NS : initial bolus none -, then 200 mL/hr (NOW) (03:44 07/05/2016 Alejo Vyas.N. verbal order read back to Lit Starkey) (3:45 Alejo Vyas.NMoses) ORDER SHEET NOTES: [Electronically signed by Dileep Najera Dr. (06:06 07/05/2016)] [Electronically signed by Silviano Mckenzie R.N. (06:51 07/05/2016)] [Electronically locked/signed by Silviano Mckenzie R.N. (06:51 07/05/2016)]
--- NOTE | 2016-07-05 06:51 | ED MED RECONCILIATION SUMMARY ---
Patient: TESFAYE POSEY Medication Reconciliation Report [facility] VisitID: [id number] [address] [place] [address] 36y, F Registration Date/Time: 07/05/2016 Weight: 54.4 kg Height/Length: 64 in. BMI: 20.6 ALLERGIES: Phenergan, Shellfish-derived Products The patient's Home Medications are listed below: CONTINUE TAKING THE FOLLOWING MEDICATIONS: Gabepentin Insulin 3 units TID MetFORMIN HCl Oral, pt doesn't know where her meds are Wellbutrin Oral The source(s) of the original Home Medication information: Not obtained. The following Medications were given to the patient in the Emergency Department: D-50 [IVP] IVP 25 gm, administered: 07/05/2016 2:31:00 AM Potassium Chloride [PO] PO 20 meq, administered: 07/05/2016 3:23:00 AM Magnesium PO 400mg, administered: 07/05/2016 3:25:00 AM Potassium Chloride [IVPB] IVPB bolus 0, then 20 meq 50 mL/hr, administered: 07/05/2016 3:33:00 AM IV NS IV Fluids bolus 0, then 200 mL/hr, administered: 07/05/2016 3:33:00 AM The following Medications were prescribed to the patient: None.
--- NOTE | 2016-07-05 06:51 | ED MAR SUMMARY ---
..... Medication Administration Record [facility] [address] [place] [place] [address] Patient: TESFAYE POSEY Visit ID: [id number] 36y, F Weight: 54.4 kg Height/Length: 64 in BMI: 20.6 ALLERGIES: Phenergan, Shellfish-derived Products Given 02:31 07/05/2016 Silviano Mckenzie R.N. Medication Administered: D-50 [IVP], Dose: 25 gm IVP over 3 minute(s), Site: #1 left forearm. Medication Ordered: D-50 IV 1 amp (HIGH ALERT MEDICATION, NOW, IVP). Given 03:23 07/05/2016 Silviano Mckenzie R.N. Medication Administered: POTASSIUM CHLORIDE [PO] (POTASSIUM CHLORIDE ER), Dose: 20 meq Tablets PO. Medication Ordered: Potassium Chloride PO 20 meq (NOW). Given 03:07/05/2016 Silviano Mckenzie R.N. Medication Administered: Magnesium *, Dose: 400mg * PO. Medication Ordered: - (Magnesium Oxide 400 mg PO x 1 now.). Start 03:33 07/05/2016 Silviano Mckenzie R.N., Stop 06:10 07/05/2016 Silviano Mckenzie R.N. Medication Administered: IV NS (SALINE), Dose: IV Fluids over 5 hour(s), Rate: 200 mL/hr, Dispensed: 1000 mL bag, Site: #1 left forearm. Medication Ordered: IV NS : initial bolus none -, then 200 mL/hr (NOW). Start 03:33 07/05/2016 Silviano Mckenzie R.N. Medication Administered: POTASSIUM CHLORIDE [IVPB] (POTASSIUM CHLORIDE), Dose: 20 meq IVPB over 2 hour(s), Rate: 50 mL/hr, Dispensed: 100 mL bag, Site: #1 left forearm. Medication Ordered: Potassium Chloride IV 20 meq/100mL (HIGH ALERT MEDICATION, NOW, Run no faster than 10 mEq/hr).
--- NOTE | 2016-07-05 06:51 | ED DISCHARGE INSTRUCTIONS ---
Patient: TESFAYE POSEY General Instructions [facility] VisitID: [id number] [place] [address] 36y, F Registration Date/Time: 07/05/2016 Hypoglycemia without coma- associated with type 2 diabetes and use of insulin. Not associated with type 1 diabetes. Hypokalemia Mild hypomagnesemia. INSTRUCTIONS Your Current Medications: CONTINUE TAKING THE FOLLOWING MEDICATIONS: Gabepentin *. Insulin* : 3 units TID. MetFORMIN HCl Oral : pt doesn't know where her meds are. Wellbutrin Oral. Follow-up: Follow up with your doctor in about three days. Call for an appointment. Screening today revealed the patient's blood pressure to be in the pre-hypertensive range. The patient should follow up with a primary care provider for blood pressure management. ADDITIONAL INFORMATION Insulin Reaction (Low Blood Sugar) You have been treated for an insulin reaction today. This occurs when insulin causes your blood sugar to gotoo low(hypoglycemia). It may happen if you take too much insulin. It can also occur from taking your usual amount of insulin, but not eating enough food due to vomiting or loss of appetite. Other causes include heavy exercise, strong emotions, missing meals, and alcohol use. Some people are sensitive to the following, which can also lower blood sugar: tobacco, caffeine and certain medicines [aspirin, Haldol (haloperidol), Darvon or Darvocet (propoxyphene), Thorazine (chlorpromazine), Inderal (propranolol), Norpace (disopyramide)]. If you suspect any of these may be affecting you, stop smoking, switch to decaf coffee, and avoid teas and ashley that contain caffeine. If you are taking any of the listed medicines, talk to your doctor about switching to another type. A class of medicine called beta blockers is used for high blood pressure, rapid heart rates and other conditions. Beta blockers may prevent the early symptoms of low blood sugar. In that case, you would not know that you were having a reaction until your blood sugar becomes dangerously low. If you are taking a beta mishel, talk to your doctor about switching to a different class. The beta mishel class includes Inderal (propranolol), Tenormin (atenolol), Lopressor (metoprolol), Corgard (nadolol), Trandateand Normodyne (labetalol) and Coreg (carvedilol). Home Care: During the next 24 hours rest and eat frequent small meals to avoid recurrence of low blood sugar. Learn the warning signals your body gives as your blood sugar starts to drop. See below. Always carry a source of fast-acting sugar with you in case you get symptoms of low blood sugar again. At the first sign of low blood sugar, eat or drink 15 to 20 grams of fast-acting sugar to raise your blood sugar. Examples include: 3 to 4 glucose tablets (found at most drugstores) 4 ounces (1/2 cup) of non-diet cola drinks (Coke, Pepsi, root beer, etc.) 4 ounces (1/2 cup) of fruit juice 2 tablespoons of raisins 1 tablespoon of honey Check your blood sugar 15 minutes after treating yourself. If it is still low, take another 15 to 20 grams of fast-acting sugar. Test again in 15 minutes. If its still low, go to an emergency room. Once your blood sugar returns to normal, eat a snack or meal to keep your blood sugar in a safe range. In the future, if you are not able to eat your normal amount at each meal due to illness or vomiting, you MUST reduce your insulin dose. Contact your doctor to ask for a temporary adjustment of your dose. If you cannot eat, and there is a delay in reaching your doctor, reduce your daily insulin dose to one-half of what you usually take. Check your blood sugar every 4-6 hours. Do this until you are able to begin eating normal amounts again. Wear a medical alert bracelet or carry a card in your wallet explaining that you are diabetic. In the event that you have a severe hypoglycemic reaction and are unable to give this information, it will help medical personnel provide proper care. Follow Up: Check and write down your blood sugar and insulin dose twice a daybefore breakfast and before dinner. Do this for the next 5 days. See your doctor during the next week to review these records. This will help determine if you need to adjust your insulin dose. For more information about diabetes, contact the [place]. www.diabetes.org or 134-784-7937. Get Prompt Medical Attention if any of the following occur: HIGH BLOOD SUGAR: frequent urination, dizziness, drowsiness, thirst, headache, nausea or vomiting, abdominal pain, vision changes, fast breathing, confusion or loss of consciousness LOW BLOOD SUGAR: fatigue, headache, shakes, excess sweating, hunger, feeling anxious or restless, vision changes, drowsiness, weakness, confusion, or loss of consciousness Hypokalemia Hypokalemia means a low level of potassium in the blood. This most often occurs in patients who take diuretics (water pills). It can also occur due to severe vomiting or diarrhea. A mild case usually causes no symptoms. It is only found with blood testing. More severe potassium loss causes generalized weakness, muscle or abdominal cramping, heart palpitations (rapid or irregular heartbeats) and low blood pressure. Home Care: 1) Take any potassium supplements prescribed. 2) Eat foods rich in potassium. The highest amount is found in artichoke, baked potatoes, spinach, cantaloupe, honeydew melon, cod, halibut, salmon, and scallops. White, red, or phillips beans are also very good sources. A modest amount is found in orange juice, bananas, carrots, and tomato juice. 3) Certain types of diuretics (water pills), such as Lasix (furosemide), require that you take potassium supplements for as long as you take the diuretic pills. If you are taking a diuretic, discuss the need for potassium supplements with your doctor. Follow Up with your doctor for a repeat blood test within the next week or as advised by our staff. Get Prompt Medical Attention if any of the following occur: -- Increased weakness -- Feeling dizzy -- Irregular heartbeat, extra beats or very fast heart rate -- Fainting spell You have been given the following additional information: Diabetic Insulin Reaction Hypokalemia (Electronically signed by Dileep Najera Dr. 07/05/2016 6:06)
--- NOTE | 2016-07-05 06:51 | ED MED RECONCILIATION SUMMARY ---
Patient: TESFAYE POSEY Medication Reconciliation Report [facility] VisitID: [id number] [address] [place] [address] 36y, F Registration Date/Time: 07/05/2016 Weight: 54.4 kg Height/Length: 64 in. BMI: 20.6 ALLERGIES: Phenergan, Shellfish-derived Products The patient's Home Medications are listed below: CONTINUE TAKING THE FOLLOWING MEDICATIONS: Gabepentin Insulin 3 units TID MetFORMIN HCl Oral, pt doesn't know where her meds are Wellbutrin Oral The source(s) of the original Home Medication information: Not obtained. The following Medications were given to the patient in the Emergency Department: D-50 [IVP] IVP 25 gm, administered: 07/05/2016 2:31:00 AM Potassium Chloride [PO] PO 20 meq, administered: 07/05/2016 3:23:00 AM Magnesium PO 400mg, administered: 07/05/2016 3:25:00 AM Potassium Chloride [IVPB] IVPB bolus 0, then 20 meq 50 mL/hr, administered: 07/05/2016 3:33:00 AM IV NS IV Fluids bolus 0, then 200 mL/hr, administered: 07/05/2016 3:33:00 AM The following Medications were prescribed to the patient: None.
--- NOTE | 2016-07-05 06:51 | ED MAR SUMMARY ---
..... Medication Administration Record [facility] [address] [place] [address] Patient: TESFAYE POSEY Visit ID: [id number] 36y, F Weight: 54.4 kg Height/Length: 64 in BMI: 20.6 ALLERGIES: Phenergan, Shellfish-derived Products Given 02:31 07/05/2016 Silviano Mckenzie R.N. Medication Administered: D-50 [IVP], Dose: 25 gm IVP over 3 minute(s), Site: #1 left forearm. Medication Ordered: D-50 IV 1 amp (HIGH ALERT MEDICATION, NOW, IVP). Given 03:23 07/05/2016 Silviano Mckenzie R.N. Medication Administered: POTASSIUM CHLORIDE [PO] (POTASSIUM CHLORIDE ER), Dose: 20 meq Tablets PO. Medication Ordered: Potassium Chloride PO 20 meq (NOW). Given 03:07/05/2016 Silviano Mckenzie R.N. Medication Administered: Magnesium *, Dose: 400mg * PO. Medication Ordered: - (Magnesium Oxide 400 mg PO x 1 now.). Start 03:33 07/05/2016 Silviano Mckenzie R.N., Stop 06:10 07/05/2016 Silviano Mckenzie R.N. Medication Administered: IV NS (SALINE), Dose: IV Fluids over 5 hour(s), Rate: 200 mL/hr, Dispensed: 1000 mL bag, Site: #1 left forearm. Medication Ordered: IV NS : initial bolus none -, then 200 mL/hr (NOW). Start 03:33 07/05/2016 Silviano Mckenzie R.N. Medication Administered: POTASSIUM CHLORIDE [IVPB] (POTASSIUM CHLORIDE), Dose: 20 meq IVPB over 2 hour(s), Rate: 50 mL/hr, Dispensed: 100 mL bag, Site: #1 left forearm. Medication Ordered: Potassium Chloride IV 20 meq/100mL (HIGH ALERT MEDICATION, NOW, Run no faster than 10 mEq/hr).
== END 2016-07-05 06:20 | disposition home or self-care (01) ==
LOC: ED SRH 02:22
DX: E11.649 Type 2 diabetes mellitus with hypoglycemia without coma (principal); E87.6 Hypokalemia; E83.42 Hypomagnesemia; Z79.84 Long term (current) use of oral hypoglycemic drugs; Z79.4 Long term (current) use of insulin; F17.210 Nicotine dependence, cigarettes, uncomplicated
CPT/HCPCS: 81460; 90004; 90047; 90098; 90100; 92720; 95059

== ENCOUNTER 2016-07-17 20:17 | Emergency (ER) | payer OTHER ==
--- NOTE | 2016-07-17 21:08 | ED CLINICAL REPORT ---
Clinical Report - Physicians/Mid Levels [facility] [address] [place] [address] 07/17/2016 20:17 Patient: TESFAYE POSEY Time Seen: 20:32; initial patient contact, initial documentation, patient care assumed. Arrived- By private vehicle. Not in custody. Historian- patient. HISTORY OF PRESENT ILLNESS Chief Complaint: ANXIOUS. This started just prior to arrival. No situational problems or recent alcohol consumption. She has not exhibited a behavior change, was not found wandering and is compliant with medication. Recent drug use. The symptoms are described as moderate. No injury is present. Similar symptoms previously: REVIEW OF SYSTEMS No chest pain. All systems otherwise negative, except as recorded above. PAST HISTORY See nurses notes. ( PROBLEMS: Hypokalemia. Hypomagnesemia. Hypoglycemia. Depression. Adjustment Disorder. Abscess. Diabetes Mellitus. Normal Exam. Diabetic Ketoacidosis. Abnormal Test. Hepatitis C carrier. Hep c. Constipation. Flank Pain. Suicidal Ideation. ADHD - Attention Deficit Hyperactivity Disorder. Hyperglycemia. Paresthesia. Vertigo. Anxiety Reaction. Back Pain. Sprain. Tetanus Status. Dental Pain. Migraine Headache. Headache. Gastritis. Diarrhea. Lifestyle / Substance Problems. Dehydration. Vomiting. Alcohol Intoxication. UTI - Urinary Tract Infection. Immunizations. Substance Abuse. Pancreatitis. Abdominal Pain. LNMP - Last Normal Menstrual Period. Cholecystitis. --20:29 Leeanna Thomas RMosesN. Hepatitis [RuleOut]. Abnormal Liver Function Test [RuleOut]. Pancreatitis [RuleOut]. --20:29 Leeanna Thomas, R.N. ADDITIONAL SURGERIES: Cholecystectomy. Hip Surgery. --20:29 Leeanna Thomas RMosesN.). SOCIAL HISTORY Light tobacco smoker. History of heavy IV drug use: methamphetamines, marijuana. Recently used drugs just prior to arrival. Under influence in ED. No alcohol use. Has social support. Has place to stay. FAMILY HISTORY Negative. ADDITIONAL NOTES The nursing notes have been reviewed with agreement regarding the chief complaint, HPI, ROS, PMH and patient medications. PHYSICAL EXAM Vital Signs: 07/17/2016 20:25 BP: 127/92. HR: 106. RR: 28. O2 saturation: 100%. Temp: 97.8 F. Pain level now: 08/17. Have been reviewed as abnormal and appear to be correct. Blood pressure normal. Tachycardic. Respiratory rate normal. Temperature normal. Oxygen saturation normal. Appearance: Alert. No acute distress. Appearance is normal. Is disheveled and has poor hygiene. Anxious. Eyes: Pupils equal, round and reactive to light. Neck: Normal inspection. Neck supple. CVS: Normal heart rate and rhythm. Heart sounds normal. Respiratory: Breath sounds normal. Chest nontender. Abdomen: Soft and nontender. Back: No tenderness. Skin: Skin warm and dry. Normal skin color. Normal skin turgor. Extremities: Extremities exhibit normal ROM. No lower extremity edema. Psych / Neuro: Oriented X 3. Abnormal mood and affect. Speech normal. Cognition normal. Thought process and content normal. Insight and judgement not normal. She does not appear to understand hers illness but feel treatment is necessary and appears concerned about hers current condition. Cranial nerves normal (as tested). No cerebellar findings. No motor deficit. No sensory deficit. PROGRESS AND PROCEDURES Patient counseled in person regarding the patient's stable condition and diagnosis. Differential Diagnosis: Other possible considerations: substance abuse, anxiety, bipolar. Above considerations are based on history and physical exam. Differential diagnosis was discussed with patient. Disposition: Discharged home in good and unchanged condition (21:07). Condition: good and stable. CLINICAL IMPRESSION Chronic substance abuse- heroin, amphetamines with intoxication and anxiety. Anxiety reaction. INSTRUCTIONS Warnings: GENERAL WARNINGS: Return or contact your physician immediately if your condition worsens or changes unexpectedly, if not improving as expected, or if other problems arise. Specifically return if problem worsens. Follow-up: Follow up with your doctor in about three days as needed. Call for an appointment. Summary of care provided to patient. Understanding of the discharge instructions verbalized by patient. (Electronically signed by Kandy Herron A.R.N.P. 07/17/2016 23:01)
--- NOTE | 2016-07-17 21:08 | ED NURSING NOTES ---
Clinical Report - Nurses [facility] [address] [place] [address] 07/17/2016 20:17 Patient: TESFAYE POSEY TRIAGE Triage time 20:25. Acuity: LEVEL 3. Chief Complaint: ANXIETY. --20:35 Leeanna Thomas R.N. 20:25 07/17/16. BP: 127/92 taken on the left arm, while lying. HR: 106 (regular). RR: 28 (regular, unlabored and rapid). O2 saturation: 100% on room air. Temp: 97.8 F (oral). Pain level now: 08/17. --20:35 Leeanna Thomas R.N. Weight: 55.7 kg stated. Height/Length: 64 inches Per Patient. BMI: 21.1. --20:33 Leeanna Thomas R.N. Medications Gabepentin . Insulin 3 units TID. MetFORMIN HCl Oral (pt doesn't know where her meds are). Wellbutrin Oral. --20:28 Leeanna Thomas R.N. Allergies Phenergan. Shellfish-derived Products. --20:28 Leeanna Thomas R.N. History Arrived by private vehicle, and accompanied by friend. Primary physician ([facility]). Onset: today. Onset. (worse just prior to arrival). ( pt anxious, shaky and paranoid used unknown substances prior to arrival, RR rapid and shallow, pt reports "injecting something"). She has had anxiety and has been confused. Has been feeling agitated. Admits to having hallucinations. PAST MEDICAL HX: Immunizations: up-to-date. Last normal menstrual period unknown. SOCIAL HX: Light tobacco smoker (cigarette)- less than 1/2 a pack per day. History of drug use: heroin, methamphetamines. Recently used drugs just prior to arrival. (and unknow substance). No alcohol use. ABUSE ASSESSMENT: No report of abuse. SELF HARM ASSESSMENT: A self harm assessment was performed. The patient answered "no" to the question "Have you recently felt down, depressed, or hopeless?", "Have you noticed less interest or pleasure in doing things?", "Do you have thoughts of harming or killing yourself?", "Are you here because you tried to hurt yourself?", "Have you ever tried to hurt yourself before today?", "Have you recently had thoughts about harming or killing others?" and "Do you have any dangerous items in your possession?". --20:35 Leeanna Thomas R.N. Historian: patient. --20:35 Leeanna Thomas R.N. PROBLEMS: Hypokalemia. Hypomagnesemia. Hypoglycemia. Depression. Adjustment Disorder. Abscess. Diabetes Mellitus. Normal Exam. Diabetic Ketoacidosis. Abnormal Test. Hepatitis C carrier. Hep c. Constipation. Flank Pain. Suicidal Ideation. ADHD - Attention Deficit Hyperactivity Disorder. Hyperglycemia. Paresthesia. Vertigo. Anxiety Reaction. Back Pain. Sprain. Tetanus Status. Dental Pain. Migraine Headache. Headache. Gastritis. Diarrhea. Lifestyle / Substance Problems. Dehydration. Vomiting. Alcohol Intoxication. UTI - Urinary Tract Infection. Immunizations. Substance Abuse. Pancreatitis. Abdominal Pain. LNMP - Last Normal Menstrual Period. Cholecystitis. --20:29 Leeanna Thomas R.N. Hepatitis [RuleOut]. Abnormal Liver Function Test [RuleOut]. Pancreatitis [RuleOut]. --20:29 Leeanna Thomas R.N. ADDITIONAL SURGERIES: Cholecystectomy. Hip Surgery. --20:29 Leeanna Thomas R.N. Interventions ID band on patient. --20:35 Leeanna Thomas R.N. PHYSICAL ASSESSMENT Ambulatory to room. GENERAL / NEURO / PSYCH: Alert. Appears anxious. The patient is disoriented to person and place. Speech within normal limits. Patient's mood/affect appears tearful. Behavior appears abnormal, including paranoid behaviors and having apparent visual and tactile hallucinations. Patient appears agitated. RESPIRATORY: Mild respiratory distress. Breath sounds within normal limits. CVS: Normal heart rate and rhythm. Cardiac rhythm: sinus tachycardia. GI / : Abdomen soft and nontender. Bowel sounds within normal limits. SKIN: Skin intact. Skin is dry. Skin is cool. Skin color is within normal limits. --20:36 Leeanna Thomas R.N. NURSING PROGRESS NOTES Patient gowned. Two patient identifiers checked. Call light placed in reach. Side rails up x 2. Bed placed in lowest position. Brakes of bed on. --20:36 Leeanna Thomas R.N. Finger stick glucose: 115; performed by nurse. --20:37 Leeanna Thomas R.N. Patient ready for evaluation- chart flagged. --20:37 Leeanna Thomas R.N. DISPOSITION / DISCHARGE Condition at departure: unchanged and stable. ( pt refusing to leave escorted out by security,). Discharge instructions provided and reviewed with the patient. Reviewed warnings (stop drug abuse). Patient verbalized understanding. Written instructions provided in Mosotho. The patient was discharged home and accompanied by states friend in car. She left the Emergency Department ambulatory and via private vehicle. Driving (friend). --21:50 Leeanna Thomas R.N. 21:46 07/17/16. BP: 126/89 taken on the left arm, while lying. HR: 103. RR: 20. O2 saturation: 100% on room air. Temp: deferred. Pain level now: 10/17. --21:50 Leeanna Thomas R.N. Departure time: 2144. --21:50 Leeanna Thomas R.N. Locked/Released at 07/17/2016 21:51 by Leeanna Thomas R.N.
--- NOTE | 2016-07-17 21:08 | ED NURSING NOTES ---
Clinical Report - Nurses [facility] [address] [place] [address] 07/17/2016 20:17 Patient: TESFAYE POSEY TRIAGE Triage time 20:25. Acuity: LEVEL 3. Chief Complaint: ANXIETY. --20:35 Leeanna Thomas R.N. 20:25 07/17/16. BP: 127/92 taken on the left arm, while lying. HR: 106 (regular). RR: 28 (regular, unlabored and rapid). O2 saturation: 100% on room air. Temp: 97.8 F (oral). Pain level now: 08/17. --20:35 Leeanna Thomas R.N. Weight: 55.7 kg stated. Height/Length: 64 inches Per Patient. BMI: 21.1. --20:33 Leeanna Thomas R.N. Medications Gabepentin . Insulin 3 units TID. MetFORMIN HCl Oral (pt doesn't know where her meds are). Wellbutrin Oral. --20:28 Leeanna Thomas R.N. Allergies Phenergan. Shellfish-derived Products. --20:28 Leeanna Thomas R.N. History Arrived by private vehicle, and accompanied by friend. Primary physician ([facility]). Onset: today. Onset. (worse just prior to arrival). ( pt anxious, shaky and paranoid used unknown substances prior to arrival, RR rapid and shallow, pt reports "injecting something"). She has had anxiety and has been confused. Has been feeling agitated. Admits to having hallucinations. PAST MEDICAL HX: Immunizations: up-to-date. Last normal menstrual period unknown. SOCIAL HX: Light tobacco smoker (cigarette)- less than 1/2 a pack per day. History of drug use: heroin, methamphetamines. Recently used drugs just prior to arrival. (and unknow substance). No alcohol use. ABUSE ASSESSMENT: No report of abuse. SELF HARM ASSESSMENT: A self harm assessment was performed. The patient answered "no" to the question "Have you recently felt down, depressed, or hopeless?", "Have you noticed less interest or pleasure in doing things?", "Do you have thoughts of harming or killing yourself?", "Are you here because you tried to hurt yourself?", "Have you ever tried to hurt yourself before today?", "Have you recently had thoughts about harming or killing others?" and "Do you have any dangerous items in your possession?". --20:35 Leeanna Thomas R.N. Historian: patient. --20:35 Leeanna Thomas R.N. PROBLEMS: Hypokalemia. Hypomagnesemia. Hypoglycemia. Depression. Adjustment Disorder. Abscess. Diabetes Mellitus. Normal Exam. Diabetic Ketoacidosis. Abnormal Test. Hepatitis C carrier. Hep c. Constipation. Flank Pain. Suicidal Ideation. ADHD - Attention Deficit Hyperactivity Disorder. Hyperglycemia. Paresthesia. Vertigo. Anxiety Reaction. Back Pain. Sprain. Tetanus Status. Dental Pain. Migraine Headache. Headache. Gastritis. Diarrhea. Lifestyle / Substance Problems. Dehydration. Vomiting. Alcohol Intoxication. UTI - Urinary Tract Infection. Immunizations. Substance Abuse. Pancreatitis. Abdominal Pain. LNMP - Last Normal Menstrual Period. Cholecystitis. --20:29 Leeanna Thomas R.N. Hepatitis [RuleOut]. Abnormal Liver Function Test [RuleOut]. Pancreatitis [RuleOut]. --20:29 Leeanna Thomas R.N. ADDITIONAL SURGERIES: Cholecystectomy. Hip Surgery. --20:29 Leeanna Thomas R.N. Interventions ID band on patient. --20:35 Leeanna Thomas R.N. PHYSICAL ASSESSMENT Ambulatory to room. GENERAL / NEURO / PSYCH: Alert. Appears anxious. The patient is disoriented to person and place. Speech within normal limits. Patient's mood/affect appears tearful. Behavior appears abnormal, including paranoid behaviors and having apparent visual and tactile hallucinations. Patient appears agitated. RESPIRATORY: Mild respiratory distress. Breath sounds within normal limits. CVS: Normal heart rate and rhythm. Cardiac rhythm: sinus tachycardia. GI / : Abdomen soft and nontender. Bowel sounds within normal limits. SKIN: Skin intact. Skin is dry. Skin is cool. Skin color is within normal limits. --20:36 Leeanna Thomas R.N. NURSING PROGRESS NOTES Patient gowned. Two patient identifiers checked. Call light placed in reach. Side rails up x 2. Bed placed in lowest position. Brakes of bed on. --20:36 Leeanna Thomas R.N. Finger stick glucose: 115; performed by nurse. --20:37 Leeanna Thomas R.N. Patient ready for evaluation- chart flagged. --20:37 Leeanna Thomas R.N. DISPOSITION / DISCHARGE Condition at departure: unchanged and stable. ( pt refusing to leave escorted out by security,). Discharge instructions provided and reviewed with the patient. Reviewed warnings (stop drug abuse). Patient verbalized understanding. Written instructions provided in Dutch. The patient was discharged home and accompanied by states friend in car. She left the Emergency Department ambulatory and via private vehicle. Driving (friend). --21:50 Leeanna Thomas R.N. 21:46 07/17/16. BP: 126/89 taken on the left arm, while lying. HR: 103. RR: 20. O2 saturation: 100% on room air. Temp: deferred. Pain level now: 10/17. --21:50 Leeanna Thomas R.N. Departure time: 2144. --21:50 Leeanna Thomas R.N. Locked/Released at 07/17/2016 21:51 by Leeanna Thomas R.N.
--- NOTE | 2016-07-17 23:01 | ED MED RECONCILIATION SUMMARY ---
Patient: TESFAYE POSEY Medication Reconciliation Report [facility] VisitID: [id number] [address] [place] [address] 36y, F Registration Date/Time: 07/17/2016 Weight: 55.7 kg Height/Length: 64 in. BMI: 21.1 ALLERGIES: Phenergan, Shellfish-derived Products The patient's Home Medications are listed below: THE FOLLOWING MEDICATIONS NEED TO BE RECONCILED: Gabepentin Insulin 3 units TID MetFORMIN HCl Oral, pt doesn't know where her meds are Wellbutrin Oral The source(s) of the original Home Medication information: Not obtained. The following Medications were given to the patient in the Emergency Department: None. The following Medications were prescribed to the patient: None.
--- NOTE | 2016-07-17 23:01 | ED MAR SUMMARY ---
..... Medication Administration Record [facility] [address] [id number] Patient: TESFAYE POSEY Visit ID: [id number] 36y, F Weight: 55.7 kg Height/Length: 64 in BMI: 21.1 ALLERGIES: Phenergan, Shellfish-derived Products
--- NOTE | 2016-07-17 23:01 | ED DISCHARGE INSTRUCTIONS ---
Patient: TESFAYE POSEY General Instructions [facility] VisitID: [id number] [place] [address] 36y, F Registration Date/Time: 07/17/2016 Chronic substance abuse- heroin, amphetamines with intoxication and anxiety. Anxiety reaction. INSTRUCTIONS Warnings: GENERAL WARNINGS: Return or contact your physician immediately if your condition worsens or changes unexpectedly, if not improving as expected, or if other problems arise. Specifically return if problem worsens. Follow-up: Follow up with your doctor in about three days as needed. Call for an appointment. Summary of care provided to patient. Understanding of the discharge instructions verbalized by patient. ADDITIONAL INFORMATION Stress Reaction Anxiety is the feeling we all get when we think something bad might happen. It is a normal response to stress and usually causes only a mild reaction. When anxiety becomes more severe, emotions may interfere with daily life. In some cases, you may not even be aware of what it is youre anxious about! During an anxiety reaction, you may feel like you are helpless, nervous, depressed or irritable. Your body may show signs of anxiety in many ways. You may experience dry mouth, shakiness, dizziness, weakness, trouble breathing, chest pressure, headache, nausea, diarrhea, tiredness, inability to sleep or sexual problems. Home Care: 1) Try to locate the sources of stress in your life. They may not be obvious! These may include: -- Daily hassles of life which pile up (traffic jams, missed appointments, car troubles, etc.) -- Major life changes, both good (new baby, job promotion) and bad (loss of job, loss of loved one) -- Overload: feeling that you have too many responsibilities and can't take care of all of them at once -- Feeling helpless, feeling that your problems are beyond what youre able to solve 2) Notice how your body reacts to stress. Learn to listen to your body signals. This will help you take action before the stress becomes severe. 3) When you can, do something about the source of your stress. (Avoid hassles, limit the amount of change that happens in your life at one time and take a break when you feel overloaded). 4) Unfortunately, many stressful situations cannot be avoided. It is necessary to learn HOW TO MANAGE STRESS better. There are many proven methods that will reduce your anxiety. These include simple things like exercise, good nutrition and adequate rest. Also, there are certain techniques that are helpful: relaxation and breathing exercises, visualization, biofeedback and meditation. For more information about this, consult your doctor or go to a local bookstore and review the many books and tapes available on this subject. Follow Up If you feel that your anxiety is not responding to self-help measures, contact your doctor or make an appointment with a counselor. Get Prompt Medical Attention if any of the following occur: -- Your symptoms get worse -- Chest pain or trouble breathing -- Severe headache not relieved by rest and mild pain reliever -- Rapid or irregular heartbeat, fainting Drug Abuse Use and abuse of such drugs as marijuana, amphetamines (speed, crank), cocaine, heroin or prescription pain medicines (Vicodin, codeine), sedatives and sleeping pills (Valium, Klonopin), PCP, mescaline and LSD may lead to addiction or dependence. Once this occurs, you are at greater risk for any of the following: Craving for the drug and unable to stop using the drug even though you think you want to stop (psychological dependence) Drug withdrawal symptoms if you stop taking the drug (physical dependence) Loss of your job or your family Arrest, conviction and halfway sentence for possession of an illegal substance or for driving under the influence of such a substance Accidental injuries to yourself or others while you are under the influence of the drug (in a car or at home). HIV infection (much greater risk if you use IV drugs) Other sexually transmitted diseases (herpes, chlamydia, gonorrhea and others) Severe and fatal infection of the heart valves (if you use IV drugs) Stroke, heart attack, hepatitis B or C, kidney failure from overdose Home Care: Admit you have a drug problem. Ask for help from your family and close friends. Seek professional help. This could be in the form of individual psychotherapy or counseling or an outpatient, inpatient, or residential drug treatment program. Join a self-help group for drug abuse. Avoid friends who abuse drugs themselves or tempt you to continue abusing drugs. Eat a balanced diet and begin a regular exercise program. Follow Up with your doctor or as advised by our staff. Contact one of the resources below for help. National [place] on Alcoholism and Drug Dependence www.ncadd.org 908-005-YEEM Narcotics Anonymous www.na.org 400-296-0459 National Alcohol and Substance Abuse Information Center (for referral to treatment programs) www.addictioncareSovicell.Doculynx 227-157-8698 Get Prompt Medical Attention if any of the following occur: Agitation, anxiety, unable to sleep Unintended weight loss (more than 10 to 15 pounds over 3 months) Seizure Chest pain Fever of 100.4F (38C) or higher, or as directed by your healthcare provider Excess drowsiness or inability to be awakened Shortness of breath Slow breathing under 8 breaths per minute Cough with colored sputum Redness, swelling or tenderness at an injection site You have been given the following additional information: Anxiety Reaction Drug Abuse (Electronically signed by Kandy Herron A.R.N.P. 07/17/2016 23:01)
--- NOTE | 2016-07-17 23:01 | ED MED RECONCILIATION SUMMARY ---
Patient: TESFAYE POSEY Medication Reconciliation Report [facility] VisitID: [id number] [address] [place] [address] 36y, F Registration Date/Time: 07/17/2016 Weight: 55.7 kg Height/Length: 64 in. BMI: 21.1 ALLERGIES: Phenergan, Shellfish-derived Products The patient's Home Medications are listed below: THE FOLLOWING MEDICATIONS NEED TO BE RECONCILED: Gabepentin Insulin 3 units TID MetFORMIN HCl Oral, pt doesn't know where her meds are Wellbutrin Oral The source(s) of the original Home Medication information: Not obtained. The following Medications were given to the patient in the Emergency Department: None. The following Medications were prescribed to the patient: None.
--- NOTE | 2016-07-17 23:01 | ED DISCHARGE INSTRUCTIONS ---
Patient: TESFAYE POSEY General Instructions [facility] VisitID: [id number] [place] [address] 36y, F Registration Date/Time: 07/17/2016 Chronic substance abuse- heroin, amphetamines with intoxication and anxiety. Anxiety reaction. INSTRUCTIONS Warnings: GENERAL WARNINGS: Return or contact your physician immediately if your condition worsens or changes unexpectedly, if not improving as expected, or if other problems arise. Specifically return if problem worsens. Follow-up: Follow up with your doctor in about three days as needed. Call for an appointment. Summary of care provided to patient. Understanding of the discharge instructions verbalized by patient. ADDITIONAL INFORMATION Stress Reaction Anxiety is the feeling we all get when we think something bad might happen. It is a normal response to stress and usually causes only a mild reaction. When anxiety becomes more severe, emotions may interfere with daily life. In some cases, you may not even be aware of what it is youre anxious about! During an anxiety reaction, you may feel like you are helpless, nervous, depressed or irritable. Your body may show signs of anxiety in many ways. You may experience dry mouth, shakiness, dizziness, weakness, trouble breathing, chest pressure, headache, nausea, diarrhea, tiredness, inability to sleep or sexual problems. Home Care: 1) Try to locate the sources of stress in your life. They may not be obvious! These may include: -- Daily hassles of life which pile up (traffic jams, missed appointments, car troubles, etc.) -- Major life changes, both good (new baby, job promotion) and bad (loss of job, loss of loved one) -- Overload: feeling that you have too many responsibilities and can't take care of all of them at once -- Feeling helpless, feeling that your problems are beyond what youre able to solve 2) Notice how your body reacts to stress. Learn to listen to your body signals. This will help you take action before the stress becomes severe. 3) When you can, do something about the source of your stress. (Avoid hassles, limit the amount of change that happens in your life at one time and take a break when you feel overloaded). 4) Unfortunately, many stressful situations cannot be avoided. It is necessary to learn HOW TO MANAGE STRESS better. There are many proven methods that will reduce your anxiety. These include simple things like exercise, good nutrition and adequate rest. Also, there are certain techniques that are helpful: relaxation and breathing exercises, visualization, biofeedback and meditation. For more information about this, consult your doctor or go to a local bookstore and review the many books and tapes available on this subject. Follow Up If you feel that your anxiety is not responding to self-help measures, contact your doctor or make an appointment with a counselor. Get Prompt Medical Attention if any of the following occur: -- Your symptoms get worse -- Chest pain or trouble breathing -- Severe headache not relieved by rest and mild pain reliever -- Rapid or irregular heartbeat, fainting Drug Abuse Use and abuse of such drugs as marijuana, amphetamines (speed, crank), cocaine, heroin or prescription pain medicines (Vicodin, codeine), sedatives and sleeping pills (Valium, Klonopin), PCP, mescaline and LSD may lead to addiction or dependence. Once this occurs, you are at greater risk for any of the following: Craving for the drug and unable to stop using the drug even though you think you want to stop (psychological dependence) Drug withdrawal symptoms if you stop taking the drug (physical dependence) Loss of your job or your family Arrest, conviction and custodial sentence for possession of an illegal substance or for driving under the influence of such a substance Accidental injuries to yourself or others while you are under the influence of the drug (in a car or at home). HIV infection (much greater risk if you use IV drugs) Other sexually transmitted diseases (herpes, chlamydia, gonorrhea and others) Severe and fatal infection of the heart valves (if you use IV drugs) Stroke, heart attack, hepatitis B or C, kidney failure from overdose Home Care: Admit you have a drug problem. Ask for help from your family and close friends. Seek professional help. This could be in the form of individual psychotherapy or counseling or an outpatient, inpatient, or residential drug treatment program. Join a self-help group for drug abuse. Avoid friends who abuse drugs themselves or tempt you to continue abusing drugs. Eat a balanced diet and begin a regular exercise program. Follow Up with your doctor or as advised by our staff. Contact one of the resources below for help. National [place] on Alcoholism and Drug Dependence www.ncadd.org 966-844-EHIK Narcotics Anonymous www.na.org 997-483-9852 National Alcohol and Substance Abuse Information Center (for referral to treatment programs) www.addictioncareDoctor Evidence.Fitly 852-584-3534 Get Prompt Medical Attention if any of the following occur: Agitation, anxiety, unable to sleep Unintended weight loss (more than 10 to 15 pounds over 3 months) Seizure Chest pain Fever of 100.4F (38C) or higher, or as directed by your healthcare provider Excess drowsiness or inability to be awakened Shortness of breath Slow breathing under 8 breaths per minute Cough with colored sputum Redness, swelling or tenderness at an injection site You have been given the following additional information: Anxiety Reaction Drug Abuse (Electronically signed by Kandy Herron A.R.N.P. 07/17/2016 23:01)
--- NOTE | 2016-07-17 23:01 | ED MAR SUMMARY ---
..... Medication Administration Record [facility] [address] [place], [place] [id number] Patient: TESFAYE POSEY Visit ID: [id number] 36y, F Weight: 55.7 kg Height/Length: 64 in BMI: 21.1 ALLERGIES: Phenergan, Shellfish-derived Products
== END 2016-07-17 21:45 | disposition home or self-care (01) ==
LOC: ED SRH 20:17
DX: F11.129 Opioid abuse with intoxication, unspecified (principal); F15.129 Other stimulant abuse with intoxication, unspecified; F41.1 Generalized anxiety disorder; E11.9 Type 2 diabetes mellitus without complications
CPT/HCPCS: 90098

== ENCOUNTER 2016-08-06 15:21 | Emergency (ER) | payer OTHER ==
--- NOTE | 2016-08-07 00:58 | ED CLINICAL REPORT ---
Clinical Report - Physicians/Mid Levels [facility] [address] [place] [address] 08/06/2016 15:20 Patient: TESFAYE POSEY Time Seen: 15:28; initial patient contact. Arrived- By private vehicle. Historian- patient. HISTORY OF PRESENT ILLNESS Chief Complaint: ANXIOUS and SUICIDAL THOUGHTS. This started today. The patient has experienced situational problems related to drug use. The patient has had anxiety. Has been depressed and had suicidal thoughts. No unusual behavior, paranoia, delusions, self-injury inflicted or hallucinations. The symptoms are described as moderate. No injury is present. Similar symptoms previously: Recent medical care: Not recently seen/assessed. REVIEW OF SYSTEMS The patient has had a headache. No dizziness, weakness, abdominal pain or pain or chills. No fever, sweats, calf pain, chest pain or cough. No difficulty breathing, pedal edema, palpitations, constipation or diarrhea. No nausea, vomiting or urinary problems. All systems otherwise negative, except as recorded above. PAST HISTORY ( Hypokalemia. Hypomagnesemia. Hypoglycemia. Depression. Adjustment Disorder. Abscess. Diabetes Mellitus. Normal Exam. Diabetic Ketoacidosis. Abnormal Test. Hepatitis C carrier. Hep c. Constipation. Flank Pain. Suicidal Ideation. ADHD - Attention Deficit Hyperactivity Disorder. Hyperglycemia. Paresthesia. Vertigo. Anxiety Reaction. Back Pain. Sprain. Tetanus Status. Dental Pain. Migraine Headache. Headache. Gastritis. Diarrhea. Lifestyle / Substance Problems. Dehydration. Vomiting. Alcohol Intoxication. UTI - Urinary Tract Infection. Immunizations. Substance Abuse. Pancreatitis. Abdominal Pain. Cholecystitis. Hepatitis [RuleOut]. Abnormal Liver Function Test [RuleOut]. Pancreatitis [RuleOut]. ADDITIONAL SURGERIES: Cholecystectomy. Hip Surgery). SOCIAL HISTORY Current every day heavy tobacco smoker. History of drug use: methamphetamines. No alcohol use. Has social support. Has place to stay. ADDITIONAL NOTES The nursing notes have been reviewed. PHYSICAL EXAM Vital Signs: 08/06/2016 15:36 BP: 115/74. HR: 87. RR: 18. O2 saturation: 98%. Temp: 98.7 F. Pain level now: 0/10. Have been reviewed as normal. Appearance: Alert. Patient in apparent distress due to anxiety. She appears older than stated age and has poor hygiene. CVS: Normal heart rate and rhythm. Heart sounds normal. Respiratory: No respiratory distress. Breath sounds normal. Abdomen: Soft and nontender. Skin: Skin warm and dry. Normal skin color. Psych / Neuro: Oriented X 3. Expansive affect. She is tearful. Speech normal. Cognition normal. Thought process and content normal. Insight and judgement normal. LABS, X-RAYS, AND EKG Laboratory Tests: UA-Culture if indicated: (JARAD: 08/06/2016 15:45) ( [facility] 08/06/2016 16:26) Final results Test Result Flag Units (Reference) URINE COLOR YELLOW URINE APPEARANCE CLEAR URINE GLUCOSE 3+ (NEGATIVE) URINE BILIRUBIN NEGATIVE (NEGATIVE) URINE KETONE NEGATIVE (NEGATIVE) URINE SPECIFIC GRAVITY 1.020 (1.010-1.030) URINE PH 6.0 (5.0-8.0) URINE PROTEIN NEGATIVE (NEGATIVE) URINE UROBILINOGEN 0.2 EU/dL (0.2-1.0) URINE NITRITE NEGATIVE (NEGATIVE) URINE BLOOD NEGATIVE (NEGATIVE) URINE LEUK ESTERASE NEGATIVE (NEGATIVE) URINE RBC NONE SEEN rbc/hpf (0-1) URINE WBC 0-1 wbc/hpf (0-1) URINE EPITHELIAL CELLS 1-3 EPI/hpf (0-5) URINE BACTERIA NONE SEEN (NONE SEEN) URINE COMMENT CULT NOT INDICATED URINE CULTURES ARE SET-UP BASED ON THE FOLLOWING CRITERIA:POSITIVE NITRITEPOSITIVE LEUKOCYTE ESTERASEGREATER THAN 10 WHITE BLOOD CELLSMODERATE (2+) OR GREATER BACTERIA Urine: (JARAD: 08/06/2016 15:45) ( [facility] 08/06/2016 16:00) Final results Test Result Flag Units (Reference) URINE NEGATIVE CBC w Diff: (JARAD: 08/06/2016 16:00) ( [facility] 08/06/2016 16:23) Final results Test Result Flag Units (Reference) WHITE BLOOD COUNT 9.9 K/uL (4.5-11.5) RED BLOOD COUNT 4.72 M/uL (4.00-5.20) HEMOGLOBIN 13.2 gm/dL (12.0-16.0) HEMATOCRIT 39.9 % (36.0-46.0) MEAN CELL VOLUME 85 fL (80-100) MEAN CORPUSCULAR HGB 28 pg (26-34) MEAN CORPUSCULAR HGB CONC 33 g/dL (31-37) RED CELL DISTRIBUTION WIDTH 16.8 H % (11.6-14.8) PLATELET COUNT 270 K/uL (150-400) NEUTROPHIL % 69.6 % (50-75) LYMPH % 24.7 L % (25-40) MONO % 4.3 % (3-14) EOSINOPHIL % 0.7 % (0-4) BASOPHIL % 0.7 % (0-2) Urine Drug Screen: (JARAD: 08/06/2016 15:45) ( [facility] 08/06/2016 16:14) Final results Test Result Flag Units (Reference) AMPHETAMINE/METHAMPHETAMINE NEGATIVE (NEGATIVE) BARBITURATE NEGATIVE (NEGATIVE) BENZODIAZEPINE NEGATIVE (NEGATIVE) CANNABINOID NEGATIVE (NEGATIVE) COCAINE NEGATIVE (NEGATIVE) ECSTASY NEGATIVE (NEGATIVE) METHADONE NEGATIVE (NEGATIVE) OPIATE NEGATIVE (NEGATIVE) The urine drug screen is a qualitative screening test fordrug overdose and abuse. All screen results should beconsidered as presumptive.Drugs screened for are as follows:BenzodiazepinesCocaineAmphetamines/MetamphetaminesTHC (Tetrahydrocannabinol)OpiatesBarbituratesEcstasyMethadonePositive results are unconfirmed. For confirmation, notifythe lab for the specimen to be sent to the reference lab.All confirmations must be performed by a differentmethodology.The ingestion of natural herbal and plant productscontaining Ephedra/Ephedra metabolites can produce in urineone or more substances capable of cross reacting withamphetamine/methamphetamine immunoassays. These testsprovide a preliminary result only. A more specificalternative chemical method must be used to obtain aconfirmed analytical result. CMP: (JARAD: 08/06/2016 16:00) ( [facility] 08/06/2016 16:29) Final results Test Result Flag Units (Reference) ACETONE, SERUM QUALITATIVE NEGATIVE (NEGATIVE) GLUCOSE 298 H mg/dL (70-110) BUN 15 mg/dL (7-18) CREATININE 0.6 mg/dL (0.6-1.3) Estimated GFR >60 mL/min Estimated GFR- >60 mL/min Note: Persistent reduction over 3 months in eGFR<60 mL/min/1.73 m2 defines CKD. Patients with eGFR values>=60 mL/min/1.73 m2 may also have CKD if evidence ofpersistent proteinuria. Additional information may be foundat www.kidney.org. SODIUM 136 mmol/L (136-145) POTASSIUM 3.7 mmol/L (3.5-5.1) CHLORIDE 103 mmol/L (98-107) CARBON DIOXIDE 19 L mmol/L (21-32) CALCIUM 9.0 mg/dL (8.5-10.1) TOTAL PROTEIN 7.7 g/dL (6.4-8.2) ALBUMIN 3.8 g/dL (3.3-5.0) BILIRUBIN, TOTAL 0.3 mg/dL (0.0-1.0) ALKALINE PHOSPHATASE 138 H U/L (46-116) AST (SGOT) 74 H U/L (15-37) ALT (SGPT) 180 H U/L (12-78) . PROGRESS AND PROCEDURES Course of Care: Patient is stable. Consult obtained from mental health. Case discussed. Consultation performed in ED. Consult note reviewed. Patient/family counseled. Old medical records reviewed. Disposition: Transferred. CLINICAL IMPRESSION Suicidal ideation. Depression. (Electronically signed by Onel Juares MD 08/08/2016 1:37)
--- NOTE | 2016-08-07 00:58 | ED CLINICAL REPORT ---
Clinical Report - Physicians/Mid Levels [facility] [address] [place] [address] 08/06/2016 15:20 Patient: TESFAYE POSEY Time Seen: 15:28; initial patient contact. Arrived- By private vehicle. Historian- patient. HISTORY OF PRESENT ILLNESS Chief Complaint: ANXIOUS and SUICIDAL THOUGHTS. This started today. The patient has experienced situational problems related to drug use. The patient has had anxiety. Has been depressed and had suicidal thoughts. No unusual behavior, paranoia, delusions, self-injury inflicted or hallucinations. The symptoms are described as moderate. No injury is present. Similar symptoms previously: Recent medical care: Not recently seen/assessed. REVIEW OF SYSTEMS The patient has had a headache. No dizziness, weakness, abdominal pain or pain or chills. No fever, sweats, calf pain, chest pain or cough. No difficulty breathing, pedal edema, palpitations, constipation or diarrhea. No nausea, vomiting or urinary problems. All systems otherwise negative, except as recorded above. PAST HISTORY ( Hypokalemia. Hypomagnesemia. Hypoglycemia. Depression. Adjustment Disorder. Abscess. Diabetes Mellitus. Normal Exam. Diabetic Ketoacidosis. Abnormal Test. Hepatitis C carrier. Hep c. Constipation. Flank Pain. Suicidal Ideation. ADHD - Attention Deficit Hyperactivity Disorder. Hyperglycemia. Paresthesia. Vertigo. Anxiety Reaction. Back Pain. Sprain. Tetanus Status. Dental Pain. Migraine Headache. Headache. Gastritis. Diarrhea. Lifestyle / Substance Problems. Dehydration. Vomiting. Alcohol Intoxication. UTI - Urinary Tract Infection. Immunizations. Substance Abuse. Pancreatitis. Abdominal Pain. Cholecystitis. Hepatitis [RuleOut]. Abnormal Liver Function Test [RuleOut]. Pancreatitis [RuleOut]. ADDITIONAL SURGERIES: Cholecystectomy. Hip Surgery). SOCIAL HISTORY Current every day heavy tobacco smoker. History of drug use: methamphetamines. No alcohol use. Has social support. Has place to stay. ADDITIONAL NOTES The nursing notes have been reviewed. PHYSICAL EXAM Vital Signs: 08/06/2016 15:36 BP: 115/74. HR: 87. RR: 18. O2 saturation: 98%. Temp: 98.7 F. Pain level now: 0/10. Have been reviewed as normal. Appearance: Alert. Patient in apparent distress due to anxiety. She appears older than stated age and has poor hygiene. CVS: Normal heart rate and rhythm. Heart sounds normal. Respiratory: No respiratory distress. Breath sounds normal. Abdomen: Soft and nontender. Skin: Skin warm and dry. Normal skin color. Psych / Neuro: Oriented X 3. Expansive affect. She is tearful. Speech normal. Cognition normal. Thought process and content normal. Insight and judgement normal. LABS, X-RAYS, AND EKG Laboratory Tests: UA-Culture if indicated: (JARAD: 08/06/2016 15:45) ( [facility] 08/06/2016 16:26) Final results Test Result Flag Units (Reference) URINE COLOR YELLOW URINE APPEARANCE CLEAR URINE GLUCOSE 3+ (NEGATIVE) URINE BILIRUBIN NEGATIVE (NEGATIVE) URINE KETONE NEGATIVE (NEGATIVE) URINE SPECIFIC GRAVITY 1.020 (1.010-1.030) URINE PH 6.0 (5.0-8.0) URINE PROTEIN NEGATIVE (NEGATIVE) URINE UROBILINOGEN 0.2 EU/dL (0.2-1.0) URINE NITRITE NEGATIVE (NEGATIVE) URINE BLOOD NEGATIVE (NEGATIVE) URINE LEUK ESTERASE NEGATIVE (NEGATIVE) URINE RBC NONE SEEN rbc/hpf (0-1) URINE WBC 0-1 wbc/hpf (0-1) URINE EPITHELIAL CELLS 1-3 EPI/hpf (0-5) URINE BACTERIA NONE SEEN (NONE SEEN) URINE COMMENT CULT NOT INDICATED URINE CULTURES ARE SET-UP BASED ON THE FOLLOWING CRITERIA:POSITIVE NITRITEPOSITIVE LEUKOCYTE ESTERASEGREATER THAN 10 WHITE BLOOD CELLSMODERATE (2+) OR GREATER BACTERIA Urine: (JARAD: 08/06/2016 15:45) ( [facility] 08/06/2016 16:00) Final results Test Result Flag Units (Reference) URINE NEGATIVE CBC w Diff: (JARAD: 08/06/2016 16:00) ( [facility] 08/06/2016 16:23) Final results Test Result Flag Units (Reference) WHITE BLOOD COUNT 9.9 K/uL (4.5-11.5) RED BLOOD COUNT 4.72 M/uL (4.00-5.20) HEMOGLOBIN 13.2 gm/dL (12.0-16.0) HEMATOCRIT 39.9 % (36.0-46.0) MEAN CELL VOLUME 85 fL (80-100) MEAN CORPUSCULAR HGB 28 pg (26-34) MEAN CORPUSCULAR HGB CONC 33 g/dL (31-37) RED CELL DISTRIBUTION WIDTH 16.8 H % (11.6-14.8) PLATELET COUNT 270 K/uL (150-400) NEUTROPHIL % 69.6 % (50-75) LYMPH % 24.7 L % (25-40) MONO % 4.3 % (3-14) EOSINOPHIL % 0.7 % (0-4) BASOPHIL % 0.7 % (0-2) Urine Drug Screen: (JARAD: 08/06/2016 15:45) ( [facility] 08/06/2016 16:14) Final results Test Result Flag Units (Reference) AMPHETAMINE/METHAMPHETAMINE NEGATIVE (NEGATIVE) BARBITURATE NEGATIVE (NEGATIVE) BENZODIAZEPINE NEGATIVE (NEGATIVE) CANNABINOID NEGATIVE (NEGATIVE) COCAINE NEGATIVE (NEGATIVE) ECSTASY NEGATIVE (NEGATIVE) METHADONE NEGATIVE (NEGATIVE) OPIATE NEGATIVE (NEGATIVE) The urine drug screen is a qualitative screening test fordrug overdose and abuse. All screen results should beconsidered as presumptive.Drugs screened for are as follows:BenzodiazepinesCocaineAmphetamines/MetamphetaminesTHC (Tetrahydrocannabinol)OpiatesBarbituratesEcstasyMethadonePositive results are unconfirmed. For confirmation, notifythe lab for the specimen to be sent to the reference lab.All confirmations must be performed by a differentmethodology.The ingestion of natural herbal and plant productscontaining Ephedra/Ephedra metabolites can produce in urineone or more substances capable of cross reacting withamphetamine/methamphetamine immunoassays. These testsprovide a preliminary result only. A more specificalternative chemical method must be used to obtain aconfirmed analytical result. CMP: (JARAD: 08/06/2016 16:00) ( [facility] 08/06/2016 16:29) Final results Test Result Flag Units (Reference) ACETONE, SERUM QUALITATIVE NEGATIVE (NEGATIVE) GLUCOSE 298 H mg/dL (70-110) BUN 15 mg/dL (7-18) CREATININE 0.6 mg/dL (0.6-1.3) Estimated GFR >60 mL/min Estimated GFR- >60 mL/min Note: Persistent reduction over 3 months in eGFR<60 mL/min/1.73 m2 defines CKD. Patients with eGFR values>=60 mL/min/1.73 m2 may also have CKD if evidence ofpersistent proteinuria. Additional information may be foundat www.kidney.org. SODIUM 136 mmol/L (136-145) POTASSIUM 3.7 mmol/L (3.5-5.1) CHLORIDE 103 mmol/L (98-107) CARBON DIOXIDE 19 L mmol/L (21-32) CALCIUM 9.0 mg/dL (8.5-10.1) TOTAL PROTEIN 7.7 g/dL (6.4-8.2) ALBUMIN 3.8 g/dL (3.3-5.0) BILIRUBIN, TOTAL 0.3 mg/dL (0.0-1.0) ALKALINE PHOSPHATASE 138 H U/L (46-116) AST (SGOT) 74 H U/L (15-37) ALT (SGPT) 180 H U/L (12-78) . PROGRESS AND PROCEDURES Course of Care: Patient is stable. Consult obtained from mental health. Case discussed. Consultation performed in ED. Consult note reviewed. Patient/family counseled. Old medical records reviewed. Disposition: Transferred. CLINICAL IMPRESSION Suicidal ideation. Depression. (Electronically signed by Onel Juares MD 08/08/2016 1:37)
--- NOTE | 2016-08-07 00:59 | ED ORDER SUMMARY ---
..... Patient: TESFAYE POSEY OrderSheet [facility] VisitID: [id number] [address] [place] [address] 36y, F Registration Date/Time: 08/06/2016 ORDER SHEET Weight: 52.1 kg (stated) Allergies: Phenergan, Shellfish-derived Products GENERAL ORDERS: POC Glucose (15:28 08/06/2016 Lit Starkey) (15:46 LNations ER Tech1) Breathalyzer (15:46 08/06/2016 LNations ER Tech1 per protocol) (15:46 LNations ER Tech1) CBC w Diff Urgent (15:50 08/06/2016 Lit Starkey) (Ack 15:51 PWeiler ER Tech1) (16:14 Dianelys R.N.) CMP Urgent (15:50 08/06/2016 Lit Starkey) (Ack 15:51 PWeiler ER Tech1) (16:14 Dianelys R.N.) UA-Culture if indicated Urgent (15:50 08/06/2016 Lit Starkey) (Ack 15:51 PWeiler ER Tech1) (16:14 Dianelys R.N.) Urine Urgent (15:50 08/06/2016 Lit Starkey) (Ack 15:51 PWeiler ER Tech1) (16:14 Dianelys R.N.) Urine Drug Screen Urgent (15:50 08/06/2016 Lit Starkey) (Ack 15:51 PWeiler ER Tech1) (16:14 Dianelys R.N.) Acetone, Serum Urgent (15:50 08/06/2016 Lit Starkey) (Ack 15:51 PWeiler ER Tech1) (16:14 Dianelys R.N.) MEDICATION ORDERS: Vistaril PO 50 mg (NOW) (16:15 08/06/2016 Lit Starkey) (16:19 LWhalen R.N.) Acetaminophen PO 650 mg (NOW) (16:16 08/06/2016 Lit Starkey) (16:20 LWhalen R.N.) Insulin Reg Subcut 8 units (HIGH ALERT MEDICATION, NOW) (18:00 08/06/2016 Lit Starkey) (Ack 18:41 Dianelys Vyas.Yung) (18:48 Dianelys R.N.) Regular Insulin Subcut 8 units (HIGH ALERT MEDICATION, NOW) (21:11 08/06/2016 Lit Starkey) (21:16 Tisha Vyas.N.) IV FLUIDS: IV Saline Lock (15:50 08/06/2016 Lit Starkey) (Ack 16:14 Dianelys Choi) (16:20 [place] R.NMoses) ORDER SHEET NOTES: [Electronically signed by Hannah Gonzalez R.N. (07:54 08/07/2016)] [Electronically signed by Onel Juares MD (01:37 08/08/2016)] [Electronically locked/signed by Hannah Gonzalez R.N. (07:54 08/07/2016)]
--- NOTE | 2016-08-07 00:59 | ED NURSING NOTES ---
Clinical Report - Nurses [facility] [address] [place] [place] [address] 08/06/2016 15:20 Patient: TESFAYE POSEY TRIAGE Triage time 15:37. Acuity: LEVEL 3. Chief Complaint: SUICIDAL THOUGHTS. --15:43 Sandy Harrison R.N. 15:36 08/06/16. BP: 115/74. HR: 87. RR: 18. O2 saturation: 98%. Temp: 98.7 F (oral). Pain level now: 0/10. --15:43 Sandy Harrison R.N. Weight: 52.1 kg stated. Height/Length: 64 inches Per Patient. BMI: 19.7. --15:38 Sandy Harrison R.N. Medications Gabepentin . Insulin 3 units TID. MetFORMIN HCl Oral (pt doesn't know where her meds are). Wellbutrin Oral. --15:37 Sandy Harrison R.N. Allergies Phenergan. Shellfish-derived Products. --15:37 Sandy Harrison R.N. History Arrived by private vehicle. Historian: patient. Unaccompanied. Primary physician ([facility]). This is a recurrent problem. ( "I need to go to a mental facility", "I'm going to kill myself", denies a plan). PAST MEDICAL HX: Last normal menstrual period- July 2016. SOCIAL HX: Heavy tobacco smoker- 1 pack per day. History of drug use: methamphetamines. Recently used drugs days ago. No alcohol use. SELF HARM ASSESSMENT: A self harm assessment was performed. The patient answered "yes" to the question "Have you recently felt down, depressed, or hopeless?", "Have you noticed less interest or pleasure in doing things?" and "Do you have thoughts of harming or killing yourself?" and "no" to the question "Are you here because you tried to hurt yourself?", "Have you ever tried to hurt yourself before today?", "Have you recently had thoughts about harming or killing others?" and "Do you have any dangerous items in your possession?". The patient reports their behavior. In the ED the patient has made suicidal comments. FALL RISK ASSESSMENT: Fall risk assessment completed. No fall risk identified. FUNCTIONAL ASSESSMENT: Functional assessment: no impairments noted. LEARNING NEEDS ASSESSMENT: The learning needs assessment revealed no barriers. --15:43 Sandy Harrison R.N. ( belongings in - LOCKER # 5; LOCK # 2,). --16:03 Sandy Harrison R.N. PROBLEMS: Hypokalemia. Hypomagnesemia. Hypoglycemia. Depression. Adjustment Disorder. Abscess. Diabetes Mellitus. Normal Exam. Diabetic Ketoacidosis. Abnormal Test. Hepatitis C carrier. Hep c. Constipation. Flank Pain. Suicidal Ideation. ADHD - Attention Deficit Hyperactivity Disorder. Hyperglycemia. Paresthesia. Vertigo. Anxiety Reaction. Back Pain. Sprain. Tetanus Status. Dental Pain. Migraine Headache. Headache. Gastritis. Diarrhea. Lifestyle / Substance Problems. Dehydration. Vomiting. Alcohol Intoxication. UTI - Urinary Tract Infection. Immunizations. Substance Abuse. Pancreatitis. Abdominal Pain. LNMP - Last Normal Menstrual Period. Cholecystitis. --15:38 Sandy Harrison R.N. Hepatitis [RuleOut]. Abnormal Liver Function Test [RuleOut]. Pancreatitis [RuleOut]. --15:38 Sandy Harrison R.N. ADDITIONAL SURGERIES: Cholecystectomy. Hip Surgery. --15:38 Sandy Harrison R.N. Assessment GENERAL / NEURO / PSYCH: (sobbing). She is awake and alert, is oriented and cooperative and has poor eye contact. RESPIRATORY: Respirations not labored. SKIN: Skin is warm and dry. --15:43 Sandy Harrison R.N. Interventions ID and allergy band on patient. To treatment room. --15:43 Sandy Harrison R.N. PHYSICAL ASSESSMENT 15:54 08/06/16. Ambulatory to room. Patient gowned. GENERAL / NEURO / PSYCH: Alert. Oriented X 4. She is awake. Patient's mood/affect appears tearful. Poor eye contact. ( "I'm going to kill myself"). RESPIRATORY: Respirations not labored. SKIN: Skin is warm and dry. --15:54 Sandy Harrison R.N. NURSING PROGRESS NOTES Finger stick glucose: 274. --15:47 Daphnie Moreno ER Tech1 ( breathalyzer- .000). --15:48 Daphnie Moreno ER Tech1 15:55 08/06/16. Patient gowned (yellow). Head of bed elevated. Suicide precautions initiated. Clothing / valuables removed and placed in the safe. Call light placed in reach. Side rails up x 1. Bed placed in lowest position. Brakes of bed on. --15:55 Sandy Harrison R.N. 16:10 08/06/2016 Site #1 started via IV in the left hand with an 22g angiocath, with aseptic technique and good blood return; two attempts. Blood drawn: rainbow set. Labeled in the presence of the patient and sent to the lab. Saline lock flushed with 10 mL saline. --16:20 Gabriel Davis R.N. 16:19 08/06/2016 Vistaril (HydrOXYzine Pamoate) PO Capsules 50 mg given. Allergies verified, confirmed 5 rights and sedative warning given to the patient. --16:19 Gabriel Davis R.N. 16:20 08/06/2016 Acetaminophen (APAP) PO Tablets 650 mg given. Allergies verified and confirmed 5 rights. --16:20 Gabriel Davis R.N. 16:00 given a sandwich. The patient is resting quietly. Overall patient status is the same- she states feels the same. --17:44 Sandy Harrison R.N. 18:25. Overall patient status is improved- she states feels better (appears to be sleeping). RESPIRATORY: No respiratory distress. --18:25 Sandy Harrison R.N. 18:48 08/06/2016 Insulin Reg Subcutaneous 8 unit given. Given in the right upper arm. Allergies verified and confirmed 5 rights. --18:48 Sandy Harrison R.N. 18:48 08/06/2016 Insulin Reg Subcutaneous Co-signature: dosage, concentration and rate verified (by Rosita COLON). --18:49 Sandy Harrison R.N. 19:12. Care transferred and report received. --19:12 Silviano Briseno R.N. Finger stick glucose: 247 mg/dL; performed by tech; result shown to the RN. --19:39 Josette Murillo 19:51 Patient given crackers and jello. --21:01 Silviano Briseno R.N. Finger stick glucose: 286 mg/dL; performed by tech; result shown to the RN. ( 2100). --21:08 Josette Murillo 21:14 08/06/2016 Regular Insulin Subcutaneous 8 unit given. Given in the right upper arm. Allergies verified and confirmed 5 rights. (dose verified by Guillermo GOINS). --21:16 Silviano Briseno R.N. 21:20 Additional blanket placed on pt. The patient is calm and resting quietly. GENERAL / NEURO / PSYCH: Alert. Oriented X 4. Patient appears calm and cooperative. Affect appears normal. RESPIRATORY: No respiratory distress. SKIN: Skin is warm and dry. Skin color within normal limits. --21:39 Silviano Briseno R.N. 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 Obtained a reading of <43, rechecked at same reading patient given additional crackers 2 juice boxes and a cheese stick and notified Dr. Juares. --23:29 Silviano Briseno R.N. Finger stick glucose: 116 mg/dL; performed by tech; result shown to the RN. ( 2345:). --23:52 Josette Murillo Finger stick glucose: 104 mg/dL; performed by tech; result shown to the RN. --00:37 Josette Murillo 00:43 PATIENT given additional crackers and peanut butter. --00:53 Silviano Briseno R.N. 01:26. The patient is sleeping. RESPIRATORY: No respiratory distress. SKIN: Skin color within normal limits. --01:26 Silviano Briseno R.N. 02:20. The patient is sleeping. RESPIRATORY: No respiratory distress. SKIN: Skin color within normal limits. --02:20 Silviano Briseno R.N. 03:35. The patient is sleeping. RESPIRATORY: No respiratory distress. SKIN: Skin color within normal limits. --03:35 Silviano Briseno R.N. 04:35 08/07/16. BP: 97/60. HR: 71. RR: 15. O2 saturation: 100% on room air. Pain level now: 010. --04:35 Silviano Briseno R.N. 04:33. Finger stick glucose: 69 mg/dL; performed by nurse. --04:36 Silviano Briseno R.N. 04:36 Patient given juice box and 2 cheese sticks. --04:38 Silviano Briseno R.N. 04:38 Patient given more peanut butter, crackers and milk. --04:39 Silviano Briseno R.N. 04:39 Patient finished juice box, and cheese stick, eating crackers and peanut butter. The patient is calm and resting quietly. GENERAL / NEURO / PSYCH: Alert. Oriented X 4. Patient appears calm and cooperative. RESPIRATORY: No respiratory distress. SKIN: Skin is warm and dry. Skin color within normal limits. --04:43 Silviano Briseno R.N. 05:28. The patient is sleeping. RESPIRATORY: No respiratory distress. SKIN: Skin color within normal limits. --06:13 Silviano Briseno R.N. 06:24. Finger stick glucose: 233 mg/dL; performed by tech; result shown to the RN. --06:24 Silviano Briseno R.N. The patient is calm and resting quietly. GENERAL / NEURO / PSYCH: Alert. Oriented X 4. Patient appears calm and cooperative. Affect appears normal. RESPIRATORY: No respiratory distress. SKIN: Skin is warm and dry. Skin color within normal limits. --06:24 Silviano Briseno R.N. 07:35 08/07/16. Care transferred and report given (from Silviano Trinh, EDRFemi). --07:35 Hannah Gonzalez R.N. DISPOSITION / DISCHARGE 07:00 08/07/16. BP: 92/64. HR: 69. RR: 14. O2 saturation: 98%. Pain level now: 6. --07:02 Silviano Briseno R.N. Condition at departure: stable. No learning barriers present. Transferred to [facility]. Patient's personal items include, Other belongings; items were placed in belongings bag and transported with the patient. She did not have glasses, contacts, dentures or a hearing aid. FALL RISK ASSESSMENT: Fall risk assessment completed. No fall risk identified. --07:02 Silviano Briseno R.N. 07:24. Report was given via a phone call. Report included patient's care, treatment, medications, reviewed medication reconcilliation, and condition (including any recent changes or anticipated changes). All questions were answered. Report was acknowledged. (Wallace COLON @[facility]). --07:24 Silviano Briseno R.N. 07:47 08/07/16. Transported via ambulance by transport team. --07:47 Hannah Gonzalez R.N. ( Pt taken to [facility] in [place].). --07:48 Hannah Gonzalez R.N. 07:45 08/07/2016 Site #1 removed upon transfer. Catheter intact. Bandage applied. --07:52 Hannah Gonzalez R.N. Locked/Released at 08/07/2016 7:54 by Hannah Gonzalez R.N.
--- NOTE | 2016-08-07 00:59 | ED ORDER SUMMARY ---
..... Patient: TESFAYE POSEY OrderSheet [facility] VisitID: [id number] [address] [place] [address] 36y, F Registration Date/Time: 08/06/2016 ORDER SHEET Weight: 52.1 kg (stated) Allergies: Phenergan, Shellfish-derived Products GENERAL ORDERS: POC Glucose (15:28 08/06/2016 Lit Starkey) (15:46 LNations ER Tech1) Breathalyzer (15:46 08/06/2016 LNations ER Tech1 per protocol) (15:46 LNations ER Tech1) CBC w Diff Urgent (15:50 08/06/2016 Lit Starkey) (Ack 15:51 PWeiler ER Tech1) (16:14 Dianelys R.N.) CMP Urgent (15:50 08/06/2016 Lit Starkey) (Ack 15:51 PWeiler ER Tech1) (16:14 Dianelys R.N.) UA-Culture if indicated Urgent (15:50 08/06/2016 Lit Starkey) (Ack 15:51 PWeiler ER Tech1) (16:14 Dianelys R.N.) Urine Urgent (15:50 08/06/2016 Lit Starkey) (Ack 15:51 PWeiler ER Tech1) (16:14 Dianelys R.N.) Urine Drug Screen Urgent (15:50 08/06/2016 Lit Starkey) (Ack 15:51 PWeiler ER Tech1) (16:14 Dianelys R.N.) Acetone, Serum Urgent (15:50 08/06/2016 Lit Starkey) (Ack 15:51 PWeiler ER Tech1) (16:14 Dianelys R.N.) MEDICATION ORDERS: Vistaril PO 50 mg (NOW) (16:15 08/06/2016 Lit Starkey) (16:19 LWhalen R.N.) Acetaminophen PO 650 mg (NOW) (16:16 08/06/2016 Lit Starkey) (16:20 LWhalen R.N.) Insulin Reg Subcut 8 units (HIGH ALERT MEDICATION, NOW) (18:00 08/06/2016 Lit Starkey) (Ack 18:41 Dianelys Vyas.Yung) (18:48 Dianelys R.N.) Regular Insulin Subcut 8 units (HIGH ALERT MEDICATION, NOW) (21:11 08/06/2016 Lit Starkey) (21:16 Tisha Vyas.N.) IV FLUIDS: IV Saline Lock (15:50 08/06/2016 Lit Starkey) (Ack 16:14 Dianelys Choi) (16:20 [place] R.NMoses) ORDER SHEET NOTES: [Electronically signed by Hannah Gonzalez R.N. (07:54 08/07/2016)] [Electronically signed by Onel Juares MD (01:37 08/08/2016)] [Electronically locked/signed by Hannah Gonzalez R.N. (07:54 08/07/2016)]
--- NOTE | 2016-08-07 00:59 | ED NURSING NOTES ---
Clinical Report - Nurses [facility] [address] [place] [address] 08/06/2016 15:20 Patient: TESFAYE POSEY TRIAGE Triage time 15:37. Acuity: LEVEL 3. Chief Complaint: SUICIDAL THOUGHTS. --15:43 Sandy Harrison R.N. 15:36 08/06/16. BP: 115/74. HR: 87. RR: 18. O2 saturation: 98%. Temp: 98.7 F (oral). Pain level now: 0/10. --15:43 Sandy Harrison R.N. Weight: 52.1 kg stated. Height/Length: 64 inches Per Patient. BMI: 19.7. --15:38 Sandy Harrison R.N. Medications Gabepentin . Insulin 3 units TID. MetFORMIN HCl Oral (pt doesn't know where her meds are). Wellbutrin Oral. --15:37 Sandy Harrison R.N. Allergies Phenergan. Shellfish-derived Products. --15:37 Sandy Harrison R.N. History Arrived by private vehicle. Historian: patient. Unaccompanied. Primary physician ([facility]). This is a recurrent problem. ( "I need to go to a mental facility", "I'm going to kill myself", denies a plan). PAST MEDICAL HX: Last normal menstrual period- July 2016. SOCIAL HX: Heavy tobacco smoker- 1 pack per day. History of drug use: methamphetamines. Recently used drugs days ago. No alcohol use. SELF HARM ASSESSMENT: A self harm assessment was performed. The patient answered "yes" to the question "Have you recently felt down, depressed, or hopeless?", "Have you noticed less interest or pleasure in doing things?" and "Do you have thoughts of harming or killing yourself?" and "no" to the question "Are you here because you tried to hurt yourself?", "Have you ever tried to hurt yourself before today?", "Have you recently had thoughts about harming or killing others?" and "Do you have any dangerous items in your possession?". The patient reports their behavior. In the ED the patient has made suicidal comments. FALL RISK ASSESSMENT: Fall risk assessment completed. No fall risk identified. FUNCTIONAL ASSESSMENT: Functional assessment: no impairments noted. LEARNING NEEDS ASSESSMENT: The learning needs assessment revealed no barriers. --15:43 Sandy Harrison R.N. ( belongings in - LOCKER # 5; LOCK # 2,). --16:03 Sandy Harrison R.N. PROBLEMS: Hypokalemia. Hypomagnesemia. Hypoglycemia. Depression. Adjustment Disorder. Abscess. Diabetes Mellitus. Normal Exam. Diabetic Ketoacidosis. Abnormal Test. Hepatitis C carrier. Hep c. Constipation. Flank Pain. Suicidal Ideation. ADHD - Attention Deficit Hyperactivity Disorder. Hyperglycemia. Paresthesia. Vertigo. Anxiety Reaction. Back Pain. Sprain. Tetanus Status. Dental Pain. Migraine Headache. Headache. Gastritis. Diarrhea. Lifestyle / Substance Problems. Dehydration. Vomiting. Alcohol Intoxication. UTI - Urinary Tract Infection. Immunizations. Substance Abuse. Pancreatitis. Abdominal Pain. LNMP - Last Normal Menstrual Period. Cholecystitis. --15:38 Sandy Harrison R.N. Hepatitis [RuleOut]. Abnormal Liver Function Test [RuleOut]. Pancreatitis [RuleOut]. --15:38 Sandy Harrison R.N. ADDITIONAL SURGERIES: Cholecystectomy. Hip Surgery. --15:38 Sandy Harrison R.N. Assessment GENERAL / NEURO / PSYCH: (sobbing). She is awake and alert, is oriented and cooperative and has poor eye contact. RESPIRATORY: Respirations not labored. SKIN: Skin is warm and dry. --15:43 Sandy Harrison R.N. Interventions ID and allergy band on patient. To treatment room. --15:43 Sandy Harrison R.N. PHYSICAL ASSESSMENT 15:54 08/06/16. Ambulatory to room. Patient gowned. GENERAL / NEURO / PSYCH: Alert. Oriented X 4. She is awake. Patient's mood/affect appears tearful. Poor eye contact. ( "I'm going to kill myself"). RESPIRATORY: Respirations not labored. SKIN: Skin is warm and dry. --15:54 Sandy Harrison R.N. NURSING PROGRESS NOTES Finger stick glucose: 274. --15:47 Daphnie Moreno ER Tech1 ( breathalyzer- .000). --15:48 Daphnie Moreno ER Tech1 15:55 08/06/16. Patient gowned (yellow). Head of bed elevated. Suicide precautions initiated. Clothing / valuables removed and placed in the safe. Call light placed in reach. Side rails up x 1. Bed placed in lowest position. Brakes of bed on. --15:55 Sandy Harrison R.N. 16:10 08/06/2016 Site #1 started via IV in the left hand with an 22g angiocath, with aseptic technique and good blood return; two attempts. Blood drawn: rainbow set. Labeled in the presence of the patient and sent to the lab. Saline lock flushed with 10 mL saline. --16:20 Gabriel Davis R.N. 16:19 08/06/2016 Vistaril (HydrOXYzine Pamoate) PO Capsules 50 mg given. Allergies verified, confirmed 5 rights and sedative warning given to the patient. --16:19 Gabriel Davis R.N. 16:20 08/06/2016 Acetaminophen (APAP) PO Tablets 650 mg given. Allergies verified and confirmed 5 rights. --16:20 Gabriel Davis R.N. 16:00 given a sandwich. The patient is resting quietly. Overall patient status is the same- she states feels the same. --17:44 Sandy Harrison R.N. 18:25. Overall patient status is improved- she states feels better (appears to be sleeping). RESPIRATORY: No respiratory distress. --18:25 Sandy Harrison R.N. 18:48 08/06/2016 Insulin Reg Subcutaneous 8 unit given. Given in the right upper arm. Allergies verified and confirmed 5 rights. --18:48 Sandy Harrison R.N. 18:48 08/06/2016 Insulin Reg Subcutaneous Co-signature: dosage, concentration and rate verified (by Rosita COLON). --18:49 Sandy Harrison R.N. 19:12. Care transferred and report received. --19:12 Silviano Briseno R.N. Finger stick glucose: 247 mg/dL; performed by tech; result shown to the RN. --19:39 Josette Murillo 19:51 Patient given crackers and jello. --21:01 Silviano Briseno R.N. Finger stick glucose: 286 mg/dL; performed by tech; result shown to the RN. ( 2100). --21:08 Josette Murillo 21:14 08/06/2016 Regular Insulin Subcutaneous 8 unit given. Given in the right upper arm. Allergies verified and confirmed 5 rights. (dose verified by Guillermo GOINS). --21:16 Silviano Briseno R.N. 21:20 Additional blanket placed on pt. The patient is calm and resting quietly. GENERAL / NEURO / PSYCH: Alert. Oriented X 4. Patient appears calm and cooperative. Affect appears normal. RESPIRATORY: No respiratory distress. SKIN: Skin is warm and dry. Skin color within normal limits. --21:39 Silviano Briseno R.N. 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 Obtained a reading of <43, rechecked at same reading patient given additional crackers 2 juice boxes and a cheese stick and notified Dr. Juares. --23:29 Silviano Briseno R.N. Finger stick glucose: 116 mg/dL; performed by tech; result shown to the RN. ( 2345:). --23:52 Josette Murillo Finger stick glucose: 104 mg/dL; performed by tech; result shown to the RN. --00:37 Josette Murillo 00:43 PATIENT given additional crackers and peanut butter. --00:53 Silviano Briseno R.N. 01:26. The patient is sleeping. RESPIRATORY: No respiratory distress. SKIN: Skin color within normal limits. --01:26 Silviano Briseno R.N. 02:20. The patient is sleeping. RESPIRATORY: No respiratory distress. SKIN: Skin color within normal limits. --02:20 Silviano Briseno R.N. 03:35. The patient is sleeping. RESPIRATORY: No respiratory distress. SKIN: Skin color within normal limits. --03:35 Silviano Briseno R.N. 04:35 08/07/16. BP: 97/60. HR: 71. RR: 15. O2 saturation: 100% on room air. Pain level now: 010. --04:35 Silviano Briseno R.N. 04:33. Finger stick glucose: 69 mg/dL; performed by nurse. --04:36 Silviano Briseno R.N. 04:36 Patient given juice box and 2 cheese sticks. --04:38 Silviano Briseno R.N. 04:38 Patient given more peanut butter, crackers and milk. --04:39 Silviano Briseno R.N. 04:39 Patient finished juice box, and cheese stick, eating crackers and peanut butter. The patient is calm and resting quietly. GENERAL / NEURO / PSYCH: Alert. Oriented X 4. Patient appears calm and cooperative. RESPIRATORY: No respiratory distress. SKIN: Skin is warm and dry. Skin color within normal limits. --04:43 Silviano Briseno R.N. 05:28. The patient is sleeping. RESPIRATORY: No respiratory distress. SKIN: Skin color within normal limits. --06:13 Silviano Briseno R.N. 06:24. Finger stick glucose: 233 mg/dL; performed by tech; result shown to the RN. --06:24 Silviano Briseno R.N. The patient is calm and resting quietly. GENERAL / NEURO / PSYCH: Alert. Oriented X 4. Patient appears calm and cooperative. Affect appears normal. RESPIRATORY: No respiratory distress. SKIN: Skin is warm and dry. Skin color within normal limits. --06:24 Silviano Briseno R.N. 07:35 08/07/16. Care transferred and report given (from Silviano Trinh, EDRFemi). --07:35 Hannah Gonzalez R.N. DISPOSITION / DISCHARGE 07:00 08/07/16. BP: 92/64. HR: 69. RR: 14. O2 saturation: 98%. Pain level now: 6. --07:02 Silviano Briseno R.N. Condition at departure: stable. No learning barriers present. Transferred to [facility]. Patient's personal items include, Other belongings; items were placed in belongings bag and transported with the patient. She did not have glasses, contacts, dentures or a hearing aid. FALL RISK ASSESSMENT: Fall risk assessment completed. No fall risk identified. --07:02 Silviano Briseno R.N. 07:24. Report was given via a phone call. Report included patient's care, treatment, medications, reviewed medication reconcilliation, and condition (including any recent changes or anticipated changes). All questions were answered. Report was acknowledged. (Wallace COLON @[facility]). --07:24 Silviano Briseno R.N. 07:47 08/07/16. Transported via ambulance by transport team. --07:47 Hannah Gonzalez R.N. ( Pt taken to [facility] in [place].). --07:48 Hannah Gonzalez R.N. 07:45 08/07/2016 Site #1 removed upon transfer. Catheter intact. Bandage applied. --07:52 Hannah Gonzalez R.N. Locked/Released at 08/07/2016 7:54 by Hannah Gonzalez R.N.
--- NOTE | 2016-08-08 01:38 | ED DISCHARGE INSTRUCTIONS ---
Patient: TESFAYE POSEY General Instructions [facility] VisitID: [id number] [address] [place] [address] 36y, F Registration Date/Time: 08/06/2016 Suicidal ideation. Depression. (Electronically signed by Onel Juares MD 08/08/2016 1:37)
--- NOTE | 2016-08-08 01:38 | ED DISCHARGE INSTRUCTIONS ---
Patient: TESFAYE POSEY General Instructions [facility] VisitID: [id number] [address] [place] [address] 36y, F Registration Date/Time: 08/06/2016 Suicidal ideation. Depression. (Electronically signed by Onel Juares MD 08/08/2016 1:37)
--- NOTE | 2016-08-08 01:38 | ED MED RECONCILIATION SUMMARY ---
Patient: TESFAYE POSEY Medication Reconciliation Report [facility] VisitID: [id number] [address] [place] [address] 36y, F Registration Date/Time: 08/06/2016 Weight: 52.1 kg Height/Length: 64 in. BMI: 19.7 ALLERGIES: Phenergan, Shellfish-derived Products The patient's Home Medications are listed below: THE FOLLOWING MEDICATIONS NEED TO BE RECONCILED: Gabepentin Insulin 3 units TID MetFORMIN HCl Oral, pt doesn't know where her meds are Wellbutrin Oral The source(s) of the original Home Medication information: Not obtained. The following Medications were given to the patient in the Emergency Department: Vistaril [PO] PO 50 mg, administered: 08/06/2016 4:19:00 PM Acetaminophen [PO] PO 650 mg, administered: 08/06/2016 4:20:00 PM Insulin Reg [Subcutaneous] Subcutaneous 8 unit, administered: 08/06/2016 6:48:00 PM Regular Insulin [Subcutaneous] Subcutaneous 8 unit, administered: 08/06/2016 9:14:00 PM The following Medications were prescribed to the patient: None.
--- NOTE | 2016-08-08 01:38 | ED MAR SUMMARY ---
..... Medication Administration Record [facility] [address] [facility] [place] [address] Patient: TESFAYE POSEY Visit ID: [id number] 36y, F Weight: 52.1 kg Height/Length: 64 in BMI: 19.7 ALLERGIES: Phenergan, Shellfish-derived Products Given 16:19 08/06/2016 Gabriel Davis RDaniel Medication Administered: VISTARIL [PO] (HYDROXYZINE PAMOATE), Dose: 50 mg Capsules PO. Medication Ordered: Vistaril PO 50 mg (NOW). Given 16:20 08/06/2016 Gabriel Davis R.N. Medication Administered: ACETAMINOPHEN [PO] (APAP), Dose: 650 mg Tablets PO. Medication Ordered: Acetaminophen PO 650 mg (NOW). Given 18:48 08/06/2016 Sandy Harrison R.N. Medication Administered: INSULIN REG [SUBCUTANEOUS], Dose: 8 unit Subcutaneous. Medication Ordered: Insulin Reg Subcut 8 units (HIGH ALERT MEDICATION, NOW). Given 21:14 08/06/2016 Silviano Briseno RMosesNMoses Medication Administered: REGULAR INSULIN [SUBCUTANEOUS], Dose: 8 unit Subcutaneous. Medication Ordered: Regular Insulin Subcut 8 units (HIGH ALERT MEDICATION, NOW).
--- NOTE | 2016-08-08 01:38 | ED MAR SUMMARY ---
..... Medication Administration Record [facility] [address] [facility] [place] [address] Patient: TESFAYE POSEY Visit ID: [id number] 36y, F Weight: 52.1 kg Height/Length: 64 in BMI: 19.7 ALLERGIES: Phenergan, Shellfish-derived Products Given 16:19 08/06/2016 Gabriel Davis RDaniel Medication Administered: VISTARIL [PO] (HYDROXYZINE PAMOATE), Dose: 50 mg Capsules PO. Medication Ordered: Vistaril PO 50 mg (NOW). Given 16:20 08/06/2016 Gabriel Davis R.N. Medication Administered: ACETAMINOPHEN [PO] (APAP), Dose: 650 mg Tablets PO. Medication Ordered: Acetaminophen PO 650 mg (NOW). Given 18:48 08/06/2016 Sandy Harrison R.N. Medication Administered: INSULIN REG [SUBCUTANEOUS], Dose: 8 unit Subcutaneous. Medication Ordered: Insulin Reg Subcut 8 units (HIGH ALERT MEDICATION, NOW). Given 21:14 08/06/2016 Silviano Briseno RMosesNMoses Medication Administered: REGULAR INSULIN [SUBCUTANEOUS], Dose: 8 unit Subcutaneous. Medication Ordered: Regular Insulin Subcut 8 units (HIGH ALERT MEDICATION, NOW).
--- NOTE | 2016-08-08 01:38 | ED MED RECONCILIATION SUMMARY ---
Patient: TESFAYE POSEY Medication Reconciliation Report [facility] VisitID: [id number] [address] [place] [address] 36y, F Registration Date/Time: 08/06/2016 Weight: 52.1 kg Height/Length: 64 in. BMI: 19.7 ALLERGIES: Phenergan, Shellfish-derived Products The patient's Home Medications are listed below: THE FOLLOWING MEDICATIONS NEED TO BE RECONCILED: Gabepentin Insulin 3 units TID MetFORMIN HCl Oral, pt doesn't know where her meds are Wellbutrin Oral The source(s) of the original Home Medication information: Not obtained. The following Medications were given to the patient in the Emergency Department: Vistaril [PO] PO 50 mg, administered: 08/06/2016 4:19:00 PM Acetaminophen [PO] PO 650 mg, administered: 08/06/2016 4:20:00 PM Insulin Reg [Subcutaneous] Subcutaneous 8 unit, administered: 08/06/2016 6:48:00 PM Regular Insulin [Subcutaneous] Subcutaneous 8 unit, administered: 08/06/2016 9:14:00 PM The following Medications were prescribed to the patient: None.
== END 2016-08-07 07:47 | disposition other institution (70) ==
LOC: ED SRH 15:21
DX: R45.851 Suicidal ideations (principal); F32.9 Major depressive disorder, single episode, unspecified; E11.9 Type 2 diabetes mellitus without complications; F17.210 Nicotine dependence, cigarettes, uncomplicated; F19.10 Other psychoactive substance abuse, uncomplicated; Z79.4 Long term (current) use of insulin; Z79.84 Long term (current) use of oral hypoglycemic drugs
CPT/HCPCS: 90004; 90098; 90100; 90301; 92760; 92761; 92762; 92763; 92764; 92765; 92766; 92767; 93070; 95059